=== PATIENT | female | born 1960 | race Caucasian/White ===

== ENCOUNTER 2024-12-03 09:27 | Outpatient (AMB) | payer MEDICARE, OTHER, SELFPAY ==
--- NOTE | 2024-12-03 09:33 | A.OFFPC_ITS ---
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 Accompanied by: Self / Same As Patient Allergies No Known Allergies Allergy (Verified 12/03/24 10:06) Medication List - Last Reconciled 12/07/24 by VERONICA Livingston albuterol sulfate 90 mcg/actuation (Ventolin HFA) 2 puffs inhalation Q4-6H PRN aspirin 81 mg PO DAILY clopidogrel 75 mg PO DAILY diclofenac sodium 1% (Arthritis Pain (diclofenac)) 2 grams topical QID estradiol 0.01%(0.1mg/gram) 1 g vaginal 2XW isosorbide mononitrate ER 30 mg PO DAILY lorazepam 0.5 mg PO DAILY PRN losartan 100 mg PO DAILY metoprolol succinate ER 25 mg PO BID nitroglycerin 0.4 mg sublingual Q5M PRN ondansetron HCl 4 mg PO Q8H PRN rosuvastatin 20 mg PO BID Tobacco use date assessed: 12/03/24 Dental Screening Dental Screen Date: 12/03/24 Did you have a dental visit in the last 12 months?: Yes Did you have a dental problem in the last 6 months where you did not have access to dental care?: No Was dental information given to patient?: Patient has dentist HPI establish care/ cardio HPI Details The patient is a 64-year-old female who is presenting to establish care The patient recently moved from [place] 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 Previous PCP: Louise Montes [employer] Last visit: 11/11/24 Last PE: same Specialist: Cardiology-afib in June (was sick with the flu in the hospital when this occurred), but the afib has not returned since it was converted ( urology -hx of recurrent uti, , dermatology (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), orthopedic (ostheoarthritis of bilateral knee and hip, PRP injections x 3, the patient has a hard time walking and requires ongoing PT) OBGYN: Past medical history: CAD, TREMAYNE, PTSD was seeing a therapist before and psychiatrist, bi knee osteoarthritis, PRP injections done x3, Family HX: Mother multiple myeloma-wants her to be screen because it is hereditary, needs a referral to hematology Problem: The patient will need multiple referrals, Cardiology, Urology, Dermatology, Orthopedics/PT, hematology/oncology (patient wants to to be screened for multiple myeloma) CAD-the patient was having increasing anginal chest pain, shortness of breath, dyspnea on exertion, lightheadedness The patient had a positive Lexiscan stress test with Dr. Gusman The patient was referred for left heart catheterization and a stent was placed on 10/24/2024 Left heart catheterization showed left circumflex mid-vessel stenosis 50%, 1st obtuse marginal proximal vessel stenosis, diffuse 99% stenosis, this lesion was considered the culprit for the patient's anginal symptoms and clinical presentation. Right coronary mid vessel stenosis 70%. The patient was discharged with anticipated cardiac rehab and has anticipated follow up with Dr. Gusman on 01/13/2025 Patient notes that she has had complete resolution of her symptoms She is currently on Plavix 75 mg daily, metoprolol succinate 25 mg twice daily, isosorbide mononitrate ER 30 mg daily, aspirin 81 mg daily and atorvastatin 20 mg b.i.d. Initially the patient was started on atorvastatin 80 mg but was unable to tolerate medication due to increased muscle pain The patient reports that she has been noticing a resurgence of her muscle pain and reports that her PCP switched her to rosuvastatin 20 mg b.i.d. The patient denies chest pain, shortness of breath, heart palpitation, lightheadedness She denies any change in bowel habits, denies any urinary symptoms but endorses recurrent UTIs, had a recent episode that was treated with Macrobid-she is requesting to be referred to Urology [facility] Medical History (Updated 12/07/24 @ 15:44 by VERONICA Livingston) TREMAYNE (generalized anxiety disorder) Melanocytic nevus Hyperlipidemia History of recurrent UTI (urinary tract infection) Benign paroxysmal positional vertigo Ganglion Family history of multiple myeloma CAD (coronary artery disease) Afib Adjustment disorder Asthma Arthritis Surgical History Hx of vaginal hysterectomy S/P appendectomy S/P cholecystectomy H/O cystocele repair Previous section History of orthopedic surgery H/O cystoscopy History of percutaneous coronary intervention Family History (Updated 12/07/24 @ 15:29 by VERONICA Livingston) Father Coronary artery disease Hypertension Mother Vertigo Multiple myeloma Arthritis Son Schizophrenia Anxiety Daughter Anxiety Adrenal failure Atrial fibrillation Lyme disease Son Retinopathy Daughter Obesity Daughter Lyme disease Daughter No problems noted. Sister Uterine cancer Social History Household Members: Children Household Members Other:: Son: Manny Housing: House Alcohol intake: current Alcohol intake frequency: holidays/special occasions only Patient Tobacco Use Status: Former Tobacco user Tobacco use type: Cigarette e-Cigarette/Vaping Use: Never Used Second Hand Smoke Exposure: No service: No Current occupational status: disabled Cognitive needs: No Hearing needs: No Vision needs: Yes Questionnaire PHQ-9 Over the last 2 weeks, how often have you been bothered by any of the following problems? 1. Little interest or pleasure in doing things: not at all 2. Feeling down, depressed, or hopeless: not at all 3. Trouble falling or staying asleep, or sleeping too much: several days 4. Feeling tired or having little energy: several days 5. Poor appetite or overeating: not at all 6. Feeling bad about yourself - or that you are a failure or have let yourself or your family down: not at all 7. Trouble concentrating on things, such as reading the newspaper or watching television: not at all 8. Moving or speaking so slowly that other people could have noticed. Or the opposite - being so fidgety or restless that you have been moving around a lot more than usual: not at all 9. Thoughts that you would be better off or of hurting yourself in some way: not at all Total score: 2 Depression Screening Interpretation: Negative Depression Screening Done: Yes 97023 - PHQ-9 Billing: Yes Source: Developed by Drs. Chi Valdivia, Melissa Bateman, Bull Lemus and colleagues, with an educational fabio from [employer]. Thrive Questionnaire Date Thrive assessed: 12/03/24 I am a: Patient What is your living situation today?: I have a steady place to live Within the past 12 months, did the food you bought not last and you didn't have the money to get more?: Never true Within the past 12 months, did you worry whether your food would run out before you got money to buy more?: Never true Do you have trouble paying for medicines?: No Do you have trouble getting transportation to medical appointments?: No Do you have trouble paying your heating and electricity bill?: No Do you have trouble taking care of your child, family member or friend?: No Do you have trouble with day-to-day activities such as bathing, preparing meals, shopping, managing finances, etc.?: No Are you currently unemployed and looking for a job?: Yes Are you interested in more education?: No Please select the resources that you would like help with: Care for elder or disabled Currently or been in a relationship where the following occur: No concerns reported THRIVE Score: 0 AUDIT C Alcohol Use Questionnaire (AUDIT-C) 1. How often do you have a drink containing alcohol?: Monthly or less 2. How many drinks containing alcohol do you have on a typical day when you are drinking?: 1 or 2 3. How often do you have six or more drinks on one occasion?: Never Total Score: 1 TREMAYNE-7 AMB Questionnaire TREMAYNE-7 Date TREMAYNE - 7 assessed: 12/03/24 Feeling nervous, anxious, or on edge: 1 = Several days Not being able to stop or control worryin = Several days Worrying too much about different things: 1 = Several days Trouble relaxin = Several days Being so restless that it is hard to sit still: 0 = Not at all Becoming easily annoyed or irritable: 1 = Several days Feeling afraid as if something awful might happen: 1 = Several days Total TREMAYNE-7 score (0-4 normal; 5-9 mild; 10-14 moderate; 15-21 severe): 6 Source: Developed by Drs. Chi Valdivia, Melissa Bateman, Bull Lemus and colleagues, with an educational fabio from [employer]. TREMAYNE-7 Assessment Billing TREMAYNE-7 Assessment Tool: TREMAYNE-7 Assessment 82263 Review of Systems Const Reports headache(s) (hx of migraines) Eyes Denies loss of vision ENT Reports vertigo (intermittently), Denies dizziness, Reports headache(s) (hx of migraines) and Denies sore throat Card Reports chest pain with activity (hx of anginal pain has resolved since stenting), Reports irregular heart rhythm (hx of Afib-no more episodes since converted in hospital), Denies leg edema and Denies lightheadedness Resp Denies cough, Denies hemoptysis and Denies wheezing GI Denies abdominal pain, Denies melena, Denies constipation, Reports heartburn (hx of pantoprazole 40 mg), Denies diarrhea and Denies vomiting Denies urinary frequency, Denies dysuria, Denies urinary urgency, Reports vaginal dryness and Reports other (recurrent UTI) Musc Reports arthralgias (Bilateral hip and knee pain), Denies joint swelling, Reports muscle cramps (bilateral upper thigh-statin treatment), Denies numbness and Denies tingling Skin/Breast Reports other (melanocytic nevus-hx of squamous ca-tx moh's procedure) Neuro Denies Abnormal speech present, Denies behavioral changes, Reports vertigo (intermittently), Denies dizziness, Reports headache(s) (hx of migraines), Denies loss of vision, Reports memory loss (hx of amnesia), Denies numbness and Denies tingling Psych Reports anxiety, Denies behavioral changes, Reports depression, Reports memory loss (hx of amnesia) and Reports panic attacks (hx-controlled) Moi/Lymph Denies easy bleeding and Denies easy bruising Aller/Immun Denies wheezing Physical exam (Primary Care) Vital Signs: Last Vital Signs Temp 99 F 12/03/24 09:34 Pulse 68 12/03/24 09:34 BP 118/64 12/03/24 09:34 Pulse Ox 96 12/03/24 09:34 Oxygen Delivery Method Room Air 12/03/24 09:34 BMI result Body Mass Index 31.3 Tobacco/Smoking Status: Tobacco use Status Tobacco use date assessed 12/03/24 12/03/24 09:59 Patient Tobacco Use Status Former Tobacco user 12/03/24 09:59 Tobacco use type Cigarette 12/03/24 09:59 e-Cigarette/Vaping Use Never Used 12/03/24 09:59 PHQ-9: PHQ-9 Score PHQ-9: Total score 2 12/07/24 10:43 Depression Screening Interpretation: Negative Thrive Assessment: Date of Thrive Assessment Date Thrive assessed 12/03/24 12/03/24 09:59 Currently or been in a relationship where the following occur: No concerns reported Const General: healthy appearing, no acute distress, alert and awake Nutritional Appearance: well nourished Orientation/consciousness: oriented to person, oriented to place and oriented to time HENMT Ears: TM's normal bilaterally General nose exam: Normal nasal mucous membranes and turbinates present Eyes Conjunctivae: conjunctivae normal Sclerae: sclerae normal Pupils: Equal, round and reactive pupils present Neck Neck: Yes no lymphadenopathy and Yes no JVD Thyroid: Thyroid normal Carotids: no bruits Resp Effort & Inspection: normal respiratory effort and not tachypneic Auscultation: no crackles, no rales, no rhonchi and no wheezes Cardio Rate: regular rate Rhythm: regular rhythm Heart sounds: no murmurs and normal S1 and S2 GI Palpation (GI): Soft to palpation, nontender, no hepatomegaly and no splenomegaly Auscultation: normal bowel sounds General: Yes no CVA tenderness Back/Spine/Pelvis Back: no CVA tenderness Skin General skin exam: no rashes or lesions noted and dry skin Neuro General: oriented to person, oriented to place and oriented to time Cranial nerves: Yes Equal, round and reactive pupils present Speech: No Abnormal speech present Gait exam (Neuro): Normal gait present Motor exam (neuro): no tremor noted Extrem General: Yes full ROM and Yes capillary refill normal Right upper extremity: full ROM Left upper extremity: full ROM Right lower extremity: full ROM, hip/thigh Details: tenderness and knee Details: tenderness; no edema Left lower extremity: full ROM, hip/thigh Details: tenderness and knee Details: tenderness; no edema Psych Mental Status: mental status grossly normal Speech and movement: Normal speech and movement present Affect: normal affect Attitude: cooperative Thought process: Normal thought process present Coding Level of Care Code New Pt Level 4 (06389) Diagnoses Arthritis M19.90 Asthma, unspecified asthma severity, unspecified whether complicated, unspecified whether persistent J45.909 Asthma complication type: unspecified Asthma persistence: unspecified Asthma severity: unspecified severity Adjustment disorder, unspecified type F43.20 Adjustment disorder type: unspecified type Coronary artery disease due to lipid rich plaque I25.10; I25.83 Coronary Disease-Associated Artery/Lesion type: due to lipid rich plaque Benign paroxysmal positional vertigo due to bilateral vestibular disorder H81.13 Laterality: bilateral History of recurrent UTI (urinary tract infection) Z87.440 Hyperlipidemia, unspecified hyperlipidemia type E78.5 Hyperlipidemia type: unspecified Melanocytic nevus, unspecified location D22.9 Melanocytic nevus location: unspecified location Panic disorder F41.0 TREMAYNE (generalized anxiety disorder) F41.1 Family history of multiple myeloma Z80.7 Atrial fibrillation, unspecified type I48.91 Atrial fibrillation type: unspecified Primary hypertension I10 Hypertension type: primary hypertension Atrophic vulvovaginitis N95.2 Unstable angina I20.0 Additional Codes PHQ-9 - 72393 - PHQ-9 Billing: Yes ([id number]) TREMAYNE-7 Assessment Billing - TREMAYNE-7 Assessment Tool: TREMAYNE-7 Assessment 15369 ([id number]) Time Spent (min) 46 Assessment & Plan Assessment & Plan (1) Arthritis: Comment: Bilateral hips and knees- reports ongoing PT-she is requesting to be referred to orthopedic/PT Code(s): M19.90 - Unspecified osteoarthritis, unspecified site Category: Medical Plan: Continue diclofenac sodium 1% topical We will refer the patient to Orthopedics/ PT (2) Asthma: Code(s): J45.909 - Unspecified asthma, uncomplicated Category: Medical Qualifiers: Asthma complication type: unspecified Asthma persistence: unspecified Asthma severity: unspecified severity Qualified Code(s): J45.909 - Unspecified asthma, uncomplicated Plan: Avoid triggers Continue Ventolin 2 puffs 4-6 hours p.r.n. (3) Adjustment disorder: Code(s): F43.20 - Adjustment disorder, unspecified Category: Medical Qualifiers: Adjustment disorder type: unspecified type Qualified Code(s): F43.20 - Adjustment disorder, unspecified Plan: Continue lorazepam 0.5 mg daily p.r.n. Denies SI/HI (4) CAD (coronary artery disease): Comment: The patient was having increased anginal chest pain, sob, dyspnea on exertion, lightheadedness She had a positive lexiscan stress test with Dr. Calderon She was referred for a left heart cath and stent was placed 10/24/2024 Patient notes that she has had complete resolution of her symptoms She is currently on Plavix 75 mg daily, metoprolol succinate 25 mg twice daily isosorbide mononitrate, extended release 30 mg daily, aspirin 81 mg daily, Atorvastatin 20 mg BID She does not seem to be tolerating the atorvastatin This was reduced from 80 mg to 20 mg twice daily, she is having significant lower extremity discomfort We will have her trial rosuvastatin 10 mg in replacement of the atorvastatin 40 mg Code(s): I25.10 - Atherosclerotic heart disease of yocha dehe coronary artery without angina pectoris Category: Medical Qualifiers: Coronary Disease-Associated Artery/Lesion type: due to lipid rich plaque Qualified Code(s): I25.10 - Atherosclerotic heart disease of yocha dehe coronary artery without angina pectoris; I25.83 - Coronary atherosclerosis due to lipid rich plaque Plan: The patient was having increased anginal chest pain, sob, dyspnea on exertion, lightheadedness She had a positive lexiscan stress test with Dr. Calderon She was referred for a left heart cath and stent was placed 10/24/2024 Patient notes that she has had complete resolution of her symptoms She is currently on Plavix 75 mg daily, metoprolol succinate 25 mg twice daily isosorbide mononitrate, extended release 30 mg daily, aspirin 81 mg daily, Atorvastatin 20 mg BID She does not seem to be tolerating the atorvastatin This was reduced from 80 mg to 20 mg twice daily, she is having significant lower extremity discomfort The patient was trial on rosuvastatin 10 mg in replacement of the atorvastatin 40 mg Rosuvastatin was increased to 20 mg BID, the reports that she is having mild muscle cramps in bilateral thighs but wants to see if she will get used to the medication Will refer the patient to [facility] cardiology (5) Benign paroxysmal positional vertigo: Code(s): H81.10 - Benign paroxysmal vertigo, unspecified ear Category: Medical Qualifiers: Laterality: bilateral Qualified Code(s): H81.13 - Benign paroxysmal vertigo, bilateral Plan: Patient reports intermittent dizziness Reports using meclizine in the past, will consider referring the patient to PT for vestibular therapy (6) History of recurrent UTI (urinary tract infection): Code(s): Z87.440 - Personal history of urinary (tract) infections Category: Medical Plan: Will refer the patient urology (7) Hyperlipidemia: Code(s): E78.5 - Hyperlipidemia, unspecified Category: Medical Qualifiers: Hyperlipidemia type: unspecified Qualified Code(s): E78.5 - Hyperlipidemia, unspecified Plan: Reinforced low-cholesterol diet/activity as tolerated Continue rosuvastatin 20 mg b.i.d. (8) Melanocytic nevus: Code(s): D22.9 - Melanocytic nevi, unspecified Category: Medical Qualifiers: Melanocytic nevus location: unspecified location Qualified Code(s): D22.9 - Melanocytic nevi, unspecified Plan: History of squamous Ca status post Moh's procedure Will refer the patient to Dermatology (9) Panic disorder: Code(s): F41.0 - Panic disorder [episodic paroxysmal anxiety] Category: Medical Plan: The patient reports that she use to see a therapist and psychiatrist in the past She is currently not seeing anyone-Will refer the patient for added support. She was emotional at visit Continue lorazepam 0.5 mg daily p.r.n. (10) TREMAYNE (generalized anxiety disorder): Code(s): F41.1 - Generalized anxiety disorder Category: Medical Plan: Same as above (11) Family history of multiple myeloma: Code(s): Z80.7 - Family history of other malignant neoplasms of lymphoid, hematopoietic and related tissues Category: Medical Plan: We will refer to Hematology (12) Afib: Code(s): I48.91 - Unspecified atrial fibrillation Category: Medical Qualifiers: Atrial fibrillation type: unspecified Qualified Code(s): I48.91 - Unspecified atrial fibrillation Plan: Reports episode of AFib while sick in the hospital with flu. Patient reports that she was cardioverted and this irregular rhythm has not reappear since. The patient was on apixaban and this was discontinued (13) Hypertension: Code(s): I10 - Essential (primary) hypertension Category: Medical Qualifiers: Hypertension type: primary hypertension Qualified Code(s): I10 - Essential (primary) hypertension Plan: Reinforced low-sodium diet The patient blood pressure in office was 118/64 The currently on isosorbide mononitrate ER 30 mg daily, losartan 100 mg daily, metoprolol succinate ER 25 mg b.i.d. We will continue to monitor (14) Atrophic vulvovaginitis: Code(s): N95.2 - Postmenopausal atrophic vaginitis Category: Medical Plan: Continue estradiol 0 lb 0 1% 1 g vaginal 2xw (15) Unstable angina: Code(s): I20.0 - Unstable angina Category: Medical Plan: stable: symptoms have completed resolved since cardiac stenting. Nitroglycerin 0.4 mg sublingual Q 5 minutes p.r.n. Orders: Orders Hemoglobin A1c 12/05/24 R73.03 - Prediabetes UA CC w/rflx Micro + Cult 3 Months E78.00 - Pure hypercholesterolemia, unspecified, E78.5 - Hyperlipidemia, unspecified, I10 - Essential (primary) hypertension, I25.10 - Atherosclerotic heart disease of yocha dehe coronary artery without angina pectoris, I25.83 - Coronary atherosclerosis due to lipid rich sam que, M19.90 - Unspecified osteoarthritis, unspecified site, R73.03 - Prediabetes, Z87.440 - Personal history of urinary (tract) infections Glucose Fasting 3 Months E78.00 - Pure hypercholesterolemia, unspecified, E78.5 - Hyperlipidemia, unspecified, I10 - Essential (primary) hypertension, I25.10 - Atherosclerotic heart disease of yocha dehe coronary artery without angina pectoris, I25.83 - Coronary atherosclerosis due to lipid rich plaque, M19.90 - Unspecified osteoarthritis, unspecified site, R73.03 - Prediabetes, Z87.440 - Personal history of urinary (tract) infections PT Evaluation and Treatment Today M19.90 - Unspecified osteoarthritis, unspecified site Lipid Panel 12/05/24 E78.00 - Pure hypercholesterolemia, unspecified Glucose Fasting 12/05/24 R73.03 - Prediabetes Complete Blood Count Auto Diff 3 Months E78.00 - Pure hypercholesterolemia, unspecified, E78.5 - Hyperlipidemia, unspecified, I10 - Essential (primary) hypertension, I25.10 - Atherosclerotic heart disease of y[place] dehe coronary artery without angina pectoris, I25.83 - Coronary atherosclerosis due to lipid rich plaque, M19.90 - Unspecified osteoarthritis, unspecified site, R73.03 - Prediabetes, Z87.440 - Personal history of urinary (tract) infections Comprehensive Steward. Panel Fast 3 Months E78.00 - Pure hypercholesterolemia, unspecified, E78.5 - Hyperlipidemia, unspecified, I10 - Essential (primary) hypertension, I25.10 - Atherosclerotic heart disease of y[place] dehe coronary artery without angina pectoris, I25.83 - Coronary atherosclerosis due to lipid rich plaque, M19.90 - Unspecified osteoarthritis, unspecified site, R73.03 - Prediabetes, Z87.440 - Personal history of urinary (tract) infections Lipid Panel 3 Months E78.00 - Pure hypercholesterolemia, unspecified, E78.5 - Hyperlipidemia, unspecified, I10 - Essential (primary) hypertension, I25.10 - Atherosclerotic heart disease of y[place] dehe coronary artery without angina pectoris, I25.83 - Coronary atherosclerosis due to lipid rich plaque, M19.90 - Unspecified osteoarthritis, unspecified site, R73.03 - Prediabetes, Z87.440 - Personal history of urinary (tract) infections TSH reflex Free T4 3 Months E78.00 - Pure hypercholesterolemia, unspecified, E78.5 - Hyperlipidemia, unspecified, I10 - Essential (primary) hypertension, I25.10 - Atherosclerotic heart disease of y[place] dehe coronary artery without angina pectoris, I25.83 - Coronary atherosclerosis due to lipid rich plaque, M19.90 - Unspecified osteoarthritis, unspecified site, R73.03 - Prediabetes, Z87.440 - Personal history of urinary (tract) infections Vitamin D 25-OH Total 3 Months E78.00 - Pure hypercholesterolemia, unspecified, E78.5 - Hyperlipidemia, unspecified, I10 - Essential (primary) hypertension, I25.10 - Atherosclerotic heart disease of y[place] dehe coronary artery without angina pectoris, I25.83 - Coronary atherosclerosis due to lipid rich plaque, M19.90 - Unspecified osteoarthritis, unspecified site, R73.03 - Prediabetes, Z87.440 - Personal history of urinary (tract) infections Referrals Cardiology Referral I20.0 - Unstable angina, I25.10 - Atherosclerotic heart disease of y[place] dehe coronary artery without angina pectoris, I25.83 - Coronary atherosclerosis due to lipid rich plaque, I48.91 - Unspecified atrial fibrillation Dermatology Referral D22.9 - Melanocytic nevi, unspecified Orthopedics Referral M19.90 - Unspecified osteoarthritis, unspecified site Hematology & Oncology Referral Z80.7 - Family history of other malignant neoplasms of lymphoid, hematopoietic and related tissues
[2024-12-03 09:34] VITALS: BP 118/64; PULSE 68; TEMP 37.2; O2SAT 96; BMI 31.3
--- OUTSIDE RECORDS SUMMARY | 2024-12-03 10:38 | XMS_ITS | Clinical Summary ---
Author Organization [facility] Address [address] [place] [address] Care Team Providers Care Home Care Manager Rn Name Role Phone Unavailable Primary Care Provider Unavailabl e Social History Tobacco Use Types Packs/Day Years Used Date Smoking Tobacco: Never Assessed Comments Unknown Sex and Gender Information Value Date Recorded Sex Assigned at Not on file Legal Sex Female 10:30 AM EST Gender Identity Not on file Sexual Orientation Not on file Plan of Treatment Not on file
--- OUTSIDE RECORDS SUMMARY | 2024-12-03 10:38 | XMS_ITS | Clinical Summary ---
Author Organization [facility] Address [address] [place] [address] Phone Care Team Providers Care Printer'S Devil Name Role Phone Physician, Pcp Unknown Primary Care Provider Maryana vailable Allergies No known active allergies Encounters Date Type Department Care Team Description 11/17/2024 3:34 AM EST - 11/17/2024 4:[address] [facility] Emergency [address] [place] [address] Discharge Disposition: Left Against Medical Advice from Last 3 Months Social History Tobacco Use Types Packs/Day Years Used Date Smoking Tobacco: Never Assessed Comments Unknown Sex and Gender Information Value Date Recorded Sex Assigned at Not on file Legal Sex Female 3:34 AM EST Gender Identity Not on file Sexual Orientation Not on file Last Filed Vital Signs Vital Sign Reading Time Taken Comments Blood Pressure 148/78 11/17/2024 3:40 AM EST Pulse 68 11/17/2024 3:40 AM EST Temperature 36.7 ??C (98.1 ??F) 11/17/2024 3:40 AM ES T Respiratory Rate 14 11/17/2024 3:40 AM EST Oxygen Saturation 99% 11/17/2024 3:40 AM EST Inhaled Oxygen Concentration - - Weight 77.1 kg (170 lb) 11/17/2024 3:40 AM EST Height 160 cm (5' 3 ) 11/17/2024 3:40 AM EST Body Mass Index 30.11 11/17/2024 3:40 AM EST Plan of Treatment Health Maintenance Due Date Last Done Comments Breast Cancer Screening 1962 DTaP,Tdap,and Td Vaccines (1 - Tdap) 1981 Cervical Cancer Screening: P ap Smear 1983 Pneumococcal Vaccine: 50+ Ye ars (1 of 1 - PCV) 01/29/2012 Zoster Vaccines (1 of 2) 01/29/2012 RSV Immunization Patients 60 + Years Old (1 - Risk 60-74 years 1-dose series) 2022 COVID-19 Vaccine (1 - 2023-2 5 season) 2024 Influenza Vaccine (#1) 2024 Colorectal Cancer Screening: Colonoscopy 11/17/2024 Depression Screening 11/17/2024 HIV Screening 11/17/2024 Hepatitis C Screening 11/17/2024 Medicare Annual Wellness Visit 11/17/2024 Social Influencers of Health Screening 11/17/2024 HIB Vaccines Aged Out No longer eligi ble based on patient's age to complete this topic HPV Vaccines Aged Out No longer eligi ble based on patient's age to complete this topic Hepatitis A Vaccines Aged Out No long er eligible based on patient's age to complete this topic Hepatitis B Vaccines Aged Out No long er eligible based on patient's age to complete this topic IPV Vaccines Aged Out No longer eligi ble based on patient's age to complete this topic MMR Vaccines Aged Out No longer eligi ble based on patient's age to complete this topic Meningococcal ACWY Vaccine Aged Out N o longer eligible based on patient's age to complete this topic Meningococcal B Vacine Aged Out No lo nger eligible based on patient's age to complete this topic Pneumococcal Vaccine: Pediat rics (0 to 5 Years) and At-Risk Patients (6 to 64 Years) Aged Out No longer eligible b ased on patient's age to complete this topic RSV Immunization Patients Un anayeli 20 months Aged Out No longer eligible b ased on patient's age to complete this topic Varicella Vaccines Aged Out No longer eligible based on patient's age to complete this topic Procedures Procedure Name Priority Date/Time Associated Diagnosis Comments MERRILL URINE CULTURE TUBE STAT 11/17/2024 4:13 AM EST URINALYSIS WITH REFLEX MICROSCOPIC AND CULTURE STAT 11/17/2024 4:13 AM EST URINALYSIS WITH REFLEX MICROSCOPIC AND CULTURE STAT 11/17/2024 4:13 AM EST CULTURE URINE STAT 11/17/2024 4:13 AM EST from Last 3 Months Results * (ABNORMAL) Urinalysis with reflex microscopic and culture (11/17/2024 4:13 AM EST) Specific [place] Urine 1.018 1.003 - 1.030 LAB URINALYSIS - AUTOMATED METHOD 11/17/2024 5:09 AM [facility] pH, Urine 6.0 5.0 - 8.0 pH LAB URINALYSIS - AUTOMATED METHOD 11/17/2024 5:09 AM [facility] Leukocytes, Urine Large(A) Negative LAB URINALYSIS - AUTOMATED METHOD 11/17/2024 5:09 AM [facility] Nitrite, Urine Negative Negative LAB URINALYSIS - AUTOMATED METHOD 11/17/2024 5:09 AM [facility] Protein, Urine Negative <=Trace mg/dL LAB URINALYSIS - AUTOMATED METHOD 11/17/2024 5:09 AM [facility] Glucose, Urine Negative Negative mg/dL LAB URINALYSIS - AUTOMATED METHOD 11/17/2024 5:09 AM [facility] Ketones, Urine Negative Negative mg/dL LAB URINALYSIS - AUTOMATED METHOD 11/17/2024 5:09 AM [facility] Urobilinogen , Urine 0.2 0.2 - 1.0 mg/dL LAB URINALYSIS - AUTOMATED METHOD 11/17/2024 5:09 AM [facility] Bilirubin, Urine Negative Negative LAB URINALYSIS - AUTOMATED METHOD 11/17/2024 5:09 AM [facility] Blood, Urine Moderate(A) Negative LAB URINALYSIS - AUTOMATED METHOD 11/17/2024 5:09 AM [facility] RBC, Urine 18.3(H) 0 - 4 /HPF LAB URINALYSIS - AUTOMATED METHOD 11/17/2024 5:09 AM [facility] WBC, Urine 378.5(H) 0 - 4 /HPF LAB URINALYSIS - AUTOMATED METHOD 11/17/2024 5:09 AM [facility] Squamous Epithelial, Urine 9 0 - 60 /LPF LAB URINALYSIS - AUTOMATED METHOD 11/17/2024 5:09 AM [facility] Bacteria, Urine Many(A) Negative /HPF LAB URINALYSIS - AUTOMATED METHOD 11/17/2024 5:09 AM [facility] Hyaline Casts, Urine 0.4 0 - 3 /LPF LAB URINALYSIS - AUTOMATED METHOD 11/17/2024 5:09 AM [facility] Urine Urine specimen obtained by clean catch procedure / Unknown Non-blood Collection / Unknown 11/17/2024 4:13 AM EST 11/17/2024 4:50 AM EST us Ravi Guidry MD LAB URINE ORDERABLES Final Resu lt Performing Organization Address [facility]/ZIP Co de Phone Number [facility] [address] [place] [address], [place] [phone] * Merrill urine culture tube (11/17/2024 4:13 AM EST) Extra Tube Hold for add-ons. 11/17/2024 6:01 AM [facility] Comment:Auto resulted. Urine Urine specimen obtained by clean catch procedure / Unknown Non-blood Collection / Unknown 11/17/2024 4:13 AM EST 11/17/2024 4:50 AM EST us Ravi Guidry MD LAB URINE ORDERABLES Final Resu lt Performing Organization Address [facility]/ZIP Co de Phone Number [facility] [address] [place] [address], [place] [phone] * (ABNORMAL) Culture urine (11/17/2024 4:13 AM EST) Culture, Urine >100,000 CFU/mL Escherichia coli(A) DEVYN 11/19/2024 10:27 AM EST [facility] Urine Urine specimen obtained by clean catch procedure / Unknown Non-blood Collection / Unknown 11/17/2024 4:13 AM EST 11/17/2024 5:09 AM EST Narrative Organism Antibiotic Method Susceptibility Escherichia coli Amoxicillin/Clavulanate DEVYN <=2 ug/ml: Susceptible Escherichia coli Ampicillin/Sulbactam DEVYN <=2 ug/ml: Susceptible Escherichia coli Piperacillin/Tazobactam DEVYN <=4 ug/ml: Susceptible Escherichia coli Cefazolin (Urine) DEVYN 2 ug/ml: Susceptible Escherichia coli Cefoxitin DEVYN <=4 ug/ml: Susceptible Escherichia coli Ceftazidime DEVYN <=0.5 ug/ml: Susceptible Escherichia coli Ceftriaxone DEVYN <=0.25 ug/ml: Susceptible Escherichia coli Cefepime DVEYN <=0.12 ug/ml: Susceptible Escherichia coli Meropenem DEVYN <=0.25 ug/ml: Susceptible Escherichia coli Amikacin DEVYN 2 ug/ml: Susceptible Escherichia coli Gentamicin DEVYN <=1 ug/ml: Susceptible Escherichia coli Ciprofloxacin DEVYN <=0.06 ug/ml: Susceptible Escherichia coli Levofloxacin DEVYN <=0.12 ug/ml: Susceptible Escherichia coli Nitrofurantoin DEVYN <=16 ug/ml: Susceptible Escherichia coli Trimethoprim/Sulfamethoxazole DEVYN <=20 ug/ml: Susceptible [facility] Val Guidry MD LAB MICROBIOLOGY - GENERAL ORDE PIPER Final Result [facility] [address] [place] [address], [place] [phone] from Last 3 Months Insurance MEDICARE Care Teams Printer'S Devil Relationship Specialty Start Date End Date Physician, Pcp Unknown PCP - General 11/17/24
--- OUTSIDE RECORDS SUMMARY | 2024-12-03 10:38 | XMS_ITS | Encounter Summary ---
Author Organization [facility] Address [address] [place] [address] Care Team Providers Care Position Clerk Name Role Phone Physician, Pcp Unknown Primary Care Provider Maryana vailable Reason for Visit * Reason Comments Urinary Frequency States having sympto ms of uti has hx of same just moved here from [place] no pcp Encounter Details Date Type Department Care Team (Late st Contact Info) Description 11/17/2024 3:34 AM EST - 11/17/2024 4:00 AM EST Emergency [facility] Emergency [address] [place] [address] Discharge Disposition: Left Against Medical Advice Social History Tobacco Use Types Packs/Day Years Used Date Smoking Tobacco: Never Assessed Comments Unknown Sex and Gender Information Value Date Recorded Sex Assigned at Not on file Legal Sex Female 3:34 AM EST Gender Identity Not on file Sexual Orientation Not on file documented as of this encounter Last Filed Vital Signs Vital Sign Reading [...] Mass Index 30.11 11/17/2024 3:40 AM EST documented in this encounter Discharge Disposition Disposition Code Departure Means Destination Left Against Medical Advice documented in this encounter Progress Notes * Vania Slater RN - 11/17/2024 4:00 AM EST Pt seen by PCP was placed on macrobid which will cover her bacteria . documented in this encounter Plan of Treatment Not on file documented as of this encounter Procedures Procedure Name Priority Date/Time Associated Diagnosis Comments URINALYSIS WITH REFLEX MICROSCOPIC AND CULTURE STAT 11/17/2024 4:13 AM EST MERRILL URINE CULTURE TUBE STAT 11/17/2024 4:13 AM EST URINALYSIS WITH REFLEX MICROSCOPIC AND CULTURE STAT 11/17/2024 4:13 AM EST CULTURE URINE STAT 11/17/2024 4:13 AM EST documented in this encounter Results * (ABNORMAL) Culture urine (11/17/2024 4:13 AM EST) Culture, Urine >100,000 CFU/mL Escherichia coli(A) DEVYN 11/19/2024 10:27 AM EST [facility] Urine Urine specimen obtained by [...] DEVYN <=0.25 ug/ml: Susceptible Escherichia coli Cefepime DEVYN <=0.12 ug/ml: Susceptible Escherichia coli Meropenem DEVYN <=0.25 ug/ml: Susceptible Escherichia coli Amikacin DEVYN 2 ug/ml: Susceptible Escherichia coli Gentamicin DEVYN <=1 ug/ml: Susceptible Escherichia coli Ciprofloxacin DEVYN <=0.06 ug/ml: Susceptible Escherichia coli Levofloxacin DEVYN <=0.12 ug/ml: Susceptible Escherichia coli Nitrofurantoin DEVYN <=16 ug/ml: Susceptible Escherichia coli Trimethoprim/Sulfamethoxazole DEVYN <=20 ug/ml: Susceptible us Ravi Guidry MD LAB MICROBIOLOGY - GENERAL ORDE RABLES Final Result Performing Organization Address [facility]/ZIP Co de Phone Number [facility] [address] [place] [address], [place] [phone] * Merrill urine culture tube (11/17/2024 4:13 AM EST) [facility] Extra Tube Hold for add-ons. 11/17/2024 6:01 AM [facility] Comment:Auto resulted. Urine Urine specimen obtained by clean catch procedure / Unknown Non-blood Collection / Unknown 11/17/2024 4:13 AM EST 11/17/2024 4:50 AM EST us Ravi Guidry MD LAB URINE ORDERABLES Final Resu lt Performing Organization Address [facility]/ZIP Co de Phone Number [facility] [address] [place] [address], [place] [phone] * (ABNORMAL) Urinalysis with reflex microscopic and culture (11/17/2024 4:13 AM EST) [facility] Specific [place] Urine 1.018 1.003 - 1.030 LAB URINALYSIS - AUTOMATED METHOD 11/17/2024 5:09 AM [facility] pH, Urine 6.0 5.0 - 8.0 pH LAB URINALYSIS - AUTOMATED METHOD 11/17/2024 5:09 AM [facility] Leukocytes, Urine Large(A) Negative LAB URINALYSIS - AUTOMATED METHOD 11/17/2024 5:09 AM [facility] Nitrite, Urine Negative Negative LAB URINALYSIS - AUTOMATED METHOD 11/17/2024 5:09 AM [facility] Protein, Urine Negative <=Trace mg/dL LAB URINALYSIS - AUTOMATED METHOD 11/17/2024 5:09 AM [facility] Glucose, Urine Negative Negative mg/dL LAB URINALYSIS - AUTOMATED METHOD 11/17/2024 5:09 AM [facility] Ketones, Urine Negative Negative mg/dL LAB URINALYSIS - AUTOMATED METHOD 11/17/2024 5:09 AM [facility] Urobilinogen , Urine 0.2 0.2 - 1.0 mg/dL LAB URINALYSIS - AUTOMATED METHOD 11/17/2024 5:09 AM [facility] Bilirubin, Urine Negative Negative LAB URINALYSIS - AUTOMATED METHOD 11/17/2024 5:09 AM [facility] Blood, Urine Moderate(A) Negative LAB URINALYSIS - AUTOMATED METHOD 11/17/2024 5:09 AM [facility] RBC, Urine 18.3(H) 0 - 4 /HPF LAB URINALYSIS - AUTOMATED METHOD 11/17/2024 5:09 AM [facility] WBC, Urine 378.5(H) 0 - 4 /HPF LAB URINALYSIS - AUTOMATED METHOD 11/17/2024 5:09 AM [facility] Squamous Epithelial, Urine 9 0 - 60 /LPF LAB URINALYSIS - AUTOMATED METHOD 11/17/2024 5:09 AM [facility] Bacteria, Urine Many(A) Negative /HPF LAB URINALYSIS - AUTOMATED METHOD 11/17/2024 5:09 AM [facility] Hyaline Casts, Urine 0.4 0 - 3 /LPF LAB URINALYSIS - AUTOMATED METHOD 11/17/2024 5:09 AM [facility] Urine Urine specimen obtained by clean catch procedure / Unknown Non-blood Collection / Unknown 11/17/2024 4:13 AM EST 11/17/2024 4:50 AM EST us Ravi Guidry MD LAB URINE ORDERABLES Final Resu lt [facility] ([facility]) [facility] [address] [place] [address], documented in this encounter Visit Diagnoses Not on filedocumented in this encounter Care Teams Position Clerk Relationship Specialty Start Date End Date Physician, Pcp Unknown PCP - General 11/17/24 documented as of this encounter
== END 2024-12-03 10:54 | disposition home or self-care (01) ==
DX: I48.91 Unspecified atrial fibrillation (principal); I20.0 Unstable angina; M19.90 Unspecified osteoarthritis, unspecified site; J45.909 Unspecified asthma, uncomplicated; F43.20 Adjustment disorder, unspecified; I25.10 Atherosclerotic heart disease of native coronary artery without angina pectoris; I25.83 Coronary atherosclerosis due to lipid rich plaque; H81.13 Benign paroxysmal vertigo, bilateral; Z87.440 Personal history of urinary (tract) infections; E78.5 Hyperlipidemia, unspecified; D22.9 Melanocytic nevi, unspecified; F41.0 Panic disorder [episodic paroxysmal anxiety]

== ENCOUNTER → 2024-12-03 09:27 | Outpatient (BNVA) | payer MEDICARE, SELFPAY | DX: M19.90 Unspecified osteoarthritis, unspecified site (principal); J45.909 Unspecified asthma, uncomplicated; F43.20 Adjustment disorder, unspecified; I25.119 Atherosclerotic heart disease of native coronary artery with unspecified angina pectoris; I25.83 Coronary atherosclerosis due to lipid rich plaque; H81.13 Benign paroxysmal vertigo, bilateral; E78.5 Hyperlipidemia, unspecified; D22.9 Melanocytic nevi, unspecified; F41.0 Panic disorder [episodic paroxysmal anxiety]; F41.1 Generalized anxiety disorder; I48.91 Unspecified atrial fibrillation; I10 Essential (primary) hypertension; N95.2 Postmenopausal atrophic vaginitis; Z80.7 Family history of other malignant neoplasms of lymphoid, hematopoietic and related tissues; Z87.440 Personal history of urinary (tract) infections | CPT/HCPCS: 96127; 99202 ==

== ENCOUNTER 2024-12-05 10:08 | Outpatient (REF) | payer MEDICARE, OTHER, SELFPAY ==
[2024-12-05 11:20] LABS: Estimated Average Glucose 114 mg/dL; Hemoglobin A1c % 5.6 % (<6.0)
[2024-12-05 11:44] LABS: Cholesterol 140 mg/dL (<200); Glucose Fasting 114 mg/dL (60-99); HDL Cholesterol 53 mg/dL (>40); LDL Cholesterol Calculated 66 mg/dL (<100); Triglycerides 107 mg/dL (<150)
--- OUTSIDE RECORDS SUMMARY | 2024-12-05 12:42 | XMS_ITS | Clinical Summary ---
Author Organization [facility] Address [address] [place] [address] Care Team Providers Care Clam Picker Name Role Phone Unavailable Primary Care Provider [...]
--- OUTSIDE RECORDS SUMMARY | 2024-12-05 12:42 | XMS_ITS | Encounter Summary ---
Author Organization [facility] Address [address] [place] [address] Care Team Providers Care Marketing Analytics Specialist Name Role Phone Physician, Pcp Unknown Primary Care Provider Maryana vailable Reason for Visit * Reason Comments Urinary Frequency States having sympto ms of uti has hx of same just moved here from [place] no pcp Encounter Details Date Type Department Care Team (Late st Contact Info) Description 11/17/2024 3:34 AM EST - 11/17/2024 4:00 AM EST Emergency [facility] Emergency [address] [place] [address] Discharge Disposition: Left Against Medical [...] Escherichia coli(A) DEVYN 11/19/2024 10:27 AM EST [facility] Urine Urine specimen obtained by clean catch procedure / Unknown Non-blood Collection / Unknown 11/17/2024 4:13 AM EST 11/17/2024 5:09 AM EST Narrative Organism Antibiotic Method Susceptibility Escherichia coli Amoxicillin/Clavulanate DEVYN <=2 ug/ml: Susceptible Escherichia coli Ampicillin/Sulbactam DEVYN <=2 ug/ml: Susceptible Escherichia coli Piperacillin/Tazobactam DEVYN <=4 ug/ml: Susceptible Escherichia coli Cefazolin (Urine) DVEYN 2 ug/ml: Susceptible Escherichia coli Cefoxitin DEVYN [...] ORDE RABLES Final Result Performing Organization Address [facility]/ZIP Co de Phone Number [facility] [address] [place] [address], [place] [phone] * Merrill urine culture tube (11/17/2024 4:13 AM EST) [facility] Extra Tube Hold for add-ons. 11/17/2024 6:01 AM [facility] Comment:Auto resulted. Urine Urine specimen obtained by clean catch procedure / Unknown Non-blood Collection / Unknown 11/17/2024 4:13 AM EST 11/17/2024 4:50 AM EST us Ravi Guidry MD LAB URINE ORDERABLES Final Resu lt Performing Organization Address [facility]/ZIP Co de Phone Number [facility] [address] [place] [address], [place] [phone] * (ABNORMAL) Urinalysis with reflex microscopic and culture (11/17/2024 4:13 AM EST) [facility] Specific [place] Urine 1.018 1.003 - 1.030 LAB URINALYSIS - AUTOMATED METHOD 11/17/2024 5:09 AM [facility] pH, Urine 6.0 5.0 - 8.0 pH LAB URINALYSIS - AUTOMATED METHOD 11/17/2024 5:09 AM [facility] Leukocytes, Urine Large(A) Negative LAB URINALYSIS - AUTOMATED METHOD 11/17/2024 5:09 AM [facility] Nitrite, Urine Negative Negative LAB URINALYSIS - AUTOMATED METHOD 11/17/2024 5:09 AM [facility] Protein, Urine Negative <=Trace mg/dL LAB URINALYSIS - AUTOMATED METHOD 11/17/2024 5:09 AM [facility] Glucose, Urine Negative Negative mg/dL LAB URINALYSIS - AUTOMATED METHOD 11/17/2024 5:09 AM [facility] Ketones, Urine Negative Negative mg/dL LAB URINALYSIS - AUTOMATED METHOD 11/17/2024 5:09 AM [facility] Urobilinogen , Urine 0.2 0.2 - 1.0 mg/dL LAB URINALYSIS - AUTOMATED METHOD 11/17/2024 5:09 AM [facility] Bilirubin, Urine Negative Negative LAB URINALYSIS - AUTOMATED METHOD 11/17/2024 5:09 AM [facility] Blood, Urine Moderate(A) Negative LAB URINALYSIS - AUTOMATED METHOD 11/17/2024 5:09 AM [facility] RBC, Urine 18.3(H) 0 - 4 /HPF LAB URINALYSIS - AUTOMATED METHOD 11/17/2024 5:09 AM [facility] WBC, Urine 378.5(H) 0 - 4 /HPF LAB URINALYSIS - AUTOMATED METHOD 11/17/2024 5:09 AM [facility] Squamous Epithelial, Urine 9 0 - 60 /LPF LAB URINALYSIS - AUTOMATED METHOD 11/17/2024 5:09 AM [facility] Bacteria, Urine Many(A) Negative /HPF LAB URINALYSIS - AUTOMATED METHOD 11/17/2024 5:09 AM [facility] Hyaline Casts, Urine 0.4 0 - 3 /LPF LAB URINALYSIS - AUTOMATED METHOD 11/17/2024 5:09 AM [facility] Urine Urine specimen obtained by clean catch procedure / Unknown Non-blood Collection / Unknown 11/17/2024 4:13 AM EST 11/17/2024 4:50 AM EST us Ravi Guidry MD LAB URINE ORDERABLES Final Resu lt [facility] ([facility]) [facility] [address] [place] [address], documented in this encounter Visit Diagnoses Not on filedocumented in this encounter Care Teams Marketing Analytics Specialist Relationship Specialty Start Date End Date Physician, Pcp Unknown PCP - General 11/17/24 documented as of this encounter
--- OUTSIDE RECORDS SUMMARY | 2024-12-05 12:42 | XMS_ITS | Clinical Summary ---
Author Organization [facility] Address [address] [place] [address] Phone Care Team Providers Care Booth Cleaner Name Role Phone Physician, Pcp Unknown Primary Care Provider Maryana vailable Allergies No known active allergies Encounters Date Type Department Care Team Description 11/17/2024 3:34 AM EST - 11/17/2024 4:[address] [facility] Emergency [address] [place] [address] Discharge Disposition: Left Against Medical [...] and culture (11/17/2024 4:13 AM EST) Specific [place] Urine 1.018 1.003 - 1.030 LAB URINALYSIS - AUTOMATED METHOD 11/17/2024 5:09 AM [facility] pH, Urine 6.0 5.0 - 8.0 pH LAB URINALYSIS - AUTOMATED METHOD 11/17/2024 5:09 AM [facility] Leukocytes, Urine Large(A) Negative LAB URINALYSIS - AUTOMATED METHOD 11/17/2024 5:09 AM [facility] Nitrite, Urine Negative Negative LAB URINALYSIS - AUTOMATED METHOD 11/17/2024 5:09 AM [facility] Protein, Urine Negative <=Trace mg/dL LAB URINALYSIS - AUTOMATED METHOD 11/17/2024 5:09 AM [facility] Glucose, Urine Negative Negative mg/dL LAB URINALYSIS - AUTOMATED METHOD 11/17/2024 5:09 AM [facility] Ketones, Urine Negative Negative mg/dL LAB URINALYSIS - AUTOMATED METHOD 11/17/2024 5:09 AM [facility] Urobilinogen , Urine 0.2 0.2 - 1.0 mg/dL LAB URINALYSIS - AUTOMATED METHOD 11/17/2024 5:09 AM [facility] Bilirubin, Urine Negative Negative LAB URINALYSIS - AUTOMATED METHOD 11/17/2024 5:09 AM [facility] Blood, Urine Moderate(A) Negative LAB URINALYSIS - AUTOMATED METHOD 11/17/2024 5:09 AM [facility] RBC, Urine 18.3(H) 0 - 4 /HPF LAB URINALYSIS - AUTOMATED METHOD 11/17/2024 5:09 AM [facility] WBC, Urine 378.5(H) 0 - 4 /HPF LAB URINALYSIS - AUTOMATED METHOD 11/17/2024 5:09 AM [facility] Squamous Epithelial, Urine 9 0 - 60 /LPF LAB URINALYSIS - AUTOMATED METHOD 11/17/2024 5:09 AM [facility] Bacteria, Urine Many(A) Negative /HPF LAB URINALYSIS - AUTOMATED METHOD 11/17/2024 5:09 AM [facility] Hyaline Casts, Urine 0.4 0 - 3 /LPF LAB URINALYSIS - AUTOMATED METHOD 11/17/2024 5:09 AM [facility] Urine Urine specimen obtained by clean catch procedure / Unknown Non-blood Collection / Unknown 11/17/2024 4:13 AM EST 11/17/2024 4:50 AM EST us Ravi Guidry MD LAB URINE ORDERABLES Final Resu lt Performing Organization Address [facility]/ZIP Co de Phone Number [facility] [address] [place] [address], [place] [phone] * Merrill urine culture tube (11/17/2024 4:13 AM EST) Extra Tube Hold for add-ons. 11/17/2024 6:01 AM [facility] Comment:Auto resulted. Urine Urine specimen obtained by clean catch procedure / Unknown Non-blood Collection / Unknown 11/17/2024 4:13 AM EST 11/17/2024 4:50 AM EST us Ravi Guidry MD LAB URINE ORDERABLES Final Resu lt Performing Organization Address [facility]/ZIP Co de Phone Number [facility] [address] [place] [address], [place] [phone] * (ABNORMAL) Culture urine (11/17/2024 4:13 AM EST) Culture, Urine >100,000 CFU/mL Escherichia coli(A) DEVYN 11/19/2024 10:27 AM EST [facility] Urine Urine specimen obtained [...] Escherichia coli Trimethoprim/Sulfamethoxazole DEVYN <=20 ug/ml: Susceptible [facility] Val Guidry MD LAB MICROBIOLOGY - GENERAL ORDE PIPER Final Result [facility] [address] [place] [address], [place] [phone] from Last 3 Months Insurance MEDICARE Care Teams Booth Cleaner Relationship Specialty Start Date End Date Physician, Pcp Unknown PCP - General 11/17/24
== END 2024-12-05 10:09 | disposition home or self-care (01) ==
LOC: HO.LAB 10:08
DX: R73.03 Prediabetes (principal); E78.00 Pure hypercholesterolemia, unspecified
CPT/HCPCS: 36415; 80061; 82947; 83036

== ENCOUNTER 2025-01-03 12:57 | Outpatient (AMB) | payer MEDICARE, OTHER, SELFPAY ==
[2025-01-03 12:58] VITALS: BP 168/102; PULSE 70; O2SAT 98; BMI 31.0
--- NOTE | 2025-01-03 12:58 | MHC.OFFWIV ---
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 States she is also having some dizziness/lightheadedness. She has some radiation of this pressure from her mid chest, up to shoulders, causing some numbness/tingling in this area. History of AFib, not anticoagulated. Has had some palpitations over the last several days. Followed by line production cook in [facility], very recently moved to this area and does not have care established with a local line production cook. History of cardiac catheterization with stent placement this past September,. Patient denies any shortness of breath at this time. Patient forgot to take BP meds this morning. [facility] Medical History TREMAYNE (generalized anxiety disorder) Melanocytic nevus Hyperlipidemia History of recurrent UTI (urinary tract infection) Benign paroxysmal positional vertigo Ganglion Family history of multiple myeloma CAD (coronary artery disease) Afib Adjustment disorder Asthma Arthritis Surgical History Hx of vaginal hysterectomy S/P appendectomy S/P cholecystectomy H/O cystocele repair Previous section History of orthopedic surgery H/O cystoscopy History of percutaneous coronary intervention Family History Father Coronary artery disease Hypertension Mother Vertigo Multiple myeloma Arthritis Son Schizophrenia Anxiety Daughter Anxiety Adrenal failure Atrial fibrillation Lyme disease Son Retinopathy Daughter Obesity Daughter Lyme disease Daughter No problems noted. Sister Uterine cancer Social History Household Members: Children Household Members Other:: Son: Manny Housing: House Alcohol intake: current Alcohol intake frequency: holidays/special occasions only Patient Tobacco Use Status: Former Tobacco user Tobacco use type: Cigarette e-Cigarette/Vaping Use: Never Used Second Hand Smoke Exposure: No service: No Current occupational status: disabled Cognitive needs: No Hearing needs: No Vision needs: Yes Review of Systems Const All systems reviewed & are unremarkable except as noted in HPI and below Physical Exam Vital Signs: Last Vital Signs Pulse 70 01/03/25 12:58 BP 168/102 H 01/03/25 12:58 Pulse Ox 98 01/03/25 12:58 Oxygen Delivery Method Room Air 01/03/25 12:58 BMI result Body Mass Index 31.0 Const General: cooperative, healthy appearing, comfortable and no acute distress Nutritional Appearance: average body habitus Limitations: no limitations HEENT Head: Yes normal to inspection Ears: hearing grossly normal bilaterally Neck Neck: Yes no lymphadenopathy Resp Effort & Inspection: normal respiratory effort Auscultation: clear to auscultation bilaterally Cardio Rate: regular rate Rhythm: regular rhythm Heart sounds: S1 normal heart sound present and S2 normal heart sound present Skin General skin exam: no rashes or lesions noted Extrem General: Yes capillary refill normal and Yes no clubbing, cyanosis or edema Psych Appearance: grossly normal Mental Status: mental status grossly normal Speech and movement: Normal speech and movement present Assessment & Plan Assessment & Plan (1) Midsternal chest pain: Code(s): R07.89 - Other chest pain Plan: Patient with abrupt onset midsternal, radiating chest pain, associated with dizziness/lightheadedness. She did take her blood pressure medications upon realizing she had forgotten them. EKG in our office showed NSR, 72. Patient has a history of cardiac events and had a catheterization done with stent placement less than 3 months ago. Encouraged her to have thorough workup at [facility], in the case she needs a cardiac catheterization again. Patient agrees to this. EMS was notified and transferred patient to [facility] shortly after arrival of patient. Report given to medic. Of note: Patient would like records sent to line production cook, Dr. Calderon at [facility] in [facility]. Orders: Orders AMB EKG-In Office Today R07.89 - Other chest pain Coding Level of Care Code Est Pt Level 4 (59091) Diagnoses Midsternal chest pain R07.89
--- OUTSIDE RECORDS SUMMARY | 2025-01-03 13:27 | XMS_ITS | Clinical Summary ---
Author Organization Formerly [facility], [facility] Address [address] [place] [address] Care Team Providers Care Dip Tanker Name Role Phone Unavailable Primary Care Provider [...]
--- OUTSIDE RECORDS SUMMARY | 2025-01-03 13:28 | XMS_ITS | Clinical Summary ---
Author Organization [facility] Address [address] [place] [address] Phone Care Team Providers Care Line Maintenance Technician Name Role Phone Physician, Pcp Unknown Primary Care Provider Maryana vailable Allergies No known active allergies Encounters Date Type Department Care Team Description 11/17/2024 3:34 AM EST - 11/17/2024 4:00 AM EST Emergency [facility] Emergency [address] [place] [address] Discharge Disposition: Left Against Medical [...] Vaccines (1 of 2) 01/29/2012 RSV Immunization Adult Patie nts (1 - Risk 60-74 years 1-dose series) [...] age to complete this topic Meningococcal B Vaccine Aged Out No l onger eligible based on patient's age to complete [...] and culture (11/17/2024 4:13 AM EST) Specific [place] Urine 1.018 1.003 - 1.030 LAB URINALYSIS - AUTOMATED METHOD 11/17/2024 5:[address] [facility] pH, Urine 6.0 5.0 - 8.0 pH LAB URINALYSIS - AUTOMATED METHOD 11/17/2024 5:[address] [facility] Leukocytes, Urine Large(A) Negative LAB URINALYSIS - AUTOMATED METHOD 11/17/2024 5:[address] [facility] Nitrite, Urine Negative Negative LAB URINALYSIS - AUTOMATED METHOD 11/17/2024 5:[address] [facility] Protein, Urine Negative <=Trace mg/dL LAB URINALYSIS - AUTOMATED METHOD 11/17/2024 5:[address] [facility] Glucose, Urine Negative Negative mg/dL LAB URINALYSIS - AUTOMATED METHOD 11/17/2024 5:[address] [facility] Ketones, Urine Negative Negative mg/dL LAB URINALYSIS - AUTOMATED METHOD 11/17/2024 5:[address] [facility] Urobilinogen , Urine 0.2 0.2 - 1.0 mg/dL LAB URINALYSIS - AUTOMATED METHOD 11/17/2024 5:[address] [facility] Bilirubin, Urine Negative Negative LAB URINALYSIS - AUTOMATED METHOD 11/17/2024 5:[address] [facility] Blood, Urine Moderate(A) Negative LAB URINALYSIS - AUTOMATED METHOD 11/17/2024 5:[address] [facility] RBC, Urine 18.3(H) 0 - 4 /HPF LAB URINALYSIS - AUTOMATED METHOD 11/17/2024 5:[address] [facility] WBC, Urine 378.5(H) 0 - 4 /HPF LAB URINALYSIS - AUTOMATED METHOD 11/17/2024 5:[address] [facility] Squamous Epithelial, Urine 9 0 - 60 /LPF LAB URINALYSIS - AUTOMATED METHOD 11/17/2024 5:[address] [facility] Bacteria, Urine Many(A) Negative /HPF LAB URINALYSIS - AUTOMATED METHOD 11/17/2024 5:[address] [facility] Hyaline Casts, Urine 0.4 0 - 3 /LPF LAB URINALYSIS - AUTOMATED METHOD 11/17/2024 5:[address] [facility] Urine Urine specimen obtained by clean catch procedure / Unknown Non-blood Collection / Unknown 11/17/2024 4:13 AM EST 11/17/2024 4:50 AM EST us Ravi Guidry MD LAB URINE ORDERABLES Final Resu lt Performing Organization Address City/[facility]/ZIP Co de Phone Number [facility] [address] [place] [address], [place] [phone] * [place]ill urine culture tube (11/17/2024 4:13 AM EST) Extra Tube Hold for add-ons. 11/17/2024 6:[address] [facility] Comment:Auto resulted. Urine Urine specimen obtained by clean catch procedure / Unknown Non-blood Collection / Unknown 11/17/2024 4:13 AM EST 11/17/2024 4:50 AM EST us Ravi Guidry MD LAB URINE ORDERABLES Final Resu lt Performing Organization Address City/[facility]/ZIP Co de Phone Number [facility] [address] [place] [address], [place] [phone] * (ABNORMAL) Culture urine (11/17/2024 4:13 AM EST) Culture, Urine >100,000 CFU/mL Escherichia coli(A) DEVYN 11/19/2024 10:[address] [facility] Urine Urine specimen obtained by [...] Escherichia coli Trimethoprim/Sulfamethoxazole DEVYN <=20 ug/ml: Susceptible [facility] Val Guidry MD LAB MICROBIOLOGY - GENERAL ORDRussell SALDAÑA Final Result [facility] [address] [place] [address], [place] [phone] from Last 3 Months Insurance MEDICARE Care Teams Line Maintenance Technician Relationship Specialty Start Date End Date Physician, Pcp Unknown PCP - General 11/17/24
== END 2025-01-03 13:21 | disposition home or self-care (01) ==
PROVIDERS: Visit Provider Nurse Practitioner Family
DX: R07.89 Other chest pain (principal)

== ENCOUNTER → 2025-01-03 12:57 | Outpatient (BNVA) | payer MEDICARE, OTHER, SELFPAY | DX: Z13.89 Encounter for screening for other disorder (principal) | CPT/HCPCS: 93005; 99212 ==

== ENCOUNTER 2025-01-03 13:42 | Emergency (ER) | payer MEDICARE, OTHER, SELFPAY ==
[2025-01-03] VITALS (7 sets, daily range): BP systolic 122–198; BP diastolic 55–87; PULSE 70–81; RESP 14–21; TEMP 36.7–37.4; O2SAT 94–99; BMI 31.6
--- NOTE | 2025-01-03 | ECG_ITS ---
Test Reason : CHEST PAIN Blood Pressure : */* mmHG Vent. Rate : 65 BPM Atrial Rate : 65 BPM P-R Int : 142 ms QRS Dur : 108 ms QT Int : 388 ms P-R-T Axes : 56 4 46 degrees QTcB Int : 403 ms Normal sinus rhythm Normal ECG No previous ECGs available Referred By: Generic ED Physician Electronically Signed By: Ronny Mae
--- NOTE | ~2025-01-03 | XR_ITS ---
EXAMINATION: XR CHEST CLINICAL INFORMATION: Portable chest pain, rule out pneumonia, congestiv COMPARISON: Chest pain. TECHNIQUE: Frontal view of the chest was obtained. FINDINGS: The cardiac, hilar, and mediastinal contours are normal. The lungs are clear bilaterally. No pneumothorax or effusion. No focal osseous or soft tissue abnormality. XR/XR chest 1V IMPRESSION: No active pulmonary disease. Electronically signed by: Mazin Trujillo MD 01/03/2025 03:24 PM EDT
--- NOTE | 2025-01-03 14:01 | PC.NURSE ---
Isaak via ems from urgent care. Patient stated has knee injections on mon and started having palpitations after eating. States today started having chest pressure, nausea, and high blood pressure. Patient with facial and chest flushinh. NSR on monitor hx of stent in sep and was told by MD that another vessel is 70% occluded.
--- NOTE | 2025-01-03 14:15 | ED_ITS ---
HPI - Chest Pain General Chief Complaint: Chest Pain Stated Complaint: FROM [facility] CP, LIGHTHEADEDNESS Time Seen by Provider: 01/03/25 14:07 Source: patient and family () Mode of arrival: EMS Limitations: no limitations History of Present Illness ED Provider: Dr. Param Valverde HPI narrative: 64-year-old female with a history of hyperlipidemia, paroxysmal atrial fibrillation, coronary artery disease with recent cardiac catheterization on 10/24/2024 at [facility](1 vessel angioplasty/stent, 1 vessel 70% lesion and multiple 40% lesions) who presents emergency department for evaluation of palpitations after eating x3 days and chest pain times 2-1/2 hours with facial flushing, numbness to her head, face and shoulders. The patient states that 2 days prior she received bilateral knee injections of Synvisc for her osteoarthritis. She states it was the 2nd time she was received this medication. 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 She states that she got up at 03:00 in the morning and did food prep which involved cutting up vegetables and onions. Related Data Home Medications ?Medication ?Instructions ?Recorded ?Confirmed albuterol sulfate 90 mcg/actuation 2 puff inhalation Q4-6H PRN 12/03/24 12/07/24 aerosol inhaler (Ventolin HFA) aspirin 81 mg capsule 81 mg PO DAILY 12/03/24 12/07/24 clopidogrel 75 mg tablet 75 mg PO DAILY 12/03/24 12/07/24 diclofenac sodium 1 % topical gel 2 g topical QID 12/03/24 12/07/24 (Arthritis Pain (diclofenac)) estradiol 0.01% (0.1 mg/gram) 1 g vaginal 2XW 12/03/24 12/07/24 vaginal cream isosorbide mononitrate 30 mg 30 mg PO DAILY 12/03/24 12/07/24 tablet,extended release 24 hr lorazepam 0.5 mg tablet 0.5 mg PO DAILY PRN 12/03/24 12/07/24 losartan 100 mg tablet 100 mg PO DAILY 12/03/24 12/07/24 metoprolol succinate 25 mg 25 mg PO BID 12/03/24 12/07/24 tablet,extended release 24 hr nitroglycerin 0.4 mg sublingual 0.4 mg sublingual Q5M PRN 12/03/24 12/07/24 tablet ondansetron HCl 4 mg tablet 4 mg PO Q8H PRN 12/03/24 12/07/24 rosuvastatin 10 mg tablet 20 mg PO BID 12/03/24 12/07/24 furosemide 20 mg tablet 10 mg PO DAILY PRN edema 01/03/25 Previous Rx's ?Medication ?Instructions ?Recorded metoprolol tartrate 25 mg tablet 25 mg PO .Qhs Take this with your 01/03/25 current 25 mg nighttime dose 7 days #7 tabs prednisone 20 mg tablet 60 mg (3 x 20 mg) PO DAILY 5 days 01/03/25 #15 tabs Allergies Allergy/AdvReac Type Severity Reaction Status Date / Time No Known Allergies Allergy Verified 01/03/25 13:57 Review of Systems 2 Review of Systems: Yes all other systems are reviewed and are negative [facility] Past Medical History [facility] Narrative: Social history: Patient was . She denies tobacco, alcohol and drug use. Medical History TREMAYNE (generalized anxiety disorder) Melanocytic nevus Hyperlipidemia History of recurrent UTI (urinary tract infection) Benign paroxysmal positional vertigo Ganglion Family history of multiple myeloma CAD (coronary artery disease) Afib Adjustment disorder Asthma Arthritis Surgical History Hx of vaginal hysterectomy S/P appendectomy S/P cholecystectomy H/O cystocele repair Previous section History of orthopedic surgery H/O cystoscopy History of percutaneous coronary intervention Family History Family History Father Coronary artery disease Hypertension Mother Vertigo Multiple myeloma Arthritis Son Schizophrenia Anxiety Daughter Anxiety Adrenal failure Atrial fibrillation Lyme disease Son Retinopathy Daughter Obesity Daughter Lyme disease Daughter No problems noted. Sister Uterine cancer Social History Social History Household Members: Children Household Members Other:: Son: Manny Housing: House Alcohol intake: never Patient Tobacco Use Status: Former Tobacco user Tobacco use type: Cigarette Smoked in Last 30 Days: No e-Cigarette/Vaping Use: Never Used Second Hand Smoke Exposure: No Use of substances other than those prescribed or required for medical reasons: No Advance Directives: No Advance Directives Information Provided: Yes service: No Current occupational status: disabled Cognitive needs: No Hearing needs: No Vision needs: Yes Physical Exam 2 Vital Signs: Vital Signs: Last Vital Signs Temp 98.7 F 01/03/25 18:00 Pulse 74 01/03/25 18:00 Resp 14 01/03/25 18:00 BP 130/55 L 01/03/25 18:00 Pulse Ox 99 01/03/25 18:00 O2 Del Method Room Air 01/03/25 18:00 BMI result Body Mass Index 31.6 Initial vital signs revealed an elevated blood pressure of 179/83 otherwise unremarkable Exam: General: Awake, alert in no distress Head: Normocephalic, atraumatic, patient has blanching erythema to her face, neck, upper chest and shoulders EENT: PERRL, Lids normal, sclera normal, conjunctiva normal, nose normal , ears normal, throat without erythema or exudates Neck: Supple, no adenopathy Lung: breath sounds symmetric, no wheezing, rales or rhonchi Chest: symmetric movement, mild sternal tenderness Heart: regular rate and rhythm, normal S1, S2 no murmurs or rubs Abdomen: soft, non-tender, nondistended, normal bowel sounds Back: no vertebral tenderness, no CVAT Extremities: no deformities, moves all extremities symmetrically Neuro: Awake, alert, oriented, normal speech, cranial nerves intact, moves all extremities symmetrically Psych: Pleasant, cooperative Medications Administered Discontinued Medications Generic Name Dose Route Start Last Admin Trade Name Romainq PRN Reason Stop Dose Admin Diphenhydramine HCl 50 mg 01/03/25 14:45 01/03/25 15:12 Diphenhydramine Hcl 50 Mg/Ml Vial IVPUSH 01/03/25 14:46 50 mg ONCE STA Administration Famotidine 20 mg 01/03/25 14:45 01/03/25 15:12 Famotidine/Pf 20 Mg/2 Ml Vial IVPUSH 01/03/25 14:46 20 mg ONCE ONE Administration Methylprednisolone Sodium Succinate 125 mg 01/03/25 14:45 01/03/25 15:12 Methylprednisolone Sod Succ 125 Mg/2 Ml Vial IVPUSH 01/03/25 14:46 125 mg ONCE ONE Administration Medical Decision Making Medical Decision Making MDM Narrative: 64-year-old female with a history of hyperlipidemia, paroxysmal atrial fibrillation, coronary artery disease with recent cardiac catheterization on 10/24/2024 at [facility](1 vessel angioplasty/stent, 1 vessel 70% lesion and multiple 40% lesions) who presents emergency department for evaluation of palpitations after eating x3 days and chest pain times 2-1/2 hours with facial flushing, numbness to her head, face and shoulders. The patient states that 2 days prior she received bilateral knee injections of Synvisc for her osteoarthritis. She states it was the 2nd time she was received this medication. 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 She states that she got up at 03:00 in the morning and did food prep which involved cutting up vegetables and onions. Vital signs revealed an elevated blood pressure otherwise unremarkable. Physical examination did reveal erythematous rash to her face, neck, upper chest and shoulders which blanches with pressure. Patient had mild sternal chest tenderness. Differential diagnosis: ?Includes but is not limited to allergic reaction, anaphylaxis, myocardial infarction, myocardial ischemia, chest wall pain, costochondritis, anemia, electrolyte abnormalities Patient was initially treated with the following: Solu-Medrol 125 mg IV, Benadryl 50 mg IV, Pepcid 20 mg IV Course: Admission/Observation Consideration of admission/observation: Escalation of care including admission/observation considered (Yes) Lab Data 01/03/25 15:09 01/03/25 15:09 Labs: Lab Results 01/03/25 01/03/25 01/03/25 Range/Units 15:08 15:09 18:02 WBC 12.3 H (4.8-10.8) X10*3/uL RBC 5.04 (4.20-5.50) X10*6/uL Hgb 15.2 (12.0-16.0) g/dl Hct 43.3 (37.0-47.0) % MCV 85.9 (80.0-98.0) fL MCH 30.2 (27.0-33.0) pg MCHC 35.1 H (31.0-35.0) g/dl RDW 13.7 (11.0-16.0) % Plt Count 330 (160-400) X10*3/uL MPV 10.5 (9.4-12.3) fL Immature Gran % (Auto) 0.7 H (0.0-0.4) % Neut % (Auto) 61.6 (45-73) % Lymph % (Auto) 32.0 (20-40) % Chambers % (Auto) 5.3 (2-11) % Eos % (Auto) 0.2 (0-4) % Baso % (Auto) 0.2 (0-2) % Lymph # (Auto) 3.9 (1.2-4.9) X10*3/uL Chambers # (Auto) 0.7 (0.1-1.2) X10*3/uL Eos # (Auto) 0.0 (0.0-0.4) X10*3/uL Baso # (Auto) 0.0 (0.0-0.2) X10*3/uL Abs Immat Gran (auto) 0.09 H (0.00-0.03) X10*3/uL Absolute Neuts (auto) 7.6 (2.0-8.3) x10*3/uL Absolute Nucleated RBC 0.000 (0.0-0.012) X10*3/uL Nucleated RBC % (auto) 0.0 (0.0-0.2) /100WBC ESR 2 (0-20) MM/HR Sodium 143 (135-145) mmol/L Potassium 4.3 (3.3-5.1) mmol/L Chloride 105 (96-108) mmol/L Carbon Dioxide 27 (22-29) mmol/L Anion Gap 15 (12-20) BUN 21 H (9-16) mg/dL Creatinine 0.56 (0.5-1.4) mg/dL Estim Creat Clear Calc 105.0 Estimated GFR > 60 Random Glucose 94 (60-115) mg/dL Calcium 11.1 H (8.4-10.2) mg/dL Total Bilirubin 0.5 (0.0-1.0) mg/dL AST 22 (5-31) U/L ALT 31 (0-31) U/L Alkaline Phosphatase 83 (39-117) U/L Troponin I High Sens < 2.7 < 2.7 (<3.5-17.0) ng/L C-Reactive Protein < 0.04 (< or = 0.50) mg/dL Total Protein 7.8 (6.5-8.0) g/dL Albumin 4.8 (3.5-5.0) g/dL Lipase 31 (8-78) U/L Independent Interpretation I performed an independent interpretation of an: EKG and Plain X-Ray Interpretation: My independent interpretation patient's 12 EKG done on 01/03/2025 at 13:56 hours is as follows: Normal sinus rhythm with a rate of 65, normal AL interval, prolonged QRS duration 108 milliseconds, normal QTC interval 403 milliseconds, no ST segment elevation, no ST segment depression, Q-wave in lead 3, inverted T- wave in V1. No previous EKG for comparison. My independent interpretation of the patient's one-view chest x-ray is as follows: No acute disease Radiology Impression Discussion of test interpretation with radiology: I have reviewed the radiologist's reading. Radiologist Impression: XR chest 1V IMPRESSION: No active pulmonary disease. Electronically signed by: Mazin Trujillo MD 01/03/2025 03:24 PM EDT RP Independent Historian Clinical information obtained from an independent historian. History obtained from or confirmed by: Spouse Chronic Conditions Patient?s care impacted by: Other (Coronary artery disease) Discharge Plan Discharge Clinical Impression: Palpitation Allergic reaction Qualifiers: Encounter type: initial encounter Qualified Code(s): T78.40XA - Allergy, unspecified, initial encounter Chest pain Qualifiers: Chest pain type: unspecified Qualified Code(s): R07.9 - Chest pain, unspecified Patient Disposition: Home, Self-Care Instructions: General Allergic Reaction (ED) Additional Instructions: Your blood work was unremarkable. Your rash and itching in his of your face, chest and shoulders was consistent with an allergic reaction. This is most likely caused by the Synvisc that you had injected in your knees. Do not get this medication again in the future. You were treated here in the emergency department with Solu-Medrol 125 mg IV, Benadryl 50 mg IV and Pepcid 20 mg IV. Take prednisone 20 mg pills, 3 pills once a day for 5 days. While you ?are taking prednisone, do not take any NSAIDs (Motrin, Advil, ibuprofen, Aleve, naproxen). Take Pepcid (famotidine) 20 mg pills, 1 pill once a day for 2 weeks. ?This medication reduces the amount of acid that your stomach produces and will help the inflammation in your stomach heal. Take Benadryl 25 mg pills, 2 pills every 6 hours as needed for rash, itchiness Your high sensitive troponin I was below detectable limits when you 1st got here and your 3 hour repeat troponin was also below detectable limits. This is very reassuring suggesting that your symptoms are not caused by a heart attack or heart damage. While you were here in the emergency department you were experiencing palpitations however you did not have any signs of a fast or slow heart rate. I want you to increase your metoprolol from 25 mg twice a day to 25 mg in the morning and 50 mg at night for 1 week to see if this helps your palpitations resolve. Follow-up with your doctor in 2 days. Please return to the emergency department if your symptoms get worse or if you develop any symptoms that are concerning to you. Prescriptions: New metoprolol tartrate 25 mg tablet 25 mg PO .Qhs 7 Days Qty: 7 0RF prednisone 20 mg tablet 60 mg PO DAILY 5 Days Qty: 15 0RF No Action rosuvastatin 10 mg tablet 20 mg PO BID estradiol 0.01 % (0.1 mg/gram) cream 1 g vaginal 2XW albuterol sulfate [Ventolin HFA] 90 mcg/actuation HFA aerosol inhaler 2 puff inhalation Q4-6H PRN lorazepam 0.5 mg tablet 0.5 mg PO DAILY PRN isosorbide mononitrate 30 mg tablet extended release 24 hr 30 mg PO DAILY clopidogrel 75 mg tablet 75 mg PO DAILY metoprolol succinate 25 mg tablet extended release 24 hr 25 mg PO BID ondansetron HCl 4 mg tablet 4 mg PO Q8H PRN nitroglycerin 0.4 mg tablet, sublingual 0.4 mg sublingual Q5M PRN Rx Instructions: do not exceed 3 doses per episode aspirin 81 mg capsule 81 mg PO DAILY diclofenac sodium [Arthritis Pain (diclofenac)] 1 % gel 2 g topical QID Rx Instructions: apply to single elbow, wrist or hand; for hand includes palm/fingers/back of hand losartan 100 mg tablet 100 mg PO DAILY furosemide 20 mg tablet 10 mg PO DAILY PRN (Reason: edema) Print Language: Australian
[2025-01-03] MEDS: Famotidine/PF 20 MG/2 ML VIAL IVPUSH (15:12)
[2025-01-03] MEDS: diphenhydrAMINE HCL 50 MG/ML VIAL IVPUSH (15:12)
[2025-01-03] MEDS: methylPREDNISolone Sod Succ 125 MG/2 ML VIAL IVPUSH (15:12)
[2025-01-03 15:13] LABS: MANUAL DIFF FLAG NO
[2025-01-03 15:14] LABS: Basophils Percent Auto 0.2 % (0-2); Eosinophils Percent Auto 0.2 % (0-4); Hematocrit 43.3 % (37.0-47.0); Hemoglobin 15.2 g/dl (12.0-16.0); Imm Gran Abs Auto 0.09 X10*3/uL (0.00-0.03); Imm Gran Pct Auto 0.7 % (0.0-0.4); Lymphocytes Absolute Auto 3.9 X10*3/uL (1.2-4.9); Mean Corpuscular HGB Conc 35.1 g/dl (31.0-35.0); Mean Corpuscular Hemoglobin 30.2 pg (27.0-33.0); Mean Corpuscular Volume 85.9 fL (80.0-98.0); Mean Platelet Volume 10.5 fL (9.4-12.3); Monocytes Absolute Auto 0.7 X10*3/uL (0.1-1.2); Monocytes Percent Auto 5.3 % (2-11); Neutrophils Absolute Auto 7.6 x10*3/uL (2.0-8.3); Neutrophils Percent Auto 61.6 % (45-73); Platelet Count 330 X10*3/uL (160-400); Red Blood Count 5.04 X10*6/uL (4.20-5.50); Red Cell Distribution Width 13.7 % (11.0-16.0); White Blood Count 12.3 X10*3/uL (4.8-10.8)
[2025-01-03 15:34] LABS: Troponin-I High Sensitivity < 2.7 ng/L (<3.5-17.0)
[2025-01-03 15:36] LABS: Alanine Aminotransferase 31 U/L (0-31); Albumin Level 4.8 g/dL (3.5-5.0); Anion Gap 15 (12-20); Aspartate Amino Transferase 22 U/L (5-31); Bilirubin Total 0.5 mg/dL (0.0-1.0); Blood Urea Nitrogen 21 mg/dL (9-16); C Reactive Protein < 0.04 mg/dL (< or = 0.50); Calcium 11.1 mg/dL (8.4-10.2); Carbon Dioxide 27 mmol/L (22-29); Chloride 105 mmol/L (96-108); Estimated Glomerular Filt Rate > 60; Glucose Random 94 mg/dL (60-115); Lipase 31 U/L (8-78); Potassium 4.3 mmol/L (3.3-5.1); Sodium 143 mmol/L (135-145); Total Protein 7.8 g/dL (6.5-8.0)
--- OUTSIDE RECORDS SUMMARY | 2025-01-03 15:48 | XMS_ITS | Clinical Summary ---
Author Organization [facility] Address [address] [place] [address] Phone Care Team Providers Care Supervisor Quilting Name Role Phone Physician, Pcp Unknown Primary Care Provider Maryana vailable Allergies No known active allergies Encounters Date Type Department Care Team Description 11/17/2024 3:34 AM EST - 11/17/2024 4:00 AM EST Emergency [facility] Emergency [address] [place] [address] Discharge Disposition: Left Against Medical [...] and culture (11/17/2024 4:13 AM EST) Specific [place] Urine 1.018 1.003 - 1.030 LAB URINALYSIS - AUTOMATED METHOD 11/17/2024 5:09 AM [facility] pH, Urine 6.0 5.0 - 8.0 pH LAB URINALYSIS - AUTOMATED METHOD 11/17/2024 5:09 AM [facility] Leukocytes, Urine Large(A) Negative LAB URINALYSIS - AUTOMATED METHOD 11/17/2024 5:09 AM [facility] Nitrite, Urine Negative Negative LAB URINALYSIS - AUTOMATED METHOD 11/17/2024 5:09 AM [facility] Protein, Urine Negative <=Trace mg/dL LAB URINALYSIS - AUTOMATED METHOD 11/17/2024 5:09 AM [facility] Glucose, Urine Negative Negative mg/dL LAB URINALYSIS - AUTOMATED METHOD 11/17/2024 5:09 AM [facility] Ketones, Urine Negative Negative mg/dL LAB URINALYSIS - AUTOMATED METHOD 11/17/2024 5:09 AM [facility] Urobilinogen , Urine 0.2 0.2 - 1.0 mg/dL LAB URINALYSIS - AUTOMATED METHOD 11/17/2024 5:09 AM [facility] Bilirubin, Urine Negative Negative LAB URINALYSIS - AUTOMATED METHOD 11/17/2024 5:09 AM [facility] Blood, Urine Moderate(A) Negative LAB URINALYSIS - AUTOMATED METHOD 11/17/2024 5:09 AM [facility] RBC, Urine 18.3(H) 0 - 4 /HPF LAB URINALYSIS - AUTOMATED METHOD 11/17/2024 5:09 AM [facility] WBC, Urine 378.5(H) 0 - 4 /HPF LAB URINALYSIS - AUTOMATED METHOD 11/17/2024 5:09 AM [facility] Squamous Epithelial, Urine 9 0 - 60 /LPF LAB URINALYSIS - AUTOMATED METHOD 11/17/2024 5:09 AM [facility] Bacteria, Urine Many(A) Negative /HPF LAB URINALYSIS - AUTOMATED METHOD 11/17/2024 5:09 AM [facility] Hyaline Casts, Urine 0.4 0 - 3 /LPF LAB URINALYSIS - AUTOMATED METHOD 11/17/2024 5:09 AM [facility] Urine Urine specimen obtained by clean catch procedure / Unknown Non-blood Collection / Unknown 11/17/2024 4:13 AM EST 11/17/2024 4:50 AM EST us Ravi Guidry MD LAB URINE ORDERABLES Final Resu lt Performing Organization Address City/[facility]/ZIP Co de Phone Number [facility] [address] [place] [address], [place] [phone] * [place] urine culture tube (11/17/2024 4:13 AM EST) Extra Tube Hold for add-ons. 11/17/2024 6:01 AM [facility] Comment:Auto resulted. Urine Urine specimen obtained by clean catch procedure / Unknown Non-blood Collection / Unknown 11/17/2024 4:13 AM EST 11/17/2024 4:50 AM EST us Ravi Guidry MD LAB URINE ORDERABLES Final Resu lt Performing Organization Address City/[facility]/ZIP Co de Phone Number [facility] [address] [place] [address], [place] [phone] * (ABNORMAL) Culture urine (11/17/2024 4:13 AM EST) Culture, Urine >100,000 CFU/mL Escherichia coli(A) DEVYN 11/19/2024 10:27 AM [facility] Urine Urine specimen obtained by [...] Escherichia coli Trimethoprim/Sulfamethoxazole DEVYN <=20 ug/ml: Susceptible [facility] Val Guidry MD LAB MICROBIOLOGY - GENERAL ORDRussell SALDAÑA Final Result [facility] [address] [place] [address], [place] [phone] from Last 3 Months Insurance MEDICARE Care Teams Supervisor Quilting Relationship Specialty Start Date End Date Physician, Pcp Unknown PCP - General 11/17/24
--- OUTSIDE RECORDS SUMMARY | 2025-01-03 15:48 | XMS_ITS | Clinical Summary ---
Author Organization [facility] Address [address] [place] [address] Care Team Providers Care Brake Repairer Air Name Role Phone Unavailable Primary Care Provider [...]
[2025-01-03 15:49] LABS: Alkaline Phosphatase 83 U/L (39-117)
[2025-01-03 15:55] LABS: Erythrocyte Sedimentation Rate 2 MM/HR (0-20)
[2025-01-03 18:28] LABS: Troponin-I High Sensitivity < 2.7 ng/L (<3.5-17.0)
== END 2025-01-03 20:23 | disposition home or self-care (01) ==
PROVIDERS: Emergency Provider Emergency Medicine Emergency Medical Services
DX: R00.2 Palpitations (principal); R07.89 Other chest pain; R42 Dizziness and giddiness; I25.10 Atherosclerotic heart disease of native coronary artery without angina pectoris; Z79.899 Other long term (current) drug therapy; Z87.891 Personal history of nicotine dependence
CPT/HCPCS: 36415; 71045; 80053; 83690; 84484; 85025; 85652; 86140; 93005; 96374; 96375; 99212; 99284; 99285; J1200; J2919

== ENCOUNTER → 2025-01-03 13:56 | Outpatient (BNV) | payer MEDICARE, OTHER, SELFPAY | PROVIDERS: Emergency Provider Emergency Medicine Emergency Medical Services; Visit Provider Internal Medicine Cardiovascular Disease | DX: R07.9 Chest pain, unspecified (principal) | CPT/HCPCS: 93010 ==

== ENCOUNTER → 2025-01-03 14:46 | Outpatient (BNV) | payer MEDICARE, OTHER, SELFPAY | PROVIDERS: Emergency Provider Emergency Medicine Emergency Medical Services; Visit Provider Radiology Diagnostic Radiology | DX: R07.9 Chest pain, unspecified (principal) | CPT/HCPCS: 71045 ==

== ENCOUNTER 2025-01-15 12:38 | Outpatient (AMB) | payer MEDICARE, OTHER, SELFPAY ==
--- NOTE | 2025-01-15 12:45 | MHC.OFFWIV ---
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 she states it started last night. Patient Tobacco Use Status: Former Tobacco user Allergies No Known Allergies Allergy (Verified 01/15/25 12:46) Do you need a note to return to daycare/school/sports/work: No HPI HPI Comments History of Present Illness Details History of Present Illness - The patient is a 64-year-old female with a past med hx of TREMAYNE, CAD s/p stent 10/19 on plavix, HLD, HTN, Afib, panic disorder, BPPV and adjustment disorder presenting with sudden right lower extremity weakness, which began last night at 11pm following an episode where she stood up from her couch and was unable to feel her right foot, causing a fall. She also feels fatigued. - She did not hit her head or lose consciousness with the fall. - She experienced transient inability to utilize the right foot effectively, followed by partial muscle control recovery within 15 minutes. - Persistent weakness in the right lower extremity has been noted, despite the ability to walk with concurrent lower back pain. - She tells me efforts to flex the right foot fully are hindered when compared to the left. - The patient denies experiencing any symptoms such as dizziness, headache, or chest pain. - Takes all of her prescribed medications daily, has not missed any doses. - There is mention of a previous minor head injury where she hit it on the corner of a cabinet that occurred a few days prior, but she does not believe it is contributing to current symptoms. Physical Exam General: Cooperative, healthy appearing, comfortable, no acute distress and well developed Orientation: Patient oriented x3 Limitations: Weakness in the right lower extremity Head: Normal to inspection, small lump on top of head Ears: Hearing grossly normal bilaterally Nose: Normal External nose present Face and sinus: Normal facial exam Eyes: Appearance normal, both eyes and all related structures Neck: Normal visual inspection and Yes full ROM Respiratory: Normal respiratory effort and able to speak in complete sentences. Skin: No rashes or lesions noted Neuro: Patient oriented x3, negative Rhombert, gait normal Extremities: RLE normal to inspection, pedal pulses intact, unable to dorsiflex foot fully, unable to wiggle toes fully, sensation intact PFSH Medical History TREMAYNE (generalized anxiety disorder) Melanocytic nevus Hyperlipidemia History of recurrent UTI (urinary tract infection) Benign paroxysmal positional vertigo Ganglion Family history of multiple myeloma CAD (coronary artery disease) Afib Adjustment disorder Asthma Arthritis Surgical History Hx of vaginal hysterectomy S/P appendectomy S/P cholecystectomy H/O cystocele repair Previous section History of orthopedic surgery H/O cystoscopy History of percutaneous coronary intervention Family History Father Coronary artery disease Hypertension Mother Vertigo Multiple myeloma Arthritis Son Schizophrenia Anxiety Daughter Anxiety Adrenal failure Atrial fibrillation Lyme disease Son Retinopathy Daughter Obesity Daughter Lyme disease Daughter No problems noted. Sister Uterine cancer Social History Household Members: Children Household Members Other:: Son: Manny Housing: House Alcohol intake: never Patient Tobacco Use Status: Former Tobacco user Tobacco use type: Cigarette e-Cigarette/Vaping Use: Never Used Second Hand Smoke Exposure: No service: No Current occupational status: disabled Cognitive needs: No Hearing needs: No Vision needs: Yes Review of Systems Const All systems reviewed & are unremarkable except as noted in HPI and below Physical Exam Vital Signs: Last Vital Signs Pulse 81 01/15/25 12:49 BP 100/60 01/15/25 12:49 Pulse Ox 97 01/15/25 12:49 Oxygen Delivery Method Room Air 01/15/25 12:49 Assessment & Plan Assessment & Plan (1) Weakness of right lower extremity: Code(s): R29.898 - Other symptoms and signs involving the musculoskeletal system Plan: Immediate referral for emergency department evaluation is recommended for possible acute cerebrovascular event given the presentation of sudden right lower extremity weakness. Coordination for ambulance transport has been advised to ensure safety. The decision aims to exclude any acute neurological impairments through comprehensive evaluation, including imaging studies. Discussions have emphasized the urgency of her symptoms and the necessity of cautious and timely intervention. Called [facility] with ashley, spoke with Yandy 1:05pm. Patient was informed and verbally consented to the use of an ambient scribe for clinic note documentation during this visit. Coding Level of Care Code Est Pt Level 5 (40967) Diagnoses Weakness of right lower extremity R29.898
[2025-01-15 12:49] VITALS: BP 100/60; PULSE 81; O2SAT 97
--- OUTSIDE RECORDS SUMMARY | 2025-01-15 14:55 | XMS_ITS | Clinical Summary ---
Author Organization [facility] Address [address] [place] [address] Phone Care Team Providers Care Program Scheduler Name Role Phone Physician, Pcp Unknown Primary Care Provider Maryana vailable Allergies No known active allergies Encounters Date Type Department Care Team Description 11/17/2024 3:34 AM EST - 11/17/2024 4:00 AM EST Emergency [facility] Emergency [address] [place] [address] Discharge Disposition: Left Against Medical [...] Vaccine (1 - 2023-2 5 season) 2024 Colorectal Cancer Screening: Colonoscopy 11/17/2024 Depression Screening 11/17/2024 HIV Screening 11/17/2024 Hepatitis C Screening 11/17/2024 Medicare Annual Wellness Visit 11/17/2024 Social Influencers of Health Screening 11/17/2024 Influenza Vaccine (Season Ended) 2025 HIB Vaccines Aged Out No longer eligi [...] and culture (11/17/2024 4:13 AM EST) Specific [place] Urine 1.018 1.003 - 1.030 LAB URINALYSIS - AUTOMATED METHOD 11/17/2024 5:09 AM [facility] pH, Urine 6.0 5.0 - 8.0 pH LAB URINALYSIS - AUTOMATED METHOD 11/17/2024 5:09 AM [facility] Leukocytes, Urine Large(A) Negative LAB URINALYSIS - AUTOMATED METHOD 11/17/2024 5:09 AM [facility] Nitrite, Urine Negative Negative LAB URINALYSIS - AUTOMATED METHOD 11/17/2024 5:09 AM [facility] Protein, Urine Negative <=Trace mg/dL LAB URINALYSIS - AUTOMATED METHOD 11/17/2024 5:09 AM [facility] Glucose, Urine Negative Negative mg/dL LAB URINALYSIS - AUTOMATED METHOD 11/17/2024 5:09 AM [facility] Ketones, Urine Negative Negative mg/dL LAB URINALYSIS - AUTOMATED METHOD 11/17/2024 5:09 AM [facility] Urobilinogen , Urine 0.2 0.2 - 1.0 mg/dL LAB URINALYSIS - AUTOMATED METHOD 11/17/2024 5:09 AM [facility] Bilirubin, Urine Negative Negative LAB URINALYSIS - AUTOMATED METHOD 11/17/2024 5:09 AM [facility] Blood, Urine Moderate(A) Negative LAB URINALYSIS - AUTOMATED METHOD 11/17/2024 5:09 AM [facility] RBC, Urine 18.3(H) 0 - 4 /HPF LAB URINALYSIS - AUTOMATED METHOD 11/17/2024 5:09 AM [facility] WBC, Urine 378.5(H) 0 - 4 /HPF LAB URINALYSIS - AUTOMATED METHOD 11/17/2024 5:09 AM [facility] Squamous Epithelial, Urine 9 0 - 60 /LPF LAB URINALYSIS - AUTOMATED METHOD 11/17/2024 5:09 AM [facility] Bacteria, Urine Many(A) Negative /HPF LAB URINALYSIS - AUTOMATED METHOD 11/17/2024 5:09 AM [facility] Hyaline Casts, Urine 0.4 0 - 3 /LPF LAB URINALYSIS - AUTOMATED METHOD 11/17/2024 5:09 AM [facility] Urine Urine specimen obtained by clean catch procedure / Unknown Non-blood Collection / Unknown 11/17/2024 4:13 AM EST 11/17/2024 4:50 AM EST us Ravi Guidry MD LAB URINE ORDERABLES Final Resu lt Performing Organization Address City/[facility]/ZIP Co de Phone Number [facility] [address] [place] [address], [place] [phone] * Merrill urine culture tube (11/17/2024 4:13 AM EST) Extra Tube Hold for add-ons. 11/17/2024 6:01 AM [facility] Comment:Auto resulted. Urine Urine specimen obtained by clean catch procedure / Unknown Non-blood Collection / Unknown 11/17/2024 4:13 AM EST 11/17/2024 4:50 AM EST us Ravi Guidry MD LAB URINE ORDERABLES Final Resu lt Performing Organization Address City/[facility]/ZIP Co de Phone Number [facility] [address] [place] [address], [place] [phone] * (ABNORMAL) Culture urine (11/17/2024 4:13 AM EST) Culture, Urine >100,000 CFU/mL Escherichia coli(A) DEVYN 11/19/2024 10:27 AM [facility] Urine Urine specimen obtained by [...] Escherichia coli Trimethoprim/Sulfamethoxazole DEVYN <=20 ug/ml: Susceptible [facility] Val Guidry MD LAB MICROBIOLOGY - GENERAL ORDRussell SALDAÑA Final Result [facility] [address] [place] [address], [place] [phone] from Last 3 Months Insurance MEDICARE Care Teams Program Scheduler Relationship Specialty Start Date End Date Physician, Pcp Unknown PCP - General 11/17/24
--- OUTSIDE RECORDS SUMMARY | 2025-01-15 14:55 | XMS_ITS | Clinical Summary ---
Author Organization [facility] Address [address] [place] [address] Care Team Providers Care Operator Name Role Phone Unavailable Primary Care Provider [...]
== END 2025-01-15 13:19 | disposition home or self-care (01) ==
PROVIDERS: Visit Provider Physician Assistant
DX: R29.898 Other symptoms and signs involving the musculoskeletal system (principal)

== ENCOUNTER → 2025-01-15 12:38 | Outpatient (BNVA) | payer MEDICARE, OTHER, SELFPAY | PROVIDERS: Visit Provider Physician Assistant | DX: Z13.89 Encounter for screening for other disorder (principal) | CPT/HCPCS: 99212 ==

== ENCOUNTER 2025-01-15 13:40 | Observation (INO) | payer MEDICARE, OTHER, SELFPAY ==
--- NOTE | ~2025-01-15 | CT_ITS ---
CLINICAL HISTORY: right side leg and foot weakness CTA HEAD WITH CONTRAST, 3D POSTPROCESSING CTA NECK WITH CONTRAST, WITH 3D POSTPROCESSING Comparison: CT/SR - CT HEAD FOR STROKE - 01/15/25 16:33 EDT Findings: Aortic arch: Three-vessel arch with patent branch origins. Vertebral arteries: No occlusion or dissection. Extracranial carotid arteries: Mild calcific plaque in the bilateral proximal ICAs with less than 50 percent stenosis per NASCET criteria. No occlusion, flow limiting stenosis, aneurysm or dissection. Intracranial carotid arteries: Mild calcific plaque, right greater than left. No occlusion or flow limiting stenosis. Vertebrobasilar system: Patent. Cerebellar arteries: Patent. Posterior cerebral arteries: Patent. No occlusion or aneurysm. Anterior cerebral arteries: Patent. No occlusion or aneurysm. Middle cerebral arteries: Patent. No occlusion or aneurysm. No enhancing intracranial mass lesion. Dural venous sinuses are patent. No enhancing cervical mass or fluid collection. There is a 1.5 cm hypodense lesion in the right lobe of the thyroid. No acute abnormalities in the included lungs. No acute osseous abnormalities. Impression: 1. Patent head and neck CTA. 2. No large vessel occlusion or flow-limiting stenosis. 3. Indeterminate 1.5 cm right thyroid lesion can be further characterize with ultrasound on a nonemergent elective basis. This document has been electronically signed by: Rosi Burt DO on 01/15/2025 17:52:16
--- NOTE | ~2025-01-15 | MR_ITS ---
EXAMINATION: MR BRAIN WITHOUT CONTRAST CLINICAL INFORMATION: Transient ischemic attack. COMPARISON: Correlated to CT and CT angiogram head neck dated January 15, 2025 reported as negative. TECHNIQUE: MRI of the brain was obtained using routine sequences without contrast. FINDINGS: No restricted diffusion. No acute intracranial hemorrhage, mass effect, midline shift, hydrocephalus or herniation. [place]-white matter differentiation is normal. There are a few, scattered, nonspecific faint/subtle punctate hyperintense T2 FLAIR signal in the frontal white matter. Flow-void signal within the main cerebral vessels is normal. Mild prominence of the extra-axial CSF spaces cerebral sulci. Sellar/suprasellar region demonstrated no signal abnormality or gross masses. Craniocervical junction is intact and normal. . MR/MR head/brain wo con IMPRESSION: No acute stroke/nonhemorrhagic ischemia or acute brain abnormality. Nonspecific white matter T2 FLAIR signal foci. Electronically signed by: Sergey Puga MD 01/16/2025 04:04 PM EDT
--- NOTE | ~2025-01-15 | CT_ITS ---
CLINICAL HISTORY: right side foot weakness CT HEAD WITHOUT CONTRAST Comparison: None Findings: No acute intracranial hemorrhage, extra-axial fluid collection, hydrocephalus or midline shift. There is mild generalized parenchymal atrophy. No significant white matter disease. No evidence for acute large territorial infarct. There is no sinus or mastoid fluid. Visualized orbits: No acute abnormalities. There is no acute fracture. IMPRESSION: 1. No acute intracranial process. This document has been electronically signed by: Rosi Burt DO on 01/15/2025 16:49:13
[2025-01-15 13:48] VITALS: BP 122/60; PULSE 80; O2SAT 99
[2025-01-15 13:56] VITALS: BP 117/63; PULSE 69; RESP 14; TEMP 36.4; O2SAT 96; BMI 29.3
--- NOTE | 2025-01-15 14:22 | ECG_ITS ---
Test Reason : weak Blood Pressure : */* mmHG Vent. Rate : 67 BPM Atrial Rate : 67 BPM P-R Int : 146 ms QRS Dur : 96 ms QT Int : 414 ms P-R-T Axes : 26 -2 51 degrees QTcB Int : 437 ms Sinus rhythm with Premature atrial complexes with Aberrant conduction vs Premature ventricular complexes Possible Left atrial enlargement Nonspecific ST abnormality Abnormal ECG When compared with ECG of 03-Jan-2025 13:56, Aberrant conduction is now Present Referred By: Generic ED Physician Electronically Signed By: ASHOK PÉREZ
[2025-01-15 14:49] LABS: MANUAL DIFF FLAG NO
[2025-01-15 14:53] LABS: Basophils Percent Auto 0.3 % (0-2); Eosinophils Absolute Auto 0.1 X10*3/uL (0.0-0.4); Eosinophils Percent Auto 0.5 % (0-4); Hematocrit 41.1 % (37.0-47.0); Hemoglobin 13.8 g/dl (12.0-16.0); Imm Gran Abs Auto 0.05 X10*3/uL (0.00-0.03); Imm Gran Pct Auto 0.4 % (0.0-0.4); Lymphocytes Absolute Auto 3.4 X10*3/uL (1.2-4.9); Mean Corpuscular HGB Conc 33.6 g/dl (31.0-35.0); Mean Corpuscular Hemoglobin 30.3 pg (27.0-33.0); Mean Corpuscular Volume 90.1 fL (80.0-98.0); Monocytes Absolute Auto 0.7 X10*3/uL (0.1-1.2); Monocytes Percent Auto 6.1 % (2-11); Neutrophils Absolute Auto 7.6 x10*3/uL (2.0-8.3); Neutrophils Percent Auto 63.7 % (45-73); Platelet Count 285 X10*3/uL (160-400); Red Blood Count 4.56 X10*6/uL (4.20-5.50); Red Cell Distribution Width 13.7 % (11.0-16.0); White Blood Count 11.9 X10*3/uL (4.8-10.8)
[2025-01-15 14:58] LABS: INTERNATIONAL NORM RATIO 1.1 (0.9-1.1); Prothrombin Time 12.7 SEC (10.9-12.4)
[2025-01-15 15:04] LABS: Alanine Aminotransferase 52 U/L (0-31); Albumin Level 4.2 g/dL (3.5-5.0); Alkaline Phosphatase 68 U/L (39-117); Anion Gap 11 (12-20); Aspartate Amino Transferase 24 U/L (5-31); Bilirubin Total 1.1 mg/dL (0.0-1.0); Blood Urea Nitrogen 16 mg/dL (9-16); Carbon Dioxide 31 mmol/L (22-29); Chloride 104 mmol/L (96-108); Creatinine Clr Calc Pharmacy 114.5; Estimated Glomerular Filt Rate > 60; Glucose Random 98 mg/dL (60-115); Potassium 4.5 mmol/L (3.3-5.1); Sodium 141 mmol/L (135-145); Total Protein 6.8 g/dL (6.5-8.0)
--- NOTE | 2025-01-15 16:28 | ED.GENADULT ---
HPI - General Adult General Chief complaint: Extremity Problem Stated complaint: Stroke alert, r leg weakness, r arm numbness Time Seen by Provider: 01/15/25 16:15 History of Present Illness HPI narrative: Patient is a 64-year-old female last night patient developed sudden onset of foot numbness weakness feels like it was heavy also had some numbness in the arm at the same time it lasted for about 15 minutes. Patient last known well time was about 21:00 last night. The incident happened at about 23:00. Symptoms resolved after about 15 minutes. Patient then went back to bed. This morning contacted her primary physician and was sent to the ED for further evaluation she has a history of hypertension. History of coronary artery disease status post stent. Patient is currently on Plavix. There is no change in speech. There is no change in vision. Patient has no chest pain no diaphoresis. Not on Coumadin Xarelto Eliquis. Previous history of AFib. Related Data Home Medications ?Medication ?Instructions ?Recorded ?Confirmed albuterol sulfate 90 mcg/actuation 2 puff inhalation Q4-6H PRN 12/03/24 12/07/24 aerosol inhaler (Ventolin HFA) aspirin 81 mg capsule 81 mg PO DAILY 12/03/24 12/07/24 clopidogrel 75 mg tablet 75 mg PO DAILY 12/03/24 12/07/24 diclofenac sodium 1 % topical gel 2 g topical QID 12/03/24 12/07/24 (Arthritis Pain (diclofenac)) estradiol 0.01% (0.1 mg/gram) 1 g vaginal 2XW 12/03/24 12/07/24 vaginal cream isosorbide mononitrate 30 mg 30 mg PO DAILY 12/03/24 12/07/24 tablet,extended release 24 hr lorazepam 0.5 mg tablet 0.5 mg PO DAILY PRN 12/03/24 12/07/24 losartan 100 mg tablet 100 mg PO DAILY 12/03/24 12/07/24 metoprolol succinate 25 mg 25 mg PO BID 12/03/24 12/07/24 tablet,extended release 24 hr nitroglycerin 0.4 mg sublingual 0.4 mg sublingual Q5M PRN 12/03/24 12/07/24 tablet ondansetron HCl 4 mg tablet 4 mg PO Q8H PRN 12/03/24 12/07/24 rosuvastatin 10 mg tablet 20 mg PO BID 12/03/24 12/07/24 furosemide 20 mg tablet 10 mg PO DAILY PRN edema 01/03/25 Previous Rx's ?Medication ?Instructions ?Recorded prednisone 20 mg tablet 60 mg (3 x 20 mg) PO DAILY 5 days 01/03/25 #15 tabs Allergies Allergy/AdvReac Type Severity Reaction Status Date / Time No Known Allergies Allergy Verified 01/15/25 14:13 Review of Systems Review of Systems: Positive right foot weakness question right arm numbness Yes all other systems are reviewed and are negative [facility] Past Medical History Attestation statement: The following information was validated with the patient. Medical History TREMAYNE (generalized anxiety disorder) Melanocytic nevus Hyperlipidemia History of recurrent UTI (urinary tract infection) Benign paroxysmal positional vertigo Ganglion Family history of multiple myeloma CAD (coronary artery disease) Afib Adjustment disorder Asthma Arthritis Surgical History Hx of vaginal hysterectomy S/P appendectomy S/P cholecystectomy H/O cystocele repair Previous section History of orthopedic surgery H/O cystoscopy History of percutaneous coronary intervention Family History Family History Father Coronary artery disease Hypertension Mother Vertigo Multiple myeloma Arthritis Son Schizophrenia Anxiety Daughter Anxiety Adrenal failure Atrial fibrillation Lyme disease Son Retinopathy Daughter Obesity Daughter Lyme disease Daughter No problems noted. Sister Uterine cancer Social History Social History Household Members: Children Household Members Other:: Son: Manny Housing: House Alcohol intake: never Patient Tobacco Use Status: Former Tobacco user Tobacco use type: Cigarette e-Cigarette/Vaping Use: Never Used Second Hand Smoke Exposure: No Advance Directives: No Advance Directives Information Provided: Yes Do you have a plan to hurt others: No Plan service: No Current occupational status: disabled Cognitive needs: No Hearing needs: No Vision needs: Yes Physical Exam ED Vital Signs: Vital Signs - 24 hr 01/15/25 13:56 01/15/25 18:05 Temperature 97.6 F 98.0 F Pulse Rate 69 60 Respiratory Rate 14 17 Blood Pressure 117/63 119/62 Pulse Oximetry 96 96 Oxygen Delivery Method Room Air Room Air BMI result Body Mass Index 29.3 Appearance: Alert. Oriented X3. No acute distress. Eyes: Pupils equal, round and reactive to light. ENT: Pharynx normal. Neck: Normal inspection. Neck supple. No lymph nodes noted. No crepitus CVS: Normal heart rate and rhythm. Pulses normal. Normal S1 and S2 Respiratory: No respiratory distress. Breath sounds normal. No Wheezing. No rales Abdomen: Soft and nontender. No rigidity. No distention. good BS x4 Skin: Skin warm and dry. Normal skin color. Normal skin turgor. Extremities: No lower extremity edema. Neurovascular intact to all extremities. No Lacerations. No Rash Neuro: Oriented X 3. No motor deficit. No sensory deficit. Moving all extermities. No slurred speech NIH Stroke Scale Internal: Initial- Upon Arrival Time: 16:34 Level of Consciousness: Alert Level of Consciousness Questions: Answers both questions correctly Level of Consciousness Commands: Performs both tasks correctly Best Gaze: Normal Visual: No visual loss Facial Palsy: Normal Motor Arm (Right): No drift Motor Arm (Left): No drift Motor Leg (Right): No drift Motor Leg (Left): No drift Limb Ataxia: Absent Sensory: Normal Best Language: No aphasia Dysarthia: Normal Extinction and Inattention: No abnormality Score: 0 Medications Administered Discontinued Medications Generic Name Dose Route Start Last Admin Trade Name Freq PRN Reason Stop Dose Admin Iohexol 100 ml 01/15/25 16:39 01/15/25 16:39 Iohexol 350 Mg/Ml 100 Ml Infus..Btl IV 01/15/25 16:40 70 ml ONCE ONE Administration Medical Decision Making Medical Decision Making MDM Narrative: Positive right-sided weakness both in the arm and in the the right foot. Resolved after about 15 minutes. Question CVA. Patient's sugar is normal there is no evidence for hypoglycemia. Neurologically intact at this point not a good candidate for tPA as patient's symptoms resolved. Does have a proven history of coronary artery disease status post stent. History of previous smoking. History of hypertension. High risk for strokes. CT head CTA was ordered. Will likely require admission for TIA workup Differential Diagnosis Differential Diagnoses: The differential diagnosis associated with the presentation includes CVA, peripheral nerve palsy, hypoglycemia Admission/Observation Consideration of admission/observation: Escalation of care including admission/observation considered Consult Healthcare Provider Management of the patient was discussed with: Hospitalist Lab Data [facility] Lab Attestation statement: I reviewed the patient's lab results. 01/15/25 14:44 01/15/25 14:44 Labs: Lab Results 01/15/25 Range/Units 14:44 WBC 11.9 H (4.8-10.8) X10*3/uL RBC 4.56 (4.20-5.50) X10*6/uL Hgb 13.8 (12.0-16.0) g/dl Hct 41.1 (37.0-47.0) % MCV 90.1 (80.0-98.0) fL MCH 30.3 (27.0-33.0) pg MCHC 33.6 (31.0-35.0) g/dl RDW 13.7 (11.0-16.0) % Plt Count 285 (160-400) X10*3/uL MPV 10.0 (9.4-12.3) fL Immature Gran % (Auto) 0.4 (0.0-0.4) % Neut % (Auto) 63.7 (45-73) % Lymph % (Auto) 29.0 (20-40) % [place] % (Auto) 6.1 (2-11) % Eos % (Auto) 0.5 (0-4) % Baso % (Auto) 0.3 (0-2) % Lymph # (Auto) 3.4 (1.2-4.9) X10*3/uL [place] # (Auto) 0.7 (0.1-1.2) X10*3/uL Eos # (Auto) 0.1 (0.0-0.4) X10*3/uL Baso # (Auto) 0.0 (0.0-0.2) X10*3/uL Abs Immat Gran (auto) 0.05 H (0.00-0.03) X10*3/uL Absolute Neuts (auto) 7.6 (2.0-8.3) x10*3/uL Absolute Nucleated RBC 0.000 (0.0-0.012) X10*3/uL Nucleated RBC % (auto) 0.0 (0.0-0.2) /100WBC PT 12.7 H (10.9-12.4) SEC INR 1.1 (0.9-1.1) Sodium 141 (135-145) mmol/L Potassium 4.5 (3.3-5.1) mmol/L Chloride 104 (96-108) mmol/L Carbon Dioxide 31 H (22-29) mmol/L Anion Gap 11 L (12-20) BUN 16 (9-16) mg/dL Creatinine 0.57 (0.5-1.4) mg/dL Estim Creat Clear Calc 114.5 Estimated GFR > 60 Random Glucose 98 (60-115) mg/dL Calcium 10.0 D (8.4-10.2) mg/dL Total Bilirubin 1.1 H (0.0-1.0) mg/dL AST 24 (5-31) U/L ALT 52 H (0-31) U/L Alkaline Phosphatase 68 (39-117) U/L Total Protein 6.8 (6.5-8.0) g/dL Albumin 4.2 (3.5-5.0) g/dL Independent Interpretation I performed an independent interpretation of an: CT Scan (CT head negative for acute evidence of bleeding) Radiology Impression Discussion of test interpretation with radiology: I discussed test interpretation with the radiologist and I have reviewed the radiologist's reading. External Record Review External record reviewed: Inpatient record Chronic Conditions Patient?s care impacted by: Hypertension History of coronary artery disease status post stent Social Determinants Patient?s care significantly limited by Social Determinants of Health including: Problems related to primary support group Discharge Plan Discharge Clinical Impression: Brain TIA Patient Disposition: Admitted As Inpatient Prescriptions: No Action prednisone 20 mg tablet 60 mg PO DAILY 5 Days Qty: 15 0RF rosuvastatin 10 mg tablet 20 mg PO BID estradiol 0.01 % (0.1 mg/gram) cream 1 g vaginal 2XW albuterol sulfate [Ventolin HFA] 90 mcg/actuation HFA aerosol inhaler 2 puff inhalation Q4-6H PRN lorazepam 0.5 mg tablet 0.5 mg PO DAILY PRN isosorbide mononitrate 30 mg tablet extended release 24 hr 30 mg PO DAILY clopidogrel 75 mg tablet 75 mg PO DAILY metoprolol succinate 25 mg tablet extended release 24 hr 25 mg PO BID ondansetron HCl 4 mg tablet 4 mg PO Q8H PRN nitroglycerin 0.4 mg tablet, sublingual 0.4 mg sublingual Q5M PRN Rx Instructions: do not exceed 3 doses per episode aspirin 81 mg capsule 81 mg PO DAILY diclofenac sodium [Arthritis Pain (diclofenac)] 1 % gel 2 g topical QID Rx Instructions: apply to single elbow, wrist or hand; for hand includes palm/fingers/back of hand losartan 100 mg tablet 100 mg PO DAILY furosemide 20 mg tablet 10 mg PO DAILY PRN (Reason: edema) Print Language: [place]
[2025-01-15] MEDS: iohexoL 350 MG/ML 100 ML INFUS..BTL IV (16:39)
--- NOTE | 2025-01-15 17:07 | PC.NURSE ---
patient remains alert and oriented with even and unlabored respirations. continues to ambulate independently to the bathroom. patient also stating that she has dietary restrictions - no fat, no oil plant based diet.
--- OUTSIDE RECORDS SUMMARY | 2025-01-15 17:39 | XMS_ITS | Clinical Summary ---
Author Organization [facility] Address [address] [place] [address] Care Team Providers Care Business Economist Name Role Phone Unavailable Primary Care Provider [...]
--- OUTSIDE RECORDS SUMMARY | 2025-01-15 17:39 | XMS_ITS | Clinical Summary ---
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 Name Role Phone Physician, Pcp Unknown Primary Care Provider Maryana vailable Allergies No known active allergies Encounters Date Type Department Care Team Description 11/17/2024 3:34 AM EST - 11/17/2024 4:00 AM EST Emergency [facility] Emergency [address] [place] [address] Discharge Disposition: Left Against Medical [...] and culture (11/17/2024 4:13 AM EST) Specific [place] Urine 1.018 1.003 - 1.030 LAB URINALYSIS - AUTOMATED METHOD 11/17/2024 5:09 AM [facility] pH, Urine 6.0 5.0 - 8.0 pH LAB URINALYSIS - AUTOMATED METHOD 11/17/2024 5:09 AM [facility] Leukocytes, Urine Large(A) Negative LAB URINALYSIS - AUTOMATED METHOD 11/17/2024 5:09 AM [facility] Nitrite, Urine Negative Negative LAB URINALYSIS - AUTOMATED METHOD 11/17/2024 5:09 AM [facility] Protein, Urine Negative <=Trace mg/dL LAB URINALYSIS - AUTOMATED METHOD 11/17/2024 5:09 AM [facility] Glucose, Urine Negative Negative mg/dL LAB URINALYSIS - AUTOMATED METHOD 11/17/2024 5:09 AM [facility] Ketones, Urine Negative Negative mg/dL LAB URINALYSIS - AUTOMATED METHOD 11/17/2024 5:09 AM [facility] Urobilinogen , Urine 0.2 0.2 - 1.0 mg/dL LAB URINALYSIS - AUTOMATED METHOD 11/17/2024 5:09 AM [facility] Bilirubin, Urine Negative Negative LAB URINALYSIS - AUTOMATED METHOD 11/17/2024 5:09 AM [facility] Blood, Urine Moderate(A) Negative LAB URINALYSIS - AUTOMATED METHOD 11/17/2024 5:09 AM [facility] RBC, Urine 18.3(H) 0 - 4 /HPF LAB URINALYSIS - AUTOMATED METHOD 11/17/2024 5:09 AM [facility] WBC, Urine 378.5(H) 0 - 4 /HPF LAB URINALYSIS - AUTOMATED METHOD 11/17/2024 5:09 AM [facility] Squamous Epithelial, Urine 9 0 - 60 /LPF LAB URINALYSIS - AUTOMATED METHOD 11/17/2024 5:09 AM [facility] Bacteria, Urine Many(A) Negative /HPF LAB URINALYSIS - AUTOMATED METHOD 11/17/2024 5:09 AM [facility] Hyaline Casts, Urine 0.4 0 - 3 /LPF LAB URINALYSIS - AUTOMATED METHOD 11/17/2024 5:09 AM [facility] Urine Urine specimen obtained by clean catch procedure / Unknown Non-blood Collection / Unknown 11/17/2024 4:13 AM EST 11/17/2024 4:50 AM EST us Ravi Guidry MD LAB URINE ORDERABLES Final Resu lt Performing Organization Address City/[facility]/ZIP Co de Phone Number [facility] [address] [place] [address], [place] [phone] * [place] urine culture tube (11/17/2024 4:13 AM EST) Extra Tube Hold for add-ons. 11/17/2024 6:01 AM [facility] Comment:Auto resulted. Urine Urine specimen obtained by clean catch procedure / Unknown Non-blood Collection / Unknown 11/17/2024 4:13 AM EST 11/17/2024 4:50 AM EST us Ravi Guidry MD LAB URINE ORDERABLES Final Resu lt Performing Organization Address City/[facility]/ZIP Co de Phone Number [facility] [address] [place] [address], [place] [phone] * (ABNORMAL) Culture urine (11/17/2024 4:13 AM EST) Culture, Urine >100,000 CFU/mL Escherichia coli(A) DEVYN 11/19/2024 10:27 AM [facility] Urine Urine specimen obtained by [...] Escherichia coli Trimethoprim/Sulfamethoxazole DEVYN <=20 ug/ml: Susceptible [facility] Val Guidry MD LAB MICROBIOLOGY - GENERAL ORDRussell SALDAÑA Final Result [facility] [address] [place] [address], [place] [phone] from Last 3 Months Insurance MEDICARE Care Teams Cut And Cover Line Worker Relationship Specialty Start Date End Date Physician, Pcp Unknown PCP - General 11/17/24
[2025-01-15 18:05] VITALS: BP 119/62; PULSE 60; RESP 17; TEMP 36.7; O2SAT 96
[2025-01-15 19:24] VITALS: BP 120/62; PULSE 62; RESP 16; TEMP 36.9; O2SAT 96
--- NOTE | 2025-01-15 19:28 | PC.NURSE ---
pt is alert and oriented x4, neuro intact, denies pain, vitals stable. pt refused to remove her shirt due to it is cold. pt is in a hospital gown. iv left tape lifting and secured.
--- NOTE | 2025-01-15 19:41 | P.HPHOSP_ITS ---
History of Present Illness Date of Service: 01/15/25 Chief Complaint: Rt arm numbness 64-year-old female with a past medical history of HTN, HLD, CAD, AFib-not on anticoagulation, asthma, arthritis, BPPV, GERD presented to the hospital today with a chief complaint of right arm numbness. Patient reported that about 23:00 last night when she woke up she felt right arm numbness and when she tried to get up and walk she was not able to use her right foot and was dragging. Episode lasted for about 15 minutes and subsequently resolved. Today she spoke to her PCP who suggested to go to the ER for further evaluation. Denies any headaches or blurry visions. Denies any numbness tingling or focal weakness currently. Patient denies any fever chills cough or sputum production. Denies any GI or symptoms. Review of all other systems is negative except mentioned above ER course: Per ER team, patient's exam was nonfocal; CT head and CT angio head and neck showed no acute findings. EKG nonischemic. [facility] Medical History TREMAYNE (generalized anxiety disorder) Melanocytic nevus Hyperlipidemia History of recurrent UTI (urinary tract infection) Benign paroxysmal positional vertigo Ganglion Family history of multiple myeloma CAD (coronary artery disease) Afib Adjustment disorder Asthma Arthritis Family History Father Coronary artery disease Hypertension Mother Vertigo Multiple myeloma Arthritis Son Schizophrenia Anxiety Daughter Anxiety Adrenal failure Atrial fibrillation Lyme disease Son Retinopathy Daughter Obesity Daughter Lyme disease Daughter No problems noted. Sister Uterine cancer Surgical History Hx of vaginal hysterectomy S/P appendectomy S/P cholecystectomy H/O cystocele repair Previous section History of orthopedic surgery H/O cystoscopy History of percutaneous coronary intervention Social History Household Members: Children Household Members Other:: Son: Manny Housing: House Alcohol intake: never Patient Tobacco Use Status: Former Tobacco user Tobacco use type: Cigarette e-Cigarette/Vaping Use: Never Used Second Hand Smoke Exposure: No Advance Directives: No Advance Directives Information Provided: Yes Do you have a plan to hurt others: No Plan service: No Current occupational status: disabled Cognitive needs: No Hearing needs: No Vision needs: Yes Meds Allergies Allergy/AdvReac Type Severity Reaction Status Date / Time No Known Allergies Allergy Verified 01/15/25 14:13 Active Medications: Current Medications Acetaminophen (Acetaminophen 325 Mg Tablet) 650 mg PO Q6H PRN PRN Reason: Pain, Mild 1-3,fever,headache Aspirin (Aspirin Enteric Coated 81 Mg Tablet.Dr) 81 mg PO DAILY [facility] Calcium Carbonate (Calcium Carbonate 750 Mg Tab.Chew) 750 mg PO Q4H PRN PRN Reason: Heartburn Clopidogrel Bisulfate (Clopidogrel Bisulfate 75 Mg Tablet) 75 mg PO DAILY [place] Magnesium Hydroxide (Milk Of Magnesia 30 Ml Oral.Susp) 30 ml PO DAILY PRN PRN Reason: Constipation Melatonin (Melatonin 3 Mg Tablet) 6 mg PO BEDTIME PRN PRN Reason: Insomnia Sodium Chloride (0.9 % Sodium Chloride Flush 3 Ml Syringe) 3 ml IVFLUSH QSHIFT [facility] Home Medications ?Medication ?Instructions ?Recorded ?Confirmed ?Last Taken ?Type albuterol sulfate 90 mcg/actuation 2 puff inhalation Q4-6H PRN 12/03/24 12/07/24 Unknown History aerosol inhaler (Ventolin HFA) aspirin 81 mg capsule 81 mg PO DAILY 12/03/24 12/07/24 Unknown History clopidogrel 75 mg tablet 75 mg PO DAILY 12/03/24 12/07/24 Unknown History diclofenac sodium 1 % topical gel 2 g topical QID 12/03/24 12/07/24 Unknown History (Arthritis Pain (diclofenac)) estradiol 0.01% (0.1 mg/gram) 1 g vaginal 2XW 12/03/24 12/07/24 Unknown History vaginal cream isosorbide mononitrate 30 mg 30 mg PO DAILY 12/03/24 12/07/24 Unknown History tablet,extended release 24 hr lorazepam 0.5 mg tablet 0.5 mg PO DAILY PRN 12/03/24 12/07/24 Unknown History losartan 100 mg tablet 100 mg PO DAILY 12/03/24 12/07/24 Unknown History metoprolol succinate 25 mg 25 mg PO BID 12/03/24 12/07/24 Unknown History tablet,extended release 24 hr nitroglycerin 0.4 mg sublingual 0.4 mg sublingual Q5M PRN 12/03/24 12/07/24 Unknown History tablet ondansetron HCl 4 mg tablet 4 mg PO Q8H PRN 12/03/24 12/07/24 Unknown History rosuvastatin 10 mg tablet 20 mg PO BID 12/03/24 12/07/24 Unknown History furosemide 20 mg tablet 10 mg PO DAILY PRN edema 01/03/25 Unknown History Physical Exam 2 Vital Signs and Narrative: Vital Signs: Last Vital Signs Temp 98.4 F 01/15/25 19:24 Pulse 62 01/15/25 19:24 Resp 16 01/15/25 19:24 BP 120/62 01/15/25 19:24 Pulse Ox 96 01/15/25 19:24 O2 Del Method Room Air 01/15/25 19:24 BMI result Body Mass Index 29.3 Gen: Appears be in no acute distress HEENT: NCAT, Moist mucosa. Pulmonary: Vesicular breath sounds, fair air entry CVS: Normal S1-S2 Abdomen: BS+, Soft, Nontender Extremities: Warm well perfused Neuro: Alert and awake. Oriented x3. Nonfocal. Results Labs 01/15/25 14:44 01/15/25 14:44 Labs: Laboratory Results - last 24 hr 01/15/25 14:44 MCV 90.1 MCH 30.3 MCHC 33.6 RDW 13.7 Plt Count 285 MPV 10.0 Immature Gran % (Auto) 0.4 Neut % (Auto) 63.7 Lymph % (Auto) 29.0 [place] % (Auto) 6.1 Eos % (Auto) 0.5 Baso % (Auto) 0.3 Lymph # (Auto) 3.4 [place] # (Auto) 0.7 Eos # (Auto) 0.1 Baso # (Auto) 0.0 Abs Immat Gran (auto) 0.05 H Absolute Neuts (auto) 7.6 Absolute Nucleated RBC 0.000 Nucleated RBC % (auto) 0.0 PT 12.7 H INR 1.1 Anion Gap 11 L Estim Creat Clear Calc 114.5 Estimated GFR > 60 Random Glucose 98 Calcium 10.0 D Total Bilirubin 1.1 H AST 24 ALT 52 H Alkaline Phosphatase 68 Total Protein 6.8 Albumin 4.2 Assessment and Plan (1) Brain TIA: Status: Acute Plan 64-year-old female with a past medical history of HTN, HLD, CAD, AFib-not on anticoagulation, asthma, arthritis, BPPV, GERD presented to the hospital today with a chief complaint of right arm numbness/right foot weakness. Symptoms resolved. Concern for possible TIA. TIA: Patient had a brief episode of right arm numbness and right foot weakness which currently resolved. 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 Currently given the episode of TIA patient may benefit anticoagulation. Will consult Cardiology for further input CAD: Continue home aspirin, statin, Plavix, beta-barbra. Asthma: Stable DVT prophylaxis: Lovenox Code status: Full code Quality Stroke Does the patient have a stroke diagnosis?: No VTE Prior VTE?: No VTE Risk Level:: Medical - moderate - high VTE Device Contraindication: Treatment Not Indicated VTE Drug Contraindication: N/A - Med Ordered
--- NOTE | 2025-01-15 19:45 | PC.NURSE ---
hospitalist made aware no diet order pt did pass the swallow eval.
[2025-01-15] MEDS: Enoxaparin Sodium 40 MG/0.4 ML SYRINGE SUBCUT (21:03)
[2025-01-15 22:06] VITALS: BMI 27.7
[2025-01-15 22:51] VITALS: BP 131/58; PULSE 80; RESP 16; TEMP 36.6; O2SAT 96
[2025-01-16] MEDS: 0.9 % Sodium Chloride Flush 3 ML SYRINGE IVFLUSH ×2 (02:34→08:43)
[2025-01-16] MEDS: Acetaminophen 325 MG TABLET 650 MG PO (03:31)
[2025-01-16 04:00] VITALS: BP 117/59; PULSE 61; RESP 16; TEMP 36.3; O2SAT 96
[2025-01-16 06:33] LABS: Mean Corpuscular HGB Conc 33.3 g/dl (31.0-35.0); Mean Corpuscular Hemoglobin 29.7 pg (27.0-33.0); Mean Platelet Volume 10.3 fL (9.4-12.3); Platelet Count 255 X10*3/uL (160-400); Red Blood Count 4.38 X10*6/uL (4.20-5.50); Red Cell Distribution Width 13.5 % (11.0-16.0); White Blood Count 8.1 X10*3/uL (4.8-10.8)
[2025-01-16 06:38] LABS: Alanine Aminotransferase 40 U/L (0-31); Albumin Level 3.7 g/dL (3.5-5.0); Alkaline Phosphatase 63 U/L (39-117); Anion Gap 10 (12-20); Aspartate Amino Transferase 19 U/L (5-31); Bilirubin Total 0.8 mg/dL (0.0-1.0); Blood Urea Nitrogen 15 mg/dL (9-16); Calcium 9.5 mg/dL (8.4-10.2); Carbon Dioxide 26 mmol/L (22-29); Chloride 109 mmol/L (96-108); Cholesterol 133 mg/dL (<200); Creatinine Clr Calc Pharmacy 115.5; Estimated Glomerular Filt Rate > 60; Glucose Random 103 mg/dL (60-115); HDL Cholesterol 48 mg/dL (>40); LDL Cholesterol Calculated 65 mg/dL (<100); Potassium 3.9 mmol/L (3.3-5.1); Sodium 141 mmol/L (135-145); Triglycerides 101 mg/dL (<150)
--- NOTE | 2025-01-16 07:00 | CA_ITS ---
Transthoracic Echocardiogram Patient (Last, First, Middle): Alysia Huerta I, Gender: Female Date of : 1960 Age: 64 Procedure Date: 01/16/2025 Procedure Type: Transthoracic [place]ocardiogram [place] [facility] [place]: 170.18 cm Weight: 79.83 kg BSA: 1.92 m2 Heart Rate: 62 bpm BP: 117 / 59 mmHg River Tester: TO Referring MD: Chris Blackmon MD Symptoms: TIA Study Quality: Adequate w contrast ECG Rhythm: Sinus Conclusions: - The left ventricular systolic function is normal. The calculated ejection fraction is 61% by biplane method. - There is no evidence of interatrial shunt by color Doppler and contrast. - No obvious valvular pathology seen on this study. Findings Procedure Information Contrast agent, definity, is being given per protocol without apparent complications. Left Ventricle Normal left ventricular cavity size. There is normal left ventricular wall thickness. The left ventricular systolic function is normal. The calculated ejection fraction is 61% by biplane method. There is no evidence of regional wall motion abnormalities. Diastolic function is normal for age. There is mild septal asymmetric hypertrophy. Right Ventricle Normal right ventricular cavity size and systolic function. Atria Both atria are normal in size. There is no evidence of interatrial shunt by color Doppler and contrast. Bubble study negative during rest and valsalva. Aortic Valve There is a normal trileaflet aortic valve. There is no aortic valve stenosis. There is no aortic valve regurgitation. Mitral Valve The mitral valve appears normal. There is no mitral valve regurgitation. There is no mitral valve stenosis. Pulmonic Valve There is trace pulmonic valve regurgitation. Tricuspid Valve There is trace tricuspid valve regurgitation. Tricuspid regurgitation envelope is inadequate for calculation of right ventricular systolic pressure. Great Vessels The asc aorta is normal in size. Venous The inferior vena cava is normal in size and collapses greater than 50% with inspiration. Pericardium/Pleural There is no evidence of pericardial effusion. Prior Study Comparison No prior study available for comparison. Recommendations, Care & Conclusions No obvious valvular pathology seen on this study. Measurements 2D Linear Measurements IVSd: 1.05 0.6-0.9/0.6-1.0 cm LVIDd: 4.84 3.9-5.3/4.2-5.9 cm LVIDd Index: 2.52 2.4-3.2/2.2-3.1 cm/m2 LVIDs: 3.48 2.0-3.6 cm LVPWd: 0.90 0.7-1.1 cm LA Diam: 2.90 2.7-3.8/3.0-4.0 cm LAIDs Index: 1.51 1.5-2.3 cm/m2 LV Mass: 207.51 67-162/88-224 g LV Mass Index: 108.08 43-95/49-115 g/m2 LVOT Diam: 2.20 3.0+(-)1.3 cm 2D Systolic Function EF 4C: 57.20 >55% EF 2C: 63.30 >55% EF BiP: 60.60 >55% Mitral Valve MV Pk E: 0.60 MV PK A: 0.48 MV Decel Time: 192.00 E/A: 1.20 E'Lateral: 7.07 E'Medial: 5.00 E/E' Med: 12.00 E/E' Lat: 8.50 PHT: 56.00 MVA PHT: 3.93 Decel Schley: 3.12 Aortic Valve AoV Pk Kenneth: 1.33 AoV Mn Kenneth: 0.92 AoV VTI: 0.31 AoV Pk Grad: 7.00 Aov Mn Grad: 4.00 DAVID Cont.VTI: 3.25 LVOT LVOT Pk Kenneth: 1.20 LVOT Mn Kenneth: 0.73 LVOT VTI: 0.26 LVOT Pk Grad: 6.00 LVOT Mn Grad: 3.00 LVOT Diam: 2.20 LVOT Area: 3.80 Diastolic Function MV Pk E: 0.60 MV Pk A: 0.48 E/A: 1.20 E'Medial: 5.00 E/E' Med: 12.00 E' Laterial: 7.07 E/E' Lat: 8.50 Right Ventricle TAPSE (mm): 26.00 TVS' Kenneth: 11.60 Tricuspid Valve RA Press: 3.00 Great Vessels Aorta Sinus of Valsalva: 3.30 2.0-3.5 cm Ao Asc: 3.20 2.1-3.4 cm Updated in Other Vendor System with Status of Final Chace Torres MD electronically signed on 01/16/2025 3:55:40 PM with status of Final
[2025-01-16 07:46] VITALS: BP 123/59; PULSE 65; RESP 16; TEMP 36.4; O2SAT 96
--- NOTE | 2025-01-16 08:25 | P.CNNE_ITS ---
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 It happened the night before when she got up and fell down. This was unusual for her. She noted that her right foot was dragging. When she stood, she could lift her left foot but not the right foot. There was also some right arm weakness. Despite that, she did not seek any immediate medical attention and apparently has it got better she went to sleep. Next morning she talked to her physician and was advised to come to emergency room. Now she was feeling better. There was no associated headache pain numbness or tingling. Review of Systems 2 Review of Systems: No recent palpitation shortness of breath or chest pain. [facility] Past Medical History Medical History TREMAYNE (generalized anxiety disorder) Melanocytic nevus Hyperlipidemia History of recurrent UTI (urinary tract infection) Benign paroxysmal positional vertigo Ganglion Family history of multiple myeloma CAD (coronary artery disease) Afib Adjustment disorder Asthma Arthritis Family History Family History Father Coronary artery disease Hypertension Mother Vertigo Multiple myeloma Arthritis Son Schizophrenia Anxiety Daughter Anxiety Adrenal failure Atrial fibrillation Lyme disease Son Retinopathy Daughter Obesity Daughter Lyme disease Daughter No problems noted. Sister Uterine cancer Surgical History Surgical History Hx of vaginal hysterectomy S/P appendectomy S/P cholecystectomy H/O cystocele repair Previous section History of orthopedic surgery H/O cystoscopy History of percutaneous coronary intervention Social History Social History Household Members: Children Household Members Other:: Son: Manny Housing: House Alcohol intake: never Patient Tobacco Use Status: Former Tobacco user Tobacco use type: Cigarette Smoked in Last 30 Days: No e-Cigarette/Vaping Use: Former Use Second Hand Smoke Exposure: No Use of substances other than those prescribed or required for medical reasons: No Currently Displaying Signs/Symptoms of Drug Intoxication Withdrawal: No Any prior treatment program specific to substance use: No Have you been hit, kicked, punched, or otherwise hurt by someone within the past year? If so, by whom?: No Do you feel safe in your current relationship?: Yes Is there a partner from a previous relationship who is making you feel unsafe now?: No Are you made to feel afraid or neglected: No Advance Directives: No Advance Directives Information Provided: Yes Do you have a plan to hurt others: No Plan Recently lost weight without trying: No How much weight loss: Not applicable Eating poorly because of decreased appetite: No Nutrition screen score: 0 Nutrition Risks: No Nutritional Risk Patient : No : No Poor oral hygiene: No service: No Current occupational status: disabled Cognitive needs: No Hearing needs: No Vision needs: Yes Meds Allergies Allergy/AdvReac Type Severity Reaction Status Date / Time No Known Allergies Allergy Verified 01/15/25 14:13 Active Medications: Current Medications Acetaminophen (Acetaminophen 325 Mg Tablet) 650 mg PO Q6H PRN PRN Reason: Pain, Mild 1-3,fever,headache Last Admin: 01/16/25 03:31 Dose: 650 mg Albuterol Sulfate (Albuterol Sulfate 90 Mcg 8 Gm Inhaler) 2 puff INHALE RQ4H PRN PRN Reason: Shortness Of Breath Aspirin (Aspirin Enteric Coated 81 Mg Tablet.Dr) 81 mg PO DAILY [facility] Atorvastatin Calcium (Atorvastatin Calcium 80 Mg Tablet) 80 mg PO DAILY [facility] Calcium Carbonate (Calcium Carbonate 750 Mg Tab.Chew) 750 mg PO Q4H PRN PRN Reason: Heartburn Clopidogrel Bisulfate (Clopidogrel Bisulfate 75 Mg Tablet) 75 mg PO DAILY [facility] Enoxaparin Sodium (Enoxaparin Sodium 40 Mg/0.4 Ml Syringe) 40 mg SUBCUT Q24H [facility] Last Admin: 01/15/25 21:03 Dose: 40 mg Isosorbide Mononitrate (Isosorbide Mononitrate 30 Mg Tab.Er.24h) 30 mg PO DAILY [facility]; Protocol Magnesium Hydroxide (Milk Of Magnesia 30 Ml Oral.Susp) 30 ml PO DAILY PRN PRN Reason: Constipation Melatonin (Melatonin 3 Mg Tablet) 6 mg PO BEDTIME PRN PRN Reason: Insomnia Metoprolol Succinate (Metoprolol Succinate Er 25 Mg Tab.Er.24h) 25 mg PO BID [facility]; Protocol Nitroglycerin (Nitroglycerin 0.4 Mg Tab.Subl) 0.4 mg SUBLINGUAL Q5M PRN PRN Reason: Chest Pain Sodium Chloride (0.9 % Sodium Chloride Flush 3 Ml Syringe) 3 ml IVFLUSH QSHIFT FRANCESCO Last Admin: 01/16/25 02:34 Dose: 3 ml Home Medications ?Medication ?Instructions ?Recorded ?Confirmed ?Last Taken ?Type albuterol sulfate 90 mcg/actuation 2 puff inhalation Q4-6H PRN 12/03/24 01/15/25 Unknown History aerosol inhaler (Ventolin HFA) Shortness Of Breath aspirin 81 mg capsule 81 mg PO DAILY 12/03/24 01/15/25 01/15/25 History clopidogrel 75 mg tablet 75 mg PO DAILY 12/03/24 01/15/25 01/15/25 History diclofenac sodium 1 % topical gel 2 g topical QID 12/03/24 01/15/25 01/15/25 History (Arthritis Pain (diclofenac)) estradiol 0.01% (0.1 mg/gram) 1 g vaginal 2XW 12/03/24 01/15/25 Unknown History vaginal cream isosorbide mononitrate 30 mg 30 mg PO DAILY 12/03/24 01/15/25 01/15/25 History tablet,extended release 24 hr lorazepam 0.5 mg tablet 0.5 mg PO DAILY PRN Anxiety 12/03/24 01/15/25 Unknown History losartan 100 mg tablet 100 mg PO DAILY 12/03/24 01/15/25 01/15/25 History metoprolol succinate 25 mg 25 mg PO BID 12/03/24 01/15/25 01/15/25 History tablet,extended release 24 hr nitroglycerin 0.4 mg sublingual 0.4 mg sublingual Q5M PRN Chest 12/03/24 01/15/25 Unknown History tablet Pain furosemide 20 mg tablet 10 mg PO DAILY PRN edema 01/03/25 01/15/25 Unknown History acetaminophen 650 mg 1,300 mg PO Q8H PRN Pain 01/15/25 01/15/25 Unknown History tablet,extended release (Tylenol Arthritis Pain) coenzyme Q10 100 mg capsule 400 mg PO DAILY 04/23/25 04/23/25 04/23/25 History (CoQ-10) melatonin 3 mg tablet 3 mg PO BEDTIME PRN Insomnia 01/15/25 01/15/25 Unknown History rosuvastatin 20 mg tablet 20 mg PO DAILY 01/15/25 01/15/25 01/15/25 History Physical Exam 2 Vital Signs: Vital Signs: Last Vital Signs Temp 97.6 F 01/16/25 07:46 Pulse 65 01/16/25 07:46 Resp 16 01/16/25 07:46 BP 123/59 L 01/16/25 07:46 Pulse Ox 96 01/16/25 07:46 O2 Del Method Room Air 01/16/25 07:46 BMI result Body Mass Index 27.7 Neuro: Other: She is alert and awake with normal spontaneity of speech fluency comprehension and affect. Face was symmetrical. Visual almaguer are full. There was no pronator drift. There was no sensory or visual extinction. There was no focal arm or leg weakness. Plantars were flexor. Speech was normal except that I thought she had mild accent but she did not think so. Results Labs 01/16/25 06:00 01/16/25 06:00 Labs: Short CBC 01/15/25 01/16/25 Range/Units 14:44 06:00 WBC 11.9 H 8.1 (4.8-10.8) X10*3/uL Hgb 13.8 13.0 (12.0-16.0) g/dl Hct 41.1 39.0 (37.0-47.0) % Plt Count 285 255 (160-400) X10*3/uL BMP 01/15/25 01/16/25 14:44 06:00 Sodium 141 141 Potassium 4.5 3.9 Chloride 104 109 H Carbon Dioxide 31 H 26 BUN 16 15 Creatinine 0.57 0.55 Calcium 10.0 D 9.5 Liver Function 01/15/25 01/16/25 Range/Units 14:44 06:00 Total Bilirubin 1.1 H 0.8 (0.0-1.0) mg/dL AST 24 19 (5-31) U/L ALT 52 H 40 H (0-31) U/L Alkaline Phosphatase 68 63 (39-117) U/L Albumin 4.2 3.7 (3.5-5.0) g/dL Assessment and Plan (1) Brain TIA: Status: Acute 64 years old woman with underlying coronary artery disease status post stenting head symptoms suggestive of left anterior cerebral artery syndrome or ischemia. Fortunately it recovered. My recommendation at this time is to put her on anticoagulation for stroke prevention. An MRI of brain without contrast is also recommended. Procedures Date of Service Date of Service: 01/16/25
[2025-01-16] MEDS: Aspirin Enteric Coated 81 MG TABLET.DR PO (08:42)
[2025-01-16] MEDS: Isosorbide Mononitrate 30 MG TAB.ER.24H PO (08:42)
[2025-01-16] MEDS: Metoprolol Succinate ER 25 MG TAB.ER.24H PO (08:42)
[2025-01-16] MEDS: Clopidogrel Bisulfate 75 MG TABLET PO (08:42)
--- NOTE | 2025-01-16 09:05 | MHC.CM.PN ---
LAUREN 01/16/25, Pt lives with her son, she does not have home health services or use DME. PCP confirmed: Souleymane Mccloud. HCP discussed, form given for her to think about. Pt. is able to arrange transport home at [place]. DCP; home, self care. CM to follow for DC needs.
[2025-01-16 11:59] VITALS: BP 119/68; PULSE 61; RESP 18; TEMP 36.6; O2SAT 97
[2025-01-16] MEDS: Losartan Potassium 50 MG TABLET 100 MG PO (15:39)
[2025-01-16] MEDS: Lidocaine 4 % Patch ADH..PATCH 1 PATCH TRANSDERMA (15:40)
[2025-01-16 16:04] VITALS: BP 130/76; PULSE 62; RESP 16; TEMP 35.3; O2SAT 98
--- NOTE | 2025-01-16 16:38 | P.DS_ITS ---
DS: Providers Provider Date of Service: 01/16/25 Date of admission: 01/15/25 19:32 Date of discharge: 01/16/25 Primary care physician: VERONICA Livingston Consults: 01/15/25 19:36 Consult to Neurology Routine Consulting Provider: Boy Stoner Reason for consultation: TIA DS: Diagnosis Discharge Diagnosis (1) Brain TIA: Status: Acute DS: Summary Hospital Course Hospital Course: From the history and physical by the admitting hospitalist, Viraj Blackmon, 01/15/25: 64-year-old female with a past medical history of HTN, HLD, CAD, AFib-not on anticoagulation, asthma, arthritis, BPPV, GERD presented to the hospital today with a chief complaint of right arm numbness. Patient reported that about 23:00 last night when she woke up she felt right arm numbness and when she tried to get up and walk she was not able to use her right foot and was dragging. Episode lasted for about 15 minutes and subsequently resolved. Today she spoke to her PCP who suggested to go to the ER for further evaluation. Denies any headaches or blurry visions. Denies any numbness tingling or focal weakness currently. Patient denies any fever chills cough or sputum production. Denies any GI or symptoms. Review of all other systems is negative except mentioned above ER course: Per ER team, patient's exam was nonfocal; CT head and CT angio head and neck showed no acute findings. EKG nonischemic. She was admitted to the telemetry unit with Neurology consult. All neurologic issues resolved and did not recur. MRI did not demonstrate acute ischemia. Likely diagnosis is transient ischemic attack. She is already on DAPT with ASA + clopidogrel for CAD s/p PCI in September. She should be on apixaban for CVA prevention given history of AF. ASA was discontinued so moving forward she will be on apixaban plus clopidogrel. She is already on a high-intensity statin. She is establishing primary care in this area and will follow up with [facility] [place] Card[facility]. Time Attestation Discharge Coordination Time (in mins): 35 Quality: Safe Use of Opioids Does Pt have an Active Cancer Diagnosis on the Problem List?: No Quality: Stroke Does the patient have a stroke diagnosis?: No Physical Exam Vital Signs: Vital Signs: Last Vital Signs Temp 95.6 F L 01/16/25 16:04 Pulse 62 01/16/25 16:04 Resp 16 01/16/25 16:04 BP 130/76 01/16/25 16:04 Pulse Ox 98 01/16/25 16:04 O2 Del Method Room Air 01/16/25 16:04 BMI result Body Mass Index 27.7 Gen: in no acute distress HEENT: sclera anicteric, moist mucus membranes Neck: supple Lungs: clear to auscultation bilaterally Heart: regular rate and rhythm, no murmurs Abd: soft, non-tender, non-distended Ext: no edema Skin: warm/well-perfused Neuro: alert and oriented x3, no focal findings Psych: appropriate affect DS: Data Data Completed and Pending Completed studies during hospitalization [Text1]: Laboratory Results WBC 8.1 X10*3/uL (4.8-10.8) 01/16/25 06:00 RBC 4.38 X10*6/uL (4.20-5.50) 01/16/25 06:00 Hgb 13.0 g/dl (12.0-16.0) 01/16/25 06:00 Hct 39.0 % (37.0-47.0) 01/16/25 06:00 MCV 89.0 fL (80.0-98.0) 01/16/25 06:00 MCH 29.7 pg (27.0-33.0) 01/16/25 06:00 MCHC 33.3 g/dl (31.0-35.0) 01/16/25 06:00 RDW 13.5 % (11.0-16.0) 01/16/25 06:00 Plt Count 255 X10*3/uL (160-400) 01/16/25 06:00 MPV 10.3 fL (9.4-12.3) 01/16/25 06:00 Immature Gran % (Auto) 0.4 % (0.0-0.4) 01/15/25 14:44 Neut % (Auto) 63.7 % (45-73) 01/15/25 14:44 Lymph % (Auto) 29.0 % (20-40) 01/15/25 14:44 [place] % (Auto) 6.1 % (2-11) 01/15/25 14:44 Eos % (Auto) 0.5 % (0-4) 01/15/25 14:44 Baso % (Auto) 0.3 % (0-2) 01/15/25 14:44 Lymph # (Auto) 3.4 X10*3/uL (1.2-4.9) 01/15/25 14:44 [place] # (Auto) 0.7 X10*3/uL (0.1-1.2) 01/15/25 14:44 Eos # (Auto) 0.1 X10*3/uL (0.0-0.4) 01/15/25 14:44 Baso # (Auto) 0.0 X10*3/uL (0.0-0.2) 01/15/25 14:44 Abs Immat Gran (auto) 0.05 X10*3/uL (0.00-0.03) H 01/15/25 14:44 Absolute Neuts (auto) 7.6 x10*3/uL (2.0-8.3) 01/15/25 14:44 Absolute Nucleated RBC 0.000 X10*3/uL (0.0-0.012) 01/16/25 06:00 Nucleated RBC % (auto) 0.0 /100WBC (0.0-0.2) 01/16/25 06:00 PT 12.7 SEC (10.9-12.4) H 01/15/25 14:44 INR 1.1 (0.9-1.1) 01/15/25 14:44 Sodium 141 mmol/L (135-145) 01/16/25 06:00 Potassium 3.9 mmol/L (3.3-5.1) 01/16/25 06:00 Chloride 109 mmol/L (96-108) H 01/16/25 06:00 Carbon Dioxide 26 mmol/L (22-29) 01/16/25 06:00 Anion Gap 10 (12-20) L 01/16/25 06:00 BUN 15 mg/dL (9-16) 01/16/25 06:00 Creatinine 0.55 mg/dL (0.5-1.4) 01/16/25 06:00 Estim Creat Clear Calc 115.5 01/16/25 06:00 Estimated GFR > 60 01/16/25 06:00 Random Glucose 103 mg/dL (60-115) 01/16/25 06:00 Calcium 9.5 mg/dL (8.4-10.2) 01/16/25 06:00 Total Bilirubin 0.8 mg/dL (0.0-1.0) 01/16/25 06:00 AST 19 U/L (5-31) 01/16/25 06:00 ALT 40 U/L (0-31) H 01/16/25 06:00 Alkaline Phosphatase 63 U/L (39-117) 01/16/25 06:00 Total Protein 6.0 g/dL (6.5-8.0) L 01/16/25 06:00 Albumin 3.7 g/dL (3.5-5.0) 01/16/25 06:00 Triglycerides 101 mg/dL (<150) 01/16/25 06:00 Cholesterol 133 mg/dL (<200) 01/16/25 06:00 LDL Cholesterol, Calc 65 mg/dL (<100) 01/16/25 06:00 HDL Cholesterol 48 mg/dL (>40) 01/16/25 06:00 Impressions Brain MRI 01/16/25 15:09 IMPRESSION: No acute stroke/nonhemorrhagic ischemia or acute brain abnormality. Nonspecific white matter T2 FLAIR signal foci. Electronically signed by: Sergey Puga MD 01/16/2025 04:04 PM EDT TTE 01/16/25 - The left ventricular systolic function is normal. The calculated ejection fraction is 61% by biplane method. - There is no evidence of interatrial shunt by color Doppler and contrast. - No obvious valvular pathology seen on this study. Discharge Plan Discharge Patient Disposition: Home, Self-Care Discharge Diagnosis: TIA history of atrial fibrillation Referrals: Souleymane Mccloud FNP-C [Primary Care Provider] - 1 Week [facility] [place] [facility] [Provider Group] - 1 Month Discharge Medications: New lidocaine [Lidocaine Pain Relief] 4 % Adhesive Patch,Medicated 1 patch transdermal DAILY Qty: 30 0RF Protocol: Apply to: Apply to: l knee apixaban 5 mg tablet 5 mg PO BID Qty: 60 0RF Continued rosuvastatin 20 mg tablet 20 mg PO DAILY melatonin 3 mg Tablet 3 mg PO BEDTIME PRN (Reason: Insomnia) acetaminophen [Tylenol Arthritis Pain] 650 mg Tablet Extended Release 1,300 mg PO Q8H PRN (Reason: Pain) coenzyme Q10 [CoQ-10] 100 mg Capsule 400 mg PO DAILY estradiol 0.01 % (0.1 mg/gram) cream 1 g vaginal 2XW albuterol sulfate [Ventolin HFA] 90 mcg/actuation HFA aerosol inhaler 2 puff inhalation Q4-6H PRN (Reason: Shortness Of Breath) lorazepam 0.5 mg tablet 0.5 mg PO DAILY PRN (Reason: Anxiety) isosorbide mononitrate 30 mg tablet extended release 24 hr 30 mg PO DAILY clopidogrel 75 mg tablet 75 mg PO DAILY metoprolol succinate 25 mg tablet extended release 24 hr 25 mg PO BID nitroglycerin 0.4 mg tablet, sublingual 0.4 mg sublingual Q5M PRN (Reason: Chest Pain) Rx Instructions: do not exceed 3 doses per episode diclofenac sodium [Arthritis Pain (diclofenac)] 1 % gel 2 g topical QID Rx Instructions: apply to single elbow, wrist or hand; for hand includes palm/fingers/back of hand losartan 100 mg tablet 100 mg PO DAILY furosemide 20 mg tablet 10 mg PO DAILY PRN (Reason: edema) Discontinued aspirin 81 mg capsule 81 mg PO DAILY Discharge Orders: Discharge Order (Routine); Ordered 01/16/25 Ordered By: Yuly Garibay Diet: Advance to usual diet Activity on Discharge: As tolerated Stand Alone Forms: Patient Portal Discharge page Print Language: Omani Care Plan Goals: stroke prevention Health Concerns: TIA history of atrial fibrillation Plan of Treatment: take apixaban [Eliquis] 5 mg twice daily continue clopidogrel 75 mg once daily stop aspirin follow up with CARDIOLOGY within 1 month Mediterranean diet, 150 minutes aerobic activity per week Please follow up with your primary care doctor within 1 week. Return to the hospital if you experience recurrent or worsening symptoms. Assessment: See Discharge Summary. Patient Instructions: Stroke (DC)
--- NOTE | 2025-01-16 17:22 | MHC.SP.ADU ---
Referring provider: Dr. Blackmon Reason for Referral: Asses speech/language - ?CVA Type of Treatment: 05071 Evaluation Speech Sound Production WITH Language Date of Plan of Treatment: 01/16/25 Onset of Symptoms/Illness: 01/14/25 Date Treatment Started: 01/16/25 Medical Diagnosis: (1) Brain TIA: Primary Speech Language Diagnosis: R47.1 Dysarthria Secondary Speech Language Diagnosis: History Patient is a 64-year-old female who presented to the hospital with a chief complaint of right arm numbness. Patient reported that she woke up during the night and felt right arm numbness and when she tried to get up and walk she collapsed due to right leg weakness. Episode lasted for about 15 minutes and subsequently resolved. She further noted that her speech was slurred. The next day she spoke to her PCP who suggested to go to the ER for further evaluation. Medical History: TREMAYNE (generalized anxiety disorder) Melanocytic nevus Hyperlipidemia History of recurrent UTI (urinary tract infection) Benign paroxysmal positional vertigo Ganglion Family history of multiple myeloma CAD (coronary artery disease) Afib Adjustment disorder Asthma Arthritis Medication List: See Chart Recent Hospitalizations: No Respiratory Needs: Room Air Patient Orientation: Alert & Oriented x 4 Social History: Current Living Situation: Lives in private residence with family Past Speech Language Therapy: None Other Therapies Seen in Current Calendar Year: None Other: Swallowing History: Dysphagia Specific: Within Functional Limits Comments: Pre-eval Risk for Aspiration: Pre-evaluation Dietary Consistencies: Regular Pre-eval Liquid Intake: Thin Pre-eval Medication Intake: Whole with Liquid Reported Speech, Language, Cognition difficulties: Speaking Comments: Patient noted dysarthria at time of L sided weakness, Speech issues have mostly resolved by time of this assessment. Quality of Life: Good Patient Stated Goal of Speech-Language Therapy: Assess speech and language. Assessment Speech Production: Articulate Clinical Impression: Intact Observations: Patient was given an informal dysarthria assessment from [employer] targeting Pashto phonemes at the word level. Patient produced all sounds with clear and articulate speech, minorly noted mild distortion of /z/ in her own speech, barely perceptible to this listener/orthopedic tech. Patient noted that speaking clearly and articulating well is a personal habit. Informal Voice Assessment: Voice Loudness: Normal Voice Nasal Resonance: Normal Voice Oral Resonance: Normal Voice Phonatory-based Quality: Normal Voice Pitch: Normal Voice Other Observations: Clinical Impression: Intact Clinicial Observations: Tests of Speech & Lang Adults: BNT Clinical Impression: Intact Observations: Patient's word finding ability was screened using the short form of the BNT. Patient labelled 15/15 images presented with no difficulty. No evidence of word finding difficulty on evaluation or in her conversational speech, which was fluent, articulate and insightful. Impressions and Recommendations Summary: Patient is presenting with clear, articulate speech and fluent expression which is judged to be WFL. No evidence of residual dysarthria or aphasia. No further speech/language services or therapy recommended at this time. Impact on Daily Function/Activity Limitations: Daily Activities: None Interpersonal Interactions: None Education: None Employment: None Community: None Prognosis for Improvement: Excellent Comment: Recommendation for Speech Therapy: NA:Typical Evaluation Patient Education: Completed: Patient/Caregiver Education: Described Results of Evaluation Patient expressed understanding of evaluation Patient agrees with goals and treatment plan Comments/Barriers to Learning: Orthodontic Treatment Coordinator Clinican/Clinical Fellow: No Supervisory Statement: N/A Speech Language Pathologist: Mimi Pabon M.A., CCC-WATCH ADJUSTER
== END 2025-01-16 17:17 | disposition home or self-care (01) ==
LOC: HO.ED 19:22 → HO.EDOVER 19:41 → HO.IMC 20:03
PROVIDERS: Admitting Provider Hospitalist; Emergency Provider Emergency Medicine Emergency Medical Services; Visit Provider Family Medicine
DX: G45.9 Transient cerebral ischemic attack, unspecified (principal); R53.1 Weakness; R20.0 Anesthesia of skin; I10 Essential (primary) hypertension; I48.91 Unspecified atrial fibrillation; I25.10 Atherosclerotic heart disease of native coronary artery without angina pectoris; E78.5 Hyperlipidemia, unspecified; Z79.899 Other long term (current) drug therapy
CPT/HCPCS: 36415; 70450; 70496; 70498; 70551; 80053; 80061; 85025; 85027; 85610; 92523; 93005; 93306; 96372; 97162; 97165; 99212; 99222; 99285; J1650; Q9957; Q9967

== ENCOUNTER → 2025-01-15 14:22 | Outpatient (BNV) | payer MEDICARE, OTHER, SELFPAY | PROVIDERS: Admitting Provider Hospitalist; Emergency Provider Emergency Medicine Emergency Medical Services; Visit Provider Internal Medicine | DX: I49.1 Atrial premature depolarization (principal) | CPT/HCPCS: 93010 ==

== ENCOUNTER → 2025-01-15 16:27 | Outpatient (BNV) | payer MEDICARE, OTHER, SELFPAY | PROVIDERS: Emergency Provider Emergency Medicine Emergency Medical Services; Visit Provider Radiology Diagnostic Radiology | DX: G81.91 Hemiplegia, unspecified affecting right dominant side (principal); E04.1 Nontoxic single thyroid nodule; G31.89 Other specified degenerative diseases of nervous system | CPT/HCPCS: 70450; 70496; 70498 ==

== ENCOUNTER 2025-01-15 19:32 | Outpatient (BNV) | payer MEDICARE, OTHER, SELFPAY | END 2025-01-16 15:09 | PROVIDERS: Admitting Provider Hospitalist; Emergency Provider Emergency Medicine Emergency Medical Services; Visit Provider Radiology Diagnostic Radiology | DX: R90.82 White matter disease, unspecified (principal) | CPT/HCPCS: 70551 ==

== ENCOUNTER 2025-01-15 19:32 | Outpatient (BNV) | payer MEDICARE, OTHER, SELFPAY | END 2025-01-16 07:00 | PROVIDERS: Admitting Provider Hospitalist; Emergency Provider Emergency Medicine Emergency Medical Services; Visit Provider Internal Medicine | DX: G45.9 Transient cerebral ischemic attack, unspecified (principal) | CPT/HCPCS: 93306 ==

== ENCOUNTER → 2025-01-15 19:32 | Outpatient (BNV) | payer MEDICARE, OTHER, SELFPAY | PROVIDERS: Admitting Provider Hospitalist; Emergency Provider Emergency Medicine Emergency Medical Services; Visit Provider Family Medicine | DX: G45.9 Transient cerebral ischemic attack, unspecified (principal) | CPT/HCPCS: 99222; 99239 ==

== ENCOUNTER → 2025-01-15 19:32 | Outpatient (BNV) | payer MEDICARE, OTHER, SELFPAY | PROVIDERS: Admitting Provider Hospitalist; Emergency Provider Emergency Medicine Emergency Medical Services; Visit Provider Psychiatry & Neurology Neurology | DX: G45.9 Transient cerebral ischemic attack, unspecified (principal) | CPT/HCPCS: 99222 ==

== ENCOUNTER → 2025-01-20 11:23 | Outpatient (BNV) | payer MEDICARE, OTHER, SELFPAY | PROVIDERS: Visit Provider Internal Medicine | DX: Z80.8 Family history of malignant neoplasm of other organs or systems (principal) | CPT/HCPCS: 99204; G2211 ==

== ENCOUNTER 2025-01-24 16:33 | Outpatient (AMB) | payer MEDICARE, OTHER, SELFPAY ==
--- OUTSIDE RECORDS SUMMARY | 2025-01-24 16:35 | XMS_ITS | Clinical Summary ---
Author Organization [facility] Address [address] [place] [address] Phone Care Team Providers Care Magazine Writer Name Role Phone Physician, Pcp Unknown Primary Care Provider Maryana vailable Allergies No known active allergies Encounters Date Type Department Care Team Description 11/17/2024 3:34 AM EST - 11/17/2024 4:00 AM EST Emergency [facility] Emergency [address] [place] [address] Discharge Disposition: Left Against Medical [...] and culture (11/17/2024 4:13 AM EST) Specific [place] Urine 1.018 1.003 - 1.030 LAB URINALYSIS [...] ORDERABLES Final Resu lt Performing Organization Address City/[facility]/ZIP Co de Phone Number [facility] [address] [place] [address], [place] [phone] * Merrill urine culture tube (11/17/2024 4:13 AM EST) Extra Tube Hold for add-ons. 11/17/2024 6:01 AM [facility] Comment:Auto resulted. Urine Urine specimen obtained by clean catch procedure / Unknown Non-blood Collection / Unknown 11/17/2024 4:13 AM EST 11/17/2024 4:50 AM EST us Ravi Guidry MD LAB URINE ORDERABLES Final Resu lt Performing Organization Address City/[facility]/ZIP Co de Phone Number [facility] [address] [place] [address], [place] [phone] * (ABNORMAL) Culture urine (11/17/2024 4:13 AM EST) Culture, Urine >100,000 CFU/mL Escherichia coli(A) DEVYN 11/19/2024 10:27 AM [facility] Urine [...] Escherichia coli Trimethoprim/Sulfamethoxazole DEVYN <=20 ug/ml: Susceptible [facility] Val Guidry MD LAB MICROBIOLOGY - GENERAL ORDRussell SALDAÑA Final Result [facility] [address] [place] [address], [place] [phone] from Last 3 Months Insurance MEDICARE Care Teams Magazine Writer Relationship Specialty Start Date End Date Physician, Pcp Unknown PCP - General 11/17/24
--- NOTE | 2025-01-24 16:55 | A.OFFPC_ITS ---
Vital Signs 01/24/25 16:56 Height 5 ft 3 in Weight 175 lb 4 oz BMI 31.0 BP 140/76 H Blood Pressure Location Lt brachial Position Sitting Pulse 76 Pulse Source Pulse Oximeter Temp 97.3 F Temp Source Temporal Artery Scan Pulse Oximetry (%) 94 Oxygen Delivery Method Room Air Intake Visit Reasons: 01/15 [facility] TIA Manager Operations Research Required: No Accompanied by: Self / Same As Patient Allergies No Known Allergies Allergy (Verified 01/24/25 16:59) Tobacco use date assessed: 12/03/24 Dental Screening Dental Screen Date: 12/03/24 HPI HPI Comments History of Present Illness Details 64 y/o Female patient who presents to [facility] today for HDF. Pmhx significant for HTN, HLD, CAD, AFib-not on anticoagulation, asthma, arthritis, BPPV, and GERD. Pt was admitted at [facility] hospital on 01/15 - 01/16 for Neurologial observation due to right arm numbness and right Leg weakness. CT head and CT angio head and neck showed no acute findings. EKG normal. MRI did not demonstrate acute Ischemia. She was discharged home with a likely diagnosis of TIA. ASA was discontinued and she remains on Apixaban plus Clopidogrel. Today denies Numbness or weakness or tingling to the Limbs. Denies Facial droop or Paralysis. Denies headaches, dizziness, SOB or CP. PFSH Medical History TREMAYNE (generalized anxiety disorder) Melanocytic nevus Hyperlipidemia History of recurrent UTI (urinary tract infection) Benign paroxysmal positional vertigo Ganglion Family history of multiple myeloma CAD (coronary artery disease) Afib Adjustment disorder Asthma Arthritis Surgical History Hx of vaginal hysterectomy S/P appendectomy S/P cholecystectomy H/O cystocele repair Previous section History of orthopedic surgery H/O cystoscopy History of percutaneous coronary intervention Family History Father Coronary artery disease Hypertension Mother Vertigo Multiple myeloma Arthritis Son Schizophrenia Anxiety Daughter Anxiety Adrenal failure Atrial fibrillation Lyme disease Son Retinopathy Daughter Obesity Daughter Lyme disease Daughter No problems noted. Sister Uterine cancer Social History Household Members: Children Household Members Other:: Son: Manny Housing: House Alcohol intake: never Patient Tobacco Use Status: Former Tobacco user Tobacco use type: Cigarette e-Cigarette/Vaping Use: Former Use Second Hand Smoke Exposure: No service: No Current occupational status: disabled Cognitive needs: No Hearing needs: No Vision needs: Yes Questionnaire Thrive Questionnaire Date Thrive assessed: 11/27/24 I am a: Patient What is your living situation today?: I have a steady place to live Within the past 12 months, did the food you bought not last and you didn't have the money to get more?: Never true Within the past 12 months, did you worry whether your food would run out before you got money to buy more?: Never true Do you have trouble paying for medicines?: No Do you have trouble getting transportation to medical appointments?: No Do you have trouble paying your heating and electricity bill?: No Do you have trouble taking care of your child, family member or friend?: No Do you have trouble with day-to-day activities such as bathing, preparing meals, shopping, managing finances, etc.?: No Are you currently unemployed and looking for a job?: Yes Are you interested in more education?: No Please select the resources that you would like help with: Care for elder or disabled Currently or been in a relationship where the following occur: No concerns reported THRIVE Score: 0 TREMAYNE-7 AMB Questionnaire TREMAYNE-7 Date TREMAYNE - 7 assessed: 12/03/24 Source: Developed by Drs. Chi Valdivia, Melissa Bateman, Bull Lemus and colleagues, with an educational fabio from [employer]. Review of Systems Const All systems reviewed & are unremarkable except as noted in HPI and below Physical exam (Primary Care) Vital Signs: Last Vital Signs Temp 97.3 F 01/24/25 16:56 Pulse 76 01/24/25 16:56 BP 140/76 H 01/24/25 16:56 Pulse Ox 94 01/24/25 16:56 Oxygen Delivery Method Room Air 01/24/25 16:56 BMI result Body Mass Index 31.0 Tobacco/Smoking Status: Tobacco use Status Tobacco use date assessed 12/03/24 01/24/25 17:00 Patient Tobacco Use Status Former Tobacco user 01/24/25 17:00 Tobacco use type Cigarette 01/24/25 17:00 e-Cigarette/Vaping Use Former Use 01/24/25 17:00 Thrive Assessment: Date of Thrive Assessment Date Thrive assessed 11/27/24 01/24/25 17:00 Currently or been in a relationship where the following occur: No concerns reported Const General: no acute distress Nutritional Appearance: overweight Orientation/consciousness: patient oriented x3 HENMT Head: Yes normocephalic Ears: hearing grossly normal bilaterally General nose exam: Normal external nose present Face and sinus: Yes normal facial exam and Yes face symmetric Throat: Yes uvula midline Eyes Pupils: Equal, round and reactive pupils present Resp Effort & Inspection: normal respiratory effort Cardio Heart sounds: S1 normal heart sound present and S2 normal heart sound present Neuro General: patient oriented x3, gait normal and moves all extremities Cranial nerves: Yes CN's II-XII intact bilaterally and Yes Equal, round and reactive pupils present Motor exam (neuro): 5/5 motor strength present throughout Psych Speech and movement: Normal speech and movement present Coding Level of Care Code Est Pt Level 4 (04892) Diagnoses Brain TIA G45.9 Time Spent (min) 20 Assessment & Plan Assessment & Plan (1) Brain TIA: Code(s): G45.9 - Transient cerebral ischemic attack, unspecified Category: Medical Plan: Resolved. Continue on ordered medications.
[2025-01-24 16:56] VITALS: BP 140/76; PULSE 76; TEMP 36.3; O2SAT 94; BMI 31.0
== END 2025-01-24 17:15 | disposition home or self-care (01) ==
LOC: HO.HMCH 16:34
PROVIDERS: Visit Provider Nurse Practitioner Family
DX: G45.9 Transient cerebral ischemic attack, unspecified (principal)

== ENCOUNTER → 2025-01-24 16:33 | Outpatient (BNVA) | payer MEDICARE, OTHER, SELFPAY | PROVIDERS: Visit Provider Nurse Practitioner Family | DX: G45.9 Transient cerebral ischemic attack, unspecified (principal) | CPT/HCPCS: 99212 ==

== ENCOUNTER 2025-02-03 08:07 | Outpatient (REF) | payer MEDICARE, OTHER, SELFPAY ==
--- OUTSIDE RECORDS SUMMARY | 2025-02-03 08:43 | XMS_ITS | Clinical Summary ---
Author Organization [facility] Address [address] [place] [address] Care Team Providers Care Bonding Machine Tender Name Role Phone Unavailable Primary Care Provider [...]
--- OUTSIDE RECORDS SUMMARY | 2025-02-03 08:43 | XMS_ITS | Clinical Summary ---
Author Organization [facility] Address [address] [place] [address] Phone Care Team Providers Care Shipwright Name Role Phone Physician, Pcp Unknown Primary Care Provider Maryana vailable Allergies No known active allergies Encounters Date Type Department Care Team Description 11/17/2024 3:34 AM EST - 11/17/2024 4:00 AM EST Emergency [facility] Emergency [address] [place] [address] Discharge Disposition: Left Against Medical [...] and culture (11/17/2024 4:13 AM EST) Specific [place] Urine 1.018 1.003 - 1.030 LAB URINALYSIS - AUTOMATED METHOD 11/17/2024 5:09 AM [facility] pH, Urine 6.0 5.0 - 8.0 pH LAB URINALYSIS - AUTOMATED METHOD 11/17/2024 5:09 AM [facility] Leukocytes, Urine Large(A) Negative LAB URINALYSIS - AUTOMATED METHOD 11/17/2024 5:09 AM [facility] Nitrite, Urine Negative Negative LAB URINALYSIS - AUTOMATED METHOD 11/17/2024 5:09 AM [facility] Protein, Urine Negative <=Trace mg/dL LAB URINALYSIS - AUTOMATED METHOD 11/17/2024 5:09 AM [facility] Glucose, Urine Negative Negative mg/dL LAB URINALYSIS - AUTOMATED METHOD 11/17/2024 5:09 AM [facility] Ketones, Urine Negative Negative mg/dL LAB URINALYSIS - AUTOMATED METHOD 11/17/2024 5:09 AM [facility] Urobilinogen , Urine 0.2 0.2 - 1.0 mg/dL LAB URINALYSIS - AUTOMATED METHOD 11/17/2024 5:09 AM [facility] Bilirubin, Urine Negative Negative LAB URINALYSIS - AUTOMATED METHOD 11/17/2024 5:09 AM [facility] Blood, Urine Moderate(A) Negative LAB URINALYSIS - AUTOMATED METHOD 11/17/2024 5:09 AM [facility] RBC, Urine 18.3(H) 0 - 4 /HPF LAB URINALYSIS - AUTOMATED METHOD 11/17/2024 5:09 AM [facility] WBC, Urine 378.5(H) 0 - 4 /HPF LAB URINALYSIS - AUTOMATED METHOD 11/17/2024 5:09 AM [facility] Squamous Epithelial, Urine 9 0 - 60 /LPF LAB URINALYSIS - AUTOMATED METHOD 11/17/2024 5:09 AM [facility] Bacteria, Urine Many(A) Negative /HPF LAB URINALYSIS - AUTOMATED METHOD 11/17/2024 5:09 AM [facility] Hyaline Casts, Urine 0.4 0 - 3 /LPF LAB URINALYSIS - AUTOMATED METHOD 11/17/2024 5:09 AM [facility] Urine Urine specimen obtained by clean catch procedure / Unknown Non-blood Collection / Unknown 11/17/2024 4:13 AM EST 11/17/2024 4:50 AM EST us Ravi Guidry MD LAB URINE ORDERABLES Final Resu lt Performing Organization Address City/[facility]/ZIP Co de Phone Number [facility] [address] [place] [address], [place] [phone] * Merrill urine culture tube (11/17/2024 4:13 AM EST) Extra Tube Hold for add-ons. 11/17/2024 6:01 AM [facility] Comment:Auto resulted. Urine Urine specimen obtained by clean catch procedure / Unknown Non-blood Collection / Unknown 11/17/2024 4:13 AM EST 11/17/2024 4:50 AM EST us Ravi Guidry MD LAB URINE ORDERABLES Final Resu lt Performing Organization Address City/[facility]/ZIP Co de Phone Number [facility] [address] [place] [address], [place] [phone] * (ABNORMAL) Culture urine (11/17/2024 4:13 AM EST) Culture, Urine >100,000 CFU/mL Escherichia coli(A) DEVYN 11/19/2024 10:27 AM [facility] Urine Urine specimen obtained by [...] Escherichia coli Trimethoprim/Sulfamethoxazole DEVYN <=20 ug/ml: Susceptible [facility] Val Guidry MD LAB MICROBIOLOGY - GENERAL ORDRussell SALDAÑA Final Result [facility] [address] [place] [address], [place] [phone] from Last 3 Months Insurance MEDICARE Care Teams Shipwright Relationship Specialty Start Date End Date Physician, Pcp Unknown PCP - General 11/17/24
== END 2025-02-03 08:08 | disposition home or self-care (01) ==
LOC: HO.LAB 08:07
PROVIDERS: Visit Provider Physician Assistant
DX: N30.00 Acute cystitis without hematuria (principal)
CPT/HCPCS: 81003; 87086; 87088; 87186; 99212

== ENCOUNTER 2025-02-03 08:07 | Outpatient (AMB) | payer MEDICARE, OTHER, SELFPAY ==
--- NOTE | 2025-02-03 08:08 | AM.OFFWIN_ITS ---
Intake Vital Signs 02/03/25 08:09 Height 5 ft 3 in Weight 172 lb BMI 30.5 BP 110/70 Blood Pressure Location Rt brachial Position Sitting Pulse 71 Pulse Source Pulse Oximeter Pulse Oximetry (%) 98 Oxygen Delivery Method Room Air Intake Visit Reasons: EP-?uti Intake Note: Patient here for burning sensation on urination, frequent urination,dark urine she states she recently changed her diet completely and is unsure if it may be related. Patient Tobacco Use Status: Former Tobacco user Allergies No Known Allergies Allergy (Verified 01/24/25 16:59) HPI HPI Comments History of Present Illness Details History of Present Illness - The patient is a 65-year-old female pr esenting with recurrent urinary tract infections. - Recent episodes include infections in October and December, with treatment via Macrobid, keflex and cefuroxime. patient is reporting an increase in urination which is significant, particularly at night, accompanying these episodes. - Does not have DM, last glucose 3 weeks ago was WNL. - The patient adheres to a plant-based d iet, leading to notable weight loss, and manages past prediabetes with dietary adjustments. - She expresses concerns about potential liver dysfunction due to recent changes in urine color and has ceased statin use temporarily. Has follow up with PCP in February. - The patient experienced a TIA recently and is awaiting appropriate cardiac evaluations and is asking for cardiac rehab, she states she inquired about this months ago but things seem to have fallen through the cracks as she never heard back. She did go to [facility] physical therapy for other reasons and they recommended she attend cardiac rehab before physical therapy. - She did take Pyridium for her pain Physical Exam General: Cooperative, healthy appearing, comfortable, no acute distress and well developed Orientation: Patient oriented x3 Limitations: No limitations Head: Normal to inspection Ears: Hearing grossly normal bilaterally Nose: Normal External nose present Face and sinus: Normal facial exam Eyes: Appearance normal, both eyes and all related structures Neck: Normal visual inspection and Yes full ROM Respiratory: Normal respiratory effort and able to speak in complete sentences. Skin: No rashes or lesions noted Neuro: Patient oriented x3 Extremities: Normal to inspection [facility] Medical History TREMAYNE (generalized anxiety disorder) Melanocytic nevus Hyperlipidemia History of recurrent UTI (urinary tract infection) Benign paroxysmal positional vertigo Ganglion Family history of multiple myeloma CAD (coronary artery disease) Afib Adjustment disorder Asthma Arthritis Surgical History Hx of vaginal hysterectomy S/P appendectomy S/P cholecystectomy H/O cystocele repair Previous section History of orthopedic surgery H/O cystoscopy History of percutaneous coronary intervention Family History Father Coronary artery disease Hypertension Mother Vertigo Multiple myeloma Arthritis Son Schizophrenia Anxiety Daughter Anxiety Adrenal failure Atrial fibrillation Lyme disease Son Retinopathy Daughter Obesity Daughter Lyme disease Daughter No problems noted. Sister Uterine cancer Social History Household Members: Children Household Members Other:: Son: Manny Housing: House Alcohol intake: never Patient Tobacco Use Status: Former Tobacco user Tobacco use type: Cigarette e-Cigarette/Vaping Use: Former Use Second Hand Smoke Exposure: No service: No Current occupational status: disabled Cognitive needs: No Hearing needs: No Vision needs: Yes Review of Systems Const All systems reviewed & are unremarkable except as noted in HPI and below Physical Exam Vital Signs: Last Vital Signs Pulse 71 02/03/25 08:09 BP 110/70 02/03/25 08:09 Pulse Ox 98 02/03/25 08:09 Oxygen Delivery Method Room Air 02/03/25 08:09 BMI result Body Mass Index 30.5 Assessment & Plan Assessment & Plan (1) UTI (urinary tract infection): Code(s): N39.0 - Urinary tract infection, site not specified Qualifiers: Urinary tract infection type: acute cystitis Hematuria presence: without hematuria Qualified Code(s): N30.00 - Acute cystitis without hematuria Plan: Vital signs are stable, patient well-appearing, urinalysis is positive for everything because the patient took Pyridium. Urine culture has been sent. we will treat based on symptoms. Encouraged patient to go to her Urology appointment tomorrow for her recurrent UTIs. Given previous pathogen being e coli, cefuroxime is started and reconsideration will occur based on sensitivity testing. Concerns regarding liver tenderness and changes in urine coloration warrant further investigation, with recommendations to discuss liver function and statin therapy adjustment with her primary care provider. Cardiac rehabilitation remains a priority - I did message her PCP to initiate this, if he feels it is appropriate. Options besides statins, such as citrus bergamot, were suggested she speak with her PCP and Wastewater Treatment Supervisor about this as she is having unwanted side effects with her statins. Equipped with a current plan, resources, and reassurance about her health itinerary, she will discuss any further interventions during subsequent specialty appointments. Patient was informed and verbally consented to the use of an ambient scribe for clinic note documentation during this visit. Orders: Orders Urine Culture Today N39.0 - Urinary tract infection, site not specified Medications: New cefuroxime axetil 500 mg PO Q12H 10 tabs 0RF Coding Level of Care Code Est Pt Level 3 (21649) Diagnoses Acute cystitis without hematuria N30.00 Urinary tract infection type: acute cystitis Hematuria presence: without hematuria
[2025-02-03 08:09] VITALS: BP 110/70; PULSE 71; O2SAT 98; BMI 30.5
--- OUTSIDE RECORDS SUMMARY | 2025-02-03 08:11 | XMS_ITS | Clinical Summary ---
Author Organization [facility] Address [address] [place] [address] Care Team Providers Care Binder Stripper Hand Name Role Phone Unavailable Primary Care Provider [...]
--- OUTSIDE RECORDS SUMMARY | 2025-02-03 08:11 | XMS_ITS | Clinical Summary ---
Author Organization [facility] Address [address] [place] [address] Phone Care Team Providers Care Agribusiness Internship Name Role Phone Physician, Pcp Unknown Primary Care Provider Maryana vailable Allergies No known active allergies Encounters Date Type Department Care Team Description 11/17/2024 3:34 AM EST - 11/17/2024 4:00 AM EST Emergency [facility] Emergency [address] [place] [address] Discharge Disposition: [...] and culture (11/17/2024 4:13 AM EST) Specific [place] Urine 1.018 1.003 - 1.030 LAB URINALYSIS [...] ORDERABLES Final Resu lt Performing Organization Address City/[facility]/ZIP Co de Phone Number [facility] [address] [place] [address], [place] [phone] * Merrill urine culture tube (11/17/2024 4:13 AM EST) Extra Tube Hold for add-ons. 11/17/2024 6:01 AM [facility] Comment:Auto resulted. Urine Urine specimen obtained by clean catch procedure / Unknown Non-blood Collection / Unknown 11/17/2024 4:13 AM EST 11/17/2024 4:50 AM EST us Ravi Guidry MD LAB URINE ORDERABLES Final Resu lt Performing Organization Address City/[facility]/ZIP Co de Phone Number [facility] [address] [place] [address], [place] [phone] * (ABNORMAL) Culture urine (11/17/2024 4:13 AM EST) Culture, Urine >100,000 CFU/mL Escherichia coli(A) DEVYN 11/19/2024 10:27 AM [facility] Urine Urine specimen [...] Escherichia coli Trimethoprim/Sulfamethoxazole DEVYN <=20 ug/ml: Susceptible [facility] Val Guidry MD LAB MICROBIOLOGY - GENERAL ORDRussell SALDAÑA Final Result [facility] [address] [place] [address], [place] [phone] from Last 3 Months Insurance MEDICARE Care Teams Agribusiness Internship Relationship Specialty Start Date End Date Physician, Pcp Unknown PCP - General 11/17/24
== END 2025-02-03 08:47 | disposition home or self-care (01) ==
PROVIDERS: Visit Provider Physician Assistant
DX: Z13.9 Encounter for screening, unspecified (principal); N30.00 Acute cystitis without hematuria

== ENCOUNTER 2025-02-04 12:58 | Outpatient (AMB) | payer MEDICARE, OTHER, SELFPAY ==
--- NOTE | 2025-02-04 13:21 | MHC.OFFVIS ---
Intake Visit Reasons: hx of UTIs Intake Note: New patient presents today for initial visit for hx of UTI's Urology Medication:Estradiol Blood Thinner:Apixaban, Clopidogrel Antibiotic Allergies: PVR:0ml Allergies No Known Allergies Allergy (Verified 02/04/25 14:09) Medication List - Last Reconciled 02/04/25 by ARNOLDO Schroeder acetaminophen ER (Tylenol Arthritis Pain) 1,300 mg PO Q8H PRN albuterol sulfate 90 mcg/actuation (Ventolin HFA) 2 puffs inhalation Q4-6H PRN apixaban 5 mg PO BID cefuroxime axetil 500 mg PO Q12H clopidogrel 75 mg PO DAILY coenzyme Q10 (CoQ-10) 400 mg PO DAILY diclofenac sodium 1% (Arthritis Pain (diclofenac)) 2 grams topical QID estradiol 0.01%(0.1mg/gram) 1 g vaginal 2XW furosemide 10 mg PO DAILY PRN isosorbide mononitrate ER 30 mg PO DAILY lidocaine 4% (Lidocaine Pain Relief) 1 patch See Protocol transdermal DAILY lorazepam 0.5 mg PO DAILY PRN losartan 100 mg PO DAILY melatonin 3 mg PO BEDTIME PRN metoprolol succinate ER 25 mg PO BID nitroglycerin 0.4 mg sublingual Q5M PRN rosuvastatin 20 mg PO DAILY HPI Comments Details: Alysia is a very pleasant 65-year-old female patient of Dr. Mccloud. She has a past medical history of recurrent urinary tract infections, anxiety, hyperlipidemia, coronary artery disease, AFib, asthma, arthritis, and adjustment disorder. She presents to the office today as a new patient for recurrent urinary tract infections. In discussion with the patient today she reports previously living in [place] and following up with a urologist there for many years regarding her recurrent urinary tract infections. She reports being on Estrace cream for the last 3 years however continues with multiple urinary tract infections. She brings with her to the office today her previous records noting many urinary tract infections. Most recently in November and December patient had E coli. She reports following up with her new PCP as she has recently moved here from [place] and recommendations were made for urology referral for further assessment evaluation. In office urinalysis results reviewed with the patient today however she is currently on antibiotic therapy for a urine culture that is pending however preliminary notes gram-negative rods. She discusses her recent cardiac surgical intervention to include stent placement and has since changed her diet and has intentionally lost 8 lb over the last few weeks. She reports previously having had issues with constipation however most recently with her new diet has not been having issues with constipation. She reports compliance with Estrace cream as prescribed. She also reports being on methenamine in the past and felt this was helpful however has since stopped taking the medication. We discussed at length potential causes of recurrent urinary tract infections as well as further treatment options and risks and benefits of these treatment options. PVR 0 mL. She does report ongoing lower urinary tract symptoms of urinary urgency, urinary frequency, nocturia, and intermittent episodes of dysuria. She otherwise denies incontinence,hematuria, foul smelling urine, changes to urinary stream, flank pain, fever, and or chills. History of Present Illness The patient is a 65-year-old female presenting with recurrent urinary tract infections. These episodes have been recurring for many years, attributed to a history of Proteus urinary infections initially addressed with methenamine. The patient discontinued the methenamine medication due to concerns over long-term use and side effects but is seeking guidance on whether to resume it as recurrence remains an issue. Pain and feeling of bladder irritation persist despite negative urine cultures. Plan I advised resuming methenamine therapy daily with adjunctive vitamin C to manage recurrent UTIs effectively. The patient should continue the Estrace cream application three times a week, revised from the previous regimen. Bladder and kidney ultrasound will be arranged to ensure no anatomical issues are contributing to persistent symptoms. Patient was informed and verbally consented to the use of an ambient scribe for clinic note documentation during this visit. Discussion Notes We reviewed the management of recurrent UTIs, focusing primarily on resuming methenamine and the adjunct vitamin C therapy. Consent for methenamine was obtained after discussing the negligible interaction with her cardiac medications and the need for vitamin C for activation, emphasizing her interest in a reduced recurrence without extended antibiotic use. Ultrasound of the kidneys and bladder was discussed for full anatomical evaluation due to chronic symptoms. The patient understands follow-up will be based on ultrasound findings and any further symptomatic changes. [facility] Medical History TREMAYNE (generalized anxiety disorder) Melanocytic nevus Hyperlipidemia History of recurrent UTI (urinary tract infection) Benign paroxysmal positional vertigo Ganglion Family history of multiple myeloma CAD (coronary artery disease) Afib Adjustment disorder Asthma Arthritis Surgical History Hx of vaginal hysterectomy S/P appendectomy S/P cholecystectomy H/O cystocele repair Previous section History of orthopedic surgery H/O cystoscopy History of percutaneous coronary intervention Family History Father Coronary artery disease Hypertension Mother Vertigo Multiple myeloma Arthritis Son Schizophrenia Anxiety Daughter Anxiety Adrenal failure Atrial fibrillation Lyme disease Son Retinopathy Daughter Obesity Daughter Lyme disease Daughter No problems noted. Sister Uterine cancer Social History Household Members: Children Household Members Other:: Son: Manny Housing: House Alcohol intake: never Patient Tobacco Use Status: Former Tobacco user Tobacco use type: Cigarette e-Cigarette/Vaping Use: Former Use Second Hand Smoke Exposure: No service: No Current occupational status: disabled Cognitive needs: No Hearing needs: No Vision needs: Yes Review of Systems Const All systems reviewed & are unremarkable except as noted in HPI and below Physical Exam Const General: cooperative, healthy appearing, comfortable, no acute distress, well developed, alert and awake Nutritional Appearance: overweight Orientation/consciousness: patient oriented x3 Limitations: no limitations HEENT Head: Yes normal to inspection, Yes normocephalic and Yes atraumatic Ears: hearing grossly normal bilaterally Eyes General: appearance normal, both eyes and all related structures Neck Neck: Yes normal visual inspection and Yes trachea midline Chest Chest palpation & inspection: normal inspection of the chest Resp Effort & Inspection: normal respiratory effort and able to speak in complete sentences Cardio Rate: regular rate GI Inspection: Yes normal to inspection General: Yes no CVA tenderness Back/Spine/Pelvis Back: no CVA tenderness Skin General skin exam: no rashes or lesions noted Neuro General: patient oriented x3 Extrem General: Yes normal to inspection Psych Appearance: grossly normal and well kempt Mental Status: mental status grossly normal Speech and movement: Normal speech and movement present and Clear speech present Affect: normal affect Attitude: cooperative Thought process: Normal thought process present Thought content: Normal thought content present Insight: Fair insight present (Psych) Judgement: Fair judgement present (Psych) Office Procedures Post Void Residual Post Residual Void Post Void Residual (PVR): 0 [id number]-[id number] Void Residual by ultrasound Results AMB Urinalysis, Automated UA Leukoctes 15 Vasquez/uL Last Edit by Betina Zhoutiz on 02/04/25 14:52 UA Nitrite Negative Last Edit by Crystal Lemus on 02/04/25 14:52 UA Urobilinogen 0.2 mg/dL Last Edit by Crystal Lemus on 02/04/25 14:52 UA Protein 15 mg/dL Last Edit by Crystal Lemus on 02/04/25 14:52 UA pH 7.5 Last Edit by Crystal Lemus on 02/04/25 14:52 UA Blood 10 Fausto/uL Last Edit by Crystal Lemus on 02/04/25 14:52 UA Specific Gideon 1.010 Last Edit by Crystal Lemus on 02/04/25 14:52 UA Ketone Negative Last Edit by Crystal Lemus on 02/04/25 14:52 UA Bilirubin 0 mg/dL Last Edit by Crystal Lemus on 02/04/25 14:52 UA Glucose 0 mg/dL Last Edit by Betina Lemus on 02/04/25 14:52 Results Reviewed Results Reviewed: Laboratory Last Values Urine pH (Auto) 7.5 02/04/25 14:09 Specific Gideon (Auto) 1.010 02/04/25 14:09 Urine Protein (Auto) 15 mg/dL 02/04/25 14:09 Glucose (UA)(Auto) 0 mg/dL 02/04/25 14:09 Urine Ketones (Auto) Negative 02/04/25 14:09 Urine Blood (Auto) 10 Fausto/uL 02/04/25 14:09 Urine Nitrite (Auto) Negative 02/04/25 14:09 Urine Bilirubin (Auto) 0 mg/dL 02/04/25 14:09 Urine Urobilinogen (Auto) 0.2 mg/dL 02/04/25 14:09 Leukocyte Esterase (Auto) 15 Vasquez/uL 02/04/25 14:09 Assessment & Plan Assessment & Plan (1) Recurrent urinary tract infection: Code(s): N39.0 - Urinary tract infection, site not specified Category: Medical (2) Lower urinary tract symptoms: Code(s): R39.9 - Unspecified symptoms and signs involving the genitourinary system Category: Medical Plan In office urinalysis results reviewed with the patient today; will send for urine cytology. PVR 0 mL Urine culture remains pending will await results for further assessment evaluation. We discussed starting methenamine and vitamin-C once completed with antibiotic therapy. Prescriptions provided. Will obtain retroperitoneal ultrasound for further assessment evaluation. We discussed potential causes of recurrent urinary tract infections as well as further treatment options and risks and benefits of these treatment options. We discussed potential near future in office cystoscopy and or urodynamics for further assessment evaluation. We discussed bladder triggers/irritants. Follow-up in 1-3 months with imaging to be completed prior and PVR at next office visit; or sooner with any issues, concerns, and or questions. Orders: Orders AMB Post Void Residual by ultrasound Today N30.00 - Acute cystitis without hematuria US retroperitoneal comp Today I48.91 - Unspecified atrial fibrillation, N39.0 - Urinary tract infection, site not specified, R39.9 - Unspecified symptoms and signs involving the genitourinary system Urine Cytology Today N30.00 - Acute cystitis without hematuria AMB Urinalysis Automated Today N30.00 - Acute cystitis without hematuria, Z13.9 - Encounter for screening, unspecified Medications: New methenamine hippurate 1 g PO DAILY 90 days 90 tabs 1RF N39.0 - Urinary tract infection, site not specified ascorbic acid (vitamin C) 1 g PO DAILY 90 days 90 tabs 1RF N39.0 - Urinary tract infection, site not specified Patient Instructions: The patient had an opportunity to ask questions regarding the treatment plan. All questions were answered. Physical exam, labs, and imaging were discussed and reviewed in detail. As well as risks, benefits, and discussion of treatment choices. No major barriers to understanding were identified. The patient expressed understanding and agreement with the above treatment plan. The patient was made aware they should contact our office by phone for worsening of their current condition, the appearance of new symptoms, or with any questions or concerns. Compliance is encouraged with any medications and follow up testing that is ordered. It is a privilege to be allowed the opportunity to participate in? your urological care.? Again, if you have any questions or concerns If you have any questions or concerns please do not hesitate to contact me. The office is [phone]. This note is constructed using voice recognition software. While every effort has been made to ensure accuracy agricultural services director errors may have been included. Yours sincerely, ARNOLDO Schroeder Coding Level of Care Code New Pt Level 4 (13085) Diagnoses Recurrent urinary tract infection N39.0 Lower urinary tract symptoms R39.9 CPT Codes Post Residual Void - PVR CPT Code: 67511-Hizo Void Residual by ultrasound ([id number])
--- OUTSIDE RECORDS SUMMARY | 2025-02-04 14:01 | XMS_ITS | Clinical Summary ---
Author Organization [facility] Address [address] [place] [address] Phone Care Team Providers Care Personal Banking Advisor Name Role Phone Physician, Pcp Unknown Primary Care Provider Maryana vailable Allergies No known active allergies Encounters Date Type Department Care Team Description 11/17/2024 3:34 AM EST - 11/17/2024 4:00 AM EST Emergency [facility] Emergency [address] [place] [address] Discharge Disposition: Left Against Medical [...] and culture (11/17/2024 4:13 AM EST) Specific [place] Urine 1.018 1.003 - 1.030 LAB URINALYSIS - AUTOMATED METHOD 11/17/2024 5:[address] [facility] pH, Urine 6.0 5.0 - 8.0 pH LAB URINALYSIS - AUTOMATED METHOD 11/17/2024 5:[address] [facility] Leukocytes, Urine Large(A) Negative LAB URINALYSIS - AUTOMATED METHOD 11/17/2024 5:[address] [facility] Nitrite, Urine Negative Negative LAB URINALYSIS - AUTOMATED METHOD 11/17/2024 5:[address] [facility] Protein, Urine Negative <=Trace mg/dL LAB URINALYSIS - AUTOMATED METHOD 11/17/2024 5:[address] [facility] Glucose, Urine Negative Negative mg/dL LAB URINALYSIS - AUTOMATED METHOD 11/17/2024 5:[address] [facility] Ketones, Urine Negative Negative mg/dL LAB URINALYSIS - AUTOMATED METHOD 11/17/2024 5:[address] [facility] Urobilinogen , Urine 0.2 0.2 - 1.0 mg/dL LAB URINALYSIS - AUTOMATED METHOD 11/17/2024 5:[address] [facility] Bilirubin, Urine Negative Negative LAB URINALYSIS - AUTOMATED METHOD 11/17/2024 5:[address] [facility] Blood, Urine Moderate(A) Negative LAB URINALYSIS - AUTOMATED METHOD 11/17/2024 5:[address] [facility] RBC, Urine 18.3(H) 0 - 4 /HPF LAB URINALYSIS - AUTOMATED METHOD 11/17/2024 5:[address] [facility] WBC, Urine 378.5(H) 0 - 4 /HPF LAB URINALYSIS - AUTOMATED METHOD 11/17/2024 5:[address] [facility] Squamous Epithelial, Urine 9 0 - 60 /LPF LAB URINALYSIS - AUTOMATED METHOD 11/17/2024 5:[address] [facility] Bacteria, Urine Many(A) Negative /HPF LAB URINALYSIS - AUTOMATED METHOD 11/17/2024 5:[address] [facility] Hyaline Casts, Urine 0.4 0 - 3 /LPF LAB URINALYSIS - AUTOMATED METHOD 11/17/2024 5:[address] [facility] Urine Urine specimen obtained by clean catch procedure / Unknown Non-blood Collection / Unknown 11/17/2024 4:13 AM EST 11/17/2024 4:50 AM EST us Ravi Guidry MD LAB URINE ORDERABLES Final Resu lt Performing Organization Address City/[facility]/ZIP Co de Phone Number [facility] [address] [place] [address], [place] [phone] * [place] urine culture tube (11/17/2024 4:13 AM EST) Extra Tube Hold for add-ons. 11/17/2024 6:[address] [facility] Comment:Auto resulted. Urine Urine specimen obtained by clean catch procedure / Unknown Non-blood Collection / Unknown 11/17/2024 4:13 AM EST 11/17/2024 4:50 AM EST us Ravi Guidry MD LAB URINE ORDERABLES Final Resu lt Performing Organization Address City/[facility]/ZIP Co de Phone Number [facility] [address] [place] [address], [place] [phone] * (ABNORMAL) Culture urine (11/17/2024 4:13 AM EST) Culture, Urine >100,000 CFU/mL Escherichia coli(A) DEVYN 11/19/2024 10:[address] [facility] Urine Urine specimen obtained by [...] Escherichia coli Trimethoprim/Sulfamethoxazole DEVYN <=20 ug/ml: Susceptible [facility] Val Guidry MD LAB MICROBIOLOGY - GENERAL ORDRussell SALDAÑA Final Result [facility] [address] [place] [address], [place] [phone] from Last 3 Months Insurance MEDICARE Care Teams Personal Banking Advisor Relationship Specialty Start Date End Date Physician, Pcp Unknown PCP - General 11/17/24
--- OUTSIDE RECORDS SUMMARY | 2025-02-04 14:01 | XMS_ITS | Clinical Summary ---
Author Organization [facility] Address [address] [place] [address] Care Team Providers Care Medical Doctor Name Role Phone Unavailable Primary Care Provider [...]
== END 2025-02-04 14:15 | disposition home or self-care (01) ==
LOC: HO.HUSH 12:59
PROVIDERS: Visit Provider Nurse Practitioner Family
DX: N39.0 Urinary tract infection, site not specified (principal); R39.9 Unspecified symptoms and signs involving the genitourinary system; Z13.9 Encounter for screening, unspecified; N30.00 Acute cystitis without hematuria
CPT/HCPCS: 99204

== ENCOUNTER 2025-02-04 12:58 | Outpatient (REF) | payer MEDICARE, OTHER, SELFPAY ==
--- OUTSIDE RECORDS SUMMARY | 2025-02-04 15:18 | XMS_ITS | Clinical Summary ---
Author Organization [facility] Address [address] [place] [address] Phone Care Team Providers Care Ec Teacher Name Role Phone Physician, Pcp Unknown Primary Care Provider Maryana vailable Allergies No known active allergies Encounters Date Type Department Care Team Description 11/17/2024 3:34 AM EST - 11/17/2024 4:00 AM EST Emergency [facility] Emergency [address] [place] [address] Discharge Disposition: Left Against Medical [...] and culture (11/17/2024 4:13 AM EST) Specific [place] Urine 1.018 1.003 - 1.030 LAB URINALYSIS [...] ORDERABLES Final Resu lt Performing Organization Address City/[facility]/ZIP Co de Phone Number [facility] [address] [place] [address], [place] [phone] * [place] urine culture tube (11/17/2024 4:13 AM EST) Extra Tube Hold for add-ons. 11/17/2024 6:01 AM [facility] Comment:Auto resulted. Urine Urine specimen obtained by clean catch procedure / Unknown Non-blood Collection / Unknown 11/17/2024 4:13 AM EST 11/17/2024 4:50 AM EST us Ravi Guidry MD LAB URINE ORDERABLES Final Resu lt Performing Organization Address City/[facility]/ZIP Co de Phone Number [facility] [address] [place] [address], [place] [phone] * (ABNORMAL) Culture urine (11/17/2024 4:13 AM EST) Culture, Urine >100,000 CFU/mL Escherichia coli(A) DEVYN 11/19/2024 10:27 AM [facility] Urine Urine [...] Escherichia coli Trimethoprim/Sulfamethoxazole DEVYN <=20 ug/ml: Susceptible [facility] Val Guidry MD LAB MICROBIOLOGY - GENERAL ORDRussell SALDAÑA Final Result [facility] [address] [place] [address], [place] [phone] from Last 3 Months Insurance MEDICARE Care Teams Ec Teacher Relationship Specialty Start Date End Date Physician, Pcp Unknown PCP - General 11/17/24
--- OUTSIDE RECORDS SUMMARY | 2025-02-04 15:18 | XMS_ITS | Clinical Summary ---
Author Organization [facility] Address [address] [place] [address] Care Team Providers Care Human Resources Trainer Name Role Phone Unavailable Primary Care Provider [...]
[2025-02-04 16:43] LABS: Urine Cytology See Pathology rpt
== END 2025-02-04 12:59 | disposition home or self-care (01) ==
LOC: HO.LNP 12:58
PROVIDERS: Visit Provider Nurse Practitioner Family
DX: N30.00 Acute cystitis without hematuria (principal); R39.9 Unspecified symptoms and signs involving the genitourinary system
CPT/HCPCS: 51798; 81003; 88112; 99202

== ENCOUNTER 2025-03-04 14:03 | Outpatient (AMB) | payer MEDICARE, OTHER, SELFPAY ==
[2025-03-04 14:04] VITALS: BP 120/76; PULSE 75; BMI 30.5
--- NOTE | 2025-03-04 14:04 | MHC.OFFVIS ---
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/Atherosclerotic Heart Disease/AFIB Intake Note: New dx ASCVD and afib had a stent Life Manager Required: No Allergies No Known Allergies Allergy (Verified 03/05/25 09:25) Medication List - Last Reconciled 03/10/25 by Jay Koo MD acetaminophen ER (Tylenol Arthritis Pain) 1,300 mg PO Q8H PRN albuterol sulfate 90 mcg/actuation (Ventolin HFA) 2 puffs inhalation Q4-6H PRN apixaban 5 mg PO BID ascorbic acid (vitamin C) 1 g PO DAILY 90 days clopidogrel 75 mg PO DAILY coenzyme Q10 (CoQ-10) 400 mg PO DAILY PRN estradiol 0.01%(0.1mg/gram) 1 g vaginal 3XW isosorbide mononitrate ER 30 mg PO DAILY lidocaine 4% (Lidocaine Pain Relief) 1 patch See Protocol transdermal DAILY lorazepam 0.5 mg PO DAILY PRN melatonin 3 mg PO BEDTIME PRN methenamine hippurate 1 g PO DAILY 90 days metoprolol succinate ER 25 mg PO BID nitroglycerin 0.4 mg sublingual Q5M PRN rosuvastatin 20 mg PO DAILY HPI Comments Details: Thank you for referring Alysia in cardiology consultation today for management of her cardiovascular disease. She has history of paroxysmal atrial fibrillation as well as history of CAD. She is very concerned about her underlying cardiovascular disease. She is wondering about a lot of her medications in the need for the same. Patient last year in June while she was in [place] had developed atrial fibrillation with symptoms. Patient had presented to the hospital with nausea vomiting diarrhea and salt to might have gastroenteritis which might have precipitated atrial fibrillation. During this episodes of rapid atrial fibrillation she had also had elevated troponins which were felt to be rate related at that time. She was then treated with rate control and converted to sinus rhythm has remained in sinus rhythm. Currently on metoprolol therapy for the same. She was also started on Eliquis therapy given her multiple risk factors. Since then in September of 2024 she was having classic symptoms exertional chest pain and subsequently underwent cardiac catheterization which showed diffuse three-vessel coronary disease with severe disease in the OM branch undergoing drug-eluting stent, 36 x 26 mm Medtronic steve stent. She has no history of heart failure. Does have history of hypertension, currently on apixaban as well as clopidogrel therapy. She had also on isosorbide therapy. She had also on statin therapy. She is interested in coming off the medications. However she continues to have intermittent symptoms of palpitations although no sustained palpitations. She also has some symptoms of lightheadedness intermittently. Blood pressures been generally well controlled. She has been diagnose with mild sleep apnea but currently not on CPAP therapy. She had a Holter monitor done in July last year which showed normal sinus rhythm with frequent short runs of SVE is which were reported as SVT although could represent short episodes of AFib. She says since the stenting she has not had any exertional chest pain. Denies any heart failure symptoms. No syncopal episodes. She does have issues as anxiety. She was on losartan therapy but this was discontinued because of low blood pressure. She had echocardiogram in June when she was admitted which had showed normal LV systolic function without significant valvular abnormality [facility] Medical History Paroxysmal atrial fibrillation Afib TREMAYNE (generalized anxiety disorder) Melanocytic nevus Hyperlipidemia History of recurrent UTI (urinary tract infection) Benign paroxysmal positional vertigo Ganglion Family history of multiple myeloma CAD (coronary artery disease) Adjustment disorder Asthma Arthritis Surgical History Stented coronary artery Hx of vaginal hysterectomy S/P appendectomy S/P cholecystectomy H/O cystocele repair Previous section History of orthopedic surgery H/O cystoscopy History of percutaneous coronary intervention Family History Father Coronary artery disease Hypertension Mother Vertigo Multiple myeloma Arthritis Son Schizophrenia Anxiety Daughter Anxiety Adrenal failure Atrial fibrillation Lyme disease Son Retinopathy Daughter Obesity Daughter Lyme disease Daughter No problems noted. Sister Uterine cancer Social History Household Members: Children Household Members Other:: Son: Manny Housing: House Alcohol intake: never Patient Tobacco Use Status: Former Tobacco user Tobacco use type: Cigarette e-Cigarette/Vaping Use: Former Use Second Hand Smoke Exposure: No service: No Current occupational status: disabled Cognitive needs: No Hearing needs: No Vision needs: Yes (Glasses) Review of Systems Const Denies chills, Denies daytime sleepiness, Reports fatigue, Denies fever(s), Denies frequent falls, Denies poor appetite, Denies snoring, Denies stops breathing during sleep, Reports weakness, Denies weight gain and Denies weight loss Eyes Denies loss of vision ENT Denies dizziness and Denies hearing loss Card Denies chest pain, Denies claudication, Denies leg edema, Denies lightheadedness, Reports palpitations, Denies dyspnea, Denies dyspnea on exertion and Denies orthopnea Resp Denies cough, Denies excessive phlegm production, Denies dyspnea, Denies dyspnea on exertion, Denies snoring and Denies wheezing GI Denies abdominal pain, Denies hematochezia, Denies change in bowel habits, Denies nausea and Denies vomiting Denies urinary frequency and Denies dysuria Musc Denies arthralgias, Denies muscle weakness, Denies numbness and Denies other (frequent falls) Skin/Breast Denies nail changes and Denies rash Neuro Denies Abnormal speech present, Denies dizziness, Denies frequent falls, Denies loss of vision, Denies memory loss, Denies numbness and Reports weakness Psych Denies depression and Denies memory loss Endo Reports fatigue and Reports palpitations Moi/Lymph Reports easy bruising and Reports other (anemia) Aller/Immun Denies wheezing Physical Exam Vital Signs: Last Vital Signs Pulse 75 03/04/25 14:04 BP 120/76 03/04/25 14:04 BMI result Body Mass Index 30.5 Const General: cooperative, comfortable, no acute distress, alert, awake, Physically active, anxious and well groomed Nutritional Appearance: well nourished and overweight Orientation/consciousness: patient oriented x3 Limitations: no limitations HEENT Head: Yes normocephalic and Yes atraumatic Neck Neck: Yes trachea midline, Yes supple and Yes no JVD Resp Effort & Inspection: normal respiratory effort Auscultation: clear to auscultation bilaterally Cardio Jugular venous distension: no JVD Palpation: normal PMI Rate: regular rate Rhythm: regular rhythm Heart sounds: S1 normal heart sound present, S2 normal heart sound present, no click, no gallops and no murmurs GI Auscultation: normal bowel sounds Skin General skin exam: no rashes or lesions noted Neuro General: patient oriented x3 and no focal motor deficits Speech: No Abnormal speech present Extrem General: Yes no clubbing, cyanosis or edema Psych Appearance: grossly normal Office Procedures EKG Details: EKG shows normal sinus rhythm with isolated Q-wave in lead 3 most likely pseudo inferior infarct pattern otherwise normal EKG [id number], Complete Assessment & Plan Assessment & Plan (1) Paroxysmal atrial fibrillation: Code(s): I48.0 - Paroxysmal atrial fibrillation Category: Medical Plan: Symptomatic paroxysmal atrial fibrillation with persistent episodes of palpitations and on the monitor she does have runs of SVE is. She also had a recent admission with transient neurologic abnormality consistent with brain TIA. No infarct pattern was noted. Although given her risk factors of hypertension, TIA as well as underlying coronary artery disease, she is strongly recommended to be on Eliquis therapy to reduce thromboembolic complications. She is hesitant about it but she understands. We discussed about avoidance of stimulants. Discussed about continue metoprolol therapy. Advised to call me with worsening symptoms which may require additional therapy such as ablation. Improvement in his sleep hygiene was discussed. Continue participate in regular physical exercise and weight loss program which should help as well. (2) CAD (coronary artery disease): Comment: The patient was having increased anginal chest pain, sob, dyspnea on exertion, lightheadedness She had a positive lexiscan stress test with Dr. Calderon She was referred for a left heart cath and stent was placed 10/24/2024 Patient notes that she has had complete resolution of her symptoms She is currently on Plavix 75 mg daily, metoprolol succinate 25 mg twice daily isosorbide mononitrate, extended release 30 mg daily, aspirin 81 mg daily, Atorvastatin 20 mg BID She does not seem to be tolerating the atorvastatin This was reduced from 80 mg to 20 mg twice daily, she is having significant lower extremity discomfort We will have her trial rosuvastatin 10 mg in replacement of the atorvastatin 40 mg Code(s): I25.10 - Atherosclerotic heart disease of [place] coronary artery without angina pectoris Category: Medical Qualifiers: Coronary Disease-Associated Artery/Lesion type: due to lipid rich plaque Qualified Code(s): I25.10 - Atherosclerotic heart disease of [place] coronary artery without angina pectoris; I25.83 - Coronary atherosclerosis due to lipid rich plaque Plan: Patient with CAD with drug-eluting stent to OM branch but she has significant diffuse atherosclerotic disease and multiple other segments. This was discussed with her. Status post PCI in September and therefore recommend to continue Plavix uninterrupted till September of 2025. Beyond that I think she can only be treated oral anticoagulation therapy with Eliquis. Continue aggressive blood pressure control which is currently well optimized. She is currently not having any anginal symptoms and at this point time she is participate in regular physical activity. There was no need for isosorbide therapy and this can be discontinued and this may reduce her symptoms of lightheadedness. However we discussed about importance of statin therapy. Importance of aggressive lipid modification goal LDL less than 55 mg was discussed with her to reduce risk of future cardiovascular events. She says she has been trying an alternative diet and is wanting to try to see if this would alter her lipid panel and at that point time we will further modify her treatment as need be. Will follow up in the clinic in 6 months time, sooner p.r.n.. Thank you for allowing me to partake in her care Orders: Orders Lipid Panel 2 Months I25.10 - Atherosclerotic heart disease of [place] coronary artery without angina pectoris, I25.83 - Coronary atherosclerosis due to lipid rich plaque Lipoprotein A 2 Months I25.10 - Atherosclerotic heart disease of [place] coronary artery without angina pectoris, I25.83 - Coronary atherosclerosis due to lipid rich plaque CRP High Sensitivity 2 Months E78.5 - Hyperlipidemia, unspecified, I25.10 - Atherosclerotic heart disease of [place] coronary artery without angina pectoris, I25.83 - Coronary atherosclerosis due to lipid rich plaque Apolipoprotein B 2 Months I25.10 - Atherosclerotic heart disease of [place] coronary artery without angina pectoris, I25.83 - Coronary atherosclerosis due to lipid rich plaque Coding Level of Care Code New Pt Level 4 (86088) Complex EM visit Add On G2211 Diagnoses Paroxysmal atrial fibrillation I48.0 Coronary artery disease due to lipid rich plaque I25.10; I25.83 Coronary Disease-Associated Artery/Lesion type: due to lipid rich plaque CPT Codes EKG - CPT: 90363-[id number], Complete ([id number])
--- OUTSIDE RECORDS SUMMARY | 2025-03-04 16:49 | XMS_ITS | Clinical Summary ---
Author Organization [facility] Address [address] [place] [address] Care Team Providers Care Audio Visual Specialist Name Role Phone Unavailable Primary Care Provider [...]
== END 2025-03-04 15:03 | disposition home or self-care (01) ==
LOC: HO.HCS 14:03
PROVIDERS: Visit Provider Internal Medicine Cardiovascular Disease
DX: I48.0 Paroxysmal atrial fibrillation (principal); I25.10 Atherosclerotic heart disease of native coronary artery without angina pectoris; I25.83 Coronary atherosclerosis due to lipid rich plaque
CPT/HCPCS: 93010; 99204; G2211

== ENCOUNTER → 2025-03-04 14:03 | Outpatient (BNVA) | payer MEDICARE, OTHER, SELFPAY | PROVIDERS: Visit Provider Internal Medicine Cardiovascular Disease | DX: I48.0 Paroxysmal atrial fibrillation (principal); I25.10 Atherosclerotic heart disease of native coronary artery without angina pectoris; I25.83 Coronary atherosclerosis due to lipid rich plaque | CPT/HCPCS: 93005; 99202 ==

== ENCOUNTER 2025-03-05 09:04 | Outpatient (AMB) | payer MEDICARE, OTHER, SELFPAY ==
[2025-03-05 09:10] VITALS: BP 106/58; PULSE 78; RESP 16; TEMP 37.3; O2SAT 96; BMI 30.3
--- NOTE | 2025-03-05 09:10 | MHC.PC.OV ---
Vital Signs 03/05/25 09:10 Height 5 ft 3 in Weight 171 lb 3.2 oz BMI 30.3 BP 106/58 L Blood Pressure Location Lt brachial Position Sitting Respiration 16 Pulse 78 Pulse Source Pulse Oximeter Temp 99.2 F Temp Source Oral Pulse Oximetry (%) 96 Oxygen Delivery Method Room Air Intake Visit Reasons: cad, hld, unstageable angina Classifier Required: No Accompanied by: Self / Same As Patient Allergies No Known Allergies Allergy (Verified 03/05/25 09:25) Medication List - Last Reconciled 03/05/25 by VERONICA Livingston acetaminophen ER (Tylenol Arthritis Pain) 1,300 mg PO Q8H PRN albuterol sulfate 90 mcg/actuation (Ventolin HFA) 2 puffs inhalation Q4-6H PRN apixaban 5 mg PO BID ascorbic acid (vitamin C) 1 g PO DAILY 90 days clopidogrel 75 mg PO DAILY coenzyme Q10 (CoQ-10) 400 mg PO DAILY PRN estradiol 0.01%(0.1mg/gram) 1 g vaginal 3XW isosorbide mononitrate ER 30 mg PO DAILY lidocaine 4% (Lidocaine Pain Relief) 1 patch See Protocol transdermal DAILY lorazepam 0.5 mg PO DAILY PRN melatonin 3 mg PO BEDTIME PRN methenamine hippurate 1 g PO DAILY 90 days metoprolol succinate ER 25 mg PO BID nitroglycerin 0.4 mg sublingual Q5M PRN rosuvastatin 20 mg PO DAILY Tobacco use date assessed: 03/05/25 Dental Screening Dental Screen Date: 03/05/25 Did you have a dental visit in the last 12 months?: Yes Did you have a dental problem in the last 6 months where you did not have access to dental care?: No Was dental information given to patient?: Patient has dentist HPI cad, hld, unstageable angina HPI Details Patient is a 65-year-old female presenting for follow up on chronic conditions: AFIB, CAD, HTN, recurrent UTI, HLD Reports that she is feeling well Reports that she was started on Mephenamine hippurate by urology for recurrent UTI, and she has been doing well Adding, her estradiol gel potency was increased by Urology She was evaluated by cardiology and they told her that she does not need the losartan at this time She wants to know if she could just stop the medication without weaning it;has not taken it today, in case it could be stopped-discussed with the patient that she does not need to wean this medication and if she continue to take it her blood pressure will drop lower Reports that she has not had any AFib episodes since June and experiences heart palpitation infrequently Cardiology-reports that she does not need cardiac rehab any more, because she is doing more on her own than what they would be having her doing in the cardiac rehab-she is out riding her bike Reports intermittent heartburn attributed to eating close to bedtime; she also noted mid-chest heaviness when she eats to much Has been making lifestyle modifications, primarily eating mostly a vegan diet to target cholesterol management. This resulted in some weight loss [facility], [facility] Medical History Paroxysmal atrial fibrillation Afib TREMAYNE (generalized anxiety disorder) Melanocytic nevus Hyperlipidemia History of recurrent UTI (urinary tract infection) Benign paroxysmal positional vertigo Ganglion Family history of multiple myeloma CAD (coronary artery disease) Adjustment disorder Asthma Arthritis Surgical History Stented coronary artery Hx of vaginal hysterectomy S/P appendectomy S/P cholecystectomy H/O cystocele repair Previous section History of orthopedic surgery H/O cystoscopy History of percutaneous coronary intervention Family History Father Coronary artery disease Hypertension Mother Vertigo Multiple myeloma Arthritis Son Schizophrenia Anxiety Daughter Anxiety Adrenal failure Atrial fibrillation Lyme disease Son Retinopathy Daughter Obesity Daughter Lyme disease Daughter No problems noted. Sister Uterine cancer Social History Household Members: Children Household Members Other:: Son: Manny Housing: House Alcohol intake: never Patient Tobacco Use Status: Former Tobacco user Tobacco use type: Cigarette e-Cigarette/Vaping Use: Former Use Second Hand Smoke Exposure: No service: No Current occupational status: disabled Cognitive needs: No Hearing needs: No Vision needs: Yes (Glasses) Questionnaire PHQ-9 Over the last 2 weeks, how often have you been bothered by any of the following problems? 1. Little interest or pleasure in doing things: not at all 2. Feeling down, depressed, or hopeless: nearly every day 3. Trouble falling or staying asleep, or sleeping too much: not at all 4. Feeling tired or having little energy: several days 5. Poor appetite or overeating: not at all 6. Feeling bad about yourself - or that you are a failure or have let yourself or your family down: not at all 7. Trouble concentrating on things, such as reading the newspaper or watching television: several days 8. Moving or speaking so slowly that other people could have noticed. Or the opposite - being so fidgety or restless that you have been moving around a lot more than usual: not at all 9. Thoughts that you would be better off or of hurting yourself in some way: not at all Total score: 5 Depression Screening Interpretation: Positive Depression Screening Done: Yes Source: Developed by Drs. Chi Valdivia, Melissa Bateman, Bull Lemus and colleagues, with an educational fabio from [employer]. Thrive Questionnaire Date Thrive assessed: 03/05/25 I am a: Patient What is your living situation today?: I have a steady place to live Within the past 12 months, did the food you bought not last and you didn't have the money to get more?: Never true Within the past 12 months, did you worry whether your food would run out before you got money to buy more?: Never true Do you have trouble paying for medicines?: No Do you have trouble getting transportation to medical appointments?: No Do you have trouble paying your heating and electricity bill?: No Do you have trouble taking care of your child, family member or friend?: No Do you have trouble with day-to-day activities such as bathing, preparing meals, shopping, managing finances, etc.?: No Are you currently unemployed and looking for a job?: Yes Are you interested in more education?: No Please select the resources that you would like help with: Care for elder or disabled Currently or been in a relationship where the following occur: No concerns reported THRIVE Score: 0 AUDIT C Alcohol Use Questionnaire (AUDIT-C) 1. How often do you have a drink containing alcohol?: Never Total Score: 0 Score Reviewed/Action Taken: No TREMAYNE-7 AMB Questionnaire TREMAYNE-7 Date TREMAYNE - 7 assessed: 03/05/25 Feeling nervous, anxious, or on edge: 0 = Not at all Not being able to stop or control worryin = Not at all Worrying too much about different things: 0 = Not at all Trouble relaxin = Not at all Being so restless that it is hard to sit still: 0 = Not at all Becoming easily annoyed or irritable: 0 = Not at all Feeling afraid as if something awful might happen: 1 = Several days Total TREMAYNE-7 score (0-4 normal; 5-9 mild; 10-14 moderate; 15-21 severe): 1 Source: Developed by Drs. Chi Valdivia, Melissa Bateman, Bull Lemus and colleagues, with an educational fabio from [email or web address]. Review of Systems Const Reports headache(s) (chronic migraines on and off) Eyes Denies loss of vision ENT Denies vertigo, Denies dizziness, Reports headache(s) (chronic migraines on and off) and Denies sore throat Card Reports chest pain (intermittent mid-chest heaviness when eats too much), Denies leg edema, Denies lightheadedness and Reports other (heart palpitations infrequently) Resp Denies cough, Denies hemoptysis and Denies wheezing GI Denies abdominal pain, Denies melena, Denies constipation, Reports heartburn (on and off), Denies diarrhea and Denies vomiting Denies urinary frequency, Denies dysuria, Denies urinary urgency and Reports other (recurrent uti) Musc Reports arthralgias (improving with weight loss), Denies joint swelling, Denies numbness and Denies tingling Neuro Denies Abnormal speech present, Denies behavioral changes, Denies vertigo, Denies dizziness, Reports headache(s) (chronic migraines on and off), Denies loss of vision, Denies memory loss, Denies numbness and Denies tingling Psych Reports anxiety, Denies behavioral changes, Denies depression, Denies memory loss and Denies panic attacks Moi/Lymph Denies easy bleeding and Denies easy bruising Aller/Immun Denies wheezing Physical exam (Primary Care) Vital Signs: Last Vital Signs Temp 99.2 F 03/05/25 09:10 Pulse 78 03/05/25 09:10 Resp 16 03/05/25 09:10 BP 106/58 L 03/05/25 09:10 Pulse Ox 96 03/05/25 09:10 Oxygen Delivery Method Room Air 03/05/25 09:10 BMI result Body Mass Index 30.3 Tobacco/Smoking Status: Tobacco use Status Tobacco use date assessed 03/05/25 03/05/25 09:22 Patient Tobacco Use Status Former Tobacco user 03/05/25 09:22 Tobacco use type Cigarette 03/05/25 09:22 e-Cigarette/Vaping Use Former Use 03/05/25 09:22 PHQ-9: PHQ-9 Score PHQ-9: Total score 5 03/05/25 09:52 Depression Screening Interpretation: Positive Thrive Assessment: Date of Thrive Assessment Date Thrive assessed 03/05/25 03/05/25 09:22 Currently or been in a relationship where the following occur: No concerns reported Const General: healthy appearing, no acute distress, alert and awake Nutritional Appearance: well nourished Orientation/consciousness: oriented to person, oriented to place and oriented to time HENMT Ears: TM's normal bilaterally General nose exam: Normal nasal mucous membranes and turbinates present Eyes Conjunctivae: conjunctivae normal Sclerae: sclerae normal Pupils: Equal, round and reactive pupils present Neck Neck: Yes no lymphadenopathy and Yes no JVD Thyroid: Thyroid normal Carotids: no bruits Resp Effort & Inspection: normal respiratory effort and not tachypneic Auscultation: no crackles, no rales, no rhonchi and no wheezes Cardio Rate: regular rate Rhythm: regular rhythm Heart sounds: no murmurs and normal S1 and S2 GI Palpation (GI): Soft to palpation, nontender, no hepatomegaly and no splenomegaly Auscultation: normal bowel sounds Skin General skin exam: no rashes or lesions noted and dry skin Neuro General: oriented to person, oriented to place and oriented to time Cranial nerves: Yes Equal, round and reactive pupils present Speech: No Abnormal speech present Gait exam (Neuro): Normal gait present Motor exam (neuro): no tremor noted Extrem Right upper extremity: full ROM Left upper extremity: full ROM Right lower extremity: full ROM; no edema Left lower extremity: full ROM; no edema Psych Mental Status: mental status grossly normal Speech and movement: Normal speech and movement present Affect: normal affect Attitude: cooperative Thought process: Normal thought process present Results Reviewed Results Reviewed: Laboratory Tests 01/16/25 01/20/25 02/04/25 06:00 12:30 14:09 WBC 8.1 RBC 4.38 Hgb 13.0 Hct 39.0 MCV 89.0 MCH 29.7 MCHC 33.3 RDW 13.5 Plt Count 255 MPV 10.3 Sodium 141 Potassium 3.9 Chloride 109 H Carbon Dioxide 26 Anion Gap 10 L BUN 15 Creatinine 0.55 Estim Creat Clear Calc 115.5 Estimated GFR > 60 Random Glucose 103 Calcium 9.5 Total Bilirubin 0.8 AST 19 ALT 40 H Alkaline Phosphatase 63 Total Protein 6.0 L Total Protein (PEP) 6.8 Albumin 3.7 Triglycerides 101 Cholesterol 133 LDL Cholesterol, Calc 65 HDL Cholesterol 48 Urine pH (Auto) 7.5 Specific [place] (Auto) 1.010 Urine Protein (Auto) 15 Glucose (UA)(Auto) 0 Urine Ketones (Auto) Negative Urine Blood (Auto) 10 Urine Nitrite (Auto) Negative Urine Bilirubin (Auto) 0 Urine Urobilinogen (Auto) 0.2 Leukocyte Esterase (Auto) 15 Coding Level of Care Code Est Pt Level 4 (42448) Diagnoses Paroxysmal atrial fibrillation I48.0 Recurrent urinary tract infection N39.0 Primary hypertension I10 Hypertension type: primary hypertension TREMAYNE (generalized anxiety disorder) F41.1 Coronary artery disease due to lipid rich plaque I25.10; I25.83 Coronary Disease-Associated Artery/Lesion type: due to lipid rich plaque Hyperlipidemia, unspecified hyperlipidemia type E78.5 Hyperlipidemia type: unspecified Elevated alanine aminotransferase (ALT) level R74.01 Heartburn R12 Time Spent (min) 43 Assessment & Plan Assessment & Plan (1) Paroxysmal atrial fibrillation: Code(s): I48.0 - Paroxysmal atrial fibrillation Category: Medical Plan: Stable Continue apixaban 5 mg b.i.d., clopidogrel 5 mg daily, rosuvastatin 20 mg daily Continue strict blood pressure control Follow up with Cardiology as scheduled (2) Recurrent urinary tract infection: Code(s): N39.0 - Urinary tract infection, site not specified Category: Medical Plan: Continue methamphetamine hippurate 1 g p.o. daily, estradiol 0.01% 1 g intravaginally Increase p.o. fluids Follow up with Urology as scheduled (3) Hypertension: Code(s): I10 - Essential (primary) hypertension Category: Medical Qualifiers: Hypertension type: primary hypertension Qualified Code(s): I10 - Essential (primary) hypertension Plan: Encouraged DASH diet and activity as tolerated-goal systolic is less than 130 mmhg Refrain from alcohol use and if you smoke, smoking cessation is strongly advised Continue isosorbide mononitrate ER 30 mg daily, metoprolol succinate ER 25 mg b.i.d. (4) TREMAYNE (generalized anxiety disorder): Code(s): F41.1 - Generalized anxiety disorder Category: Medical Plan: Encouraged CBT Continue lorazepam 0.5 mg daily p.r.n. (5) CAD (coronary artery disease): Comment: The patient was having increased anginal chest pain, sob, dyspnea on exertion, lightheadedness She had a positive lexiscan stress test with Dr. Calderon She was referred for a left heart cath and stent was placed 10/24/2024 Patient notes that she has had complete resolution of her symptoms She is currently on Plavix 75 mg daily, metoprolol succinate 25 mg twice daily isosorbide mononitrate, extended release 30 mg daily, aspirin 81 mg daily, Atorvastatin 20 mg BID She does not seem to be tolerating the atorvastatin This was reduced from 80 mg to 20 mg twice daily, she is having significant lower extremity discomfort We will have her trial rosuvastatin 10 mg in replacement of the atorvastatin 40 mg Code(s): I25.10 - Atherosclerotic heart disease of [place] coronary artery without angina pectoris Category: Medical Qualifiers: Coronary Disease-Associated Artery/Lesion type: due to lipid rich plaque Qualified Code(s): I25.10 - Atherosclerotic heart disease of [place] coronary artery without angina pectoris; I25.83 - Coronary atherosclerosis due to lipid rich plaque Plan: Denies anginal symptoms-appears stable from a cardiac standpoint Continue clopidogrel 75 mg, apixaban 5 mg b.i.d., rosuvastatin 10 mg daily, isosorbide mononitrate ER 30 mg daily, metoprolol succinate ER 25 mg b.i.d. Follow up with Cardiology as scheduled (6) Hyperlipidemia: Code(s): E78.5 - Hyperlipidemia, unspecified Category: Medical Qualifiers: Hyperlipidemia type: unspecified Qualified Code(s): E78.5 - Hyperlipidemia, unspecified Plan: tri 101, t-cho 133, ldl 65, hdl 48 12/2024 Discussed lifestyle modifications including dietary changes and physical activity Continue rosuvastatin 10 mg daily We will recheck lipid panel in 3 months (7) Elevated alanine aminotransferase (ALT) level: Code(s): R74.01 - Elevation of levels of liver transaminase levels Category: Medical Plan: ALT 40 12/2024 mildly elevated, multiple factors might be in play. She is on a statin for cholesterol, tylenol for migraines Given the mild rise, no changes is warranted at this time will continue to monitor cmp (8) Heartburn: Code(s): R12 - Heartburn Category: Medical Plan: Do not eat meals or drink carbonated beverages within 3 hr of bedtime Decrease the amount of fried, fatty, and spicy foods to decrease gastric acid production Raise the head of the bed using 4 to 6-inch blocks, especially if nocturnal symptoms are present Lose weight if indicated; avoid tight-fitting clothing, especially around the waist Avoid foods that relax the Lower esophageal sphincter (chocolate, peppermint, high-fat foods etc.,) Orders: Orders UA CC w/rflx Micro + Cult 3 Months E04.1 - Nontoxic single thyroid nodule, E78.00 - Pure hypercholesterolemia, unspecified, E78.5 - Hyperlipidemia, unspecified, F41.0 - Panic disorder [episodic paroxysmal anxiety], F41.1 - Generalized anxiety disorder, G43.901 - Migraine, unspecified, not intractable, with status migrainosus, G47.00 - Insomnia, unspecified, H81.13 - Benign paroxysmal vertigo, bilateral, I20.0 - Unstable angina, I25.10 - Atherosclerotic heart disease of [place] coronary artery without angina pectoris, I25.83 - Coronary atherosclerosis due to lipid rich plaque, I48.0 - Paroxysmal atrial fibrillation, J45.909 - Unspecified asthma, uncomplicated, N39.0 - Urinary tract infection, site not specified, R29.898 - Other symptoms and signs involving the musculoskeletal system, R31.29 - Other microscopic hematuria, R73.03 - Prediabetes Vitamin D 25-OH Total 3 Months E04.1 - Nontoxic single thyroid nodule, E78.00 - Pure hypercholesterolemia, unspecified, E78.5 - Hyperlipidemia, unspecified, F41.0 - Panic disorder [episodic paroxysmal anxiety], F41.1 - Generalized anxiety disorder, G43.901 - Migraine, unspecified, not intractable, with status migrainosus, G47.00 - Insomnia, unspecified, H81.13 - Benign paroxysmal vertigo, bilateral, I20.0 - Unstable angina, I25.10 - Atherosclerotic heart disease of [place] coronary artery without angina pectoris, I25.83 - Coronary atherosclerosis due to lipid rich plaque, I48.0 - Paroxysmal atrial fibrillation, J45.909 - Unspecified asthma, uncomplicated, N39.0 - Urinary tract infection, site not specified, R29.898 - Other symptoms and signs involving the musculoskeletal system, R31.29 - Other microscopic hematuria, R73.03 - Prediabetes Complete Blood Count Auto Diff 3 Months E04.1 - Nontoxic single thyroid nodule, E78.00 - Pure hypercholesterolemia, unspecified, E78.5 - Hyperlipidemia, unspecified, F41.0 - Panic disorder [episodic paroxysmal anxiety], F41.1 - Generalized anxiety disorder, G43.901 - Migraine, unspecified, not intractable, with status migrainosus, G47.00 - Insomnia, unspecified, H81.13 - Benign paroxysmal vertigo, bilateral, I20.0 - Unstable angina, I25.10 - Atherosclerotic heart disease of [place] coronary artery without angina pectoris, I25.83 - Coronary atherosclerosis due to lipid rich plaque, I48.0 - Paroxysmal atrial fibrillation, J45.909 - Unspecified asthma, uncomplicated, N39.0 - Urinary tract infection, site not specified, R29.898 - Other symptoms and signs involving the musculoskeletal system, R31.29 - Other microscopic hematuria, R73.03 - Prediabetes Lipid Panel 3 Months E04.1 - Nontoxic single thyroid nodule, E78.00 - Pure hypercholesterolemia, unspecified, E78.5 - Hyperlipidemia, unspecified, F41.0 - Panic disorder [episodic paroxysmal anxiety], F41.1 - Generalized anxiety disorder, G43.901 - Migraine, unspecified, not intractable, with status migrainosus, G47.00 - Insomnia, unspecified, H81.13 - Benign paroxysmal vertigo, bilateral, I20.0 - Unstable angina, I25.10 - Atherosclerotic heart disease of [place] coronary artery without angina pectoris, I25.83 - Coronary atherosclerosis due to lipid rich plaque, I48.0 - Paroxysmal atrial fibrillation, J45.909 - Unspecified asthma, uncomplicated, N39.0 - Urinary tract infection, site not specified, R29.898 - Other symptoms and signs involving the musculoskeletal system, R31.29 - Other microscopic hematuria, R73.03 - Prediabetes TSH reflex Free T4 3 Months E04.1 - Nontoxic single thyroid nodule, E78.00 - Pure hypercholesterolemia, unspecified, E78.5 - Hyperlipidemia, unspecified, F41.0 - Panic disorder [episodic paroxysmal anxiety], F41.1 - Generalized anxiety disorder, G43.901 - Migraine, unspecified, not intractable, with status migrainosus, G47.00 - Insomnia, unspecified, H81.13 - Benign paroxysmal vertigo, bilateral, I20.0 - Unstable angina, I25.10 - Atherosclerotic heart disease of [place] coronary artery without angina pectoris, I25.83 - Coronary atherosclerosis due to lipid rich plaque, I48.0 - Paroxysmal atrial fibrillation, J45.909 - Unspecified asthma, uncomplicated, N39.0 - Urinary tract infection, site not specified, R29.898 - Other symptoms and signs involving the musculoskeletal system, R31.29 - Other microscopic hematuria, R73.03 - Prediabetes Comprehensive [place]. Panel Fast 3 Months E04.1 - Nontoxic single thyroid nodule, E78.00 - Pure hypercholesterolemia, unspecified, E78.5 - Hyperlipidemia, unspecified, F41.0 - Panic disorder [episodic paroxysmal anxiety], F41.1 - Generalized anxiety disorder, G43.901 - Migraine, unspecified, not intractable, with status migrainosus, G47.00 - Insomnia, unspecified, H81.13 - Benign paroxysmal vertigo, bilateral, I20.0 - Unstable angina, I25.10 - Atherosclerotic heart disease of [place] coronary artery without angina pectoris, I25.83 - Coronary atherosclerosis due to lipid rich plaque, I48.0 - Paroxysmal atrial fibrillation, J45.909 - Unspecified asthma, uncomplicated, N39.0 - Urinary tract infection, site not specified, R29.898 - Other symptoms and signs involving the musculoskeletal system, R31.29 - Other microscopic hematuria, R73.03 - Prediabetes Vitamin B12 and Folate 3 Months E04.1 - Nontoxic single thyroid nodule, E78.00 - Pure hypercholesterolemia, unspecified, E78.5 - Hyperlipidemia, unspecified, F41.0 - Panic disorder [episodic paroxysmal anxiety], F41.1 - Generalized anxiety disorder, G43.901 - Migraine, unspecified, not intractable, with status migrainosus, G47.00 - Insomnia, unspecified, H81.13 - Benign paroxysmal vertigo, bilateral, I20.0 - Unstable angina, I25.10 - Atherosclerotic heart disease of [place] coronary artery without angina pectoris, I25.83 - Coronary atherosclerosis due to lipid rich plaque, I48.0 - Paroxysmal atrial fibrillation, J45.909 - Unspecified asthma, uncomplicated, N39.0 - Urinary tract infection, site not specified, R29.898 - Other symptoms and signs involving the musculoskeletal system, R31.29 - Other microscopic hematuria, R73.03 - Prediabetes Magnesium 3 Months E04.1 - Nontoxic single thyroid nodule, E78.00 - Pure hypercholesterolemia, unspecified, E78.5 - Hyperlipidemia, unspecified, F41.0 - Panic disorder [episodic paroxysmal anxiety], F41.1 - Generalized anxiety disorder, G43.901 - Migraine, unspecified, not intractable, with status migrainosus, G47.00 - Insomnia, unspecified, H81.13 - Benign paroxysmal vertigo, bilateral, I20.0 - Unstable angina, I25.10 - Atherosclerotic heart disease of [place] coronary artery without angina pectoris, I25.83 - Coronary atherosclerosis due to lipid rich plaque, I48.0 - Paroxysmal atrial fibrillation, J45.909 - Unspecified asthma, uncomplicated, N39.0 - Urinary tract infection, site not specified, R29.898 - Other symptoms and signs involving the musculoskeletal system, R31.29 - Other microscopic hematuria, R73.03 - Prediabetes
--- OUTSIDE RECORDS SUMMARY | 2025-03-05 09:36 | XMS_ITS | Clinical Summary ---
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
== END 2025-03-05 09:57 | disposition home or self-care (01) ==
LOC: HO.HMCH 09:05
DX: I48.0 Paroxysmal atrial fibrillation (principal); N39.0 Urinary tract infection, site not specified; I10 Essential (primary) hypertension; F41.1 Generalized anxiety disorder; I25.10 Atherosclerotic heart disease of native coronary artery without angina pectoris; I25.83 Coronary atherosclerosis due to lipid rich plaque; E78.5 Hyperlipidemia, unspecified; R74.01 Elevation of levels of liver transaminase levels; R12 Heartburn

== ENCOUNTER → 2025-03-05 09:04 | Outpatient (BNVA) | payer MEDICARE, OTHER, SELFPAY | DX: I48.0 Paroxysmal atrial fibrillation (principal); I10 Essential (primary) hypertension; N39.0 Urinary tract infection, site not specified; F41.1 Generalized anxiety disorder; I25.10 Atherosclerotic heart disease of native coronary artery without angina pectoris; I25.83 Coronary atherosclerosis due to lipid rich plaque; E78.5 Hyperlipidemia, unspecified; R74.01 Elevation of levels of liver transaminase levels; R12 Heartburn | CPT/HCPCS: 99212 ==

== ENCOUNTER 2025-03-06 12:59 | Outpatient (REF) | payer MEDICARE, OTHER, SELFPAY ==
--- NOTE | ~2025-03-06 | US_ITS ---
EXAMINATION: US THYROID HISTORY: E04.1 - Nontoxic single thyroid nodule TECHNIQUE: Real-time grayscale ultrasound imaging was performed and images were reviewed. COMPARISON: Correlation is made with a CT angiogram of the neck dated 01/15/2025. FINDINGS: SIZE: The right thyroid lobe measures 5.1 x 1.6 x 2.0 cm. The left thyroid lobe measures 5.0 x 0.9 x 1.7 cm. The isthmus measures 2 mm. FLOW: Flow to the gland is normal. ECHOGENICITY: The echotexture of the gland is homogeneous. NODULES: There is a 5 x 3 x 5 mm spongiform nodule at the upper pole of the right thyroid lobe. A 2.4 x 0.9 x 1.5 cm cyst is noted in the midportion of the right thyroid lobe. There is a solid nodule in the midportion of the right thyroid lobe with imaging characteristics as follows: Nodule #: 1 Location: Midportion of the right thyroid lobe measuring 11 x 8 x 7 mm. Shape: Taller than wide (3 points) Margins: Smooth (0 points) Echotexture: Very hypoechoic (3 points) Composition: Mixed (1 point) Calcifications: Punctate calcifications (3 points) Total points: 10 TIRADS: TR5: Highly suspicious. US/US thyroid IMPRESSION: 11 x 8 x 7 mm highly suspicious nodule in the midportion of the right thyroid lobe as described above. According to ACR TI-RADS guidelines below, ultrasound-guided fine-needle aspiration is recommended. ACR TI-RADS Guidelines TR1 (0 points): Benign, No follow-up or biopsy required TR2 (2 points): Not Suspicious, No biopsy or follow up indicated TR3 (3 points): Mildly Suspicious, FNA if >= 2.5 cm, Follow if >= 1.5 cm TR4 (4-6 points): Moderately Suspicious, FNA if >= 1.5 cm, Follow if >= 1.0 cm TR5 (>=7 points): Highly Suspicious, FNA if >= 1.0 cm, Follow if >= 0.5 cm Electronically signed by: Chi Wagner MD 03/06/2025 02:23 PM EDT RP
--- OUTSIDE RECORDS SUMMARY | 2025-03-06 15:04 | XMS_ITS | Clinical Summary ---
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
== END 2025-03-06 13:00 | disposition home or self-care (01) ==
LOC: HO.HMGCX 12:59
DX: E04.1 Nontoxic single thyroid nodule (principal)
CPT/HCPCS: 76536

== ENCOUNTER → 2025-03-06 13:01 | Outpatient (BNV) | payer MEDICARE, OTHER, SELFPAY | PROVIDERS: Visit Provider Radiology Diagnostic Radiology | DX: E04.1 Nontoxic single thyroid nodule (principal) | CPT/HCPCS: 76536 ==

== ENCOUNTER → 2025-03-20 11:03 | Outpatient (REF) | payer MEDICARE, OTHER, SELFPAY ==
--- OUTSIDE RECORDS SUMMARY | 2025-03-20 13:11 | XMS_ITS | Clinical Summary ---
Author Organization [facility] Address [address] [place] [address] Care Team Providers Care Cloth Framer Name Role Phone Unavailable Primary Care Provider [...]
== END ==
LOC: HO.CARD 11:03
PROVIDERS: Visit Provider Internal Medicine Cardiovascular Disease
DX: R00.2 Palpitations (principal)
CPT/HCPCS: 93270

== ENCOUNTER → 2025-03-20 11:05 | Outpatient (BNV) | payer MEDICARE, OTHER, SELFPAY | PROVIDERS: Visit Provider Internal Medicine | DX: I47.10 Supraventricular tachycardia, unspecified (principal); I49.3 Ventricular premature depolarization | CPT/HCPCS: 93272 ==

== ENCOUNTER 2025-03-22 14:24 | Outpatient (AMB) | payer MEDICARE, OTHER, SELFPAY ==
[2025-03-22 14:25] VITALS: BP 118/62; PULSE 77; TEMP 36.5; O2SAT 98; BMI 30.3
--- NOTE | 2025-03-22 14:25 | MHC.OFFWIV ---
Intake Vital Signs 03/22/25 14:25 Height 5 ft 3 in Weight 171 lb BMI 30.3 BP 118/62 Blood Pressure Location Lt brachial Position Sitting Pulse 77 Pulse Source Pulse Oximeter Temp 97.7 F Temp Source Oral Pulse Oximetry (%) 98 Oxygen Delivery Method Room Air Intake Visit Reasons: EP UTI Patient Tobacco Use Status: Former Tobacco user Allergies No Known Allergies Allergy (Verified 03/22/25 14:26) Medication List - Last Reconciled 03/22/25 by Panda Hassan MD acetaminophen ER (Tylenol Arthritis Pain) 1,300 mg PO Q8H PRN albuterol sulfate 90 mcg/actuation (Ventolin HFA) 2 puffs inhalation Q4-6H PRN apixaban 5 mg PO BID ascorbic acid (vitamin C) 1 g PO DAILY 90 days clopidogrel 75 mg PO DAILY coenzyme Q10 (CoQ-10) 400 mg PO DAILY PRN estradiol 0.01%(0.1mg/gram) 1 g vaginal 3XW isosorbide mononitrate ER 30 mg PO DAILY lidocaine 4% (Lidocaine Pain Relief) 1 patch See Protocol transdermal DAILY lorazepam 0.5 mg PO DAILY PRN melatonin 3 mg PO BEDTIME PRN methenamine hippurate 1 g PO DAILY 90 days metoprolol succinate ER 25 mg PO BID nitrofurantoin monohyd/m-cryst 100 mg (Macrobid) 100 mg PO BID 7 days nitroglycerin 0.4 mg sublingual Q5M PRN rosuvastatin 20 mg PO DAILY Do you need a note to return to daycare/school/sports/work: No HPI EP UTI HPI Details patient presents with dysuria, urgency and frequency no fevers or chills. No nausea or abdominal pain PFSH Medical History Paroxysmal atrial fibrillation Afib TREMAYNE (generalized anxiety disorder) Melanocytic nevus Hyperlipidemia History of recurrent UTI (urinary tract infection) Benign paroxysmal positional vertigo Ganglion Family history of multiple myeloma CAD (coronary artery disease) Adjustment disorder Asthma Arthritis Surgical History Stented coronary artery Hx of vaginal hysterectomy S/P appendectomy S/P cholecystectomy H/O cystocele repair Previous section History of orthopedic surgery H/O cystoscopy History of percutaneous coronary intervention Family History Father Coronary artery disease Hypertension Mother Vertigo Multiple myeloma Arthritis Son Schizophrenia Anxiety Daughter Anxiety Adrenal failure Atrial fibrillation Lyme disease Son Retinopathy Daughter Obesity Daughter Lyme disease Daughter No problems noted. Sister Uterine cancer Social History Household Members: Children Household Members Other:: Son: Manny Housing: House Alcohol intake: never Patient Tobacco Use Status: Former Tobacco user Tobacco use type: Cigarette e-Cigarette/Vaping Use: Former Use Second Hand Smoke Exposure: No service: No Current occupational status: disabled Cognitive needs: No Hearing needs: No Vision needs: Yes (Glasses) Review of Systems Const Denies chills, Denies fatigue, Denies fever(s), Denies headache(s) and Denies weakness ENT Denies dizziness and Denies headache(s) Card Denies dyspnea Resp Denies cough, Denies dyspnea, Denies wheezing and Denies other ( shortness of breath) Details: see HPI Musc Denies numbness and Denies tingling Neuro Denies dizziness, Denies headache(s), Denies numbness, Denies tingling, Denies paresthesias and Denies weakness Psych Denies anxiety and Denies depression Endo Denies fatigue Aller/Immun Denies wheezing Physical Exam Vital Signs: Last Vital Signs Temp 97.7 F 03/22/25 14:25 Pulse 77 03/22/25 14:25 BP 118/62 03/22/25 14:25 Pulse Ox 98 03/22/25 14:25 Oxygen Delivery Method Room Air 03/22/25 14:25 BMI result Body Mass Index 30.3 Const General: no acute distress and well developed Nutritional Appearance: well nourished Orientation/consciousness: patient oriented x3 HEENT Head: Yes normocephalic and Yes atraumatic Eyes General: appearance normal, both eyes and all related structures Pupils: Equal, round and reactive pupils present EOM: EOMs intact bilaterally Resp Effort & Inspection: normal respiratory effort Other: no suprapubic tenderness and no CVA tenderness to percussion Neuro General: patient oriented x3 and gait normal Cranial nerves: Yes Equal, round and reactive pupils present Psych Affect: normal affect Results AMB Urinalysis, Automated UA Leukoctes 70 Vasquez/uL Last Edit by Alban Wolf CMA on 03/22/25 14:39 UA Nitrite Negative Last Edit by Alban Wolf, [place] on 03/22/25 14:39 UA Urobilinogen 0.2 mg/dL Last Edit by Alban Wolf, [place] on 03/22/25 14:39 UA Protein 0 mg/dL Last Edit by Alban Wolf, [place] on 03/22/25 14:39 UA pH 6.0 Last Edit by Alban Wolf, [place] on 03/22/25 14:39 UA Blood 80 Fausto/uL Last Edit by Alban Wolf, [place] on 03/22/25 14:39 UA Specific [place] 1.010 Last Edit by Alban Wolf, [place] on 03/22/25 14:39 UA Ketone Negative Last Edit by Alban Wolf, [place] on 03/22/25 14:39 UA Bilirubin 0 mg/dL Last Edit by Alban Wolf, [place] on 03/22/25 14:39 UA Glucose 0 mg/dL Last Edit by Alban Wolf CMA on 03/22/25 14:39 Assessment & Plan Assessment & Plan (1) UTI (urinary tract infection): Code(s): N39.0 - Urinary tract infection, site not specified Qualifiers: Urinary tract infection type: acute cystitis Hematuria presence: without hematuria Qualified Code(s): N30.00 - Acute cystitis without hematuria Plan: urine dip suspicious for UTI start Macrobid hydrate well follow-up with your urologist for further prevention of recurrent UTIs Orders: Orders AMB Urinalysis Automated Today Z13.9 - Encounter for screening, unspecified Medications: New nitrofurantoin monohyd/m-cryst 100 mg (Macrobid) must administer with a meal/food 100 mg PO BID 14 caps 0RF 7 days Coding Level of Care Code Est Pt Level 3 (27292) Diagnoses Acute cystitis without hematuria N30.00 Urinary tract infection type: acute cystitis Hematuria presence: without hematuria
== END 2025-03-22 14:47 | disposition home or self-care (01) ==
PROVIDERS: Visit Provider Family Medicine
DX: Z13.9 Encounter for screening, unspecified (principal); N30.00 Acute cystitis without hematuria

== ENCOUNTER → 2025-03-22 14:24 | Outpatient (BNVA) | payer MEDICARE, OTHER, SELFPAY | PROVIDERS: Visit Provider Family Medicine | DX: N30.00 Acute cystitis without hematuria (principal) | CPT/HCPCS: 81003; 99212 ==

== ENCOUNTER 2025-03-31 15:09 | Outpatient (REF) | payer MEDICARE, OTHER, SELFPAY ==
--- OUTSIDE RECORDS SUMMARY | 2025-03-31 15:33 | XMS_ITS | Clinical Summary ---
Author Organization [facility] Address [address] [place] [phone] Phone Care Team Providers Care Aviation Maintenance Instructor Name Role Phone Physician, Pcp Unknown Primary Care Provider Maryana vailable Allergies No known active allergies Social History Tobacco Use Types Packs/Day Years [...] 70 11/17/2024 3:40 AM EST Temperature 36.7 C (98.1 F) 11/17/2024 3:40 AM EST Respiratory Rate 14 11/17/2024 3:40 AM EST [...] 01/29/2012 Zoster Vaccines (1 of 2) 01/29/2012 COVID-19 Vaccine ( - 2023-2 5 season) 2024 Colorectal Cancer Screening: Colonoscopy 11/17/2024 Depression Screening 11/17/2024 HIV Screening 11/17/2024 Hepatitis C Screening 11/17/2024 Medicare Annual Wellness Visit 11/17/2024 Social Influencers of Health Screening 11/17/2024 Influenza Vaccine (Season Ended) 2025 RSV Immunization Adult Patie nts (1 - 1-dose 75+ series) 2037 HIB Vaccines Aged Out No longer eligi [...] 5 Years) and At-Risk Patients (6 to 49 Years) Aged Out No longer eligible b ased on patient's age to complete this topic RSV Immunization Patients Un anayeli 20 months Aged Out No longer eligible b ased on patient's age to complete this topic Varicella Vaccines Aged Out No longer eligible based on patient's age to complete this topic Insurance MEDICARE Care Teams Aviation Maintenance Instructor Relationship Specialty Start Date End Date Physician, Pcp Unknown PCP - General 11/17/24
--- OUTSIDE RECORDS SUMMARY | 2025-03-31 15:33 | XMS_ITS | Clinical Summary ---
Author Organization [facility] Address [address] [place] [address] Care Team Providers Care Yarding Supervisor Name Role Phone Unavailable Primary Care Provider [...]
[2025-03-31 17:33] LABS: Appearance Urine Clear; Glucose Urine UA Negative (Negative); PH 6.0 (5.0-9.0); Specific Gravity - Urine <= 1.005 (1.005-1.025); UMIC TRIGGER UA YES
== END 2025-03-31 15:10 | disposition home or self-care (01) ==
LOC: HO.LAB 15:09
PROVIDERS: Visit Provider Nurse Practitioner Family
DX: N30.00 Acute cystitis without hematuria (principal); Z87.440 Personal history of urinary (tract) infections
CPT/HCPCS: 81001; 87086

== ENCOUNTER 2025-04-04 09:04 | Outpatient (AMB) | payer MEDICARE, OTHER, SELFPAY ==
--- OUTSIDE RECORDS SUMMARY | 2025-04-04 09:16 | XMS_ITS | Clinical Summary ---
Author Organization [facility] Address [address] [place] [address] Care Team Providers Care Naval Aircrewman Tactical Helicopter Name Role Phone Unavailable Primary Care Provider [...]
--- OUTSIDE RECORDS SUMMARY | 2025-04-04 09:16 | XMS_ITS | Clinical Summary ---
Author Organization [facility] Address [address] [place] [phone] Phone Care Team Providers Care Mobile Home Servicer Name Role Phone Physician, Pcp Unknown Primary [...] Influencers of Health Screening 11/17/2024 Influenza Vaccine (#1) 2025 RSV Immunization Adult Patie nts (1 [...] complete this topic Insurance MEDICARE Care Teams Mobile Home Servicer Relationship Specialty Start Date End Date Physician, Pcp Unknown PCP - General 11/17/24
--- NOTE | 2025-04-04 09:34 | MHC.OFFVIS ---
Vital Signs 04/04/25 09:39 Height 5 ft 3 in Weight 172 lb 13.478 oz BMI 30.6 BP 120/68 Blood Pressure Location Rt brachial Position Sitting Pulse 64 Pulse Source Pulse Oximeter Pulse Oximetry (%) 96 Oxygen Delivery Method Room Air Intake Visit Reasons: Neoplasm of uncertain behavior of thyroid gland Intake Note: New patient present today for Neoplasm of uncertain behavior of thyroid gland. Applications Project Manager Required: No Accompanied by: Self / Same As Patient Allergies No Known Allergies Allergy (Verified 04/04/25 09:41) Medication List - Last Reconciled 04/04/25 by Milagros Herring MD acetaminophen ER (Tylenol Arthritis Pain) 1,300 mg PO Q8H PRN albuterol sulfate 90 mcg/actuation (Ventolin HFA) 2 puffs inhalation Q4-6H PRN apixaban 5 mg PO BID ascorbic acid (vitamin C) 1 g PO DAILY 90 days clopidogrel 75 mg PO DAILY coenzyme Q10 (CoQ-10) 400 mg PO DAILY PRN estradiol 0.01%(0.1mg/gram) 1 g vaginal 3XW isosorbide mononitrate ER 30 mg PO DAILY lidocaine 4% (Lidocaine Pain Relief) 1 patch See Protocol transdermal DAILY lorazepam 0.5 mg PO DAILY PRN melatonin 3 mg PO BEDTIME PRN methenamine hippurate 1 g PO DAILY 90 days metoprolol succinate ER 25 mg PO BID nitroglycerin 0.4 mg sublingual Q5M PRN phenazopyridine (Pyridium) 200 mg PO Q8H PRN 3 days rosuvastatin 20 mg PO DAILY HPI Comments Details: 65-year-old female here today for initial evaluation of nontoxic multinodular goiter. She had a head and neck CTA in December 2024 due to right-sided weakness which incidentally showed a 1.5 cm hypodense lesion in the right lobe of the thyroid. Ultrasound thyroid 03/06/2025, I reviewed the images myself which showed a right superior subcentimeter spongiform nodule, 2.4 cm cyst in the right mid lobe, another right mid lobe 1 cm mixed cystic solid, very hypoechoic taller than wide nodule with punctate calcifications noted, this is a TR 5 category nodule meeting criteria for biopsy. Per KATHERINE guidelines this is a high suspicion nodule with greater than 50% risk of malignancy. No history of thyroid dysfunction before. Patient currently denies heat or cold intolerance, diarrhea or constipation, hair loss, , anxiety, weight changes, mood changes, low energy, changes in appearance of eyes or vision changes, tremors, increased diaphoresis or dry skin. ?Intermittent palpitations. getting evaluated by cards. Patient denies any difficulty swallowing, pain on swallowing or voice changes or difficulty breathing. Patient denies any history of childhood neck radiation. Denies having ever used lithium, amiodarone or biotin supplements. Patient denies any family history of thyroid cancer or thyroid disease. 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 Past smoker , quit smoking 8 months ago alcohol use :none no drug use Physical exam General: sitting comfortably in no acute distress HEENT: normocephalic/atraumatic, Neck: supple, palpable 1 cm right-sided nodule Cardiac: normal heart sounds Pulm: normal breath sounds B/L, no added breath sounds Abd: not distended, no tenderness Extremities: no edema, no signs of myxedema Neuro: AAO x3, Speech: normal, no facial droop, moving all 4 extremities No recent TFTs in the chart EXAMINATION: US THYROID 03/06/25 HISTORY: E04.1 - Nontoxic single thyroid nodule TECHNIQUE: Real-time grayscale ultrasound imaging was performed and images were reviewed. COMPARISON: Correlation is made with a CT angiogram of the neck dated 01/15/2025. FINDINGS: SIZE: The right thyroid lobe measures 5.1 x 1.6 x 2.0 cm. The left thyroid lobe measures 5.0 x 0.9 x 1.7 cm. The isthmus measures 2 mm. FLOW: Flow to the gland is normal. ECHOGENICITY: The echotexture of the gland is homogeneous. NODULES: There is a 5 x 3 x 5 mm spongiform nodule at the upper pole of the right thyroid lobe. A 2.4 x 0.9 x 1.5 cm cyst is noted in the midportion of the right thyroid lobe. There is a solid nodule in the midportion of the right thyroid lobe with imaging characteristics as follows: Nodule #: 1 Location: Midportion of the right thyroid lobe measuring 11 x 8 x 7 mm. Shape: Taller than wide (3 points) Margins: Smooth (0 points) Echotexture: Very hypoechoic (3 points) Composition: Mixed (1 point) Calcifications: Punctate calcifications (3 points) Total points: 10 TIRADS: TR5: Highly suspicious. US/US thyroid IMPRESSION: 11 x 8 x 7 mm highly suspicious nodule in the midportion of the right thyroid lobe as described above. According to ACR TI-RADS guidelines below, ultrasound-guided fine-needle aspiration is recommended. [facility] Medical History Paroxysmal atrial fibrillation Afib TREMAYNE (generalized anxiety disorder) Melanocytic nevus Hyperlipidemia History of recurrent UTI (urinary tract infection) Benign paroxysmal positional vertigo Ganglion Family history of multiple myeloma CAD (coronary artery disease) Adjustment disorder Asthma Arthritis Surgical History Stented coronary artery Hx of vaginal hysterectomy S/P appendectomy S/P cholecystectomy H/O cystocele repair Previous section History of orthopedic surgery H/O cystoscopy History of percutaneous coronary intervention Family History Father Coronary artery disease Hypertension Mother Vertigo Multiple myeloma Arthritis Son Schizophrenia Anxiety Daughter Anxiety Adrenal failure Atrial fibrillation Lyme disease Son Retinopathy Daughter Obesity Daughter Lyme disease Daughter No problems noted. Sister Uterine cancer Social History Household Members: Children Household Members Other:: Son: Manny Housing: House Alcohol intake: never Patient Tobacco Use Status: Former Tobacco user Tobacco use type: Cigarette e-Cigarette/Vaping Use: Former Use Second Hand Smoke Exposure: No service: No Current occupational status: disabled Cognitive needs: No Hearing needs: No Vision needs: Yes (Glasses) Physical Exam Vital Signs: Last Vital Signs Pulse 64 04/04/25 09:39 BP 120/68 04/04/25 09:39 Pulse Ox 96 04/04/25 09:39 Oxygen Delivery Method Room Air 04/04/25 09:39 BMI result Body Mass Index 30.6 Assessment & Plan Assessment & Plan (1) Multinodular goiter (nontoxic): Code(s): E04.2 - Nontoxic multinodular goiter Category: Medical Plan: 65-year-old female with no family history of thyroid cancer, with no personal history of head or neck radiation who is coming in today for initial evaluation of nontoxic multinodular goiter. She had a head and neck CTA in December 2024 due to right-sided weakness which incidentally showed a 1.5 cm hypodense lesion in the right lobe of the thyroid. Ultrasound thyroid 03/06/2025, I reviewed the images myself which showed a right superior subcentimeter spongiform nodule, 2.4 cm cyst in the right mid lobe, another right mid lobe 1 cm mixed cystic solid, very hypoechoic taller than wide nodule with punctate calcifications noted, this is a TR 5 category nodule meeting criteria for biopsy. Per KATHERINE guidelines this is a high suspicion nodule with greater than 50% risk of malignancy. I explained that it is common to have thyroid nodules. About 95% of the time these nodules are benign. However if the nodule is > 1 cm in size or suspicious on ultrasound then a fine need aspiration biopsy is recommended. We discussed that a FNAB involves 4-5 passes with a small gauge needle and material obtained is sent off for cytology.If the cytopathology is benign then the nodule will be followed annually with repeat ultrasounds. However if it is suspicious or malignant, we will need to discuss further management. Indeterminate cytology can be further investigated with repeat FNA, genetic testing or empiric lobectomy. Malignant cytology is managed with either lobectomy or total thyroidectomy. We discussed briefly that thyroid cancer is, in most patients, an indolent disease that does not affect mortality. We will arrange for FNA of the right midpole 1 cm nodule at next available opening and patient will follow up with me in clinic thereafter for results and further decision making. Plan: -ordered TSH and free T4 to be done today -scheduled for FNA of the right midpole 1 cm nodule and a follow up 2 weeks after discuss results Plan I spent 45 minutes in reviewing the record, seeing the patient and documenting in the medical record. Orders: Orders Thyroid Stimulating Hormone Today E04.2 - Nontoxic multinodular goiter Free T4 (Free Thyroxine) Today E04.2 - Nontoxic multinodular goiter US biopsy thyroid Today E04.2 - Nontoxic multinodular goiter Coding Level of Care Code New Pt Level 4 (18587) Diagnoses Multinodular goiter (nontoxic) E04.2 Time Spent (min) 45
[2025-04-04 09:39] VITALS: BP 120/68; PULSE 64; O2SAT 96; BMI 30.6
== END 2025-04-04 10:28 | disposition home or self-care (01) ==
LOC: HO.ENCR 09:04
PROVIDERS: Visit Provider Student in an Organized Health Care Education/Training Program
DX: E04.2 Nontoxic multinodular goiter (principal)
CPT/HCPCS: 99204

== ENCOUNTER 2025-04-04 09:04 | Outpatient (REF) | payer MEDICARE, OTHER, SELFPAY ==
[2025-04-04 10:48] LABS: MANUAL DIFF FLAG NO
[2025-04-04 11:48] LABS: Alanine Aminotransferase 43 U/L (0-31); Albumin Level 4.5 g/dL (3.5-5.0); Alkaline Phosphatase 78 U/L (39-117); Anion Gap 11 (12-20); Aspartate Amino Transferase 30 U/L (5-31); Blood Urea Nitrogen 11 mg/dL (9-16); Calcium 9.8 mg/dL (8.4-10.2); Carbon Dioxide 29 mmol/L (22-29); Chloride 106 mmol/L (96-108); Cholesterol 180 mg/dL (<200); Estimated Glomerular Filt Rate > 60; HDL Cholesterol 44 mg/dL (>40); Potassium 4.2 mmol/L (3.3-5.1); Sodium 142 mmol/L (135-145); Total Protein 7.0 g/dL (6.5-8.0); Triglycerides 210 mg/dL (<150)
[2025-04-04 11:49] LABS: Cholesterol 176 mg/dL (<200); HDL Cholesterol 45 mg/dL (>40); Triglycerides 204 mg/dL (<150)
[2025-04-04 11:54] LABS: Hematocrit 40.7 % (37.0-47.0); Hemoglobin 14.1 g/dl (12.0-16.0); Imm Gran Abs Auto 0.03 X10*3/uL (0.00-0.03); Imm Gran Pct Auto 0.5 % (0.0-0.4); Lymphocytes Absolute Auto 2.5 X10*3/uL (1.2-4.9); Mean Corpuscular HGB Conc 34.6 g/dl (31.0-35.0); Mean Corpuscular Hemoglobin 30.9 pg (27.0-33.0); Mean Corpuscular Volume 89.1 fL (80.0-98.0); NRBC Abs Auto 0.000 X10*3/uL (0.0-0.012); NRBC Pct Auto 0.0 /100WBC (0.0-0.2); Platelet Count 291 X10*3/uL (160-400); Red Blood Count 4.57 X10*6/uL (4.20-5.50); White Blood Count 6.1 X10*3/uL (4.8-10.8)
[2025-04-04 12:01] LABS: Free T4 (Free Thyroxine) 0.80 ng/dL (0.71-1.85); Thyroid Stimulating Hormone 1.47 uIU/mL (0.32-4.0)
== END 2025-04-04 09:05 | disposition home or self-care (01) ==
LOC: HO.LAB 09:04
PROVIDERS: Referring Provider Internal Medicine Cardiovascular Disease; Visit Provider Student in an Organized Health Care Education/Training Program
DX: E04.2 Nontoxic multinodular goiter (principal); I25.83 Coronary atherosclerosis due to lipid rich plaque; E78.5 Hyperlipidemia, unspecified; I10 Essential (primary) hypertension; Z87.440 Personal history of urinary (tract) infections; M19.90 Unspecified osteoarthritis, unspecified site; E78.00 Pure hypercholesterolemia, unspecified; R73.03 Prediabetes; I25.10 Atherosclerotic heart disease of native coronary artery without angina pectoris
CPT/HCPCS: 36415; 80053; 80061; 82172; 82306; 82947; 83695; 84439; 84443; 85025; 86141; 99202

== ENCOUNTER 2025-04-09 08:01 | Outpatient (REF) | payer MEDICARE, OTHER, SELFPAY ==
--- OUTSIDE RECORDS SUMMARY | 2025-04-09 08:02 | XMS_ITS | Clinical Summary ---
Author Organization [facility] Address [address] [place] [address] Care Team Providers Care Sheet Rock Installer Name Role Phone Unavailable Primary Care Provider [...]
--- OUTSIDE RECORDS SUMMARY | 2025-04-09 08:02 | XMS_ITS | Clinical Summary ---
Author Organization [facility] Address [address] [place] [phone] Phone Care Team Providers Care Services Account Manager Name Role Phone Physician, Pcp Unknown Primary Care Provider Maryaan vailable Allergies No known active allergies Social [...] complete this topic Insurance MEDICARE Care Teams Services Account Manager Relationship Specialty Start Date End Date Physician, Pcp Unknown PCP - General 11/17/24
--- NOTE | 2025-04-09 08:47 | PCN2_ITS ---
Brief Operative Note Date of procedure: 04/09/25 Pre-op diagnosis: right mid 1.1 cm thyroid nodule FNA biopsy Post-op diagnosis: same Procedure: THYROID FINE NEEDLE ASPIRATION PROCEDURE NOTE ? PROCEDURE PERFORMED: Ultrasound-guided FNA of thyroid nodule ? OPERATORS: Dr. Milagros Herring ? INDICATION: right mid 1.1 cm thyroid nodule FNA biopsy ; FNA performed to assess for malignancy ? DESCRIPTION OF PROCEDURE: The indications for FNA (to assess for malignancy) were reviewed with the patient in detail. Potential complications (e.g., bleeding, infection, damage to local structures, absence of clear diagnosis after FNA) were reviewed. Alternatives to FNA including conservative observation or surgery were described. The patient understood and agreed to proceed. This was documented by the signing of the written informed consent form. A time-out was performed to confirm the patient's identity and the site of planned FNA. The nodule of interest was identified using ultrasound (14 MHz linear array probe). The site of FNA was then draped in the usual fashion and c arefully cleaned and prepared using alcohol swabs. The skin at the previously-identified site of needle insertion was iced and sprayed with numbing spray. Under ultrasound guidance, 5__ passes were performed using a 1.5-inch, 25-gauge needle, and sample was obtained via capillary action. The needle tip was clearly visualized to be within the nodule at the time of sampling for _2_ of _5_ passes The patient tolerated the procedure well. There were no immediate complications. A small adhesive bandage was applied, and the patient was advised to take acetaminophen (rather than NSAIDs) for any discomfort and to report any signs of inflammation/infection or marked swelling. IMPRESSION: Technically successful ultrasound-guided fine needle aspiration of right mid 1.1 cm thyroid nodule FNA biopsy . PLAN: The patient was advised that I will provide follow-up regarding the cytology result and any subsequent plans. Milagros Herring MD Endocrinology Attending Condition: stable Disposition: same day
== END 2025-04-09 08:02 | disposition home or self-care (01) ==
LOC: HO.US 08:01
PROVIDERS: Visit Provider Student in an Organized Health Care Education/Training Program
DX: E04.2 Nontoxic multinodular goiter (principal); M25.561 Pain in right knee; M25.562 Pain in left knee; G89.29 Other chronic pain
CPT/HCPCS: 10005; 88173; 88305; 99202

== ENCOUNTER → 2025-04-09 08:01 | Outpatient (BNV) | payer MEDICARE, OTHER, SELFPAY | PROVIDERS: Visit Provider Student in an Organized Health Care Education/Training Program | DX: E04.1 Nontoxic single thyroid nodule (principal) | CPT/HCPCS: 10005 ==

== ENCOUNTER 2025-04-09 10:44 | Outpatient (AMB) | payer MEDICARE, OTHER, SELFPAY ==
--- NOTE | 2025-04-09 10:48 | MHC.OFFVIS ---
Vital Signs 04/09/25 11:02 Height 5 ft 3 in Weight 172 lb BMI 30.5 Intake Visit Reasons: Bilateral knee pains Intake Note: Alysia is a 65 year old female who presents with complaints of intermittent discomfort in both of her knees. The patient states that over the last few years she has had viscosupplementation injections, cortisone injections and PRP injections. Most of the treatments were performed in [place] while she was living in [place]. The patient states that she recently underwent cardiac stent placement. Since that time she has been on a strict vegan/anti-inflammatory diet which has improved her knee discomfort significantly. Today the patient reports minimal discomfort in both of her knees. Allergies No Known Allergies Allergy (Verified 04/04/25 09:41) Medication List - Last Reconciled 04/09/25 by Willard Witt MD acetaminophen ER (Tylenol Arthritis Pain) 1,300 mg PO Q8H PRN albuterol sulfate 90 mcg/actuation (Ventolin HFA) 2 puffs inhalation Q4-6H PRN apixaban 5 mg PO BID ascorbic acid (vitamin C) 1 g PO DAILY 90 days clopidogrel 75 mg PO DAILY estradiol 0.01%(0.1mg/gram) 1 g vaginal 3XW isosorbide mononitrate ER 30 mg PO DAILY lorazepam 0.5 mg PO DAILY PRN melatonin 3 mg PO BEDTIME PRN methenamine hippurate 1 g PO DAILY 90 days metoprolol succinate ER 25 mg PO BID nitroglycerin 0.4 mg sublingual Q5M PRN phenazopyridine (Pyridium) 200 mg PO Q8H PRN 3 days rosuvastatin 20 mg PO DAILY PFSH Medical History (Updated 04/09/25 @ 10:49 by Willard Witt MD) Multinodular goiter (nontoxic) Paroxysmal atrial fibrillation Afib TREMAYNE (generalized anxiety disorder) Melanocytic nevus Hyperlipidemia History of recurrent UTI (urinary tract infection) Benign paroxysmal positional vertigo Ganglion Family history of multiple myeloma CAD (coronary artery disease) Adjustment disorder Asthma Arthritis Surgical History Stented coronary artery Hx of vaginal hysterectomy S/P appendectomy S/P cholecystectomy H/O cystocele repair Previous section History of orthopedic surgery H/O cystoscopy History of percutaneous coronary intervention Family History Father Coronary artery disease Hypertension Mother Vertigo Multiple myeloma Arthritis Son Schizophrenia Anxiety Daughter Anxiety Adrenal failure Atrial fibrillation Lyme disease Son Retinopathy Daughter Obesity Daughter Lyme disease Daughter No problems noted. Sister Uterine cancer Social History Household Members: Children Household Members Other:: Son: Manny Housing: House Alcohol intake: never Patient Tobacco Use Status: Former Tobacco user Tobacco use type: Cigarette e-Cigarette/Vaping Use: Former Use Second Hand Smoke Exposure: No service: No Current occupational status: disabled Cognitive needs: No Hearing needs: No Vision needs: Yes (Glasses) Physical Exam Vital Signs: BMI result Body Mass Index 30.5 Const Other: Well-nourished well-developed very friendly female awake alert and oriented x3 in no acute distress Extrem Other: Bilateral knee examination shows minimal effusions, minimal crepitus with range of motion, no instability, minimal discomfort with range of motion Results Reviewed Results Reviewed: X-rays of the patient's bilateral knee show mild diffuse joint space narrowing, no acute bony abnormalities Assessment & Plan Assessment & Plan (1) Bilateral chronic knee pain: Code(s): M25.561 - Pain in right knee; M25.562 - Pain in left knee; G89.29 - Other chronic pain Category: Medical Plan Ms. Huerta presents with intermittent bilateral knee discomfort due to early degenerative joint disease. I had a lengthy discussion with the patient regarding the treatment options. At this point the patient's symptoms are tolerable to her. We will hold off on another injection. She will continue with her anti-inflammatory diet. She will follow up with me on an as-needed basis should her symptoms worsen in any way. Feel free to call me at any time should questions regarding her orthopedic management arise. Thank you very much for asking me to see this very friendly patient. I spent 21 minutes in reviewing the patient's records and imaging studies, seeing the patient and documenting in the medical record. Orders: Orders XR Knee Roberto 3V Today G89.29 - Other chronic pain, M25.561 - Pain in right knee, M25.562 - Pain in left knee Coding Level of Care Code New Pt Level 3 (25296) Complex EM visit Add On G2211 Diagnoses Bilateral chronic knee pain M25.561; M25.562; G89.29
[2025-04-09 11:02] VITALS: BMI 30.5
== END 2025-04-09 11:26 | disposition home or self-care (01) ==
PROVIDERS: Visit Provider Orthopaedic Surgery
DX: M25.561 Pain in right knee (principal); M25.562 Pain in left knee; G89.29 Other chronic pain
CPT/HCPCS: 99203; G2211

== ENCOUNTER 2025-04-09 10:49 | Outpatient (REF) | payer MEDICARE, OTHER, SELFPAY ==
--- NOTE | ~2025-04-09 | XR_ITS ---
EXAMINATION: X-ray knees, bilaterally. CLINICAL INFORMATION: Bilateral knee pain. TECHNIQUE: AP view in standing position. Lateral and sunrise views. COMPARISON: February 16, 2023 FINDINGS: There is joint space narrowing with sclerosis and the articular surface and small marginal osteophyte formation involving the medial compartment both knees. No acute cortical disruption or malalignment. No suprapatellar bursa joint effusion. No lytic or blastic lesions. Vascular calcifications, minimal. XR/XR Knee Roberto 3V IMPRESSION: Medial compartment osteoarthrosis, moderate. Overall worsening since prior exam. Electronically signed by: Sergey Puga MD 04/09/2025 11:21 AM EDT
== END 2025-04-09 10:50 | disposition home or self-care (01) ==
LOC: HO.HOSX 10:49
PROVIDERS: Visit Provider Orthopaedic Surgery
DX: M17.0 Bilateral primary osteoarthritis of knee (principal); M25.561 Pain in right knee; M25.562 Pain in left knee; G89.29 Other chronic pain
CPT/HCPCS: 73562

== ENCOUNTER → 2025-04-09 10:51 | Outpatient (BNV) | payer MEDICARE, OTHER, SELFPAY | PROVIDERS: Visit Provider Radiology Diagnostic Radiology | DX: M17.0 Bilateral primary osteoarthritis of knee (principal) | CPT/HCPCS: 73562 ==

== ENCOUNTER 2025-04-15 12:42 | Outpatient (AMB) | payer MEDICARE, OTHER, SELFPAY ==
--- NOTE | 2025-04-15 12:43 | A.OFFVIS_ITS ---
Vital Signs 3 04/15/25 12:44 Height 5 ft 3 in Weight 174 lb 2.643 oz BMI 30.8 BP 122/68 Blood Pressure Location Rt brachial Position Sitting Pulse 70 Pulse Source Pulse Oximeter Pulse Oximetry (%) 96 Oxygen Delivery Method Room Air Intake Visit Reasons: Biopsy f/u Intake Note: Patient presents today for Thyroid Biopsy Results L Coroner Forensic Technician Required: No Accompanied by: Self / Same As Patient Allergies No Known Allergies Allergy (Verified 04/15/25 12:45) HPI Comments Details: 65-year-old female here today for follow up of nontoxic multinodular goiter. HPI She had a head and neck CTA in December 2024 due to right-sided weakness which incidentally showed a 1.5 cm hypodense lesion in the right lobe of the thyroid. Ultrasound thyroid 03/06/2025, I reviewed the images myself which showed a right superior subcentimeter spongiform nodule, 2.4 cm cyst in the right mid lobe, another right mid lobe 1 cm mixed cystic solid, very hypoechoic taller than wide nodule with punctate calcifications noted, this is a TR 5 category nodule meeting criteria for biopsy. Per KATHERINE guidelines this is a high suspicion nodule with greater than 50% risk of malignancy. No history of thyroid dysfunction before. Patient currently denies heat or cold intolerance, diarrhea or constipation, hair loss, , anxiety, weight changes, mood changes, low energy, changes in appearance of eyes or vision changes, tremors, increased diaphoresis or dry skin. ?Intermittent palpitations. getting evaluated by cards. Patient denies any difficulty swallowing, pain on swallowing or voice changes or difficulty breathing. Patient denies any history of childhood neck radiation. Denies having ever used lithium, amiodarone or biotin supplements. Patient denies any family history of thyroid cancer or thyroid disease. 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 Physical exam General: sitting comfortably in no acute distress HEENT: normocephalic/atraumatic, Neck: supple, palpable 1 cm right-sided nodule Cardiac: normal heart sounds Pulm: normal breath sounds B/L, no added breath sounds Abd: not distended, no tenderness Extremities: no edema, no signs of myxedema Neuro: AAO x3, Speech: normal, no facial droop, moving all 4 extremities Laboratory Tests 04/04/25 10:47 TSH 1.47 Free T4 0.80 EXAMINATION: US THYROID 03/06/25 HISTORY: E04.1 - Nontoxic single thyroid nodule TECHNIQUE: Real-time grayscale ultrasound imaging was performed and images were reviewed. COMPARISON: Correlation is made with a CT angiogram of the neck dated 01/15/2025. FINDINGS: SIZE: The right thyroid lobe measures 5.1 x 1.6 x 2.0 cm. The left thyroid lobe measures 5.0 x 0.9 x 1.7 cm. The isthmus measures 2 mm. FLOW: Flow to the gland is normal. ECHOGENICITY: The echotexture of the gland is homogeneous. NODULES: There is a 5 x 3 x 5 mm spongiform nodule at the upper pole of the right thyroid lobe. A 2.4 x 0.9 x 1.5 cm cyst is noted in the midportion of the right thyroid lobe. There is a solid nodule in the midportion of the right thyroid lobe with imaging characteristics as follows: Nodule #: 1 Location: Midportion of the right thyroid lobe measuring 11 x 8 x 7 mm. Shape: Taller than wide (3 points) Margins: Smooth (0 points) Echotexture: Very hypoechoic (3 points) Composition: Mixed (1 point) Calcifications: Punctate calcifications (3 points) Total points: 10 TIRADS: TR5: Highly suspicious. US/US thyroid IMPRESSION: 11 x 8 x 7 mm highly suspicious nodule in the midportion of the right thyroid lobe as described above. According to ACR TI-RADS guidelines below, ultrasound-guided fine-needle aspiration is recommended. [facility] Medical History (Updated 04/09/25 @ 10:49 by Willard Witt MD) Multinodular goiter (nontoxic) Paroxysmal atrial fibrillation Afib TREMAYNE (generalized anxiety disorder) Melanocytic nevus Hyperlipidemia History of recurrent UTI (urinary tract infection) Benign paroxysmal positional vertigo Ganglion Family history of multiple myeloma CAD (coronary artery disease) Adjustment disorder Asthma Arthritis Surgical History (Updated 04/15/25 @ 12:46 by DALTON Martinez) Hx of ultrasound guided needle biopsy Stented coronary artery Hx of vaginal hysterectomy S/P appendectomy S/P cholecystectomy H/O cystocele repair Previous section History of orthopedic surgery H/O cystoscopy History of percutaneous coronary intervention Family History Father Coronary artery disease Hypertension Mother Vertigo Multiple myeloma Arthritis Son Schizophrenia Anxiety Daughter Anxiety Adrenal failure Atrial fibrillation Lyme disease Son Retinopathy Daughter Obesity Daughter Lyme disease Daughter No problems noted. Sister Uterine cancer Social History Household Members: Children Household Members Other:: Son: Manny Housing: House Alcohol intake: never Patient Tobacco Use Status: Former Tobacco user Tobacco use type: Cigarette e-Cigarette/Vaping Use: Former Use Second Hand Smoke Exposure: No service: No Current occupational status: disabled Cognitive needs: No Hearing needs: No Vision needs: Yes (Glasses) Physical Exam Vital Signs: Last Vital Signs Pulse 70 04/15/25 12:44 BP 122/68 04/15/25 12:44 Pulse Ox 96 04/15/25 12:44 Oxygen Delivery Method Room Air 04/15/25 12:44 BMI result Body Mass Index 30.8 Assessment & Plan Assessment & Plan (1) Multinodular goiter (nontoxic): Code(s): E04.2 - Nontoxic multinodular goiter Category: Medical Plan: 65-year-old female with no family history of thyroid cancer, with no personal history of head or neck radiation who is coming in today for initial evaluation of nontoxic multinodular goiter. She had a head and neck CTA in December 2024 due to right-sided weakness which incidentally showed a 1.5 cm hypodense lesion in the right lobe of the thyroid. Ultrasound thyroid 03/06/2025, I reviewed the images myself which showed a right superior subcentimeter spongiform nodule, 2.4 cm cyst in the right mid lobe, another right mid lobe 1 cm mixed cystic solid, very hypoechoic taller than wide nodule with punctate calcifications noted, this is a TR 5 category nodule meeting criteria for biopsy. Per KATHERINE guidelines this is a high suspicion nodule with greater than 50% risk of malignancy. 04/09/2025: Status post FNA of the right midpole 1 cm which came back as benign, [place] category 2. I discussed with the patient benign results he will less than 3% chance of malignancy. At this point we will plan to repeat an ultrasound in 1 year in February 2026 with follow up in March 2026. Normal TFTs from February 2025. Plan: -ordered TSH and free T4 to be done prior to follow up in 1 year -ultrasound of the thyroid ordered for February 2026, with follow up in March 2026 Plan See above Orders: Orders 2 TSH reflex Free T4 03/09/26 E04.2 - Nontoxic multinodular goiter US thyroid 03/09/26 E04.2 - Nontoxic multinodular goiter Patient Instructions: Repeat ultrasound of the thyroid in February 2026, someone we will call you to schedule this, please make sure that this is done prior to your next follow up with me in 1 year Do thyroid blood work a few days prior to your next follow up in 1 year Follow up in March 2026 Coding Level of Care Code Est Pt Level 3 (47332) Diagnoses Multinodular goiter (nontoxic) E04.2
[2025-04-15 12:44] VITALS: BP 122/68; PULSE 70; O2SAT 96; BMI 30.8
--- OUTSIDE RECORDS SUMMARY | 2025-04-15 13:44 | XMS_ITS | Clinical Summary ---
Author Organization [facility] Address [address] [place] [address] Care Team Providers Care Mid Level Net Developer Name Role Phone Unavailable Primary Care Provider [...]
--- OUTSIDE RECORDS SUMMARY | 2025-04-15 13:44 | XMS_ITS | Encounter Summary ---
Author Organization [facility] Address [address] [place] [address] Care Team Providers Care House Mover Helper Name Role Phone Unknown, Provider DO Primary Care Provider Louise May Primary Care Provider + Encounter Details Date Type Department Care Team (Late st Contact Info) Description 10/05/2023 Lab Requisition [facility] Pathology & Laboratory Medicine - [address] [address] Outr Resulting Lab, Provider Social History Tobacco Use Types Packs/Day Years Used Date Smoking Tobacco: Never Assessed Comments Unknown Sex and Gender Information Value Date Recorded Sex Assigned at Female 10/21/2024 10:38 EST Legal Sex Female 18:34 EST Gender Identity Female 10/21/2024 10:38 EST Sexual Orientation Straight 11/15/2024 6: 01 EST documented as of this encounter Plan of Treatment Not on file documented as of this encounter Procedures Procedure Name Priority Date/Time Associated Diagnosis Comments VITAMIN D (25,OH) Routine 10/05/2023 9:42 EST ESTRADIOL, ADULTS Routine 10/05/2023 9:42 EST FSH Routine 10/05/2023 9:42 EST documented in this encounter Results * FSH (10/05/2023 9:42 EST) FSH 137.2 See Note mIU/mL 10/05/2023 23:[address] [facility] Blood VENOUS BLOOD / Unknown 10/05/2023 9:42 EST 10/05/2023 22:[address] [facility] - 10/05/2023 23:18 EST NOTE: Female FSH Reference Ranges (Menstruating): PHYSIOLOGICAL STATUS REFERENCE RANGE Follicular (-12 to -4 days): 2.5 - 10.2 mIU/mL Midcycle (-3 to +2 days): 3.4 - 33.4 mIU/mL Luteal (+4 to +12 days): 1.5 - 9.1 mIU/mL Postmenopausal: 23.0 - 116.3 mIU/mL Reference Ranges for pediatric non-menstruating female patients have not been established. us Provider Outr Resulting Lab CHEMISTRY & BLOOD GA S ORDERABLES Final Result Performing Organization Address [facility] Co de Phone Number [facility] [address] [place] [address] * ESTRADIOL, ADULTS (10/05/2023 9:42 EST) Estradiol <12 See Note pg/mL 10/05/2023 23:[address] [facility] Comment: NOTE: FEMALE REFERENCE RANGES: MENSTRUATING By cycle day relative to LH peak Follicular (-12 to -4 days) 20-144 pg/mL Midcycle (-3 to +2 days) 64-357 pg/mL Luteal (+4 to +12 days) 56-214 pg/mL POSTMENOPAUSAL <32 pg/mL *Cross reactivity with Fulvestrant could lead to a falsely elevated estradiol result in patients treated with this drug. Blood VENOUS BLOOD / Unknown 10/05/2023 9:42 EST 10/05/2023 22:37 EST us Provider Outr Resulting Lab CHEMISTRY & BLOOD GA S ORDERABLES Final Result Performing Organization Address City/[facility]/ZIP Co de Phone Number [facility] [address] [place] [address] * VITAMIN D (25,OH) (10/05/2023 9:42 EST) 25OH Vitamin D Tot 32 30 - 100 ng/mL 10/06/2023 10:[address] [facility] Comment: Vitamin D 25,OH Interpretive Ranges: Deficiency: <10.0 ng/mL Insufficiency: 10.0 - 30.0 ng/mL Sufficiency: 30.0 - 100.0 ng/mL Toxicity: >100.0 ng/mL Blood VENOUS BLOOD / Unknown 10/05/2023 9:42 EST 10/05/2023 22:37 EST us Provider Outr Resulting Lab CHEMISTRY & BLOOD GA S ORDERABLES Final Result Performing Organization Address City/State/[facility] Co de Phone Number [facility] [address] [place] [address] documented in this encounter Visit Diagnoses Not on filedocumented in this encounter Care Teams House Mover Helper Relationship Specialty Start Date End Date Unknown, Provider, DO PCP - General 06/06/13 10/20/24 Louise Montes PA [address] [place] [address] [place] [id number] PCP - General Internal Medicine - Primary Care 10/21/24 documented as of this encounter
--- OUTSIDE RECORDS SUMMARY | 2025-04-15 13:44 | XMS_ITS | Clinical Summary ---
Author Organization [facility] Address [address] [place] [address] Phone Care Team Providers Care Call Center Support Representative Name Role Phone Unknown, Unknown Primary Care Provider Mendoza cobb Medications No known medications Social History Tobacco Use Types Packs/Day Years Used Date Smoking Tobacco: Never Smokeless Tobacco: Never Education Answer Date Recorded Are you interested in more education? Not on isaias e 01/19/2023 Are you concerned about learning? Not on file 01/19/2023 No 01/19/2023 No 01/19/2023 Digital Access Answer Date Recorded No 02/21/2023 No 02/21/2023 No 02/21/2023 Reliable internet access at home? Not on file 02/21/2023 Device with a working camera? Not on file Comments No Sex and Gender Information Value Date Recorded Sex Assigned at Not on file Legal Sex Female 1:00 PM EDT Gender Identity Not on file Sexual Orientation Not on file Last Filed Vital Signs Vital Sign Reading Time Taken Comments Blood Pressure 138/68 02/11/2019 9:10 AM EDT Pulse - - Temperature - - Respiratory Rate - - Oxygen Saturation - - Inhaled Oxygen Concentration - - Weight 81.6 kg (180 lb) 02/11/2019 9:10 AM EDT Height 160 cm (5' 3 ) 02/11/2019 9:10 AM EDT Body Mass Index 31.89 02/11/2019 9:10 AM EDT Plan of Treatment Health Maintenance Due Date Last Done Comments Adult Td,Tdap Booster 1962 LIPID PANEL 1962 HEPATITIS C SCREENING 01/29/1980 HIV ONE-TIME SCREENING (18-6 5 YEARS) 01/29/1980 PAP SMEAR 1983 MAMMOGRAM 2002 COLOGUARD 2007 COLONOSCOPY 2007 COLORECTAL CANCER SCREENING 2007 FIT TEST 2007 FOBT 2007 SIGMOIDOSCOPY 2007 VIRTUAL COLONOSCOPY 2007 PNEUMOCOCCAL VACCINES (50+ y ears) (1 of 1 - PCV) 01/29/2012 ZOSTER VACCINES (1 of 2) 01/29/2012 DEPRESSION SCREENING 02/12/2020 02/11/2019 COVID-19 VACCINE ( - 2023-2 5 season) 2024 RSV VACCINE (1 - 1-dose 75+ series) 2037 SMOKING STATUS SCREENING (On ce After 26 Yrs) Completed 02/11/2019 HEPATITIS A VACCINES Aged Out No long er eligible based on patient's age to complete this topic HIB VACCINES Aged Out No longer eligi ble based on patient's age to complete this topic MENINGOCOCCAL VACCINES (ACWY) Aged Out No longer eligible based on patient's age to complete this topic MENINGOCOCCAL VACCINES (B) Aged Out N o longer eligible based on patient's age to complete this topic Medical Devices Not on file Insurance [place] PART A [place] [id number] MEDICARE PART A & B [facility] [place] [id number] MEDICARE PART A & B GENERIC COMMERCIAL MEDICARE PART A & B GENERIC COMMERCIAL MEDICARE PART A [place] [id number] MEDICARE PART A & B GENERIC COMMERCIAL MEDICARE PART A & B GENERIC COMMERCIAL MEDICARE PART A & B GENERIC COMMERCIAL MEDICARE PART A & B GENERIC COMMERCIAL Care Teams Call Center Support Representative Relationship Specialty Start Date End Date Unknown, Unknown, PCP - General 02/08/19 Additional Source Comments The information contained in this document represents components of the legal health record. It is not the complete legal health record.[facility]
--- OUTSIDE RECORDS SUMMARY | 2025-04-15 13:44 | XMS_ITS | Clinical Summary ---
Author Organization [facility] Address [address] [place] [id number] Phone Care Team Providers Care Claims Account Specialist Name Role Phone Physician, Pcp Unknown [...] Vaccine ( - 2023-2 5 season) 2024 Depression Screening 09/25/2024 Colorectal Cancer Screening: Colonoscopy 11/17/2024 HIV Screening 11/17/2024 Hepatitis C Screening [...] complete this topic Insurance MEDICARE Care Teams Claims Account Specialist Relationship Specialty Start Date End Date Physician, Pcp Unknown PCP - General 11/17/24
== END 2025-04-15 12:56 | disposition home or self-care (01) ==
LOC: HO.ENCR 12:42
PROVIDERS: Visit Provider Student in an Organized Health Care Education/Training Program
DX: E04.2 Nontoxic multinodular goiter (principal)
CPT/HCPCS: 99213

== ENCOUNTER → 2025-04-15 12:42 | Outpatient (BNVA) | payer MEDICARE, OTHER, SELFPAY | PROVIDERS: Visit Provider Student in an Organized Health Care Education/Training Program | DX: E04.2 Nontoxic multinodular goiter (principal) | CPT/HCPCS: 99212 ==

== ENCOUNTER 2025-04-30 15:01 | Outpatient (REF) | payer MEDICARE, OTHER, SELFPAY ==
--- OUTSIDE RECORDS SUMMARY | 2025-04-30 15:33 | XMS_ITS | Encounter Summary ---
Author Organization [facility] Address [address] [place] [address] Care Team Providers Care Inserter Operator Name Role Phone Unknown, Provider DO Primary Care Provider Louise May Primary Care Provider + Encounter Details Date Type Department Care Team (Late st Contact Info) Description 10/05/2023 Lab Requisition [facility] Pathology & Laboratory Medicine - [address] [address] Outr Resulting Lab, Provider Social History Tobacco [...] 137.2 See Note mIU/mL 10/05/2023 23:18 EST [facility] Blood VENOUS BLOOD / Unknown 10/05/2023 9:42 EST 10/05/2023 22:37 EST Narrative [facility] - 10/05/2023 23:18 EST NOTE: [...] S ORDERABLES Final Result Performing Organization Address [facility] Co de Phone Number [facility] [address] [place] [address] * ESTRADIOL, ADULTS (10/05/2023 9:42 EST) Estradiol <12 See Note pg/mL 10/05/2023 23:15 EST [facility] Comment: NOTE: FEMALE REFERENCE RANGES: [...] S ORDERABLES Final Result Performing Organization Address City/[facility]/ZIP Co de Phone Number [facility] [address] [place] [address] * VITAMIN D (25,OH) (10/05/2023 9:42 EST) 25OH Vitamin D Tot 32 30 - 100 ng/mL 10/06/2023 10:33 EST [facility] Comment: Vitamin D 25,OH Interpretive Ranges: Deficiency: <10.0 ng/mL Insufficiency: 10.0 - 30.0 ng/mL Sufficiency: 30.0 - 100.0 ng/mL Toxicity: >100.0 ng/mL Blood VENOUS BLOOD / Unknown 10/05/2023 9:42 EST 10/05/2023 22:37 EST us Provider Outr Resulting Lab CHEMISTRY & BLOOD GA S ORDERABLES Final Result Performing Organization Address City/State/[facility] Co de Phone Number [facility] [address] [place] [address] documented in this encounter Visit Diagnoses Not on filedocumented in this encounter Care Teams Inserter Operator Relationship Specialty Start Date End Date Unknown, Provider, DO PCP - General 06/06/13 10/20/24 Louise Montes PA [address] [place] [address] [place] [phone] PCP - General Internal Medicine - Primary Care 10/21/24 documented as of this encounter
--- OUTSIDE RECORDS SUMMARY | 2025-04-30 15:33 | XMS_ITS | Clinical Summary ---
Author Organization [facility] Address [address] [place] [phone] Phone Care Team Providers Care Precision Lens Technician Name Role Phone Physician, Pcp Unknown [...] complete this topic Insurance MEDICARE Care Teams Precision Lens Technician Relationship Specialty Start Date End Date Physician, Pcp Unknown PCP - General 11/17/24
--- OUTSIDE RECORDS SUMMARY | 2025-04-30 15:33 | XMS_ITS | Clinical Summary ---
Author Organization [facility] [place] [address] Care Team Providers Care Corporate Travel Counselor Name Role Phone Louise Montes Primary Care Provider + Allergies No known active allergies Medications LORazepam (ATIVAN) 0.5 mg Tablet TAKE ONE TABLET BY MOUTH EVERY DAY NEEDED 0 9 Active rizatriptan (MAXALT-SUPERVISOR STEFFEN HOUSE) 10 mg Tablet, Rapid Dissolve rizatriptan 10 mg disintegrating tablet Active Ventolin HFA 90 mcg/actuation HFA Aerosol Inhaler INHALE TWO PUFFS BY MOUTH EVERY 4 TO 6 HOURS NEEDED 2 Active Active Problems Problem Noted Date Diagnosed Date Migraine 02/25/2022 Nevus 08/30/2016 Social History Tobacco Use Types Packs/Day Years Used Date Smoking Tobacco: Never Smokeless Tobacco: Never Comments Unknown Sex and Gender Information Value Date Recorded Sex Assigned at Not on file Legal Sex Female 7:11 AM EST Gender Identity Not on file Sexual Orientation Not on file Last Filed Vital Signs Vital Sign Reading Time Taken Comments Blood Pressure 150/76 10/04/2019 9:48 AM EST Pulse 82 10/04/2019 9:48 AM EST Temperature - - Respiratory Rate - - Oxygen Saturation - - Inhaled Oxygen Concentration - - Weight - - Height - - Body Mass Index - - Plan of Treatment Health Maintenance Due Date Last Done Comments CT Colonography 1962 Colonoscopy 1962 Colorectal Cancer Screening 1962 FIT DNA 1962 FIT 1962 Sigmoidoscopy (10 year) with FIT yearly 1962 Sigmoidoscopy 1962 HIV screen 01/29/1980 Hepatitis C Screening 01/29/1980 Tetanus/Diphtheria/Pertussis Vaccines (1 - Tdap) 01/28 HPV test 01/29/1992 PAP Smear 01/29/1992 Breast Cancer Share Decision Needed 2002 Breast Cancer screening 2002 Pneumoccocal Vaccine: 50+ (1 of 1 - PCV) 01/29/2012 Zoster vaccine (1 of 2) 01/29/2012 Advance Directive 2017 Covid-19 Vaccine (1 - 2023-25 season) 2024 Influenza (Flu) vaccine (1 o f 1 - Influenza standard series) 05/26/2025 Insurance MEDICARE [facility] Care Teams Corporate Travel Counselor Relationship Specialty Start Date End Date Louise Montes PA [address] [place] [phone] PCP - General Internal Medicine 12/20/18
--- OUTSIDE RECORDS SUMMARY | 2025-04-30 15:33 | XMS_ITS | Clinical Summary ---
Author Organization [facility] Address [address] [place] [address] Care Team Providers Care Composition Worker Name Role Phone Unavailable Primary Care Provider [...]
--- OUTSIDE RECORDS SUMMARY | 2025-04-30 15:33 | XMS_ITS | Clinical Summary ---
Author Organization [facility] Address [address] [place] [address] Phone Care Team Providers Care Merchandise Processor Name Role Phone Unknown, Unknown Primary Care [...] PART A [place] [id number] MEDICARE PART A & B [facility] [place] [id number] MEDICARE PART A & B GENERIC COMMERCIAL MEDICARE PART A & B GENERIC COMMERCIAL MEDICARE PART A [place] [id number] MEDICARE PART A & B GENERIC COMMERCIAL MEDICARE PART A & B GENERIC COMMERCIAL MEDICARE PART A & B GENERIC COMMERCIAL MEDICARE PART A & B GENERIC COMMERCIAL Care Teams Merchandise Processor Relationship Specialty Start Date End Date Unknown, Unknown, PCP - General 02/08/19 Additional Source Comments The information contained in this document represents components of the legal health record. It is not the complete legal health record.[facility]
[2025-04-30 16:15] LABS: Appearance Urine Clear; Glucose Urine UA Negative (Negative); PH 6.5 (5.0-9.0); Specific Gravity - Urine 1.010 (1.005-1.025); UMIC TRIGGER UA YES
== END 2025-04-30 15:02 | disposition home or self-care (01) ==
LOC: HO.LAB 15:01
PROVIDERS: Visit Provider Nurse Practitioner Family
DX: N30.00 Acute cystitis without hematuria (principal)
CPT/HCPCS: 81001; 87086

== ENCOUNTER 2025-05-06 12:57 | Outpatient (REF) | payer MEDICARE, OTHER, SELFPAY ==
--- NOTE | ~2025-05-06 | US_ITS ---
CLINICAL HISTORY: N39.0 - Urinary tract infection, site not specified US retroperitoneum Comparison: None provided Findings: Right kidney normal size and echotexture, 11.3 cm length. Simple cortical cysts 1.6 cm and 0.7 cm in the lower pole. No hydronephrosis, or calculus. Normal color flow. Left kidney normal size and echotexture, 11.6 cm in length. 4 mm calculus in the lower interpolar region. No hydronephrosis or mass. Normal color flow. Urinary bladder is unremarkable. Prevoid volume 456 mL. Postvoid volume 19.2 mL. Ureteral jets are visualized bilaterally Impression: 1. Nonobstructing left nephrolithiasis. 2. Right renal cysts. This document has been electronically signed by: Honey Cuevas MD on 05/06/2025 16:14:48
--- OUTSIDE RECORDS SUMMARY | 2025-05-06 13:43 | XMS_ITS | Clinical Summary ---
Author Organization [facility] Address [address] [place] [address] Phone Care Team Providers Care Pillowcase Turner Name Role Phone Unknown, Unknown Primary Care [...] PART A [place] [id number] MEDICARE PART A & B [facility] [place] [id number] MEDICARE PART A & B GENERIC COMMERCIAL MEDICARE PART A & B GENERIC COMMERCIAL MEDICARE PART A & [place] [id number] MEDICARE PART A & B GENERIC COMMERCIAL MEDICARE PART A & B GENERIC COMMERCIAL MEDICARE PART A & B GENERIC COMMERCIAL MEDICARE PART A & B GENERIC COMMERCIAL Care Teams Pillowcase Turner Relationship Specialty Start Date End Date Unknown, Unknown, PCP - General 02/08/19 Additional Source Comments The information contained in this document represents components of the legal health record. It is not the complete legal health record.[facility]
--- OUTSIDE RECORDS SUMMARY | 2025-05-06 13:43 | XMS_ITS | Clinical Summary ---
Author Organization [facility] [place] [address] Care Team Providers Care System Software Developer Name Role Phone Louise Montes Primary Care Provider + Allergies No known active allergies Medications LORazepam (ATIVAN) 0.5 mg Tablet TAKE ONE TABLET BY MOUTH EVERY DAY NEEDED 0 9 Active rizatriptan (MAXALT-ENVIRONMENTAL CONFLICT MANAGER) 10 mg Tablet, Rapid Dissolve rizatriptan 10 [...] - Influenza standard series) 05/26/2025 Insurance MEDICARE [facility] Care Teams System Software Developer Relationship Specialty Start Date End Date Louise Montes PA [address] [place] [phone] PCP - General Internal Medicine 12/20/18
--- OUTSIDE RECORDS SUMMARY | 2025-05-06 13:43 | XMS_ITS | Encounter Summary ---
Author Organization [facility] Address [address] [place] [address] Care Team Providers Care Mandarin Teacher Name Role Phone Unknown, Provider Primary Care Provider Louise May Primary Care Provider + Encounter Details Date Type Department Care Team (Late st Contact Info) Description 10/05/2023 Lab Requisition [facility] Pathology & Laboratory Medicine - [address] [address] Outr Resulting Lab, Provider Social History Tobacco [...] 137.2 See Note mIU/mL 10/05/2023 23:18 EST [facility] Blood VENOUS BLOOD / Unknown 10/05/2023 9:42 EST 10/05/2023 22:37 EST Narrative [facility] - 10/05/2023 23:18 EST [...] S ORDERABLES Final Result Performing Organization Address [facility] Co de Phone Number [facility] [address] [place] [address] * ESTRADIOL, ADULTS (10/05/2023 9:42 EST) Estradiol <12 See Note pg/mL 10/05/2023 23:15 EST [facility] Comment: NOTE: FEMALE REFERENCE [...] S ORDERABLES Final Result Performing Organization Address City/[facility]/ZIP Co de Phone Number [facility] [address] [place] [address] * VITAMIN D (25,OH) (10/05/2023 9:42 EST) 25OH Vitamin D Tot 32 30 - 100 ng/mL 10/06/2023 10:33 EST [facility] Comment: Vitamin D 25,OH Interpretive Ranges: Deficiency: <10.0 ng/mL Insufficiency: 10.0 - 30.0 ng/mL Sufficiency: 30.0 - 100.0 ng/mL Toxicity: >100.0 ng/mL Blood VENOUS BLOOD / Unknown 10/05/2023 9:42 EST 10/05/2023 22:37 EST us Provider Outr Resulting Lab CHEMISTRY & BLOOD GA S ORDERABLES Final Result [facility] [address] [place] [address] documented in this encounter Visit Diagnoses Not on filedocumented in this encounter Care Teams Mandarin Teacher Relationship Specialty Start Date End Date Unknown, Provider, PCP - General 06/06/13 10/20/24 Louise Montes PA [address] [place] [address] [place] [phone] PCP - General Internal Medicine - Primary Care 10/21/24 documented as of this encounter
--- OUTSIDE RECORDS SUMMARY | 2025-05-06 13:43 | XMS_ITS | Clinical Summary ---
Author Organization [facility] Address [address] [place] [address] Care Team Providers Care Fashion Photographer Name Role Phone Unavailable Primary Care Provider [...]
--- OUTSIDE RECORDS SUMMARY | 2025-05-06 13:43 | XMS_ITS | Clinical Summary ---
Author Organization [facility] Address [address] [place] [phone] Phone Care Team Providers Care Serging Machine Operator Automatic Name Role Phone Physician, Pcp Unknown Primary [...] complete this topic Insurance MEDICARE Care Teams Serging Machine Operator Automatic Relationship Specialty Start Date End Date Physician, Pcp Unknown PCP - General 11/17/24
== END 2025-05-06 12:58 | disposition home or self-care (01) ==
LOC: HO.US 12:57
PROVIDERS: Visit Provider Nurse Practitioner Family
DX: N39.0 Urinary tract infection, site not specified (principal); N39.9 Disorder of urinary system, unspecified; I48.91 Unspecified atrial fibrillation
CPT/HCPCS: 76770

== ENCOUNTER → 2025-05-06 13:00 | Outpatient (BNV) | payer MEDICARE, OTHER, SELFPAY | PROVIDERS: Visit Provider Radiology Diagnostic Radiology | DX: N20.0 Calculus of kidney (principal); N28.1 Cyst of kidney, acquired | CPT/HCPCS: 76770 ==

== ENCOUNTER 2025-05-13 13:44 | Outpatient (AMB) | payer MEDICARE, OTHER, SELFPAY ==
--- NOTE | 2025-05-13 13:52 | MHC.OFFVIS ---
Intake Visit Reasons: 3m F/u US Intake Note: Patient presents today for 3m follow up/US Imaging 05/06 Urology Medication:Estradiol Blood Thinner:Apixaban, Clopidogrel Antibiotic Allergies:None PVR:0ml Allergies No Known Allergies Allergy (Verified 05/13/25 17:24) Medication List - Last Reconciled 05/13/25 by SAHIL Schroeder-AURORA acetaminophen ER (Tylenol Arthritis Pain) 1,300 mg PO Q8H PRN albuterol sulfate 90 mcg/actuation (Ventolin HFA) 2 puffs inhalation Q4-6H PRN apixaban 5 mg PO BID ascorbic acid (vitamin C) 1 g PO DAILY 90 days clopidogrel 75 mg PO DAILY estradiol 0.01%(0.1mg/gram) 1 g vaginal 3XW ezetimibe (Zetia) 10 mg PO DAILY isosorbide mononitrate ER 30 mg PO DAILY lorazepam 0.5 mg PO DAILY PRN melatonin 3 mg PO BEDTIME PRN methenamine hippurate 1 g PO DAILY 90 days metoprolol succinate ER 25 mg PO BID nitroglycerin 0.4 mg sublingual Q5M PRN phenazopyridine (Pyridium) 200 mg PO Q8H PRN 3 days rosuvastatin 20 mg PO DAILY sulfamethoxazole-trimethoprim 800-160 mg (Bactrim DS) 1 tab PO BID 7 days HPI Comments Details: Alysia is a very pleasant 65-year-old female patient of Dr. Mccloud. She has a past medical history of recurrent urinary tract infections, anxiety, hyperlipidemia, coronary artery disease, AFib, asthma, arthritis, and adjustment disorder. She presents to the office today for follow-up. Of note, patient was seen approximately 3 months ago as a new patient for recurrent urinary tract infections at which time a retroperitoneal ultrasound was ordered for further assessment evaluation. These results were reviewed and communicated with the patient today. 05/19 bilateral kidneys with no hydronephrosis. 4 mm calculus in the lower pole of the left kidney. The urinary bladder is unremarkable. Simple right renal cyst. She discusses at length her longstanding history of urinary issues. She had previously underwent cystoscopy with Dr. Stephens in 2019 which ws noted to be within normal limits. However she continues to experience UTI like symptoms as well as recurrent urinary tract infections. She reports compliance with Estrace cream, methenamine, and vitamin-C as prescribed. She discusses while on treatment dose for urinary tract infections symptoms subside however shortly after treatment courses completed she starts to experience UTI like symptoms 1-2 days later. In office urinalysis results reviewed with the patient today 3+ leukocytes 2+ microscopic hematuria. Will send for microgen. We discussed performing in office cystoscopy for further assessment evaluation given patient with recurrent urinary tract infections despite prevention therapy. Urine cultures are as follows: 02/16: E coli, 04/18 no growth, 05/19 10,000 to 50,000 cfu/ml Mixed bacterial alia She reports previously having had issues with constipation however most recently with her new diet has not been having issues with constipation. We discussed at length potential causes of recurrent urinary tract infections as well as further treatment options and risks and benefits of these treatment options. PVR 0 mL. She does report ongoing lower urinary tract symptoms of urinary urgency, urinary frequency, nocturia, and intermittent episodes of dysuria. She otherwise denies incontinence, hematuria, foul smelling urine, changes to urinary stream, flank pain, fever, and or chills. [facility] Medical History Multinodular goiter (nontoxic) Paroxysmal atrial fibrillation Afib TREMAYNE (generalized anxiety disorder) Melanocytic nevus Hyperlipidemia History of recurrent UTI (urinary tract infection) Benign paroxysmal positional vertigo Ganglion Family history of multiple myeloma CAD (coronary artery disease) Adjustment disorder Asthma Arthritis Surgical History Hx of ultrasound guided needle biopsy Stented coronary artery Hx of vaginal hysterectomy S/P appendectomy S/P cholecystectomy H/O cystocele repair Previous section History of orthopedic surgery H/O cystoscopy History of percutaneous coronary intervention Family History Father Coronary artery disease Hypertension Mother Vertigo Multiple myeloma Arthritis Son Schizophrenia Anxiety Daughter Anxiety Adrenal failure Atrial fibrillation Lyme disease Son Retinopathy Daughter Obesity Daughter Lyme disease Daughter No problems noted. Sister Uterine cancer Social History Household Members: Children Household Members Other:: Son: Manny Housing: House Alcohol intake: never Patient Tobacco Use Status: Former Tobacco user Tobacco use type: Cigarette e-Cigarette/Vaping Use: Former Use Second Hand Smoke Exposure: No service: No Current occupational status: disabled Cognitive needs: No Hearing needs: No Vision needs: Yes (Glasses) Review of Systems Const All systems reviewed & are unremarkable except as noted in HPI and below Physical Exam Const General: cooperative, healthy appearing, comfortable, no acute distress, well developed, alert and awake Nutritional Appearance: overweight Orientation/consciousness: patient oriented x3 Limitations: no limitations HEENT Head: Yes normal to inspection, Yes normocephalic and Yes atraumatic Ears: hearing grossly normal bilaterally Eyes General: appearance normal, both eyes and all related structures Neck Neck: Yes normal visual inspection and Yes trachea midline Chest Chest palpation & inspection: normal inspection of the chest Resp Effort & Inspection: normal respiratory effort and able to speak in complete sentences Cardio Rate: regular rate GI Inspection: Yes normal to inspection General: Yes no CVA tenderness Back/Spine/Pelvis Back: no CVA tenderness Skin General skin exam: no rashes or lesions noted Neuro General: patient oriented x3 Extrem General: Yes normal to inspection Psych Appearance: grossly normal and well kempt Mental Status: mental status grossly normal Speech and movement: Normal speech and movement present and Clear speech present Affect: normal affect Attitude: cooperative Thought process: Normal thought process present Thought content: Normal thought content present Insight: Fair insight present (Psych) Judgement: Fair judgement present (Psych) Results AMB Urinalysis, Automated UA Leukoctes 500 Vasquez/uL Last Edit by Betina Lemus on 05/13/25 16:29 UA Nitrite Negative Last Edit by Betina Lemus on 05/13/25 16:29 UA Urobilinogen 3.5 mg/dL Last Edit by Betina Lemus on 05/13/25 16:29 UA Protein 0 mg/dL Last Edit by Betina Lemus on 05/13/25 16:29 UA pH 6.0 Last Edit by Betina Lemus on 05/13/25 16:29 UA Blood 80 Fausto/uL Last Edit by Betina Lemus on 05/13/25 16:29 UA Specific [place] 1.015 Last Edit by Betina Lemus on 05/13/25 16:29 UA Ketone Positive Last Edit by Betina Lemus on 05/13/25 16:29 UA Bilirubin 0 mg/dL Last Edit by Betina Lemus on 05/13/25 16:29 UA Glucose 0 mg/dL Last Edit by Betina Lemus on 05/13/25 16:29 Results Reviewed Results Reviewed: Laboratory Last Values Urine pH (Auto) 6.0 05/13/25 16:12 Specific [place] (Auto) 1.015 05/13/25 16:12 Urine Protein (Auto) 0 mg/dL 05/13/25 16:12 Glucose (UA)(Auto) 0 mg/dL 05/13/25 16:12 Urine Ketones (Auto) Positive 05/13/25 16:12 Urine Blood (Auto) 80 Fausto/uL 05/13/25 16:12 Urine Nitrite (Auto) Negative 05/13/25 16:12 Urine Bilirubin (Auto) 0 mg/dL 05/13/25 16:12 Urine Urobilinogen (Auto) 3.5 mg/dL 05/13/25 16:12 Leukocyte Esterase (Auto) 500 Vasquez/uL 05/13/25 16:12 Date of Service: 05/06/25 Procedure(s): US retroperitoneal comp Findings: Right kidney normal size and echotexture, 11.3 cm length. Simple cortical cysts 1.6 cm and 0.7 cm in the lower pole. No hydronephrosis, or calculus. Normal color flow. Left kidney normal size and echotexture, 11.6 cm in length. 4 mm calculus in the lower interpolar region. No hydronephrosis or mass. Normal color flow. Urinary bladder is unremarkable. Prevoid volume 456 mL. Postvoid volume 19.2 mL. Ureteral jets are visualized bilaterally Impression: 1. Nonobstructing left nephrolithiasis. 2. Right renal cysts. Assessment & Plan Assessment & Plan (1) Microscopic hematuria: Code(s): R31.29 - Other microscopic hematuria Category: Medical (2) History of recurrent UTI (urinary tract infection): Code(s): Z87.440 - Personal history of urinary (tract) infections Category: Medical (3) Lower urinary tract symptoms: Code(s): R39.9 - Unspecified symptoms and signs involving the genitourinary system Category: Medical (4) Renal cyst: Code(s): N28.1 - Cyst of kidney, acquired Category: Medical (5) Nephrolithiasis: Code(s): N20.0 - Calculus of kidney Category: Medical Plan In office urinalysis results reviewed with the patient today; will send for urine cytology as well as microgen. Start Bactrim as discussed and prescribed. Recent retroperitoneal ultrasound results reviewed with the patient today; as noted above. We discussed holding methenamine while on treatment for urinary tract infection. Continue/resume methenamine once completed with antibiotic therapy as well as vitamin-C. We discussed potential causes of recurrent urinary tract infections. We discussed correlation of constipation and recurrent urinary tract infections. We discussed importance of adequate hydration relation to recurrent urinary tract infections as well as nephrolithiasis and overall health and well-being. Will continue with surveillance monitoring. Follow-up next available in office cystoscopy; or sooner with any issues, concerns, and or questions. Orders: Orders AMB Urinalysis Automated Today Z13.9 - Encounter for screening, unspecified Urine Cytology Today R31.29 - Other microscopic hematuria AMB Post Void Residual by ultrasound Today R31.29 - Other microscopic hematuria Medications: New sulfamethoxazole-trimethoprim 800-160 mg (Bactrim DS) Please hold methenamine while on treatment dose for urinary tract infection 1 tab PO BID 14 tabs 0RF 7 days N39.0 - Urinary tract infection, site not specified Discontinued nitrofurantoin macrocrystal must administer with a meal/food Discontinued Reason: Duplicate 100 mg PO BID 7 days 14 caps 0RF nitrofurantoin monohyd/m-cryst 100 mg (Macrobid) must administer with a meal/food Discontinued Reason: Duplicate 100 mg PO BID 7 days 14 caps 0RF Patient Instructions: The patient had an opportunity to ask questions regarding the treatment plan. All questions were answered. Physical exam, labs, and imaging were discussed and reviewed in detail. As well as risks, benefits, and discussion of treatment choices. No major barriers to understanding were identified. The patient expressed understanding and agreement with the above treatment plan. The patient was made aware they should contact our office by phone for worsening of their current condition, the appearance of new symptoms, or with any questions or concerns. Compliance is encouraged with any medications and follow up testing that is ordered. It is a privilege to be allowed the opportunity to participate in? your urological care.? Again, if you have any questions or concerns If you have any questions or concerns please do not hesitate to contact me. The office is [phone]. This note is constructed using voice recognition software. While every effort has been made to ensure accuracy channel sales manager errors may have been included. Yours sincerely, SAHIL Schroeder-BC Coding Level of Care Code Est Pt Level 4 (74667) Complex EM visit Add On G2211 Diagnoses Microscopic hematuria R31.29 History of recurrent UTI (urinary tract infection) Z87.440 Lower urinary tract symptoms R39.9 Renal cyst N28.1 Nephrolithiasis N20.0
--- OUTSIDE RECORDS SUMMARY | 2025-05-13 15:01 | XMS_ITS | Clinical Summary ---
Author Organization [facility] [place] [address] Care Team Providers Care Denture Model Maker Name Role Phone Louise Montes Primary Care Provider + Allergies No known active allergies Medications LORazepam (ATIVAN) 0.5 mg Tablet TAKE ONE TABLET BY MOUTH EVERY DAY NEEDED 0 9 Active rizatriptan (MAXALT-QUARRY PLANT CRUSHER OPERATOR) 10 mg Tablet, Rapid Dissolve rizatriptan 10 [...] - Influenza standard series) 05/26/2025 Insurance MEDICARE [facility] Care Teams Denture Model Maker Relationship Specialty Start Date End Date Louise Montes PA [address] [place] [phone] PCP - General Internal Medicine 12/20/18
--- OUTSIDE RECORDS SUMMARY | 2025-05-13 15:01 | XMS_ITS | Clinical Summary ---
Author Organization [facility] [place] [facility] Address [address] [place] [phone] Phone Care Team Providers Care Sheet Metal Technician Name Role Phone Physician, Pcp Unknown [...] complete this topic Insurance MEDICARE Care Teams Sheet Metal Technician Relationship Specialty Start Date End Date Physician, Pcp Unknown PCP - General 11/17/24
--- OUTSIDE RECORDS SUMMARY | 2025-05-13 15:01 | XMS_ITS | Clinical Summary ---
Author Organization [facility] Address [address] [place] [address] Phone Care Team Providers Care National Accounts Sales Name Role Phone Unknown, Unknown Primary Care [...] [place] A [place] [id number] MEDICARE PART A & B [facility] [place] [id number] MEDICARE PART A & B GENERIC COMMERCIAL MEDICARE PART A & B GENERIC [employer]ERCIAL MEDICARE PART A & [place] [id number] MEDICARE PART A & B GENERIC COMMERCIAL MEDICARE PART A & B GENERIC [employer]ERCIAL MEDICARE PART A & B GENERIC COMMERCIAL MEDICARE PART A & B GENERIC COMMERCIAL Care Teams National Accounts Sales Relationship Specialty Start Date End Date Unknown, Unknown, PCP - General 02/08/19 Additional Source Comments The information contained in this document represents components of the legal health record. It is not the complete legal health record.[facility]
--- OUTSIDE RECORDS SUMMARY | 2025-05-13 15:01 | XMS_ITS | Clinical Summary ---
Author Organization [facility] Address [address] [place] [address] Care Team Providers Care Collar Band Creaser Name Role Phone Unavailable Primary Care Provider [...]
== END 2025-05-13 14:32 | disposition home or self-care (01) ==
PROVIDERS: Visit Provider Nurse Practitioner Family
DX: R31.29 Other microscopic hematuria (principal); Z87.440 Personal history of urinary (tract) infections; R39.9 Unspecified symptoms and signs involving the genitourinary system; N28.1 Cyst of kidney, acquired; N20.0 Calculus of kidney; Z13.9 Encounter for screening, unspecified
CPT/HCPCS: 99214; G2211

== ENCOUNTER 2025-05-13 13:44 | Outpatient (REF) | payer MEDICARE, OTHER, SELFPAY ==
--- OUTSIDE RECORDS SUMMARY | 2025-05-13 15:45 | XMS_ITS | Encounter Summary ---
Author Organization [facility] Address [address] [place] [address] Care Team Providers Care Target Trimmer Name Role Phone Unknown, Provider Primary Care Provider Louise May Primary Care Provider + Encounter Details Date Type Department Care Team (Late st Contact Info) Description 10/05/2023 Lab Requisition [facility] Pathology & Laboratory Medicine - [address] [address] Outr Resulting Lab, Provider Social History Tobacco [...] 137.2 See Note mIU/mL 10/05/2023 23:18 EST [facility] Blood VENOUS BLOOD / Unknown 10/05/2023 9:42 EST 10/05/2023 22:37 EST Narrative [facility] - 10/05/2023 23:18 EST NOTE: [...] S ORDERABLES Final Result Performing Organization Address [facility] Co de Phone Number [facility] [address] [place] [address] * ESTRADIOL, ADULTS (10/05/2023 9:42 EST) Estradiol <12 See Note pg/mL 10/05/2023 23:15 EST [facility] Comment: NOTE: FEMALE REFERENCE RANGES: [...] S ORDERABLES Final Result Performing Organization Address City/[facility]/ZIP Co de Phone Number [facility] [address] [place] [address] * VITAMIN D (25,OH) (10/05/2023 9:42 EST) 25OH Vitamin D Tot 32 30 - 100 ng/mL 10/06/2023 10:33 EST [facility] Comment: Vitamin D 25,OH Interpretive Ranges: Deficiency: <10.0 ng/mL Insufficiency: 10.0 - 30.0 ng/mL Sufficiency: 30.0 - 100.0 ng/mL Toxicity: >100.0 ng/mL Blood VENOUS BLOOD / Unknown 10/05/2023 9:42 EST 10/05/2023 22:37 EST us Provider Outr Resulting Lab CHEMISTRY & BLOOD GA S ORDERABLES Final Result [facility] [address] [place] [address] documented in this encounter Visit Diagnoses Not on filedocumented in this encounter Care Teams Target Trimmer Relationship Specialty Start Date End Date Unknown, Provider, PCP - General 06/06/13 10/20/24 Louise Montes PA [address] [place] [address] [place] [phone] PCP - General Internal Medicine - Primary Care 10/21/24 documented as of this encounter
== END 2025-05-13 13:45 | disposition home or self-care (01) ==
LOC: HO.LAB 13:44
PROVIDERS: Visit Provider Nurse Practitioner Family
DX: N28.1 Cyst of kidney, acquired (principal); R31.29 Other microscopic hematuria; N20.0 Calculus of kidney; N39.0 Urinary tract infection, site not specified; Z13.89 Encounter for screening for other disorder
CPT/HCPCS: 81003; 88112; 99212

== ENCOUNTER 2025-06-10 09:00 | Outpatient (RCR) | payer MEDICARE, OTHER, SELFPAY ==
--- NOTE | 2025-04-17 11:34 | MHC.PT.EP ---
[facility] [place] Office [place] Office [place] Office [address] Ildefonso Bacon [address] [phone] F: [phone] F: [phone] F: [phone] F: [phone] Physical Therapy Plan of Care Date of Evaluation: 04/17/25 Date of Surgery: Diagnosis: This is a 65 yo female presenting to skilled PT with a script for B knee and hip OA. Assessment: This is a 65 yo female presenting to skilled PT with a script for B knee and hip OA. Patient reporting a long history of OA in B knees and meniscal issues without surgical interventions for many years. Patient has had gel injections (3 in ea knee), had PRP (3 in the R side, this helped a lot but only for 3 months). She has also had PT in the past for this (the last time being 1 year ago). Since then she has moved to [facility] so started with new doctors and started a vegan diet. She has noticed an improvement since starting a new diet with her pain relief and with inflammation. In the psat she needed a cane to walk and was crawling up the stairs. She is here today with improved symptoms thus looking to strengthen her knees/LE's. She enjoys biking (road bike) 1x/wk and walking. Pain is located medial knee, constant except for sitting (her R knee is worse). She also endorses B hip symptoms from her knees as well. Pain has improved over the past year so she is not interested in TKR at this time. Assessment reveals pain that ranges from up to a 4/10 at the worst. Patient demos B LE ROM, strength of B LE's, TTP at and impaired posture with knee valgus and impaired tolerance for endurance work, functional limitations with stairs, walking, balance and squatting. Based on functional limitations, impaired QOL and pain tolerance patient is a good candidate for skilled PT 2x/wk for 4wks (will do 1x/wk for 6wks for her schedule). 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 Manual therapy to restore motion and function. Therapeutic exercise to improve strength and flexibility. Neuromuscular re-education for posture and balance. Therapeutic activities to return to functional activities of daily living. Electronically signed by: Unique Ortiz PT Please sign and return to therapist. Thank you for your referral.
--- NOTE | 2025-06-25 15:39 | MHC.PT.DC ---
[facility] [place] [facility] [place] [facility] [place] Office [address] Ildefonso Bacon [address] [facility] [phone] F: [phone] F: [phone] F: [phone] F: [phone] Physical Therapy Discharge Report Diagnosis: This is a 65 yo female presenting to skilled PT with a script for B knee and hip OA. Date of Surgery: Date of Evaluation: 04/17/25 Date of Discharge: 06/25/25 Treatments to Date: 6 Cancellations to Date: 0 No Shows to Date: 0 Discharge Status: Achieved Goals Improved Function Independent with HEP Patient Elected to Stop Discharge Summary: Patient came to 6 extended sessions. Overall patient improved her pain, function and strength. She chose to DC after her last scheduled appointment as she was feeling better. She also understood how her diet impacted her and the importance of maintaining an overall health lifestyle. DC to HEP. Electronically signed by: Unique Ortiz PT Please sign and return to therapist. Thank you for your referral.
== END 2025-06-25 15:40 | disposition home or self-care (01) ==
LOC: HO.PTCHIC 09:00
DX: M17.11 Unilateral primary osteoarthritis, right knee (principal); M16.11 Unilateral primary osteoarthritis, right hip; M16.12 Unilateral primary osteoarthritis, left hip
CPT/HCPCS: 97110; 97162

== ENCOUNTER 2025-06-11 16:04 | Outpatient (AMB) | payer MEDICARE, OTHER, SELFPAY ==
[2025-06-11 16:10] VITALS: BP 128/70; PULSE 76; RESP 18; TEMP 36.3; O2SAT 95; BMI 30.4
--- NOTE | 2025-06-11 16:10 | A.OFFPC_ITS ---
Vital Signs 06/11/25 16:10 Height 5 ft 3 in Weight 171 lb 8 oz BMI 30.4 BP 128/70 Blood Pressure Location Lt brachial Position Sitting Respiration 18 Pulse 76 Pulse Source Pulse Oximeter Temp 97.3 F Temp Source Temporal Artery Scan Pulse Oximetry (%) 95 Oxygen Delivery Method Room Air Intake Visit Reasons: cad/afib/tremayne/htn Marble Rubber Required: No Accompanied by: Self / Same As Patient Allergies No Known Allergies Allergy (Verified 06/11/25 16:36) Medication List - Last Reconciled 06/11/25 by VERONICA Livingston acetaminophen ER (Tylenol Arthritis Pain) 1,300 mg PO Q8H PRN albuterol sulfate 90 mcg/actuation (Ventolin HFA) 2 puffs inhalation Q4-6H PRN apixaban 5 mg PO BID clopidogrel 75 mg PO DAILY estradiol 0.01%(0.1mg/gram) 1 g vaginal 3XW isosorbide mononitrate ER 30 mg PO DAILY lorazepam 0.5 mg PO DAILY PRN melatonin 3 mg PO BEDTIME PRN metoprolol succinate ER 25 mg PO BID nitrofurantoin macrocrystal 100 mg PO BEDTIME nitroglycerin 0.4 mg sublingual Q5M PRN phenazopyridine (Pyridium) 200 mg PO Q8H PRN 3 days rosuvastatin 20 mg PO DAILY sulfamethoxazole-trimethoprim 800-160 mg (Bactrim DS) 1 tab PO BID 7 days Tobacco use date assessed: 06/11/25 Dental Screening Dental Screen Date: 06/11/25 Did you have a dental visit in the last 12 months?: Yes Did you have a dental problem in the last 6 months where you did not have access to dental care?: No Was dental information given to patient?: Patient has dentist HPI cad/afib/tremayne/htn HPI Details The patient is a 65-year-old female presenting follow up on chronic conditions. She is here with concerns recurrent urinary tract infections and hyperlipidemia. The patient reports recurrent urinary tract infections, with symptoms reappearing within 12 hours of stopping antibiotics. She has been prescribed nitrofurantoin prophylactically to prevent infections, as previous antibiotics led to resistance concerns. The patient also has a history of hyperlipidemia and coronary artery disease, with a previous stent placement due to a 70% blockage identified after a stress test. She is currently on rosuvastatin but self discontinued Zetia due to side effects. Her LDL cholesterol was recently measured at 91 mg/dL, with a target of less than 70 mg/dL. [facility] Medical History Multinodular goiter (nontoxic) Paroxysmal atrial fibrillation Afib TREMAYNE (generalized anxiety disorder) Melanocytic nevus Hyperlipidemia History of recurrent UTI (urinary tract infection) Benign paroxysmal positional vertigo Ganglion Family history of multiple myeloma CAD (coronary artery disease) Adjustment disorder Asthma Arthritis Surgical History Hx of ultrasound guided needle biopsy Stented coronary artery Hx of vaginal hysterectomy S/P appendectomy S/P cholecystectomy H/O cystocele repair Previous section History of orthopedic surgery H/O cystoscopy History of percutaneous coronary intervention Family History Father Coronary artery disease Hypertension Mother Vertigo Multiple myeloma Arthritis Son Schizophrenia Anxiety Daughter Anxiety Adrenal failure Atrial fibrillation Lyme disease Son Retinopathy Daughter Obesity Daughter Lyme disease Daughter No problems noted. Sister Uterine cancer Social History Household Members: Children Household Members Other:: Son: Manny Housing: House Alcohol intake: never Patient Tobacco Use Status: Former Tobacco user Tobacco use type: Cigarette e-Cigarette/Vaping Use: Former Use Second Hand Smoke Exposure: No service: No Current occupational status: disabled Cognitive needs: No Hearing needs: No Vision needs: Yes (Glasses) Questionnaire PHQ-9 Over the last 2 weeks, how often have you been bothered by any of the following problems? 1. Little interest or pleasure in doing things: not at all 2. Feeling down, depressed, or hopeless: nearly every day 3. Trouble falling or staying asleep, or sleeping too much: not at all 4. Feeling tired or having little energy: several days 5. Poor appetite or overeating: not at all 6. Feeling bad about yourself - or that you are a failure or have let yourself or your family down: not at all 7. Trouble concentrating on things, such as reading the newspaper or watching television: several days 8. Moving or speaking so slowly that other people could have noticed. Or the opposite - being so fidgety or restless that you have been moving around a lot more than usual: not at all 9. Thoughts that you would be better off or of hurting yourself in some way: not at all Total score: 5 Depression Screening Interpretation: Positive Depression Screening Done: Yes Source: Developed by Drs. Chi Valdivia, Melissa Bateman, Bull Lemus and colleagues, with an educational fabio from [employer]. Thrive Questionnaire Date Thrive assessed: 03/05/25 I am a: Patient What is your living situation today?: I have a steady place to live Within the past 12 months, did the food you bought not last and you didn't have the money to get more?: Never true Within the past 12 months, did you worry whether your food would run out before you got money to buy more?: Never true Do you have trouble paying for medicines?: No Do you have trouble getting transportation to medical appointments?: No Do you have trouble paying your heating and electricity bill?: No Do you have trouble taking care of your child, family member or friend?: No Do you have trouble with day-to-day activities such as bathing, preparing meals, shopping, managing finances, etc.?: No Are you currently unemployed and looking for a job?: Yes Are you interested in more education?: No Please select the resources that you would like help with: Care for elder or disabled Currently or been in a relationship where the following occur: No concerns reported THRIVE Score: 0 AUDIT C Alcohol Use Questionnaire (AUDIT-C) 1. How often do you have a drink containing alcohol?: Never Total Score: 0 Score Reviewed/Action Taken: No TREMAYNE-7 AMB Questionnaire TREMAYNE-7 Date TREMAYNE - 7 assessed: 03/05/25 Feeling nervous, anxious, or on edge: 0 = Not at all Not being able to stop or control worryin = Not at all Worrying too much about different things: 0 = Not at all Trouble relaxin = Not at all Being so restless that it is hard to sit still: 0 = Not at all Becoming easily annoyed or irritable: 0 = Not at all Feeling afraid as if something awful might happen: 1 = Several days Total TREMAYNE-7 score (0-4 normal; 5-9 mild; 10-14 moderate; 15-21 severe): 1 Source: Developed by Drs. Chi Valdivia, Melissa Bateman, Bull Lemus and colleagues, with an educational fabio from [employer]. Review of Systems Const Denies headache(s) Eyes Denies loss of vision ENT Denies vertigo, Denies dizziness, Denies headache(s) and Denies sore throat Card Denies chest pain, Denies leg edema and Denies lightheadedness Resp Denies cough, Denies hemoptysis and Denies wheezing GI Denies abdominal pain, Denies melena, Denies constipation, Denies diarrhea and Denies vomiting Denies urinary frequency, Denies dysuria, Denies urinary urgency and Reports other (Recurrent UTIs) Musc Denies arthralgias, Denies joint swelling, Reports muscle cramps (On and off-as sociated with statins), Denies numbness and Denies tingling Neuro Denies Abnormal speech present, Denies behavioral changes, Denies vertigo, Denies dizziness, Denies headache(s), Denies loss of vision, Denies memory loss, Denies numbness and Denies tingling Psych Denies anxiety, Denies behavioral changes, Denies depression, Denies memory loss and Denies panic attacks Moi/Lymph Denies easy bleeding and Denies easy bruising Aller/Immun Denies wheezing Physical exam (Primary Care) Vital Signs: Last Vital Signs Temp 97.3 F 06/11/25 16:10 Pulse 76 06/11/25 16:10 Resp 18 06/11/25 16:10 BP 128/70 06/11/25 16:10 Pulse Ox 95 06/11/25 16:10 Oxygen Delivery Method Room Air 06/11/25 16:10 BMI result Body Mass Index 30.4 Tobacco/Smoking Status: Tobacco use Status Tobacco use date assessed 06/11/25 06/11/25 16:13 Patient Tobacco Use Status Former Tobacco user 06/11/25 16:13 Tobacco use type Cigarette 06/11/25 16:13 e-Cigarette/Vaping Use Former Use 06/11/25 16:13 PHQ-9: PHQ-9 Score PHQ-9: Total score 5 06/11/25 17:03 Depression Screening Interpretation: Positive Thrive Assessment: Date of Thrive Assessment Date Thrive assessed 03/05/25 06/11/25 16:13 Currently or been in a relationship where the following occur: No concerns reported Const General: healthy appearing, no acute distress, alert and awake Nutritional Appearance: well nourished Orientation/consciousness: oriented to person, oriented to place and oriented to time HENMT Ears: TM's normal bilaterally General nose exam: Normal nasal mucous membranes and turbinates present Eyes Conjunctivae: conjunctivae normal Sclerae: sclerae normal Pupils: Equal, round and reactive pupils present Neck Neck: Yes no lymphadenopathy and Yes no JVD Thyroid: Thyroid normal Carotids: no bruits Resp Effort & Inspection: normal respiratory effort and not tachypneic Auscultation: no crackles, no rales, no rhonchi and no wheezes Cardio Rate: regular rate Rhythm: regular rhythm Heart sounds: no murmurs and normal S1 and S2 GI Palpation (GI): Soft to palpation, nontender, no hepatomegaly and no splenomegaly Auscultation: normal bowel sounds Skin General skin exam: no rashes or lesions noted and dry skin Neuro General: oriented to person, oriented to place and oriented to time Cranial nerves: Yes Equal, round and reactive pupils present Speech: No Abnormal speech present Gait exam (Neuro): Normal gait present Motor exam (neuro): no tremor noted Extrem Right upper extremity: full ROM Left upper extremity: full ROM Right lower extremity: full ROM; no edema Left lower extremity: full ROM; no edema Psych Mental Status: mental status grossly normal Speech and movement: Normal speech and movement present Affect: normal affect Attitude: cooperative Thought process: Normal thought process present Coding Level of Care Code Est Pt Level 4 (38537) Diagnoses Paroxysmal atrial fibrillation I48.0 Recurrent urinary tract infection N39.0 Primary hypertension I10 Hypertension type: primary hypertension TREMAYNE (generalized anxiety disorder) F41.1 Coronary artery disease due to lipid rich plaque I25.10; I25.83 Coronary Disease-Associated Artery/Lesion type: due to lipid rich plaque Hyperlipidemia, unspecified hyperlipidemia type E78.5 Hyperlipidemia type: unspecified Elevated alanine aminotransferase (ALT) level R74.01 Heartburn R12 Time Spent (min) 43 Assessment & Plan Assessment & Plan (1) Paroxysmal atrial fibrillation: Code(s): I48.0 - Paroxysmal atrial fibrillation Category: Medical Plan: Stable Continue apixaban 5 mg b.i.d., clopidogrel 75 mg daily, rosuvastatin 20 mg daily Continue strict blood pressure control Follow up with Cardiology as scheduled (2) Recurrent urinary tract infection: Code(s): N39.0 - Urinary tract infection, site not specified Category: Medical Plan: Continue phenazopyridine 200mg q8h prn, estradiol 0.01% 1 g intravaginally. Recently was started on nitrofurantoin macrocrystal 100mg at bedtime by urology Increase p.o. fluids Follow up with Urology as scheduled (3) Hypertension: Code(s): I10 - Essential (primary) hypertension Category: Medical Qualifiers: Hypertension type: primary hypertension Qualified Code(s): I10 - Essential (primary) hypertension Plan: Blood pressure was 128/70 within goal Encouraged DASH diet and activity as tolerated-goal systolic is less than 130 mmhg Refrain from alcohol use and if you smoke, smoking cessation is strongly advised Continue isosorbide mononitrate ER 30 mg daily, metoprolol succinate ER 25 mg b.i.d. (4) TREMAYNE (generalized anxiety disorder): Code(s): F41.1 - Generalized anxiety disorder Category: Medical Plan: Encouraged CBT Continue lorazepam 0.5 mg daily p.r.n. (5) CAD (coronary artery disease): Comment: The patient was having increased anginal chest pain, sob, dyspnea on exertion, lightheadedness She had a positive lexiscan stress test with Dr. Calderon She was referred for a left heart cath and stent was placed 10/24/2024 Patient notes that she has had complete resolution of her symptoms She is currently on Plavix 75 mg daily, metoprolol succinate 25 mg twice daily isosorbide mononitrate, extended release 30 mg daily, aspirin 81 mg daily, Atorvastatin 20 mg BID She does not seem to be tolerating the atorvastatin This was reduced from 80 mg to 20 mg twice daily, she is having significant lower extremity discomfort We will have her trial rosuvastatin 10 mg in replacement of the atorvastatin 40 mg Code(s): I25.10 - Atherosclerotic heart disease of [place] coronary artery without angina pectoris Category: Medical Qualifiers: Coronary Disease-Associated Artery/Lesion type: due to lipid rich plaque Qualified Code(s): I25.10 - Atherosclerotic heart disease of [place] coronary artery without angina pectoris; I25.83 - Coronary atherosclerosis due to lipid rich plaque Plan: Denies anginal symptoms-appears stable from a cardiac standpoint Continue clopidogrel 75 mg, apixaban 5 mg b.i.d., rosuvastatin 20 mg daily, isosorbide mononitrate ER 30 mg daily, metoprolol succinate ER 25 mg b.i.d. Follow up with Cardiology as scheduled (6) Hyperlipidemia: Code(s): E78.5 - Hyperlipidemia, unspecified Category: Medical Qualifiers: Hyperlipidemia type: unspecified Qualified Code(s): E78.5 - Hyperlipidemia, unspecified Plan: Triglycerides 204, total cholesterol 276, LDL 91, HDL 45, apolipoprotein B 90 and lipoprotein A less than 10 on 04/04/2025 Discussed lifestyle modifications including dietary changes and physical activity Continue rosuvastatin 20 mg daily We will recheck lipid panel in 3 months (7) Elevated alanine aminotransferase (ALT) level: Code(s): R74.01 - Elevation of levels of liver transaminase levels Category: Medical Plan: ALT continue to be slightly elevated mildly elevated, multiple factors might be in play. She is on a statin for cholesterol, and takes tylenol for migraines Given the mild rise, no changes is warranted at this time will continue to monitor cmp (8) Heartburn: Code(s): R12 - Heartburn Category: Medical Plan: Do not eat meals or drink carbonated beverages within 3 hr of bedtime Decrease the amount of fried, fatty, and spicy foods to decrease gastric acid production Raise the head of the bed using 4 to 6-inch blocks, especially if nocturnal symptoms are present Lose weight if indicated; avoid tight-fitting clothing, especially around the waist Avoid foods that relax the Lower esophageal sphincter (chocolate, peppermint, hi gh-fat foods etc.,)
--- OUTSIDE RECORDS SUMMARY | 2025-06-11 19:13 | XMS_ITS | Clinical Summary ---
Author Organization [facility] Address [address] [place] [address] Care Team Providers Care Braker Passenger Train Name Role Phone Unavailable Primary Care Provider [...]
--- OUTSIDE RECORDS SUMMARY | 2025-06-11 19:13 | XMS_ITS | Encounter Summary ---
Author Organization [facility] Address [address] [place] [address] Care Team Providers Care Tire Fabric Inspector Name Role Phone Unknown, Provider Primary Care Provider Louise May Primary Care Provider + Encounter Details Date Type Department Care Team (Late st Contact Info) Description 07/12/[address] [facility] Pathology & Laboratory Medicine - [address] [address] Outr Resulting Lab, Provider Social History Tobacco [...] Procedure Name Priority Date/Time Associated Diagnosis Comments FECAL BACTERIAL PATHOGENS BY PCR Routine 07/12/2024 15:49 EDT documented in this encounter Results * FECAL BACTERIAL PATHOGENS BY PCR (07/12/2024 15:49 EDT) Salmonella PCR Negative Negative 07/13/2024 10:56 EDT [facility] Shigella/Enteroin vasive E. coli Negative Negative 07/13/2024 10:56 EDT [facility] HN LAB CAMPYLOBACTER PCR Negative Negative 07/13/2024 10:56 EDT [facility] Shiga Toxin PCR Negative Negative 10:56 EDT [facility] Feces SPECIMEN FROM RECTUM / Unknown 07/12/2024 15:49 EDT 07/12/2024 22:16 EDT us Provider Outr Resulting Lab MICROBIOLOGY - GENER AL ORDERABLES Final Result Performing Organization Address City/State/[facility] Co de Phone Number [facility] [address] [place], [place] [phone] documented in this encounter Visit Diagnoses Not on filedocumented in this encounter Care Teams Tire Fabric Inspector Relationship Specialty Start Date End Date Unknown, Provider, PCP - General 06/06/13 10/20/24 Louise Montes PA [address] [place] [phone] PCP - General Internal Medicine - Primary Care 10/21/24 documented as of this encounter
--- OUTSIDE RECORDS SUMMARY | 2025-06-11 19:13 | XMS_ITS | Encounter Summary ---
Author Organization [facility] Address [address] [place] [address] Care Team Providers Care Air Pollution Engineer Name Role Phone Unknown, Provider Primary Care Provider Louise May Primary Care Provider + Encounter Details Date Type Department Care Team (Late st Contact Info) Description 10/05/2023 Lab Requisition [facility] Pathology & Laboratory Medicine - [address] [address] Outr Resulting Lab, Provider Social History Tobacco [...] 137.2 See Note mIU/mL 10/05/2023 23:[address] [facility] Blood VENOUS BLOOD / Unknown 10/05/2023 9:42 EST 10/05/2023 22:37 EST Narrative [facility] - 10/05/2023 23:18 [...] S ORDERABLES Final Result Performing Organization Address [facility] Co de Phone Number [facility] [address] [place] [address] * ESTRADIOL, ADULTS (10/05/2023 9:42 EST) Estradiol <12 See Note pg/mL 10/05/2023 23:[address] [facility] Comment: NOTE: FEMALE [...] S ORDERABLES Final Result Performing Organization Address City/[facility]/ZIP Co de Phone Number [facility] [address] [place] [address] * VITAMIN D (25,OH) (10/05/2023 9:42 EST) 25OH Vitamin D Tot 32 30 - 100 ng/mL 10/06/2023 10:[address] [facility] Comment: Vitamin D 25,OH Interpretive Ranges: Deficiency: <10.0 ng/mL Insufficiency: 10.0 - 30.0 ng/mL Sufficiency: 30.0 - 100.0 ng/mL Toxicity: >100.0 ng/mL Blood VENOUS BLOOD / Unknown 10/05/2023 9:42 EST 10/05/2023 22:37 EST us Provider Outr Resulting Lab CHEMISTRY & BLOOD GA S ORDERABLES Final Result [facility] [address] [place] [address] documented in this encounter Visit Diagnoses Not on filedocumented in this encounter Care Teams Air Pollution Engineer Relationship Specialty Start Date End Date Unknown, Provider, PCP - General 06/06/13 10/20/24 Louise Montes PA [address] [place] [address] [place] [phone] PCP - General Internal Medicine - Primary Care 10/21/24 documented as of this encounter
--- OUTSIDE RECORDS SUMMARY | 2025-06-11 19:13 | XMS_ITS | Clinical Summary ---
Author Organization [facility] Address [address] [place] [address] Phone Care Team Providers Care Financial Foundations Representative Name Role Phone Unknown, Unknown Primary [...] of 2) 01/29/2012 DEPRESSION SCREENING 02/12/2020 02/11/2019 INFLUENZA VACCINE (#1) 2025 COVID-19 VACCINE (1 - 2023-2 5 season) 2025 RSV VACCINE (1 - 1-dose 75+ series) [...] GENERIC COMMERCIAL MEDICARE PART A & [place] [id number] MEDICARE PART A & B GENERIC COMMERCIAL MEDICARE PART A & B GENERIC COMMERCIAL MEDICARE PART A & B GENERIC COMMERCIAL MEDICARE PART A & B GENERIC COMMERCIAL MEDICARE PART A & B GENERIC COMMERCIAL MEDICARE PART A & B GENERIC COMMERCIAL MEDICARE PART A & B GENERIC COMMERCIAL Care Teams Financial Foundations Representative Relationship Specialty Start Date End Date Unknown, Unknown, PCP - General 02/08/19 Additional Source Comments The information contained in this document represents components of the legal health record. It is not the complete legal health record.[facility]
--- OUTSIDE RECORDS SUMMARY | 2025-06-11 19:13 | XMS_ITS | Encounter Summary ---
Author Organization [facility] Address [address] [place] [address] Care Team Providers Care Roving Marker Name Role Phone Unknown, Provider Primary Care Provider Louise May Primary Care Provider + Encounter Details Date Type Department Care Team (Late st Contact Info) Description 10/11/2023 Lab Requisition [facility] Pathology & Laboratory Medicine - [address] [address] Tres Wolfe S, DO [address] [place] [phone] Encounter for other general examination Social History Tobacco Use Types Packs/Day Years [...] Procedure Name Priority Date/Time Associated Diagnosis Comments SURGICAL PATHOLOGY Today 10/11/2023 13 :52 EST documented in this encounter Results * SURGICAL PATHOLOGY (10/11/2023 13:52 EST) Note to Patient The following pathology results have been interpreted by your pathologist and may be available to you before your health provider has had the opportunity to review them. Please allow time for your provider to receive these results and explore management options, if applicable. 10/16/2023 9:41 [facility] Final Diagnosis A. COLON, APPENDICEAL ORIFICE, BIOPSY: - Colonic mucosa with no significant diagnostic abnormalities. - Benign reactive lymphoid aggregate noted. B. COLON, DESCENDING, POLYP, BIOPSY: - Tubular adenoma. 10/16/2023 9:41 [facility] Attestation There was significant resident/fellow involvement in the diagnostic evaluation of this case. By the signature below, the attending physician certifies that they have personally conducted a gross and/or microscopic examination of the described specimens and rendered or confirmed the above diagnosis. 10/16/2023 9:41 [facility] at [address] [facility] Clinical History + Cologuard, screening, colonic polyps 10/16/2023 9:41 [facility] Gross Description A. Received in formalin labelled with proper patient identification (initials C, M) and A. Appendiceal orifice polyp are 2 clemens tissues (0.3 x 0.1 x 0.1 cm and 0.2 x 0.1 by less than 0.1 cm). Entirely submitted in A1. Please note the smaller tissue may not survive processing. B. Received in formalin labelled with proper patient identification (initials C, M) and B. Descending colon polyp is a single clemens-brown, brown speckled tissue (0.4 x 0.2 x 0.1 cm). Submitted intact in B1. Julia Jones 10/12/2023 11:22 10/16/2023 9:41 [facility] Resident/Elias w: Annemarie Tolentino MD 10/16/2023 9:41 [facility] Performing Lab [facility] 10/16/2023 9:41 [facility] Scanned Images 10/16/2023 9:41 [facility] Tissue DESCENDING COLON STRUCTURE / Unknown 10/11/2023 13:52 EST 10/12/2023 8:27 EST Tissue specimen (specimen) DESCENDING COLON STRUCTURE / Unknown 10/11/2023 13:52 EST 10/12/2023 8:27 EST Tres Fede JoshuaAvaHolly DO PATHOLOGY ORDERABLES Final Result [facility] [address] [place] [address] documented in this encounter Visit Diagnoses Diagnosis Encounter for other general examination documented in this encounter Care Teams Roving Marker Relationship Specialty Start Date End Date Unknown, Provider, PCP - General 06/06/13 10/20/24 Louise Montes PA [address] [place] [address] [place] [phone] PCP - General Internal Medicine - Primary Care 10/21/24 documented as of this encounter
--- OUTSIDE RECORDS SUMMARY | 2025-06-11 19:13 | XMS_ITS | Encounter Summary ---
Author Organization [facility] Address [address] [place] [address] Care Team Providers Care Cardiology Clinical Nurse Specialist Name Role Phone Unknown, Provider Primary Care Provider Louise May Primary Care Provider + Encounter Details Date Type Department Care Team (Late st Contact Info) Description 07/11/2024 Lab Requisition [facility] Pathology & Laboratory Medicine - [address] [address] Outr Resulting Lab, Provider Social History Tobacco [...] Comments FECAL BACTERIAL PATHOGENS BY PCR Routine 07/11/2024 7:39 EDT documented in this encounter Results * FECAL BACTERIAL PATHOGENS BY PCR (07/11/2024 7:39 EDT) Salmonella PCR Unresolved Negative 07/12/2024 14:52 EDT [facility] Comment:An UNRESOLVED or IND ETERMINATE result for this test is an indicator that the sample was not suitable for testing after running the test twice. It is not a lab error. Either there was no DNA or RNA in the sample or there was an interfering substance (e.g. mucus) that prevented detection of any human or viral DNA or RNA. Recollection of the specimen should be considered. Shigella/Enteroin vasive E. coli Unresolved Negative 07/12/2024 14:52 T [facility] Comment:An UNRESOLVED or IND ETERMINATE result for this test is an indicator that the sample was not suitable for testing after running the test twice. It is not a lab error. Either there was no DNA or RNA in the sample or there was an interfering substance (e.g. mucus) that prevented detection of any human or viral DNA or RNA. Recollection of the specimen should be considered. HN LAB CAMPYLOBACTER PCR Unresolved Negative 07/12/2024 14:52 EDT [facility] Comment:An UNRESOLVED or IND ETERMINATE result for this test is an indicator that the sample was not suitable for testing after running the test twice. It is not a lab error. Either there was no DNA or RNA in the sample or there was an interfering substance (e.g. mucus) that prevented detection of any human or viral DNA or RNA. Recollection of the specimen should be considered. Shiga Toxin PCR Unresolved Negative 14:52 EDT [facility] Comment:An UNRESOLVED or IND ETERMINATE result for this test is an indicator that the sample was not suitable for testing after running the test twice. It is not a lab error. Either there was no DNA or RNA in the sample or there was an interfering substance (e.g. mucus) that prevented detection of any human or viral DNA or RNA. Recollection of the specimen should be considered. Feces SPECIMEN FROM RECTUM / Unknown 07/11/2024 7:39 EDT 07/11/2024 22:56 EDT us Provider Outr Resulting Lab MICROBIOLOGY - GENER AL ORDERABLES Final Result [facility] [address] [place] [address] documented in this encounter Visit Diagnoses Not on filedocumented in this encounter Care Teams Cardiology Clinical Nurse Specialist Relationship Specialty Start Date End Date Unknown, Provider, PCP - General 06/06/13 10/20/24 Louise Montes PA [address] [place] [address] [place] [phone] PCP - General Internal Medicine - Primary Care 10/21/24 documented as of this encounter
--- OUTSIDE RECORDS SUMMARY | 2025-06-11 19:13 | XMS_ITS | Encounter Summary ---
Author Organization [facility] Address [address] [place] [address] Care Team Providers Care Media Professional Name Role Phone Unknown, Provider Primary Care Provider Louise May Primary Care Provider + Encounter Details Date Type Department Care Team (Late st Contact Info) Description 09/05/2024 Lab Requisition [facility] Pathology & Laboratory Medicine - [address] [address] Outr Resulting Lab, Provider Social History Tobacco [...] Comments FECAL BACTERIAL PATHOGENS BY PCR Routine 09/05/2024 8:00 EST documented in this encounter Results * FECAL BACTERIAL PATHOGENS BY PCR (09/05/2024 8:00 EST) Salmonella PCR Negative Negative 09/06/2024 11:42 EST [facility] Shigella/Enteroin vasive E. coli Negative Negative 09/06/2024 11:42 EST [facility] HN LAB CAMPYLOBACTER PCR Negative Negative 09/06/2024 11:42 EST [facility] Shiga Toxin PCR Negative Negative 11:42 EST [facility] Feces SPECIMEN FROM RECTUM / Unknown 09/05/2024 8:00 EST 09/05/2024 22:23 EST us Provider Outr Resulting Lab MICROBIOLOGY - GENER AL ORDERABLES Final Result Performing Organization Address City/State/[facility] Co de Phone Number [facility] [address] [place], [place] [phone] documented in this encounter Visit Diagnoses Not on filedocumented in this encounter Care Teams Media Professional Relationship Specialty Start Date End Date Unknown, Provider, PCP - General 06/06/13 10/20/24 Louise Montes PA [address] [place] [phone] PCP - General Internal Medicine - Primary Care 10/21/24 documented as of this encounter
--- OUTSIDE RECORDS SUMMARY | 2025-06-11 19:13 | XMS_ITS | Clinical Summary ---
Author Organization [facility] Address [address] [place] [phone] Phone Care Team Providers Care Bonbon Cream Warmer Name Role Phone Physician, Pcp Unknown Primary [...] 01/29/2012 Zoster Vaccines (1 of 2) 01/29/2012 Depression Screening 09/25/2024 Colorectal Cancer Screening: Colonoscopy 11/17/2024 HIV Screening 11/17/2024 Hepatitis C Screening 11/17/2024 Medicare Annual Wellness Visit 11/17/2024 Social Influencers of Health Screening 11/17/2024 COVID-19 Vaccine (2023-2 5 season) 2025 Influenza Vaccine (#1) 2025 RSV Immunization Adult [...] complete this topic Insurance MEDICARE Care Teams Bonbon Cream Warmer Relationship Specialty Start Date End Date Physician, Pcp Unknown PCP - General 11/17/24
--- OUTSIDE RECORDS SUMMARY | 2025-06-11 19:14 | XMS_ITS | Encounter Summary ---
Author Organization [facility] Address [address] [place] [id number] Care Team Providers Care Commissioner Of Internal Revenue Name Role Phone Unknown, Provider Primary Care Provider Louise May Primary Care Provider + Encounter Details Date Type Department Care Team (Late st Contact Info) Description 01/01/2020 Lab Requisition [facility] Pathology & Laboratory Medicine - [address] [address] Unknown, Provider, Social History Tobacco Use Types Packs/Day Years [...] Comments FECAL BACTERIAL PATHOGENS BY PCR Routine 01/01/2020 14:46 EDT documented in this encounter Results * FECAL BACTERIAL PATHOGENS BY PCR (01/01/2020 14:46 EDT) Salmonella PCR Negative Negative 01/02/2020 10:27 EDT [facility] Shigella/Enteroin vasive E. coli Negative Negative 01/02/2020 10:27 EDT [facility] HN LAB CAMPYLOBACTER PCR Negative Negative 01/02/2020 10:27 EDT [facility] Shiga Toxin PCR Negative Negative 0 10:27 EDT [facility] Feces SPECIMEN FROM RECTUM / Unknown Stool Collect / Unknown 01/01/2020 14:46 EDT 01/01/2020 21:41 EDT us Provider Unknown MICROBIOLOGY - GENERAL ORDER JASON Final Result [facility] [address] [place] [address] documented in this encounter Visit Diagnoses Not on filedocumented in this encounter Care Teams Commissioner Of Internal Revenue Relationship Specialty Start Date End Date Unknown, Provider, PCP - General 06/06/13 10/20/24 Louise Montes PA [address] [place] [address] [place] [phone] PCP - General Internal Medicine - Primary Care 10/21/24 documented as of this encounter
--- OUTSIDE RECORDS SUMMARY | 2025-06-11 19:15 | XMS_ITS | Encounter Summary ---
Author Organization [facility] Address [address] [place] [address] Care Team Providers Care Amortization Schedule Clerk Name Role Phone Unknown, Provider Primary Care Provider Louise May Primary Care Provider + Encounter Details Date Type Department Care Team (Late st Contact Info) Description 01/19/2023 Lab Requisition [facility] Pathology & Laboratory Medicine - [address] [address] Outr Resulting Lab, Provider Social History Tobacco [...] Procedure Name Priority Date/Time Associated Diagnosis Comments HEMOGLOBIN A1C Routine 01/19/2023 12:10 EDT documented in this encounter Results * (ABNORMAL) HEMOGLOBIN A1C (01/19/2023 12:10 EDT) Hemoglobin A1c 5.7(H) <5.7 % 01/19/2023 22:49 EDT [facility] Comment: Glycemic Status References: Normal: <5.7% Pre-Diabetes: 5.7% - 6.4% Diagnostic of Diabetes: > or = 6.5% (if confirmed) Est Avg Glucose 117 mg/dL 22:49 EDT [facility] Comment:The eAG represents t he A1c result expressed as average glucose in mg/dL. Blood VENOUS BLOOD / Unknown 01/19/2023 12:10 EDT 01/19/2023 21:52 EDT us Provider Outr Resulting Lab CHEMISTRY & BLOOD GA S ORDERABLES Final Result [facility] [address] [place] [address] documented in this encounter Visit Diagnoses Not on filedocumented in this encounter Care Teams Amortization Schedule Clerk Relationship Specialty Start Date End Date Unknown, Provider, PCP - General 06/06/13 10/20/24 Louise Montes PA [address] [place] [address] [place] [phone] PCP - General Internal Medicine - Primary Care 10/21/24 documented as of this encounter
--- OUTSIDE RECORDS SUMMARY | 2025-06-11 19:15 | XMS_ITS | Clinical Summary ---
Author Organization [facility] Address [address] [place] [address] Care Team Providers Care Newsstand Vendor Name Role Phone Louise Montes Primary Care Provider + Allergies No known active allergies Medications BABY ASPIRIN ORAL Take 81 mg by mouth. Active isosorbide MONOnitrate (IMDUR) 30 mg CR tablet Take 1 Tablet by mouth daily. Active LORazepam (ATIVAN) 0.5 mg tablet Take 2 Tablets by mouth 3 times daily. Daily Max: 3 mg Active estradioL (VIVELLE-DOT) 0.1 mg/[address] 1 Patch onto the skin twice a week. Active acetaminophen (TYLENOL ARTHRITIS ORAL) Take 650 mg by mouth every 6 hours as needed for Pain. Active nitroglycerin (NITROSTAT) 0.[address] 1 Tablet under the tongue every 5 minutes as needed for Chest Pain. 25 Tablet 11 10/25/2024 Active Active Problems Problem Noted Date Diagnosed Date Unstable angina ([facility]) 10/18/2024 Surgical History Surgery Date Site/Laterality Comments CYSTOSCOPY 09/25/1969 - 09/24/1970 APPENDECTOMY 09/25/1969 - 09/24/1970 SECTION 09/25/1981 - 09/24/1982 x2 CHOLECYSTECTOMY, LAPAROSCOPIC 09/25/2002 - 09/24/2003 HYSTERECTOMY 09/25/2009 - 09/24/2010 OTHER SURGICAL HISTORY 09/25/2009 - 09/24/2010 trans vaginal taping of bladder neck with mesh for tx of stress incontinence CYSTOCELE REPAIR 09/25/2009 - 09/24/2010 anterior/posterior Medical History Medical History Date Comments Arthritis Hyperlipidemia Migraines Arrhythmia A-fib ([facility]) History of recurrent UTIs 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 No 10/24/2024 Hunger Vital Sign Answer Date Recorded Within the past 12 months, y ou worried that your food would run out before you got the money to buy more. Never true 10/24/19 25 Within the past 12 months, t he food you bought just didn't last and you didn't have money to get more. Never true 10/24/2024 [facility] - Inadequate Housing Answer Date Re corded What is your living situation today? I have a [facility] place to live 10/24/[address] you li ve. Do you have problems with any of the following? None of the above 10/24/2024 [facility] - Transportation Answer Date Record ed In the past 12 months, has l ack of reliable transportation kept you from medical appointments, meetings, work or from getting things needed for daily living? No 10/24/2024 [facility] - Personal Safety Answer Date Recor ded How often does anyone, lorraine jauregui family and friends, physically hurt you? Never 10/24/2024 How often does anyone, lorraine jauregui family and friends, insult or talk down to you? Never 10/24/2024 How often does anyone, lorraine jauregui family and friends, threaten you with harm? Never 10/24/2024 How often does anyone, lorraine jauregui family and friends, scream or curse at you? Never 10/24/2024 Comments Unknown Sex and Gender Information Value Date Recorded Sex Assigned at Female 10/21/2024 10:38 EST Legal Sex Female 18:34 EST Gender Identity Female 10/21/2024 10:38 EST Sexual Orientation Straight 11/15/2024 6: 01 EST Obstetrics History Last Filed Vital Signs Vital Sign Reading Time Taken Comments Blood Pressure 148/82 10/25/2024 0752 EST Pulse - - Temperature 36.8 C (98.2 F) 10/25/2024 0512 EST Respiratory Rate 16 10/25/2024 0512 EST Oxygen Saturation 96% 10/25/2024 0752 EST Inhaled Oxygen Concentration - - Weight 81.6 kg (180 lb) 10/24/2024 0811 EST Height 160 cm (5' 3 ) 10/24/2024 0811 EST Body Mass Index 31.89 10/24/2024 0811 EST Plan of Treatment Health Maintenance Due Date Last Done Comments Hepatitis C Screen 1960 COVID-19 Vaccine (2023-25 season) 2024 RSV Immunization ( o r 60+ Years) (1 - 1-dose 75+ series) 2037 Medical Devices Implanted Type Area Auditor In Charge Device Identifier Shelf Expiration Date Model / Serial / Lot Stent [place] 3.0 X 26mm [place] [employer] Coronary Stent System [employer] [id number] - [id number] Implanted:Qty : 1 on 10/24/2024 by Melissa Frye MD at [facility] Drug Eluting Stent N/A: Coronary [employer] [id number] 08/01/2027 [id number] / / [id number] Insurance MEDICARE [facility] Advance Directives For more information, please contact: [phone] * Full Code (Latest Code Status on File) Date Activated Date Inactivated Comments 10/24/2024 8:16 10/25/2024 12:22 Question Answer Comments When the patient has NO PULSE: Full Code / CPR Who Made the Decision? Default/Not Discussed Care Teams Newsstand Vendor Relationship Specialty Start Date End Date Louise Montes PA [address] [place] [address] [place] [phone] PCP - General Internal Medicine - Primary Care 10/21/24
== END 2025-06-11 17:03 | disposition home or self-care (01) ==
LOC: HO.HMCH 16:05
DX: I48.0 Paroxysmal atrial fibrillation (principal); N39.0 Urinary tract infection, site not specified; I10 Essential (primary) hypertension; F41.1 Generalized anxiety disorder; I25.10 Atherosclerotic heart disease of native coronary artery without angina pectoris; I25.83 Coronary atherosclerosis due to lipid rich plaque; E78.5 Hyperlipidemia, unspecified; R74.01 Elevation of levels of liver transaminase levels; R12 Heartburn

== ENCOUNTER → 2025-06-11 16:04 | Outpatient (BNVA) | payer MEDICARE, OTHER, SELFPAY | DX: I48.0 Paroxysmal atrial fibrillation (principal); N39.0 Urinary tract infection, site not specified; I10 Essential (primary) hypertension; F41.1 Generalized anxiety disorder; I25.10 Atherosclerotic heart disease of native coronary artery without angina pectoris; I25.83 Coronary atherosclerosis due to lipid rich plaque; E78.5 Hyperlipidemia, unspecified; R74.01 Elevation of levels of liver transaminase levels; R12 Heartburn; Z87.891 Personal history of nicotine dependence | CPT/HCPCS: 99212 ==

== ENCOUNTER 2025-07-07 09:22 | Outpatient (REF) | payer MEDICARE, OTHER, SELFPAY ==
--- OUTSIDE RECORDS SUMMARY | 2025-07-07 09:27 | XMS_ITS | Clinical Summary ---
Author Organization [facility] Address [address] [place] [address] Phone Care Team Providers Care Emergency Care Tech Name Role Phone Unknown, Unknown Primary Care [...] VACCINE (#1) 2025 COVID-19 VACCINE (1 - 2024-2 6 season) 2025 RSV VACCINE (1 - 1-dose [...] GENERIC COMMERCIAL MEDICARE PART A & [place] [id number] MEDICARE PART A & B GENERIC COMMERCIAL MEDICARE PART A & B GENERIC COMMERCIAL MEDICARE PART A & B GENERIC COMMERCIAL MEDICARE PART A & B GENERIC COMMERCIAL MEDICARE PART A & B GENERIC COMMERCIAL MEDICARE PART A & B GENERIC COMMERCIAL MEDICARE PART A & B GENERIC COMMERCIAL Care Teams Emergency Care Tech Relationship Specialty Start Date End Date Unknown, Unknown, PCP - General 02/08/19 Additional Source Comments The information contained in this document represents components of the legal health record. It is not the complete legal health record.[facility]
--- OUTSIDE RECORDS SUMMARY | 2025-07-07 09:27 | XMS_ITS | Encounter Summary ---
Author Organization [facility] Address [address] [place] [address] Care Team Providers Care Stucco Applicator Name Role Phone Unknown, Provider Primary Care Provider Louise May Primary Care Provider + Encounter Details Date Type Department Care Team (Late st Contact Info) Description 01/19/[address] [facility] Pathology & Laboratory Medicine - [address] [address] Outr Resulting Lab, Provider Social History Tobacco [...] A1c 5.7(H) <5.7 % 01/19/2023 22:49 EDT [facility] Comment: Glycemic Status References: Normal: <5.7% Pre-Diabetes: 5.7% - 6.4% Diagnostic of Diabetes: > or = 6.5% (if confirmed) Est Avg Glucose 117 mg/dL 22:49 EDT [facility] Comment:The eAG represents t he A1c result expressed as average glucose in mg/dL. Blood VENOUS BLOOD / Unknown 01/19/2023 12:10 EDT 01/19/2023 21:52 EDT us Provider Outr Resulting Lab CHEMISTRY & BLOOD GA S ORDERABLES Final Result [facility] [address] [place] [address] documented in this encounter Visit Diagnoses Not on filedocumented in this encounter Care Teams Stucco Applicator Relationship Specialty Start Date End Date Unknown, Provider, PCP - General 06/06/13 10/20/24 Louise Montes PA [address] [place] [place] [address] [place] [address] PCP - General Internal Medicine - Primary Care 10/21/24 documented as of this encounter
--- OUTSIDE RECORDS SUMMARY | 2025-07-07 09:27 | XMS_ITS | Clinical Summary ---
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 Never true 10/24/2024 [facility] - Inadequate Housing Answer Date Re corded What is your living situation today? I have a [facility] place to live 10/24/[address] you li ve. Do you have problems with any of the following? None of the above 10/24/2024 [facility] - Transportation Answer Date Record ed In the past 12 months, has l ack of reliable transportation kept you from medical appointments, meetings, work or from getting things needed for daily living? No 10/24/2024 [facility] - Personal Safety Answer Date Recor ded [...] series) 2037 Medical Devices Implanted Type Area Iron Worker Device Identifier Shelf Expiration Date Model / Serial / Lot Stent Jj 3.0 X 26mm [employer] Coronary Stent System [employer] [id number] - [id number] Implanted:Qty : 1 on 10/24/2024 by Melissa Frye MD at [facility] Drug Eluting Stent N/A: Coronary [employer] [id number] 08/01/2027 [id number] / / [id number] Insurance MEDICARE [facility] Advance Directives For more information, please contact: [phone] * Full Code (Latest Code Status on File) Date Activated Date Inactivated Comments 10/24/2024 8:16 10/25/2024 12:22 Question Answer Comments When the patient has NO PULSE: Full Code / CPR Who Made the Decision? Default/Not Discussed Care Teams Telephone Maintainer Relationship Specialty Start Date End Date Louise Montes PA [address] [place] [address] [place] [phone] PCP - General Internal Medicine - Primary Care 10/21/24
--- OUTSIDE RECORDS SUMMARY | 2025-07-07 09:27 | XMS_ITS | Encounter Summary ---
Author Organization [facility] Address [address] [place] [address] Care Team Providers Care Snack Stewardess Name Role Phone Unknown, Provider Primary Care Provider Louise May Primary Care Provider + Encounter Details Date Type Department Care Team (Late st Contact Info) Description 01/01/2020 Lab Requisition [facility] Pathology & Laboratory Medicine - [address] [address] Unknown, Provider, Social History Tobacco Use Types [...] Salmonella PCR Negative Negative 01/02/2020 10:27 EDT [facility] Shigella/Enteroin vasive E. coli Negative Negative 01/02/2020 10:27 EDT [facility] HN LAB CAMPYLOBACTER PCR Negative Negative 01/02/2020 10:27 EDT [facility] Shiga Toxin PCR Negative Negative 0 10:27 EDT [facility] Feces SPECIMEN FROM RECTUM / Unknown Stool Collect / Unknown 01/01/2020 14:46 EDT 01/01/2020 21:41 EDT us Provider Unknown MICROBIOLOGY - GENERAL ORDER JASON Final Result [facility] [address] [place] [address] documented in this encounter Visit Diagnoses Not on filedocumented in this encounter Care Teams Snack Stewardess Relationship Specialty Start Date End Date Unknown, Provider, PCP - General 06/06/13 10/20/24 Louise Montes PA [address] [place] [address] [place] [phone] PCP - General Internal Medicine - Primary Care 10/21/24 documented as of this encounter
--- OUTSIDE RECORDS SUMMARY | 2025-07-07 09:27 | XMS_ITS | Encounter Summary ---
Author Organization [facility] Address [address] [place] [address] Care Team Providers Care Director Of Admissions Name Role Phone Unknown, Provider Primary Care Provider Louise May Primary Care Provider + Encounter Details Date Type Department Care Team (Late st Contact Info) Description 07/12/2024 Lab Requisition [facility] Pathology & Laboratory Medicine - [address] [address] Outr Resulting Lab, Provider Social History Tobacco [...] Salmonella PCR Negative Negative 07/13/2024 10:56 EDT [facility] Shigella/Enteroin vasive E. coli Negative Negative 07/13/2024 10:56 EDT [facility] HN LAB CAMPYLOBACTER PCR Negative Negative 07/13/2024 10:56 EDT [facility] Shiga Toxin PCR Negative Negative 10:56 EDT [facility] Feces SPECIMEN FROM RECTUM / Unknown 07/12/2024 15:49 EDT 07/12/2024 22:16 EDT us Provider Outr Resulting Lab MICROBIOLOGY - GENER AL ORDERABLES Final Result [facility] [address] [place], [place] [phone] documented in this encounter Visit Diagnoses Not on filedocumented in this encounter Care Teams Director Of Admissions Relationship Specialty Start Date End Date Unknown, Provider, PCP - General 06/06/13 10/20/24 Louise Montes PA [address] [place] [phone] PCP - General Internal Medicine - Primary Care 10/21/24 documented as of this encounter
--- OUTSIDE RECORDS SUMMARY | 2025-07-07 09:27 | XMS_ITS | Clinical Summary ---
Author Organization [facility] Address [address] [place] [address] Care Team Providers Care Primary Care Md Name Role Phone Unavailable Primary Care Provider [...]
--- OUTSIDE RECORDS SUMMARY | 2025-07-07 09:27 | XMS_ITS | Encounter Summary ---
Author Organization [facility] Address [address] [place] [address] Care Team Providers Care Brimmer Blocker Name Role Phone Unknown, Provider Primary Care Provider Louise May Primary Care Provider + Encounter Details Date Type Department Care Team (Late st Contact Info) Description 07/11/2024 Lab Requisition [facility] Pathology & Laboratory Medicine - [address] [address] Outr Resulting Lab, Provider Social History Tobacco [...] Salmonella PCR Unresolved Negative 07/12/2024 14:52 EDT [facility] Comment:An UNRESOLVED or IND ETERMINATE [...] E. coli Unresolved Negative 07/12/2024 14:52 T [facility] Comment:An UNRESOLVED or IND ETERMINATE [...] LAB CAMPYLOBACTER PCR Unresolved Negative 07/12/2024 14:52 T [facility] Comment:An UNRESOLVED or IND ETERMINATE [...] Shiga Toxin PCR Unresolved Negative 14:52 EDT [facility] Comment:An UNRESOLVED or IND ETERMINATE [...] MICROBIOLOGY - GENER AL ORDERABLES Final Result [facility] [address] [place] [address] documented in this encounter Visit Diagnoses Not on filedocumented in this encounter Care Teams Brimmer Blocker Relationship Specialty Start Date End Date Unknown, Provider, PCP - General 06/06/13 10/20/24 Louise Montes PA [address] [place] [address] [place] [phone] PCP - General Internal Medicine - Primary Care 10/21/24 documented as of this encounter
--- OUTSIDE RECORDS SUMMARY | 2025-07-07 09:27 | XMS_ITS | Encounter Summary ---
Author Organization [facility] Address [address] [place] [address] Care Team Providers Care Kiln Labourer Name Role Phone Unknown, Provider Primary Care Provider Louise May Primary Care Provider + Encounter Details Date Type Department Care Team (Late st Contact Info) Description 10/11/[address] [facility] Pathology & Laboratory Medicine - [address] [address] Tres Wolfe S, DO [address] [place] [phone] Encounter for other general examination Social History [...] explore management options, if applicable. 10/16/2023 9:41 [facility] Final Diagnosis A. COLON, APPENDICEAL ORIFICE, BIOPSY: - Colonic mucosa with no significant diagnostic abnormalities. - Benign reactive lymphoid aggregate noted. B. COLON, DESCENDING, POLYP, BIOPSY: - Tubular adenoma. 10/16/2023 9:41 [facility] Attestation There was significant resident/fellow involvement in the diagnostic evaluation of this case. By the signature below, the attending physician certifies that they have personally conducted a gross and/or microscopic examination of the described specimens and rendered or confirmed the above diagnosis. 10/16/2023 9:41 [facility] at [address] [facility] Clinical History + Cologuard, screening, colonic polyps 10/16/2023 9:41 [facility] Gross Description A. Received in [...] B1. Julia Jones 10/12/2023 11:22 10/16/2023 9:41 [facility] Resident/Elias w: Annemarie Tolentino MD 10/16/2023 9:41 [facility] Performing Lab [facility] 10/16/2023 9:41 [facility] Scanned Images 10/16/2023 9:41 [facility] Tissue DESCENDING COLON STRUCTURE / Unknown 10/11/2023 13:52 EST 10/12/2023 8:27 EST Tissue specimen (specimen) DESCENDING COLON STRUCTURE / Unknown 10/11/2023 13:52 EST 10/12/2023 8:27 EST Tres Fede JoshuaAvaHolly DO PATHOLOGY ORDERABLES Final Result [facility] [address] [place] [address] documented in this encounter Visit Diagnoses Diagnosis Encounter for other general examination documented in this encounter Care Teams Kiln Labourer Relationship Specialty Start Date End Date Unknown, Provider, PCP - General 06/06/13 10/20/24 Louise Montes PA [address] [place] [address] [place] [phone] PCP - General Internal Medicine - Primary Care 10/21/24 documented as of this encounter
--- OUTSIDE RECORDS SUMMARY | 2025-07-07 09:27 | XMS_ITS | Encounter Summary ---
Author Organization [facility] Address [address] [place] [address] Care Team Providers Care Scientific Informatics Analyst Name Role Phone Unknown, Provider Primary Care Provider Louise May Primary Care Provider + Encounter Details Date Type Department Care Team (Late st Contact Info) Description 09/05/2024 Lab Requisition [facility] Pathology & Laboratory Medicine - [address] [address] Outr Resulting Lab, Provider Social History Tobacco [...] Salmonella PCR Negative Negative 09/06/2024 11:42 EST [facility] Shigella/Enteroin vasive E. coli Negative Negative 09/06/2024 11:42 EST [facility] HN LAB CAMPYLOBACTER PCR Negative Negative 09/06/2024 11:42 EST [facility] Shiga Toxin PCR Negative Negative 4 11:42 EST [facility] Feces SPECIMEN FROM RECTUM / Unknown 09/05/2024 8:00 EST 09/05/2024 22:23 EST us Provider Outr Resulting Lab MICROBIOLOGY - GENER AL ORDERABLES Final Result Performing Organization Address City/State/[facility] Co de Phone Number [facility] [address] [place] [address] documented in this encounter Visit Diagnoses Not on filedocumented in this encounter Care Teams Scientific Informatics Analyst Relationship Specialty Start Date End Date Unknown, Provider, PCP - General 06/06/13 10/20/24 Louise Montes PA [address] [place] [address] [place] [phone] PCP - General Internal Medicine - Primary Care 10/21/24 documented as of this encounter
--- OUTSIDE RECORDS SUMMARY | 2025-07-07 09:27 | XMS_ITS | Encounter Summary ---
Author Organization [facility] Address [address] [place] [address] Care Team Providers Care Bull Wheel Worker Name Role Phone Unknown, Provider Primary Care Provider Louise May Primary Care Provider + Encounter Details Date Type Department Care Team (Late st Contact Info) Description 10/05/2023 Lab Requisition [facility] Pathology & Laboratory Medicine - [address] [address] Outr Resulting Lab, Provider Social History Tobacco [...] Note mIU/mL 10/05/2023 23:18 EST [facility] Blood VENOUS BLOOD / Unknown 10/05/2023 9:42 EST 10/05/2023 22:37 EST Narrative [facility] - 10/05/2023 23:18 EST [...] S ORDERABLES Final Result Performing Organization Address [facility] Co de Phone Number [facility] [address] [place] [address] * ESTRADIOL, ADULTS (10/05/2023 9:42 EST) Estradiol <12 See Note pg/mL 10/05/2023 23:15 EST [facility] Comment: NOTE: FEMALE REFERENCE [...] S ORDERABLES Final Result Performing Organization Address City/[facility]/ZIP Co de Phone Number [facility] [address] [place] [phone] * VITAMIN D (25,OH) (10/05/2023 9:42 EST) 25OH Vitamin D Tot 32 30 - 100 ng/mL 10/06/2023 10:33 EST [facility] Comment: Vitamin D 25,OH Interpretive Ranges: Deficiency: <10.0 ng/mL Insufficiency: 10.0 - 30.0 ng/mL Sufficiency: 30.0 - 100.0 ng/mL Toxicity: >100.0 ng/mL Blood VENOUS BLOOD / Unknown 10/05/2023 9:42 EST 10/05/2023 22:37 EST us Provider Outr Resulting Lab CHEMISTRY & BLOOD GA S ORDERABLES Final Result Performing Organization Address City/State/[facility] Co de Phone Number [facility] [address] [place] [address] documented in this encounter Visit Diagnoses Not on filedocumented in this encounter Care Teams Bull Wheel Worker Relationship Specialty Start Date End Date Unknown, Provider, PCP - General 06/06/13 10/20/24 Louise Montes PA [address] [place] [address] [place] [phone] PCP - General Internal Medicine - Primary Care 10/21/24 documented as of this encounter
--- OUTSIDE RECORDS SUMMARY | 2025-07-07 09:27 | XMS_ITS | Clinical Summary ---
Author Organization [facility] Address [address] [place] [phone] Phone Care Team Providers Care Compressor Service Technician Name Role Phone Physician, Pcp Unknown [...] Last Done Comments Breast Cancer Screening 1962 Colorectal Cancer Screening: Colonoscopy 1962 DTaP,Tdap,and Td Vaccines (1 - Tdap) 1981 Cervical Cancer Screening: P ap Smear 1983 Pneumococcal Vaccine: 50+ Ye ars (1 of 1 - PCV) 01/29/2012 Zoster Vaccines (1 of 2) 01/29/2012 Depression Screening 09/25/2024 HIV Screening 11/17/2024 Hepatitis C Screening 11/17/2024 [...] complete this topic Insurance MEDICARE Care Teams Compressor Service Technician Relationship Specialty Start Date End Date Physician, Pcp Unknown PCP - General 11/17/24
--- OUTSIDE RECORDS SUMMARY | 2025-07-07 09:27 | XMS_ITS | Clinical Summary ---
Author Organization [facility] [place] [address] Care Team Providers Care Seed Corn Manager Production Name Role Phone Louise Montes Primary Care Provider + Allergies No known active allergies Medications LORazepam (ATIVAN) 0.5 mg Tablet TAKE ONE TABLET BY MOUTH EVERY DAY NEEDED 0 9 Active rizatriptan (MAXALT-DIETETICS DIRECTOR) 10 mg Tablet, Rapid Dissolve rizatriptan 10 [...] Advance Directive 2017 Covid-19 Vaccine (1 - 2023- season) 2025 Influenza (Flu) vaccine (1 o f 1 - Influenza standard series) 05/26/2025 Insurance MEDICARE [facility] Care Teams Seed Corn Manager Production Relationship Specialty Start Date End Date Louise Montes PA [address] [place] [phone] PCP - General Internal Medicine 12/20/18
[2025-07-07 09:35] LABS: MANUAL DIFF FLAG NO
[2025-07-07 10:23] LABS: Hematocrit 44.0 % (37.0-47.0); Hemoglobin 14.2 g/dl (12.0-16.0); Imm Gran Abs Auto 0.02 X10*3/uL (0.00-0.03); Imm Gran Pct Auto 0.3 % (0.0-0.4); Lymphocytes Absolute Auto 3.2 X10*3/uL (1.2-4.9); Mean Corpuscular HGB Conc 32.3 g/dl (31.0-35.0); Mean Corpuscular Hemoglobin 29.3 pg (27.0-33.0); Mean Corpuscular Volume 90.9 fL (80.0-98.0); NRBC Abs Auto 0.000 X10*3/uL (0.0-0.012); NRBC Pct Auto 0.0 /100WBC (0.0-0.2); Platelet Count 284 X10*3/uL (160-400); Red Blood Count 4.84 X10*6/uL (4.20-5.50); White Blood Count 6.7 X10*3/uL (4.8-10.8)
[2025-07-07 10:26] LABS: Appearance Urine Clear; Glucose Urine UA Negative (Negative); PH 5.5 (5.0-9.0); Specific Gravity - Urine 1.025 (1.005-1.025); UMIC TRIGGER UACC YES
[2025-07-07 11:07] LABS: Alanine Aminotransferase 36 U/L (0-31); Albumin Level 4.8 g/dL (3.5-5.0); Alkaline Phosphatase 78 U/L (39-117); Anion Gap 14 (12-20); Aspartate Amino Transferase 33 U/L (5-31); Blood Urea Nitrogen 13 mg/dL (9-16); Calcium 10.1 mg/dL (8.4-10.2); Carbon Dioxide 28 mmol/L (22-29); Chloride 106 mmol/L (96-108); Cholesterol 135 mg/dL (<200); Estimated Glomerular Filt Rate > 60; HDL Cholesterol 46 mg/dL (>40); Magnesium 2.2 mg/dL (1.6-2.6); Potassium 4.5 mmol/L (3.3-5.1); Sodium 143 mmol/L (135-145); Total Protein 7.3 g/dL (6.5-8.0); Triglycerides 123 mg/dL (<150)
[2025-07-07 11:33] LABS: Folate 14.6 ng/mL (> or = 4.0); Vitamin B12 535 pg/mL (200-900)
== END 2025-07-07 09:23 | disposition home or self-care (01) ==
LOC: HO.LAB 09:22
DX: I25.110 Atherosclerotic heart disease of native coronary artery with unstable angina pectoris (principal); I25.83 Coronary atherosclerosis due to lipid rich plaque; I48.0 Paroxysmal atrial fibrillation; G43.901 Migraine, unspecified, not intractable, with status migrainosus; H81.13 Benign paroxysmal vertigo, bilateral; E78.00 Pure hypercholesterolemia, unspecified; E04.1 Nontoxic single thyroid nodule; F41.1 Generalized anxiety disorder; N39.0 Urinary tract infection, site not specified; J45.909 Unspecified asthma, uncomplicated; R31.29 Other microscopic hematuria; R73.03 Prediabetes; R29.898 Other symptoms and signs involving the musculoskeletal system; F41.0 Panic disorder [episodic paroxysmal anxiety]; G47.00 Insomnia, unspecified
CPT/HCPCS: 36415; 80053; 80061; 81001; 82306; 82607; 82746; 83735; 85025

== ENCOUNTER 2025-07-08 12:58 | Outpatient (AMB) | payer MEDICARE, OTHER, SELFPAY ==
--- NOTE | 2025-07-08 13:06 | MHC.OFFVIS ---
Intake Visit Reasons: cysto Intake Note: Patient presents today for cystoscopy for Recurrent UTI Urology Medication:Estradiol, VIT-C Methenamine Blood Thinner:Apixaban, Clopidogrel Antibiotic Allergies:None Peanut Butter Maker Required: No Accompanied by: Self / Same As Patient Allergies No Known Allergies Allergy (Verified 07/08/25 13:07) HPI Comments Details: Alysia is a pleasant female. She is a patient of Dr. Mccloud. She is seen for the following urologic conditions - recurrent UTI - genitourinary syndrome of menopause UA today 1+ blood otherwise negative Cystoscopy relatively normal Prior evaluation in [place] Recurrent UTI in setting of genitourinary syndrome of menopause Good response to combination Macrobid and topical estrogen Microgen 05/19 Augmentin and Macrobid sensitive E coli and Enterococcus 02/16: E coli, 04/18 no growth, 05/19 10,000 to 50,000 cfu/ml Mixed bacterial alia [facility] Medical History Multinodular goiter (nontoxic) Paroxysmal atrial fibrillation Afib TREMAYNE (generalized anxiety disorder) Melanocytic nevus Hyperlipidemia History of recurrent UTI (urinary tract infection) Benign paroxysmal positional vertigo Ganglion Family history of multiple myeloma CAD (coronary artery disease) Adjustment disorder Asthma Arthritis Surgical History Hx of ultrasound guided needle biopsy Stented coronary artery Hx of vaginal hysterectomy S/P appendectomy S/P cholecystectomy H/O cystocele repair Previous section History of orthopedic surgery H/O cystoscopy History of percutaneous coronary intervention Family History Father Coronary artery disease Hypertension Mother Vertigo Multiple myeloma Arthritis Son Schizophrenia Anxiety Daughter Anxiety Adrenal failure Atrial fibrillation Lyme disease Son Retinopathy Daughter Obesity Daughter Lyme disease Daughter No problems noted. Sister Uterine cancer Social History Household Members: Children Household Members Other:: Son: Manny Housing: House Alcohol intake: never Patient Tobacco Use Status: Former Tobacco user Tobacco use type: Cigarette e-Cigarette/Vaping Use: Former Use Second Hand Smoke Exposure: No service: No Current occupational status: disabled Cognitive needs: No Hearing needs: No Vision needs: Yes (Glasses) Review of Systems Const Denies chills and Denies fever(s) Card Reports no additional complaints and Denies syncope Resp Denies cough GI Denies abdominal pain and Denies heartburn Reports as per HPI and Denies change in libido Neuro Denies syncope Psych Denies change in libido Endo Denies change in libido Physical Exam Const General: cooperative, healthy appearing, comfortable and no acute distress Orientation/consciousness: patient oriented x3 HEENT Face and sinus: Yes normal facial exam Mouth: moist mucous membranes Neck Neck: Yes normal visual inspection, Yes full ROM and Yes trachea midline Chest Chest palpation & inspection: normal inspection of the chest Resp Effort & Inspection: normal respiratory effort, able to speak in complete sentences and no respiratory distress GI Inspection: Yes normal to inspection Back/Spine/Pelvis Cervical Spine: normal cervical lordosis Thoracic/Lumbar Spine: thoracic and lumbar spine normal to inspection Skin General skin exam: no rashes or lesions noted Neuro General: patient oriented x3, gait normal, tone normal and moves all extremities Extrem General: Yes normal to inspection and Yes capillary refill normal Office Procedures Cystoscopy Consent Discussed risk and benefit or proposed procedure with the patient. Information consent for procedure given to the patient. Discussed technical aspects, risks, benefits and alternatives in full. Addressed all of the patient's questions and concerns regarding the procedure. The patient demonstrated knowledge and understanding. They wish to proceed with this procedure. Preparation The patient was prepped in the usual manner. A butcher head was present and in the room. Genitalia was prepped with betadine solution in a sterile manner. Lidocaine Jelly 2% was placed into the urethra and 16Fr flexible Olympus cystoscope was inserted into the meatus after adequate lubrication. Procedure Meatus normal Urethra normal Bladder examination with retroflexion of cystoscope Bladder Orifices normal shape and position Trigone metaplasia Bladder Capacity Normal Trabeculations Grade 0 Cellule Formation None Diverticulum Formation None Mucosal Erythema slight diffuse mucosal change Bladder Tumor None 48211-Teuwxyrate DISPOSABLE SCOPE URO-G FLEXIBLE SCOPE Procedure code (CPT) selection complete Office Meds lidocaine HCl 2 % mucosal jelly in applicator Performing Provider: Hai Canela MD [facility] Administered by: Sigifredo Rodgers LPN on 07/08/25 13:27 Dose Route Admin Location Dispensed Lot Number Expiration Date [facility] Fellmongery Worker 10 mL intra-urethral 10 mL nitrofurantoin monohydrate/macrocrystals 100 mg capsule Performing Provider: Hai Canela MD [facility]forming [facility] Administered by: Sigifredo Rodgers LPN on 07/08/25 13:27 Dose Route Admin Location Dispensed Lot Number Expiration Date [facility] Fellmongery Worker 100 mg PO 1 cap Results AMB Urinalysis, Automated UA Leukoctes 0 Vasquez/uL Last Edit by Janel Colon, [facility] on 07/08/25 13:34 UA Nitrite Negative Last Edit by Janel Colon, [facility] on 07/08/25 13:34 UA Urobilinogen 0.2 mg/dL Last Edit by Janel Colon, [facility] on 07/08/25 13:34 UA Protein 0 mg/dL Last Edit by Janel Colon, [facility] on 07/08/25 13:34 UA pH 6.0 Last Edit by Janel Colon, [facility] on 07/08/25 13:34 UA Blood 25 Fausto/uL Last Edit by Janel Colon, [facility] on 07/08/25 13:34 UA Specific Mulga 1.005 Last Edit by Janel Colon, [facility] on 07/08/25 13:34 UA Ketone Negative Last Edit by Janel Colon, [facility] on 07/08/25 13:34 UA Bilirubin 0 mg/dL Last Edit by Janel Colon, [facility] on 07/08/25 13:34 UA Glucose 0 mg/dL Last Edit by Janel Colon, [facility] on 07/08/25 13:34 Assessment & Plan Assessment & Plan (1) Recurrent urinary tract infection: Code(s): N39.0 - Urinary tract infection, site not specified Category: Medical (2) Atrophic vulvovaginitis: Code(s): N95.2 - Postmenopausal atrophic vaginitis Category: Medical Plan Six-month follow-up nurse-practitioner Refill Macrobid Orders: Orders AMB Cystoscopy Today N20.0 - Calculus of kidney, R31.29 - Other microscopic hematuria Medications: Changed From nitrofurantoin macrocrystal must administer with a meal/food 100 mg PO BEDTIME 30 caps 1RF To nitrofurantoin macrocrystal must administer with a meal/food 100 mg PO BEDTIME 90 caps 1RF 90 days Discontinued sulfamethoxazole-trimethoprim 800-160 mg (Bactrim DS) Please hold methenamine while on treatment dose for urinary tract infection Discontinued Reason: Doctor's Order 1 tab PO BID 7 days 14 tabs 0RF N39.0 - Urinary tract infection, site not specified Patient Instructions: This note is constructed using voice recognition software. While every effort has been made to ensure accuracy vocational examiner errors may have been included. Imaging studies, laboratory and physical exam results were discussed and reviewed in detail. No major barriers to patient understanding were identified. An opportunity to ask questions regarding the treatment plan was provided. All questions were answered. The patient expressed understanding and agreement with the above treatment plan. The patient is aware they should contact our office by phone for worsening of their current condition or the appearance of new urologic symptoms. Compliance is encouraged with any medications and followup testing that is ordered. It is a privilege to participate in the urologic care of your patient. If you have any questions or concerns regarding treatment for the above conditions, or other urologic issues, please do not hesitate to contact me. The office telephone contact is [phone]. Sincerely, Dr Hai Canela MD, [facility] - Urology Compassionate Specialist Care for the Genitourinary System Coding Level of Care Code Est Pt Level 3 (07583) Complex EM visit Add On G2211 Diagnoses Recurrent urinary tract infection N39.0 Atrophic vulvovaginitis N95.2 CPT Codes Cystoscopy - CPT: 76216-[id number] ([id number])
--- OUTSIDE RECORDS SUMMARY | 2025-07-08 15:40 | XMS_ITS | Encounter Summary ---
Author Organization [facility] Address [address] [place] [address] Care Team Providers Care Splitting Machine Feeder Name Role Phone Unknown, Provider Primary Care Provider Louise May Primary Care Provider + Encounter Details Date Type Department Care Team (Late st Contact Info) Description 09/05/2024 Lab Requisition [facility] Pathology & Laboratory Medicine - [address] [address] Outr Resulting Lab, Provider Social History Tobacco [...] Salmonella PCR Negative Negative 09/06/2024 11:42 EST [facility] Shigella/Enteroin vasive E. coli Negative Negative 09/06/2024 11:42 EST [facility] HN LAB CAMPYLOBACTER PCR Negative Negative 09/06/2024 11:42 EST [facility] Shiga Toxin PCR Negative Negative 4 11:42 EST [facility] Feces SPECIMEN FROM RECTUM / Unknown 09/05/2024 8:00 EST 09/05/2024 22:23 EST us Provider Outr Resulting Lab MICROBIOLOGY - GENER AL ORDERABLES Final Result Performing Organization Address City/State/[facility] Co de Phone Number [facility] [address] [place] [address] documented in this encounter Visit Diagnoses Not on filedocumented in this encounter Care Teams Splitting Machine Feeder Relationship Specialty Start Date End Date Unknown, Provider, PCP - General 06/06/13 10/20/24 Louise Montes PA [address] [place] [address] [place] [phone] PCP - General Internal Medicine - Primary Care 10/21/24 documented as of this encounter
--- OUTSIDE RECORDS SUMMARY | 2025-07-08 15:40 | XMS_ITS | Clinical Summary ---
Author Organization [facility] Address [address] [place] [address] Care Team Providers Care Senior Security Architect Name Role Phone Unavailable Primary Care Provider [...]
--- OUTSIDE RECORDS SUMMARY | 2025-07-08 15:40 | XMS_ITS | Clinical Summary ---
Author Organization [facility] Address [address] [place] [phone] Phone Care Team Providers Care Investment Strategist Name Role Phone Physician, Pcp Unknown Primary [...] complete this topic Insurance MEDICARE Care Teams Investment Strategist Relationship Specialty Start Date End Date Physician, Pcp Unknown PCP - General 11/17/24
--- OUTSIDE RECORDS SUMMARY | 2025-07-08 15:40 | XMS_ITS | Encounter Summary ---
Author Organization [facility] Address [address] [place] [id number] Care Team Providers Care Parking Lot Spotter Name Role Phone Unknown, Provider Primary Care Provider Louise May Primary Care Provider + Encounter Details Date Type Department Care Team (Late st Contact Info) Description 01/01/2020 Lab Requisition [facility] Pathology & Laboratory Medicine - [address] [address] Unknown, Provider, Social History Tobacco Use Types [...] Salmonella PCR Negative Negative 01/02/2020 10:27 EDT [facility] Shigella/Enteroin vasive E. coli Negative Negative 01/02/2020 10:27 EDT [facility] HN LAB CAMPYLOBACTER PCR Negative Negative 01/02/2020 10:27 EDT [facility] Shiga Toxin PCR Negative Negative 0 10:27 EDT [facility] Feces SPECIMEN FROM RECTUM / Unknown Stool Collect / Unknown 01/01/2020 14:46 EDT 01/01/2020 21:41 EDT us Provider Unknown MICROBIOLOGY - GENERAL ORDER JASON Final Result [facility] [address] [place] [address] documented in this encounter Visit Diagnoses Not on filedocumented in this encounter Care Teams Parking Lot Spotter Relationship Specialty Start Date End Date Unknown, Provider, PCP - General 06/06/13 10/20/24 Louise Montes PA [address] [place] [address] [place] [address] PCP - General Internal Medicine - Primary Care 10/21/24 documented as of this encounter
--- OUTSIDE RECORDS SUMMARY | 2025-07-08 15:40 | XMS_ITS | Encounter Summary ---
Author Organization [facility] Address [address] [place] [address] Care Team Providers Care Fitness Consultant Name Role Phone Unknown, Provider Primary Care Provider Louise May Primary Care Provider + Encounter Details Date Type Department Care Team (Late st Contact Info) Description 07/11/2024 Lab Requisition [facility] Pathology & Laboratory Medicine - [address] [address] Outr Resulting Lab, Provider Social History Tobacco [...] Salmonella PCR Unresolved Negative 07/12/2024 14:52 EDT [facility] Comment:An UNRESOLVED or IND ETERMINATE [...] E. coli Unresolved Negative 07/12/2024 14:52 T [facility] Comment:An UNRESOLVED or IND ETERMINATE [...] CAMPYLOBACTER PCR Unresolved Negative 07/12/2024 14:52 T [facility] Comment:An UNRESOLVED or IND ETERMINATE [...] Shiga Toxin PCR Unresolved Negative 14:52 EDT [facility] Comment:An UNRESOLVED or IND ETERMINATE [...] MICROBIOLOGY - GENER AL ORDERABLES Final Result [facility] [address] [place] [address] documented in this encounter Visit Diagnoses Not on filedocumented in this encounter Care Teams Fitness Consultant Relationship Specialty Start Date End Date Unknown, Provider, PCP - General 06/06/13 10/20/24 Louise Montes PA [address] [place] [address] [place] [phone] PCP - General Internal Medicine - Primary Care 10/21/24 documented as of this encounter
--- OUTSIDE RECORDS SUMMARY | 2025-07-08 15:40 | XMS_ITS | Encounter Summary ---
Author Organization [facility] Address [address] [place] [address] Care Team Providers Care Chief Hospital Administrator Name Role Phone Unknown, Provider Primary Care Provider Louise May Primary Care Provider + Encounter Details Date Type Department Care Team (Late st Contact Info) Description 01/19/2023 Lab Requisition [facility] Pathology & Laboratory Medicine - [address] [address] Outr Resulting Lab, Provider Social History Tobacco [...] A1c 5.7(H) <5.7 % 01/19/2023 22:49 EDT [facility] Comment: Glycemic Status References: Normal: <5.7% Pre-Diabetes: 5.7% - 6.4% Diagnostic of Diabetes: > or = 6.5% (if confirmed) Est Avg Glucose 117 mg/dL 22:49 EDT [facility] Comment:The eAG represents t he A1c result expressed as average glucose in mg/dL. Blood VENOUS BLOOD / Unknown 01/19/2023 12:10 EDT 01/19/2023 21:52 EDT us Provider Outr Resulting Lab CHEMISTRY & BLOOD GA S ORDERABLES Final Result [facility] [address] [place] [address] documented in this encounter Visit Diagnoses Not on filedocumented in this encounter Care Teams Chief Hospital Administrator Relationship Specialty Start Date End Date Unknown, Provider, PCP - General 06/06/13 10/20/24 Louise Montes PA [address] [place] [address] [place] [address] PCP - General Internal Medicine - Primary Care 10/21/24 documented as of this encounter
--- OUTSIDE RECORDS SUMMARY | 2025-07-08 15:40 | XMS_ITS | Encounter Summary ---
Author Organization [facility] Address [address] [place] [address] Care Team Providers Care Button Sewing Machine Operator Name Role Phone Unknown, Provider Primary Care Provider Louise May Primary Care Provider + Encounter Details Date Type Department Care Team (Late st Contact Info) Description 07/12/2024 Lab Requisition [facility] Pathology & Laboratory Medicine - [address] [address] Outr Resulting Lab, Provider Social History Tobacco [...] Salmonella PCR Negative Negative 07/13/2024 10:56 EDT [facility] Shigella/Enteroin vasive E. coli Negative Negative 07/13/2024 10:56 EDT [facility] HN LAB CAMPYLOBACTER PCR Negative Negative 07/13/2024 10:56 EDT [facility] Shiga Toxin PCR Negative Negative 10:56 EDT [facility] Feces SPECIMEN FROM RECTUM / Unknown 07/12/2024 15:49 EDT 07/12/2024 22:16 EDT us Provider Outr Resulting Lab MICROBIOLOGY - GENER AL ORDERABLES Final Result [facility] [address] [place], [place] [phone] documented in this encounter Visit Diagnoses Not on filedocumented in this encounter Care Teams Button Sewing Machine Operator Relationship Specialty Start Date End Date Unknown, Provider, PCP - General 06/06/13 10/20/24 Louise Montes PA [address] [place] [phone] PCP - General Internal Medicine - Primary Care 10/21/24 documented as of this encounter
--- OUTSIDE RECORDS SUMMARY | 2025-07-08 15:40 | XMS_ITS | Clinical Summary ---
Author Organization [facility] [place] [address] Care Team Providers Care Title Examiner Name Role Phone Louise Montes Primary Care Provider + Allergies No known active allergies Medications LORazepam (ATIVAN) 0.5 mg Tablet TAKE ONE TABLET BY MOUTH EVERY DAY NEEDED 0 9 Active rizatriptan (MAXALT-FROZEN FOOD DEPARTMENT MANAGER) 10 mg Tablet, Rapid Dissolve rizatriptan [...] - Influenza standard series) 05/26/2025 Insurance MEDICARE [facility] Care Teams Title Examiner Relationship Specialty Start Date End Date Louise Montes PA [address] [place] [phone] PCP - General Internal Medicine 12/20/18
--- OUTSIDE RECORDS SUMMARY | 2025-07-08 15:40 | XMS_ITS | Clinical Summary ---
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 Never true 10/24/2024 [facility] - Inadequate Housing Answer Date Re corded What is your living situation today? I have a [facility] place to live 10/24/[address] you li ve. Do you have problems with any of the following? None of the above 10/24/2024 [facility] - Transportation Answer Date Record ed In the past 12 months, has l ack of reliable transportation kept you from medical appointments, meetings, work or from getting things needed for daily living? No 10/24/2024 [facility] - Personal Safety Answer Date Recor ded [...] series) 2037 Medical Devices Implanted Type Area Negative Turner Device Identifier Shelf Expiration Date Model / Serial / Lot Stent Jj 3.0 X 26mm [employer] Coronary Stent System [employer] Co [id number] - [id number] Implanted:Qty : 1 on 10/24/2024 by Melissa Frye MD at [facility] Drug Eluting Stent N/A: Coronary [employer] [id number] 08/01/2027 [id number] / / [id number] Insurance MEDICARE [facility] Advance Directives For more information, please contact: [phone] * Full Code (Latest Code Status on File) Date Activated Date Inactivated Comments 10/24/2024 8:16 10/25/2024 12:22 Question Answer Comments When the patient has NO PULSE: Full Code / CPR Who Made the Decision? Default/Not Discussed Care Teams Electric Drill Operator Relationship Specialty Start Date End Date Louise Montes PA [address] [place] [address] [place] [phone] PCP - General Internal Medicine - Primary Care 10/21/24
--- OUTSIDE RECORDS SUMMARY | 2025-07-08 15:40 | XMS_ITS | Encounter Summary ---
Author Organization [facility] Address [address] [place] [address] Care Team Providers Care Analytics Architect Name Role Phone Unknown, Provider Primary Care Provider Louise May Primary Care Provider + Encounter Details Date Type Department Care Team (Late st Contact Info) Description 10/11/2023 Lab Requisition [facility] Pathology & Laboratory Medicine - [address] [address] Tres Wolfe S, DO [address] [place] [phone] Encounter for other general examination Social History [...] explore management options, if applicable. 10/16/2023 9:41 [facility] Final Diagnosis A. COLON, APPENDICEAL ORIFICE, BIOPSY: - Colonic mucosa with no significant diagnostic abnormalities. - Benign reactive lymphoid aggregate noted. B. COLON, DESCENDING, POLYP, BIOPSY: - Tubular adenoma. 10/16/2023 9:41 [facility] Attestation There was significant resident/fellow involvement in the diagnostic evaluation of this case. By the signature below, the attending physician certifies that they have personally conducted a gross and/or microscopic examination of the described specimens and rendered or confirmed the above diagnosis. 10/16/2023 9:41 [facility] at 09[address] [facility] Clinical History + Cologuard, screening, colonic polyps 10/16/2023 9:41 [facility] Gross Description A. Received in [...] B1. Julia Jones 10/12/2023 11:22 10/16/2023 9:41 [facility] Resident/Elias w: Annemarie Tolentino MD 10/16/2023 9:41 [facility] Performing Lab [facility] 10/16/2023 9:41 [facility] Scanned Images 10/16/2023 9:41 [facility] Tissue DESCENDING COLON STRUCTURE / Unknown 10/11/2023 13:52 EST 10/12/2023 8:27 EST Tissue specimen (specimen) DESCENDING COLON STRUCTURE / Unknown 10/11/2023 13:52 EST 10/12/2023 8:27 EST Tres Fede JoshuaAvaHolly DO PATHOLOGY ORDERABLES Final Result [facility] [address] [place] [phone] documented in this encounter Visit Diagnoses Diagnosis Encounter for other general examination documented in this encounter Care Teams Analytics Architect Relationship Specialty Start Date End Date Unknown, Provider, PCP - General 06/06/13 10/20/24 Louise Montes PA [address] [place] [address] [place] [phone] PCP - General Internal Medicine - Primary Care 10/21/24 documented as of this encounter
--- OUTSIDE RECORDS SUMMARY | 2025-07-08 15:40 | XMS_ITS | Clinical Summary ---
Author Organization [facility] Address [address] [place] [address] Phone Care Team Providers Care Temple Meat Cutter Name Role Phone Unknown, Unknown Primary Care [...] GENERIC COMMERCIAL MEDICARE PART [place] [phone] MEDICARE PART A & B GENERIC COMMERCIAL MEDICARE PART A & B GENERIC COMMERCIAL MEDICARE PART A & B GENERIC COMMERCIAL MEDICARE PART A & B GENERIC COMMERCIAL MEDICARE PART A & B GENERIC COMMERCIAL MEDICARE PART A & B GENERIC COMMERCIAL MEDICARE PART A & B GENERIC COMMERCIAL Care Teams Temple Meat Cutter Relationship Specialty Start Date End Date Unknown, Unknown, PCP - General 02/08/19 Additional Source Comments The information contained in this document represents components of the legal health record. It is not the complete legal health record.[facility]
--- OUTSIDE RECORDS SUMMARY | 2025-07-08 15:40 | XMS_ITS | Encounter Summary ---
Author Organization [facility] Address [address] [place] [address] Care Team Providers Care Supervisor Tubing Name Role Phone Unknown, Provider Primary Care Provider Louise May Primary Care Provider + Encounter Details Date Type Department Care Team (Late st Contact Info) Description 10/05/2023 Lab Requisition [facility] Pathology & Laboratory Medicine - [address] [address] Outr Resulting Lab, Provider Social History Tobacco [...] 137.2 See Note mIU/mL 10/05/2023 23:18 EST [facility] Blood VENOUS BLOOD / Unknown 10/05/2023 9:42 EST 10/05/2023 22:37 EST Narrative [facility] - 10/05/2023 23:18 EST [...] S ORDERABLES Final Result Performing Organization Address [facility] Co de Phone Number [facility] [address] [place] [address] * ESTRADIOL, ADULTS (10/05/2023 9:42 EST) Estradiol <12 See Note pg/mL 10/05/2023 23:15 EST [facility] Comment: NOTE: FEMALE REFERENCE [...] [facility]/ZIP Co de Phone Number [facility] [address] [place] [phone] * VITAMIN D (25,OH) (10/05/2023 9:42 EST) 25OH Vitamin D Tot 32 30 - 100 ng/mL 10/06/2023 10:33 EST [facility] Comment: Vitamin D 25,OH Interpretive Ranges: Deficiency: <10.0 ng/mL Insufficiency: 10.0 - 30.0 ng/mL Sufficiency: 30.0 - 100.0 ng/mL Toxicity: >100.0 ng/mL Blood VENOUS BLOOD / Unknown 10/05/2023 9:42 EST 10/05/2023 22:37 EST us Provider Outr Resulting Lab CHEMISTRY & BLOOD GA S ORDERABLES Final Result Performing Organization Address City/State/[facility] Co de Phone Number [facility] [address] [place] [address] documented in this encounter Visit Diagnoses Not on filedocumented in this encounter Care Teams Supervisor Tubing Relationship Specialty Start Date End Date Unknown, Provider, PCP - General 06/06/13 10/20/24 Louise Montes PA [address] [place] [address] [place] [phone] PCP - General Internal Medicine - Primary Care 10/21/24 documented as of this encounter
== END 2025-07-08 13:52 | disposition home or self-care (01) ==
LOC: HO.HUSH 12:59
PROVIDERS: Visit Provider Urology
DX: R31.29 Other microscopic hematuria (principal); N20.0 Calculus of kidney; N39.0 Urinary tract infection, site not specified; N95.2 Postmenopausal atrophic vaginitis
CPT/HCPCS: 52000; 99213

== ENCOUNTER → 2025-07-08 12:58 | Outpatient (BNVA) | payer MEDICARE, OTHER, SELFPAY | PROVIDERS: Visit Provider Urology | DX: N39.0 Urinary tract infection, site not specified (principal); N95.2 Postmenopausal atrophic vaginitis | CPT/HCPCS: 52000; 99212 ==

== ENCOUNTER 2025-08-28 15:20 | Outpatient (AMB) | payer MEDICARE, OTHER, SELFPAY ==
[2025-08-28 15:22] VITALS: BP 106/68; PULSE 72; O2SAT 99; BMI 29.4
--- NOTE | 2025-08-28 15:22 | MHC.OFFWIV ---
Intake Vital Signs 08/28/25 15:22 Height 5 ft 3 in Weight 166 lb BMI 29.4 BP 106/68 Blood Pressure Location Rt brachial Position Sitting Pulse 72 Pulse Source Pulse Oximeter Pulse Oximetry (%) 99 Oxygen Delivery Method Room Air Intake Visit Reasons: EP-?uti Intake Note: Patient presents c/o UTI symptoms - does take prophylactic Macrobid daily to prevent UTIs. Patient Tobacco Use Status: Former Tobacco user Allergies No Known Allergies Allergy (Verified 08/28/25 15:32) HPI HPI Comments History of Present Illness Details History - The patient is a 65-year-old female presenting with symptoms of a breakthrough urinary tract infection (UTI). - She has a history of recurrent UTIs and has been on prophylactic Macrobid 100 mg once a day for a year, which has been effective until today when she began experiencing burning upon urination. - She is followed by urology at [facility], where a prior workup including an ultrasound and cystoscopy revealed an irritated bladder. - Her past infections have been caused by E. coli and another organism that required treatment with Augmentin in mid-May. - She has also been treated with methenamine, a urinary antiseptic, in the past without success. - Associated symptoms include some nausea over the past two nights, but she denies any fever, chills, or kidney pain. - She currently uses a pea-sized amount of estrogen cream every other night at the urethral meatus. - She denies hematuria, vaginal discharge, bleeding, back pain, nausea or vomiting. Physical Exam General: Cooperative, healthy appearing, comfortable, no acute distress and well developed Cardiac: Normal S1 and S2. RRR, no M/R/G noted. Respiratory: Normal respiratory effort and able to speak in complete sentences. Clear to auscultation bilaterally. No w/r/r noted. Skin: No rashes or lesions noted. GI: Normal inspection. Normal BS noted. Soft, non-tender, non-distended. No TTP of all 4 quadrants. No guarding or rebound tenderness noted. Back: Negative CVA bilaterally Patient was informed and verbally consented to the use of an ambient scribe for clinic note documentation during this visit. [facility] Medical History Multinodular goiter (nontoxic) Paroxysmal atrial fibrillation Afib TREMAYNE (generalized anxiety disorder) Melanocytic nevus Hyperlipidemia History of recurrent UTI (urinary tract infection) Benign paroxysmal positional vertigo Ganglion Family history of multiple myeloma CAD (coronary artery disease) Adjustment disorder Asthma Arthritis Surgical History Hx of ultrasound guided needle biopsy Stented coronary artery Hx of vaginal hysterectomy S/P appendectomy S/P cholecystectomy H/O cystocele repair Previous section History of orthopedic surgery H/O cystoscopy History of percutaneous coronary intervention Family History Father Coronary artery disease Hypertension Mother Vertigo Multiple myeloma Arthritis Son Schizophrenia Anxiety Daughter Anxiety Adrenal failure Atrial fibrillation Lyme disease Son Retinopathy Daughter Obesity Daughter Lyme disease Daughter No problems noted. Sister Uterine cancer Social History Household Members: Children Household Members Other:: Son: Manny Housing: House Alcohol intake: never Patient Tobacco Use Status: Former Tobacco user Tobacco use type: Cigarette e-Cigarette/Vaping Use: Former Use Second Hand Smoke Exposure: No service: No Current occupational status: disabled Cognitive needs: No Hearing needs: No Vision needs: Yes (Glasses) Review of Systems Const All systems reviewed & are unremarkable except as noted in HPI and below Physical Exam Vital Signs: Last Vital Signs Pulse 72 08/28/25 15:22 BP 106/68 08/28/25 15:22 Pulse Ox 99 08/28/25 15:22 Oxygen Delivery Method Room Air 08/28/25 15:22 BMI result Body Mass Index 29.4 Results AMB Urinalysis, Automated UA Leukoctes 0 Vasquez/uL Last Edit by Paulina Chambers CMA on 08/28/25 15:41 UA Nitrite Negative Last Edit by Paulina Chambers CMA on 08/28/25 15:41 UA Urobilinogen 0.2 mg/dL Last Edit by Paulina Chambers CMA on 08/28/25 15:41 UA Protein 0 mg/dL Last Edit by Paulina Chambers CMA on 08/28/25 15:41 UA pH 6.5 Last Edit by Paulina Chambers CMA on 08/28/25 15:41 UA Blood 10 Fausto/uL Last Edit by Paulina Chambers CMA on 08/28/25 15:41 UA Specific [place] 1.005 Last Edit by Paulina Chambers, [place] on 08/28/25 15:41 UA Ketone Negative Last Edit by Paulina Chambers CMA on 08/28/25 15:41 UA Bilirubin 0 mg/dL Last Edit by Paulina Chambers, [place] on 08/28/25 15:41 UA Glucose 0 mg/dL Last Edit by Paulina Chambers CMA on 08/28/25 15:41 Results Reviewed Results Reviewed: Laboratory Last Values Urine pH (Auto) 6.5 08/28/25 15:40 Specific [place] (Auto) 1.005 08/28/25 15:40 Urine Protein (Auto) 0 mg/dL 08/28/25 15:40 Glucose (UA)(Auto) 0 mg/dL 08/28/25 15:40 Urine Ketones (Auto) Negative 08/28/25 15:40 Urine Blood (Auto) 10 Fausto/uL 08/28/25 15:40 Urine Nitrite (Auto) Negative 08/28/25 15:40 Urine Bilirubin (Auto) 0 mg/dL 08/28/25 15:40 Urine Urobilinogen (Auto) 0.2 mg/dL 08/28/25 15:40 Leukocyte Esterase (Auto) 0 Vasquez/uL 08/28/25 15:40 Assessment & Plan Assessment & Plan (1) Dysuria: Code(s): R30.0 - Dysuria Plan Most likely UTI however she is on prophylaxis antibiotics UA +blood Plan - A urine specimen has been collected and will be sent for culture and sensitivity under an existing order placed by her urologist, Dr. Paradise Foote. - A prescription for cefuroxime will be sent to the pharmacy. - The patient was instructed to only start the cefuroxime if her symptoms worsen before culture results are available. - She will use tztx-[id number]-qyhtphe Pyridium for symptomatic relief of dysuria as needed. - She was advised to continue her daily prophylactic Macrobid, even if she starts the course of cefuroxime for the acute infection. - A referral to urogynecology was recommended for further specialized management of her recurrent UTIs, and contact information for [facility] was provided. - The patient was informed that her urologist's office will receive the culture results and provide follow-up. Orders: Orders AMB Urinalysis Automated Today Charlene Ackerman, PT SKILLED Z13.9 - Encounter for screening, unspecified Medications: New cefuroxime axetil 500 mg PO Q12H 10 tabs 0RF Minnie Clark PA-C Coding Level of Care Code Est Pt Level 3 (42499) Diagnoses Dysuria R30.0
--- OUTSIDE RECORDS SUMMARY | 2025-08-28 21:32 | XMS_ITS | Encounter Summary ---
Author Organization [facility] Address [address] [place] [address] Care Team Providers Care Mastic Sprayer Name Role Phone Unknown, Provider Primary Care Provider Louise May Primary Care Provider + Encounter Details Date Type Department Care Team (Late st Contact Info) Description 07/12/2024 Lab Requisition [facility] Pathology & Laboratory Medicine - [address] [address] Outr Resulting Lab, Provider Social History Tobacco [...] Salmonella PCR Negative Negative 07/13/2024 10:56 EDT [facility] Shigella/Enteroin vasive E. coli Negative Negative 07/13/2024 10:56 EDT [facility] HN LAB CAMPYLOBACTER PCR Negative Negative 07/13/2024 10:56 EDT [facility] Shiga Toxin PCR Negative Negative 10:56 EDT [facility] Feces SPECIMEN FROM RECTUM / Unknown 07/12/2024 15:49 EDT 07/12/2024 22:16 EDT us Provider Outr Resulting Lab MICROBIOLOGY - GENER AL ORDERABLES Final Result [facility] [address] [place], [place] [phone] documented in this encounter Visit Diagnoses Not on filedocumented in this encounter Care Teams Mastic Sprayer Relationship Specialty Start Date End Date Unknown, Provider, PCP - General 06/06/13 10/20/24 Louise Montes PA [address] [place] [phone] PCP - General Internal Medicine - Primary Care 10/21/24 documented as of this encounter
--- OUTSIDE RECORDS SUMMARY | 2025-08-28 21:32 | XMS_ITS | Encounter Summary ---
Author Organization [facility] Address [address] [place] [address] Care Team Providers Care Soda Fountain Operator Name Role Phone Unknown, Provider Primary Care Provider Louise May Primary Care Provider + Encounter Details Date Type Department Care Team (Late st Contact Info) Description 09/05/2024 Lab Requisition [facility] Pathology & Laboratory Medicine - [address] [address] Outr Resulting Lab, Provider Social History Tobacco [...] Address City/State/[facility] Co de Phone Number [facility] [address] [place] [address] documented in this encounter Visit Diagnoses Not on filedocumented in this encounter Care Teams Soda Fountain Operator Relationship Specialty Start Date End Date Unknown, Provider, PCP - General 06/06/13 10/20/24 Louise Montes PA [address] [place] [address] [place] [phone] PCP - General Internal Medicine - Primary Care 10/21/24 documented as of this encounter
--- OUTSIDE RECORDS SUMMARY | 2025-08-28 21:32 | XMS_ITS | Encounter Summary ---
Author Organization [facility] Address [address] [place] [address] Care Team Providers Care Logistics/Shipper Name Role Phone Unknown, Provider Primary Care Provider Louise May Primary Care Provider + Encounter Details Date Type Department Care Team (Late st Contact Info) Description 10/11/2023 Lab Requisition [facility] Pathology & Laboratory Medicine - [address] [address] Tres Wolfe S, DO [address] [place] [phone] Encounter for other general examination Social History [...] explore management options, if applicable. 10/16/2023 9:41 [facility] Final Diagnosis A. COLON, APPENDICEAL ORIFICE, BIOPSY: - Colonic mucosa with no significant diagnostic abnormalities. - Benign reactive lymphoid aggregate noted. B. COLON, DESCENDING, POLYP, BIOPSY: - Tubular adenoma. 10/16/2023 9:41 [facility] Attestation There was significant resident/fellow involvement in the diagnostic evaluation of this case. By the signature below, the attending physician certifies that they have personally conducted a gross and/or microscopic examination of the described specimens and rendered or confirmed the above diagnosis. 10/16/2023 9:41 [facility] at [address] [facility] Clinical History + Cologuard, screening, colonic polyps 10/16/2023 9:41 [facility] Gross Description A. Received [...] B1. Julia Jones 10/12/2023 11:22 10/16/2023 9:41 [facility] Resident/Elias w: Annemarie Tolentino MD 10/16/2023 9:41 [facility] Performing Lab [facility] 10/16/2023 9:41 [facility] Scanned Images 10/16/2023 9:41 [facility] Tissue DESCENDING COLON STRUCTURE / Unknown 10/11/2023 13:52 EST 10/12/2023 8:27 EST Tissue specimen (specimen) DESCENDING COLON STRUCTURE / Unknown 10/11/2023 13:52 EST 10/12/2023 8:27 EST Tres Fede JoshuaAvaHolly DO PATHOLOGY ORDERABLES Final Result [facility] [address] [place] [address] documented in this encounter Visit Diagnoses Diagnosis Encounter for other general examination documented in this encounter Care Teams Logistics/Shipper Relationship Specialty Start Date End Date Unknown, Provider, PCP - General 06/06/13 10/20/24 Louise Montes PA [address] [place] [address] [place] [phone] PCP - General Internal Medicine - Primary Care 10/21/24 documented as of this encounter
--- OUTSIDE RECORDS SUMMARY | 2025-08-28 21:32 | XMS_ITS | Clinical Summary ---
Author Organization [facility] Address [address] [place] [address] Phone Care Team Providers Care Ranch Hand Supervisor Name Role Phone Souleymane Mccloud LADDERMAN Primary Care Provider Medications No known medications Social History Tobacco [...] 02/11/2019 9:10 AM EDT Plan of Treatment Upcoming Encounters Date Type Department Care Team (Late st Contact Info) Description 09/26/2025 9:30 AM EST Office Visit [facility] [address] [facility] 3rd Floor, [address] [place] [address] Dell Crawford DO [address] [facility] [address] [place] [phone] [email or web address] Health Maintenance Due Date Last Done Comments [...] file Insurance MEDICARE PART A & B Member Subscriber Plan / Payer (Ef fective 2011-Present) Name:Alysia Huerta Member ID:[id number] Relation to Subscriber:Self Name:Alysia Huerta Subscriber ID:[id number] Payer ID:[id number] Group ID:Not on file Type:Medicare [facility] [address] [place] [phone] [place] [phone] MEDICARE PART A & B GENERIC COMMERCIAL MEDICARE PART A & B GENERIC COMMERCIAL MEDICARE PART A & B GENERIC COMMERCIAL MEDICARE PART A [place] [id number] MEDICARE PART A & B GENERIC COMMERCIAL MEDICARE PART A & B GENERIC [employer] MEDICARE PART A & B GENERIC COMMERCIAL MEDICARE PART A & B GENERIC COMMERCIAL Care Teams Ranch Hand Supervisor Relationship Specialty Start Date End Date Souleymane Mccloud NP [address] [place] [address] [place] [place]ES [address] PCP - General Nurse Practitioner 08/11/25 Additional Source Comments The information contained in this document represents components of the legal health record. It is not the complete legal health record.[facility]
--- OUTSIDE RECORDS SUMMARY | 2025-08-28 21:32 | XMS_ITS | Clinical Summary ---
Author Organization [facility] [place] [address] Care Team Providers Care Clam Grader Name Role Phone Louise Montes Primary Care Provider + Allergies No known active allergies Medications LORazepam (ATIVAN) 0.5 mg Tablet TAKE ONE TABLET BY MOUTH EVERY DAY NEEDED 0 9 Active rizatriptan (MAXALT-PAPER PROCESSING MACHINE HELPER) 10 mg Tablet, Rapid Dissolve rizatriptan 10 [...] Advance Directive 2017 Covid-19 Vaccine (1 - 2024- season) 2025 Influenza (Flu) vaccine (1 o f 1 - Influenza standard series) 05/26/2025 Insurance MEDICARE [facility] Care Teams Clam Grader Relationship Specialty Start Date End Date Louise Montes PA [address] [place] [phone] PCP - General Internal Medicine 12/20/18
--- OUTSIDE RECORDS SUMMARY | 2025-08-28 21:32 | XMS_ITS | Encounter Summary ---
Author Organization [facility] Address [address] [place] [address] Care Team Providers Care Butcher Assistant Name Role Phone Unknown, Provider Primary Care Provider Louise May Primary Care Provider + Encounter Details Date Type Department Care Team (Late st Contact Info) Description 01/01/2020 Lab Requisition [facility] Pathology & Laboratory Medicine - [address] [address] Unknown, Provider, Social History Tobacco Use Types [...] Salmonella PCR Negative Negative 01/02/2020 10:27 EDT [facility] Shigella/Enteroin vasive E. coli Negative Negative 01/02/2020 10:27 EDT [facility] HN LAB CAMPYLOBACTER PCR Negative Negative 01/02/2020 10:27 EDT [facility] Shiga Toxin PCR Negative Negative 0 10:27 EDT [facility] Feces SPECIMEN FROM RECTUM / Unknown Stool Collect / Unknown 01/01/2020 14:46 EDT 01/01/2020 21:41 EDT us Provider Unknown MICROBIOLOGY - GENERAL ORDER JASON Final Result [facility] [address] [place] [address] documented in this encounter Visit Diagnoses Not on filedocumented in this encounter Care Teams Butcher Assistant Relationship Specialty Start Date End Date Unknown, Provider, PCP - General 06/06/13 10/20/24 Louise Montes PA [address] [place] [address] [place] [phone] PCP - General Internal Medicine - Primary Care 10/21/24 documented as of this encounter
--- OUTSIDE RECORDS SUMMARY | 2025-08-28 21:32 | XMS_ITS | Encounter Summary ---
Author Organization [facility] Address [address] [place] [address] Care Team Providers Care Warehouse Production Worker Name Role Phone Unknown, Provider Primary Care Provider Louise May Primary Care Provider + Encounter Details Date Type Department Care Team (Late st Contact Info) Description 07/11/2024 Lab Requisition [facility] Pathology & Laboratory Medicine - [address] [address] Outr Resulting Lab, Provider Social History Tobacco [...] Unresolved Negative 07/12/2024 14:[address] [facility] Comment:An UNRESOLVED or IND [...] Unresolved Negative 07/12/2024 14:[address] [facility] Comment:An UNRESOLVED or IND [...] Unresolved Negative 07/12/2024 14:[address] [facility] Comment:An UNRESOLVED or IND [...] PCR Unresolved Negative 14:[address] [facility] Comment:An UNRESOLVED or IND [...] GENER AL ORDERABLES Final Result [facility] [address] [place] [address] documented in this encounter Visit Diagnoses Not on filedocumented in this encounter Care Teams Warehouse Production Worker Relationship Specialty Start Date End Date Unknown, Provider, PCP - General 06/06/13 10/20/24 Louise Montes PA [address] [place] [address] [place] [phone] PCP - General Internal Medicine - Primary Care 10/21/24 documented as of this encounter
--- OUTSIDE RECORDS SUMMARY | 2025-08-28 21:32 | XMS_ITS | Encounter Summary ---
Author Organization [facility] Address [address] [place] [address] Care Team Providers Care Office Agent Name Role Phone Unknown, Provider Primary Care Provider Louise May Primary Care Provider + Encounter Details Date Type Department Care Team (Late st Contact Info) Description 10/05/2023 Lab Requisition [facility] Pathology & Laboratory Medicine - [address] [address] Outr Resulting Lab, Provider Social History Tobacco [...] 10/05/2023 9:42 EST ESTRADIOL, ADULTS Routine 10/05/2023 9: 42 EST [facility] Routine 10/05/2023 9:42 EST documented in this encounter Results * [facility] (10/05/2023 9:42 EST) [facility] 137.2 See Note mIU/mL 10/05/2023 23:18 EST [facility] Blood VENOUS BLOOD / Unknown 10/05/2023 9:42 EST 10/05/2023 22:37 EST Narrative [facility] - 10/05/2023 23:18 EST NOTE: [...] S ORDERABLES Final Result Performing Organization Address [facility] Co de Phone Number [facility] [address] [place] [address] * ESTRADIOL, ADULTS (10/05/2023 9:42 EST) Estradiol <12 See Note pg/mL 10/05/2023 23:15 EST [facility] Comment: NOTE: FEMALE REFERENCE RANGES: [...] S ORDERABLES Final Result Performing Organization Address City/[facility]/ZIP Co de Phone Number [facility] [address] [place] [phone] * VITAMIN D (25,OH) (10/05/2023 9:42 EST) 25OH Vitamin D Tot 32 30 - 100 ng/mL 10/06/2023 10:33 EST [facility] Comment: Vitamin D 25,OH Interpretive Ranges: Deficiency: <10.0 ng/mL Insufficiency: 10.0 - 30.0 ng/mL Sufficiency: 30.0 - 100.0 ng/mL Toxicity: >100.0 ng/mL Blood VENOUS BLOOD / Unknown 10/05/2023 9:42 EST 10/05/2023 22:37 EST us Provider Outr Resulting Lab CHEMISTRY & BLOOD GA S ORDERABLES Final Result Performing Organization Address City/State/[facility] Co de Phone Number [facility] [address] [place] [address] documented in this encounter Visit Diagnoses Not on filedocumented in this encounter Care Teams Office Agent Relationship Specialty Start Date End Date Unknown, Provider, PCP - General 06/06/13 10/20/24 Louise Montes PA [address] [place] [address] [place] [phone] PCP - General Internal Medicine - Primary Care 10/21/24 documented as of this encounter
--- OUTSIDE RECORDS SUMMARY | 2025-08-28 21:32 | XMS_ITS | Clinical Summary ---
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 Never true 10/24/2024 [facility] - Inadequate Housing Answer Date Re corded What is your living situation today? I have a [facility] place to live 10/24/[address] you li ve. Do you have problems with any of the following? None of the above 10/24/2024 [facility] - Transportation Answer Date Record ed In the past 12 months, has l ack of reliable transportation kept you from medical appointments, meetings, work or from getting things needed for daily living? No 10/24/2024 [facility] - Personal Safety Answer Date [...] Sexual Orientation Straight 11/15/2024 6: 01 EST Last Filed Vital Signs Vital Sign Reading [...] Comments Hepatitis C Screen 1960 COVID-19 Vaccine (2024- season) 2025 RSV Immunization ( o r 60+ Years) (1 - 1-dose 75+ series) 2037 Medical Devices Implanted Type Area Instrument Assembly Supervisor Device Identifier Shelf Expiration Date Model / Serial / Lot Stent Jj 3.0 X 26mm [place] [facility] Coronary Stent System [employer] [id number] - [id number] Implanted:Qty : 1 on 10/24/2024 by Melissa Frye MD at [facility] Drug Eluting Stent N/A: Coronary [employer] [id number] 08/01/2027 [id number] / / [id number] Insurance MEDICARE [facility] Advance Directives For more information, please contact: [phone] * Full Code (Latest Code Status on File) Date Activated Date Inactivated Comments 10/24/2024 8:16 10/25/2024 12:22 Question Answer Comments When the patient has NO PULSE: Full Code / CPR Who Made the Decision? Default/Not Discussed Care Teams Wagon Driver Salesperson Relationship Specialty Start Date End Date Louise Montes PA [address] [place] [address] [place] [phone] PCP - General Internal Medicine - Primary Care 10/21/24
--- OUTSIDE RECORDS SUMMARY | 2025-08-28 21:32 | XMS_ITS | Clinical Summary ---
Author Organization [facility] Address [address] [place] [address] Care Team Providers Care Provisioning Analyst Name Role Phone Unavailable Primary Care Provider [...]
--- OUTSIDE RECORDS SUMMARY | 2025-08-28 21:32 | XMS_ITS | Encounter Summary ---
Author Organization [facility] Address [address] [place] [address] Care Team Providers Care Christian Education Director Name Role Phone Unknown, Provider Primary Care Provider Louise May Primary Care Provider + Encounter Details Date Type Department Care Team (Late st Contact Info) Description 01/19/2023 Lab Requisition [facility] Pathology & Laboratory Medicine - [address] [address] Outr Resulting Lab, Provider Social History Tobacco [...] A1c 5.7(H) <5.7 % 01/19/2023 22:49 EDT [facility] Comment: Glycemic Status References: Normal: <5.7% Pre-Diabetes: 5.7% - 6.4% Diagnostic of Diabetes: > or = 6.5% (if confirmed) Est Avg Glucose 117 mg/dL 22:49 EDT [facility] Comment:The eAG represents t he A1c result expressed as average glucose in mg/dL. Blood VENOUS BLOOD / Unknown 01/19/2023 12:10 EDT 01/19/2023 21:52 EDT us Provider Outr Resulting Lab CHEMISTRY & BLOOD GA S ORDERABLES Final Result [facility] [address] [place] [address] documented in this encounter Visit Diagnoses Not on filedocumented in this encounter Care Teams Christian Education Director Relationship Specialty Start Date End Date Unknown, Provider, PCP - General 06/06/13 10/20/24 Louise Montes PA [address] [place] [address] [place] [address] PCP - General Internal Medicine - Primary Care 10/21/24 documented as of this encounter
== END 2025-08-28 16:48 | disposition home or self-care (01) ==
PROVIDERS: Visit Provider Physician Assistant Medical
DX: R30.0 Dysuria (principal); Z13.9 Encounter for screening, unspecified

== ENCOUNTER 2025-08-28 15:20 | Outpatient (REF) | payer MEDICARE, OTHER, SELFPAY ==
[2025-08-29 10:27] LABS: Appearance Urine Cloudy; Glucose Urine UA Negative (Negative); PH 7.5 (5.0-9.0); Specific Gravity - Urine <= 1.005 (1.005-1.025)
== END 2025-08-28 15:21 | disposition home or self-care (01) ==
LOC: HO.LNP 15:20
PROVIDERS: Nurse Practitioner Family; Visit Provider Nurse Practitioner Family
DX: R30.0 Dysuria (principal)
CPT/HCPCS: 81001; 81003; 87086; 99212

== ENCOUNTER 2025-09-19 12:52 | Emergency (ER) | payer MEDICARE, OTHER, SELFPAY ==
--- NOTE | ~2025-09-19 | XR_ITS ---
EXAMINATION: XR CHEST CLINICAL INFORMATION: cp COMPARISON: Chest 01/03/2025 TECHNIQUE: 2 views of the chest were obtained. FINDINGS: No significant abnormality is noted involving the heart, lungs, mediastinum, bony thorax or soft tissues. XR/XR chest 2V IMPRESSION: Unremarkable chest examination. Electronically signed by: Richie Plunkett MD 09/19/2025 02:22 PM [facility]
--- NOTE | 2025-09-19 12:54 | ECG_ITS ---
Test Reason : cp Blood Pressure : */* mmHG Vent. Rate : 68 BPM Atrial Rate : 68 BPM P-R Int : 134 ms QRS Dur : 92 ms QT Int : 388 ms P-R-T Axes : 58 13 41 degrees QTcB Int : 412 ms Normal sinus rhythm Normal ECG When compared with ECG of 15-Jan-2025 14:30, Aberrant conduction is no longer Present Referred By: Yandy Herrera Electronically Signed By: JUSTIN ROMERO MD
[2025-09-19 13:39] VITALS: BP 167/74; PULSE 67; RESP 18; TEMP 37.1; O2SAT 97; BMI 29.5
--- NOTE | 2025-09-19 13:39 | ED.CHESTPAIN ---
HPI - Chest Pain General Chief Complaint: Chest Pain Stated Complaint: Chest Pain, Light Headed Related Data Home Medications ?Medication ?Instructions ?Recorded ?Confirmed albuterol sulfate 90 mcg/actuation 2 puff inhalation Q4-6H PRN 12/03/24 06/11/25 aerosol inhaler (Ventolin HFA) Shortness Of Breath clopidogrel 75 mg tablet 75 mg PO DAILY 12/03/24 06/11/25 metoprolol succinate 25 mg 25 mg PO BID 12/03/24 06/11/25 tablet,extended release 24 hr nitroglycerin 0.4 mg sublingual 0.4 mg sublingual Q5M PRN Chest 12/03/24 06/11/25 tablet Pain acetaminophen 650 mg 1,300 mg PO Q8H PRN Pain 01/15/25 06/11/25 tablet,extended release (Tylenol Arthritis Pain) estradiol 0.01% (0.1 mg/gram) 1 g vaginal 3XW 03/05/25 06/11/25 vaginal cream aspirin 81 mg tablet,delayed 81 mg PO DAILY 10/01/25 release (Adult Aspirin Regimen) melatonin 3 mg tablet 3 mg PO BEDTIME Insomnia 10/01/25 Previous Rx's ?Medication ?Instructions ?Recorded phenazopyridine 200 mg tablet 200 mg PO Q8H PRN urinary pain 3 05/30/25 (Pyridium) days #14 tabs nitrofurantoin macrocrystal 100 mg 100 mg PO BEDTIME 90 days #90 caps 07/08/25 capsule lorazepam 0.5 mg tablet 0.5 mg PO DAILY PRN Anxiety #30 07/14/25 tabs inhaler space #1 ea 07/22/25 amoxicillin 875 mg-potassium 1 tab PO Q12H #14 tabs 10/01/25 clavulanate 125 mg tablet cetirizine 5 mg-pseudoephedrine ER 1 tab PO BID 7 days #14 tabs 10/01/25 120 mg tablet,extended release,12hr Allergies Allergy/AdvReac Type Severity Reaction Status Date / Time No Known Allergies Allergy Verified 10/01/25 08:59 [facility] Past Medical History Medical History Multinodular goiter (nontoxic) Paroxysmal atrial fibrillation Afib TREMAYNE (generalized anxiety disorder) Melanocytic nevus Hyperlipidemia History of recurrent UTI (urinary tract infection) Benign paroxysmal positional vertigo Ganglion Family history of multiple myeloma CAD (coronary artery disease) Adjustment disorder Asthma Arthritis Surgical History Hx of ultrasound guided needle biopsy Stented coronary artery Hx of vaginal hysterectomy S/P appendectomy S/P cholecystectomy H/O cystocele repair Previous section History of orthopedic surgery H/O cystoscopy History of percutaneous coronary intervention Family History Family History Father Coronary artery disease Hypertension Mother Vertigo Multiple myeloma Arthritis Son Schizophrenia Anxiety Daughter Anxiety Adrenal failure Atrial fibrillation Lyme disease Son Retinopathy Daughter Obesity Daughter Lyme disease Daughter No problems noted. Sister Uterine cancer Social History Social History Household Members: Children Household Members Other:: Son: Manny Housing: House Alcohol intake: never Patient Tobacco Use Status: Former Tobacco user Tobacco use type: Cigarette e-Cigarette/Vaping Use: Former Use Second Hand Smoke Exposure: No service: No Current occupational status: disabled Cognitive needs: No Hearing needs: No Vision needs: Yes (Glasses) Physical Exam Vital Signs: Vital Signs: Last Vital Signs Temp 98.7 F 09/19/25 13:39 Pulse 67 09/19/25 13:39 Resp 18 09/19/25 13:39 BP 167/74 H 09/19/25 13:39 Pulse Ox 97 09/19/25 13:39 O2 Del Method Room Air 09/19/25 13:39 BMI result Body Mass Index 29.5 Course Course Course Narrative: This is a Rapid Medical Exam performed in triage by Yandy Herrera PA-C. Full HPI, ROS and PE to be performed by primary ED provider. 65 yo F with a past medical history of asthma, arthritis, CAD, AFib on Plavix presenting to the ED c/o intermittent CP since the passing of her father & increased stress. States father on Monday - son OD'd on psych meds recently - going through a divorce - moved here from [place]. States she feels heartbroken. Had some nausea & lightheadedness today. denies SI/HI PE: NAD, nontoxic appearing, ambulating w/steady gait Plan: EKG, labs, CXR, SARs Medical Decision Making Lab Data 12/26/25 14:15 09/19/25 14:15 Labs: Lab Results 09/19/25 Range/Units 14:15 WBC 9.0 (4.8-10.8) X10*3/uL RBC 4.99 (4.20-5.50) X10*6/uL Hgb 15.0 (12.0-16.0) g/dl Hct 44.7 (37.0-47.0) % MCV 89.6 (80.0-98.0) fL MCH 30.1 (27.0-33.0) pg MCHC 33.6 (31.0-35.0) g/dl RDW 12.8 (11.0-16.0) % Plt Count 306 (160-400) X10*3/uL MPV 10.6 (9.4-12.3) fL Immature Gran % (Auto) 0.3 (0.0-0.4) % Neut % (Auto) 54.5 (45-73) % Lymph % (Auto) 37.5 (20-40) % Noble % (Auto) 6.1 (2-11) % Eos % (Auto) 1.0 (0-4) % Baso % (Auto) 0.6 (0-2) % Lymph # (Auto) 3.4 (1.2-4.9) X10*3/uL Noble # (Auto) 0.6 (0.1-1.2) X10*3/uL Eos # (Auto) 0.1 (0.0-0.4) X10*3/uL Baso # (Auto) 0.1 (0.0-0.2) X10*3/uL Abs Immat Gran (auto) 0.03 (0.00-0.03) X10*3/uL Absolute Neuts (auto) 4.9 (2.0-8.3) x10*3/uL Absolute Nucleated RBC 0.000 (0.0-0.012) X10*3/uL Nucleated RBC % (auto) 0.0 (0.0-0.2) /100WBC Sodium 142 (135-145) mmol/L Potassium 3.7 (3.3-5.1) mmol/L Chloride 105 (96-108) mmol/L Carbon Dioxide 29 (22-29) mmol/L Anion Gap 12 (12-20) BUN 11 (9-16) mg/dL Creatinine 0.55 (0.5-1.4) mg/dL Estim Creat Clear Calc 101.8 Estimated GFR > 60 Random Glucose 101 (60-115) mg/dL Calcium 10.7 H (8.4-10.2) mg/dL Magnesium 2.1 (1.6-2.6) mg/dL Total Bilirubin 0.4 (0.0-1.0) mg/dL Direct Bilirubin 0.1 (0.0-0.5) mg/dL AST 21 (5-31) U/L ALT 22 (0-31) U/L Alkaline Phosphatase 99 (39-117) U/L Troponin I High Sens < 2.7 (<3.5-17.0) ng/L Total Protein 7.7 (6.5-8.0) g/dL Albumin 4.8 (3.5-5.0) g/dL Discharge Plan Discharge Clinical Impression: Chest pain Patient Disposition: Left W/O Completing Treatment Prescriptions: No Action phenazopyridine [Pyridium] 200 mg tablet 200 mg PO Q8H PRN (Reason: urinary pain) 3 Days Qty: 14 0RF lorazepam 0.5 mg tablet 0.5 mg PO DAILY PRN (Reason: Anxiety) Qty: 30 0RF (DME) inhaler space See Rx Instructions .Route .MEDSUPPLY Qty: 1 0RF Rx Instructions: As directed acetaminophen [Tylenol Arthritis Pain] 650 mg Tablet Extended Release 1,300 mg PO Q8H PRN (Reason: Pain) melatonin 3 mg tablet 3 mg PO BEDTIME albuterol sulfate [Ventolin HFA] 90 mcg/actuation HFA aerosol inhaler 2 puff inhalation Q4-6H PRN (Reason: Shortness Of Breath) clopidogrel 75 mg tablet 75 mg PO DAILY metoprolol succinate 25 mg tablet extended release 24 hr 25 mg PO BID nitroglycerin 0.4 mg tablet, sublingual 0.4 mg sublingual Q5M PRN (Reason: Chest Pain) Rx Instructions: do not exceed 3 doses per episode estradiol 0.01 % (0.1 mg/gram) cream 1 g vaginal 3XW aspirin [Adult Aspirin Regimen] 81 mg tablet,delayed release (DR/EC) 81 mg PO DAILY amoxicillin-pot clavulanate 875-125 mg tablet 1 tab PO Q12H Qty: 14 0RF cetirizine-pseudoephedrine 5-120 mg tablet extended release 12 hr 1 tab PO BID 7 Days Qty: 14 0RF nitrofurantoin macrocrystal 100 mg capsule 100 mg PO BEDTIME 90 Days Qty: 90 1RF Rx Instructions: must administer with a meal/food Discharge Date/Time: 09/19/25 17:15
[2025-09-19 14:20] LABS: MANUAL DIFF FLAG NO
[2025-09-19 14:21] LABS: Hematocrit 44.7 % (37.0-47.0); Hemoglobin 15.0 g/dl (12.0-16.0); Imm Gran Abs Auto 0.03 X10*3/uL (0.00-0.03); Imm Gran Pct Auto 0.3 % (0.0-0.4); Lymphocytes Absolute Auto 3.4 X10*3/uL (1.2-4.9); Mean Corpuscular HGB Conc 33.6 g/dl (31.0-35.0); Mean Corpuscular Hemoglobin 30.1 pg (27.0-33.0); Mean Corpuscular Volume 89.6 fL (80.0-98.0); NRBC Abs Auto 0.000 X10*3/uL (0.0-0.012); NRBC Pct Auto 0.0 /100WBC (0.0-0.2); Platelet Count 306 X10*3/uL (160-400); Red Blood Count 4.99 X10*6/uL (4.20-5.50); White Blood Count 9.0 X10*3/uL (4.8-10.8)
[2025-09-19 14:35] LABS: Alanine Aminotransferase 22 U/L (0-31); Albumin Level 4.8 g/dL (3.5-5.0); Alkaline Phosphatase 99 U/L (39-117); Anion Gap 12 (12-20); Aspartate Amino Transferase 21 U/L (5-31); Blood Urea Nitrogen 11 mg/dL (9-16); Calcium 10.7 mg/dL (8.4-10.2); Carbon Dioxide 29 mmol/L (22-29); Chloride 105 mmol/L (96-108); Creatinine Clr Calc Pharmacy 101.8; Estimated Glomerular Filt Rate > 60; Magnesium 2.1 mg/dL (1.6-2.6); Potassium 3.7 mmol/L (3.3-5.1); Sodium 142 mmol/L (135-145); Total Protein 7.7 g/dL (6.5-8.0)
[2025-09-19 14:46] LABS: Troponin-I High Sensitivity < 2.7 ng/L (<3.5-17.0)
--- OUTSIDE RECORDS SUMMARY | 2025-09-19 16:05 | XMS_ITS | Clinical Summary ---
Author Organization [facility] Address [address] [place] [address] Care Team Providers Care Forest Fire Lookout Name Role Phone Unavailable Primary Care Provider [...]
--- OUTSIDE RECORDS SUMMARY | 2025-09-19 16:05 | XMS_ITS | Encounter Summary ---
Author Organization [facility] Address [address] [place] [address] Care Team Providers Care Hand I Tube Bender Name Role Phone Unknown, Provider Primary Care Provider Louise May Primary Care Provider + Encounter Details Date Type Department Care Team (Late st Contact Info) Description 07/11/2024 Lab Requisition [facility] Pathology & Laboratory Medicine - [address] [address] Outr Resulting Lab, Provider Social History Tobacco [...] Salmonella PCR Unresolved Negative 07/12/2024 14:52 EDT [facility] Comment:An UNRESOLVED or IND [...] E. coli Unresolved Negative 07/12/2024 14:52 T [facility] Comment:An UNRESOLVED or IND [...] CAMPYLOBACTER PCR Unresolved Negative 07/12/2024 14:52 T [facility] Comment:An UNRESOLVED or IND [...] Shiga Toxin PCR Unresolved Negative 14:52 EDT [facility] Comment:An UNRESOLVED or IND [...] MICROBIOLOGY - GENER AL ORDERABLES Final Result [facility] [address] [place] [address] documented in this encounter Visit Diagnoses Not on filedocumented in this encounter Care Teams Hand I Tube Bender Relationship Specialty Start Date End Date Unknown, Provider, PCP - General 06/06/13 10/20/24 Louise Montes PA [address] [place] [address] [place] [phone] PCP - General Internal Medicine - Primary Care 10/21/24 documented as of this encounter
--- OUTSIDE RECORDS SUMMARY | 2025-09-19 16:05 | XMS_ITS | Clinical Summary ---
Author Organization [facility] [place] [address] Care Team Providers Care Conditioning Coach Name Role Phone Louise Montes Primary Care Provider + Allergies No known active allergies Medications LORazepam (ATIVAN) 0.5 mg Tablet TAKE ONE TABLET BY MOUTH EVERY DAY NEEDED 0 9 Active rizatriptan (MAXALT-DIRECTOR OF CHILD WELFARE SERVICES) 10 mg Tablet, Rapid Dissolve rizatriptan 10 [...] - Influenza standard series) 05/26/2025 Insurance MEDICARE [facility] Care Teams Conditioning Coach Relationship Specialty Start Date End Date Louise Montes PA [address] [place] [phone] PCP - General Internal Medicine 12/20/18
--- OUTSIDE RECORDS SUMMARY | 2025-09-19 16:05 | XMS_ITS | Encounter Summary ---
Author Organization [facility] Address [address] [place] [address] Care Team Providers Care Sand Mixer Machine Name Role Phone Unknown, Provider Primary Care Provider Louise May Primary Care Provider + Encounter Details Date Type Department Care Team (Late st Contact Info) Description 07/12/2024 Lab Requisition [facility] Pathology & Laboratory Medicine - [address] [address] Outr Resulting Lab, Provider Social History Tobacco [...] Salmonella PCR Negative Negative 07/13/2024 10:[address] [facility] Shigella/Enteroin vasive E. coli Negative Negative 07/13/2024 10:[address] [facility] HN LAB CAMPYLOBACTER PCR Negative Negative 07/13/2024 10:[address] [facility] Shiga Toxin PCR Negative Negative 10:[address] [facility] Feces SPECIMEN FROM RECTUM / Unknown 07/12/2024 15:49 EDT 07/12/2024 22:16 EDT us Provider Outr Resulting Lab MICROBIOLOGY - GENER AL ORDERABLES Final Result [facility] [address] [place], [place] [phone] documented in this encounter Visit Diagnoses Not on filedocumented in this encounter Care Teams Sand Mixer Machine Relationship Specialty Start Date End Date Unknown, Provider, PCP - General 06/06/13 10/20/24 Louise Montes PA [address] [place] [phone] PCP - General Internal Medicine - Primary Care 10/21/24 documented as of this encounter
--- OUTSIDE RECORDS SUMMARY | 2025-09-19 16:05 | XMS_ITS | Clinical Summary ---
Author Organization [facility] Address [address] [place] [phone] Phone Care Team Providers Care Public Health Advisor Name Role Phone Physician, Pcp Unknown [...] Influencers of Health Screening 11/17/2024 COVID-19 Vaccine (2024-2 6 season) 2025 Influenza Vaccine (#1) 2025 RSV [...] complete this topic Insurance MEDICARE Care Teams Public Health Advisor Relationship Specialty Start Date End Date Physician, Pcp Unknown PCP - General 11/17/24
--- OUTSIDE RECORDS SUMMARY | 2025-09-19 16:05 | XMS_ITS | Encounter Summary ---
Author Organization [facility] Address [address] [place] [address] Care Team Providers Care Skidway Man Name Role Phone Unknown, Provider Primary Care Provider Louise May Primary Care Provider + Encounter Details Date Type Department Care Team (Late st Contact Info) Description 01/01/2020 Lab Requisition [facility] Pathology & Laboratory Medicine - [address] [address] Unknown, Provider, Social History Tobacco Use Types [...] Negative Negative 01/02/2020 10:27 EDT [facility] Shigella/Enteroin vasive E. coli Negative Negative 01/02/2020 10:27 EDT [facility] HN LAB CAMPYLOBACTER PCR Negative Negative 01/02/2020 10:27 EDT [facility] Shiga Toxin PCR Negative Negative 0 10:27 EDT [facility] Feces SPECIMEN FROM RECTUM / Unknown Stool Collect / Unknown 01/01/2020 14:46 EDT 01/01/2020 21:41 EDT us Provider Unknown MICROBIOLOGY - GENERAL ORDER JASON Final Result [facility] [address] [place] [address] documented in this encounter Visit Diagnoses Not on filedocumented in this encounter Care Teams Skidway Man Relationship Specialty Start Date End Date Unknown, Provider, PCP - General 06/06/13 10/20/24 Louise Montes PA [address] [place] [address] [place] [phone] PCP - General Internal Medicine - Primary Care 10/21/24 documented as of this encounter
--- OUTSIDE RECORDS SUMMARY | 2025-09-19 16:05 | XMS_ITS | Encounter Summary ---
Author Organization [facility] Address [address] [place] [address] Care Team Providers Care Finished Hardware Erector Name Role Phone Unknown, Provider Primary Care Provider Louise May Primary Care Provider + Encounter Details Date Type Department Care Team (Late st Contact Info) Description 09/05/2024 Lab Requisition [place] Pathology & Laboratory Medicine - [address] [address] Outr Resulting Lab, Provider Social History Tobacco [...] Salmonella PCR Negative Negative 09/06/2024 11:42 EST [facility] Shigella/Enteroin vasive E. coli Negative Negative 09/06/2024 11:42 EST [facility] HN LAB CAMPYLOBACTER PCR Negative Negative 09/06/2024 11:42 EST [facility] Shiga Toxin PCR Negative Negative 4 11:42 EST [facility] Feces SPECIMEN FROM RECTUM / Unknown 09/05/2024 8:00 EST 09/05/2024 22:23 EST us Provider Outr Resulting Lab MICROBIOLOGY - GENER AL ORDERABLES Final Result Performing Organization Address City/State/[facility] Co de Phone Number [facility] [address] [place] [address] documented in this encounter Visit Diagnoses Not on filedocumented in this encounter Care Teams Finished Hardware Erector Relationship Specialty Start Date End Date Unknown, Provider, PCP - General 06/06/13 10/20/24 Louise Montes PA [address] [place] [address] [place] [phone] PCP - General Internal Medicine - Primary Care 10/21/24 documented as of this encounter
--- OUTSIDE RECORDS SUMMARY | 2025-09-19 16:05 | XMS_ITS | Clinical Summary ---
Author Organization [facility] Address [address] [place] [address] Phone Care Team Providers Care Low Pressure Firer Name Role Phone Souleymane Mccloud VOCATIONAL HORTICULTURE INSTRUCTOR Primary Care Provider Medications No known medications [...] MEDICARE PART A [place] [address] MEDICARE PART [place] [address] MEDICARE PART A & B GENERIC COMMERCIAL MEDICARE PART A & B Member Subscriber Plan / Payer ( fective 2011-Present) Name:Alysia Huerta Member ID:[id number] Relation to Subscriber:Self Name:Alysia Huerta Subscriber ID:[id number] Payer ID:[id number] Group ID:Not on file Type:Medicare Address: [employer] [address] [place] [address] MEDICARE PART A & B GENERIC COMMERCIAL MEDICARE PART A & B GENERIC COMMERCIAL MEDICARE PART A & B GENERIC COMMERCIAL MEDICARE PART A & B GENERIC COMMERCIAL Care Teams Low Pressure Firer Relationship Specialty Start Date End Date Souleymane Mccloud NP [address] [place] [address] Dr [address] [place] [address] PCP - General Nurse Practitioner 08/11/25 Additional Source Comments The information contained in this document represents components of the legal health record. It is not the complete legal health record.[facility]
--- OUTSIDE RECORDS SUMMARY | 2025-09-19 16:05 | XMS_ITS | Clinical Summary ---
Author Organization [facility] Address [address] [place] [address] Care Team Providers Care Box Blank Machine Feeder Name Role Phone Louise Montes Primary Care [...] drink = 0.6 oz pur e alcohol) [facility] Utilities Answer Date Recorded In the [...] money to get more. Never true 10/24/2024 [facility] - Inadequate Housing Answer Date Re corded What is your living situation today? I have a [facility] place to live 10/24/[address] you li ve. Do you have problems with any of the following? None of the above 10/24/2024 [facility] - Transportation Answer Date Record ed In the past 12 months, has l ack of reliable transportation kept you from medical appointments, meetings, work or from getting things needed for daily living? No 10/24/2024 [facility] - Personal Safety Answer Date Recor [...] series) 2037 Medical Devices Implanted Type Area Hand Candy Dipper Device Identifier Shelf Expiration Date Model / Serial / Lot Stent Jj 3.0 X 26mm [place] [facility] Coronary Stent System [employer] [id number] - [id number] Implanted:Qty : 1 on 10/24/2024 by Melissa Frye MD at [facility] Drug Eluting Stent N/A: Coronary [employer] [id number] 08/01/2027 [id number] / / [id number] Insurance MEDICARE [facility] Advance Directives For more information, please contact: [phone] * Full Code (Latest Code Status on File) Date Activated Date Inactivated Comments 10/24/2024 8:16 10/25/2024 12:22 Question Answer Comments When the patient has NO PULSE: Full Code / CPR Who Made the Decision? Default/Not Discussed Care Teams Box Blank Machine Feeder Relationship Specialty Start Date End Date Louise Montes PA [address] [place] [address] [place] [phone] PCP - General Internal Medicine - Primary Care 10/21/24
--- OUTSIDE RECORDS SUMMARY | 2025-09-19 16:05 | XMS_ITS | Encounter Summary ---
Author Organization [facility] Address [address] [place] [address] Care Team Providers Care Stringer Machine Tender Name Role Phone Unknown, Provider Primary Care Provider Louise May Primary Care Provider + Encounter Details Date Type Department Care Team (Late st Contact Info) Description 01/19/2023 Lab Requisition [facility] Pathology & Laboratory Medicine - [address] [address] Outr Resulting Lab, Provider Social History Tobacco [...] A1c 5.7(H) <5.7 % 01/19/2023 22:49 EDT [facility] Comment: Glycemic Status References: Normal: <5.7% Pre-Diabetes: 5.7% - 6.4% Diagnostic of Diabetes: > or = 6.5% (if confirmed) Est Avg Glucose 117 mg/dL 22:49 EDT [facility] Comment:The eAG represents t he A1c result expressed as average glucose in mg/dL. Blood VENOUS BLOOD / Unknown 01/19/2023 12:10 EDT 01/19/2023 21:52 EDT us Provider Outr Resulting Lab CHEMISTRY & BLOOD GA S ORDERABLES Final Result [facility] [address] [place] [address] documented in this encounter Visit Diagnoses Not on filedocumented in this encounter Care Teams Stringer Machine Tender Relationship Specialty Start Date End Date Unknown, Provider, PCP - General 06/06/13 10/20/24 Louise Montes PA [address] [place] [address] [place] [address] PCP - General Internal Medicine - Primary Care 10/21/24 documented as of this encounter
--- OUTSIDE RECORDS SUMMARY | 2025-09-19 16:05 | XMS_ITS | Encounter Summary ---
Author Organization [facility] Address [address] [place] [address] Care Team Providers Care Filter Operator Name Role Phone Unknown, Provider Primary Care Provider Louise May Primary Care Provider + Encounter Details Date Type Department Care Team (Late st Contact Info) Description 10/05/2023 Lab Requisition [facility] Pathology & Laboratory Medicine - [address] [address] Outr Resulting Lab, Provider Social History Tobacco [...] 137.2 See Note mIU/mL 10/05/2023 23:18 EST [facility] Blood VENOUS BLOOD / Unknown 10/05/2023 9:42 EST 10/05/2023 22:37 EST Narrative [facility] - 10/05/2023 23:18 EST [...] S ORDERABLES Final Result Performing Organization Address [facility] [[email or web address]] Co de Phone Number [facility] [address] [place] [address] * ESTRADIOL, ADULTS (10/05/2023 9:42 EST) Estradiol <12 See Note pg/mL 10/05/2023 23:15 EST [facility] Comment: NOTE: FEMALE REFERENCE [...] S ORDERABLES Final Result Performing Organization Address City/[facility]/ZIP Co de Phone Number [facility] [address] [place] [phone] * VITAMIN D (25,OH) (10/05/2023 9:42 EST) 25OH Vitamin D Tot 32 30 - 100 ng/mL 10/06/2023 10:33 EST [facility] Comment: Vitamin D 25,OH Interpretive Ranges: Deficiency: <10.0 ng/mL Insufficiency: 10.0 - 30.0 ng/mL Sufficiency: 30.0 - 100.0 ng/mL Toxicity: >100.0 ng/mL Blood VENOUS BLOOD / Unknown 10/05/2023 9:42 EST 10/05/2023 22:37 EST us Provider Outr Resulting Lab CHEMISTRY & BLOOD GA S ORDERABLES Final Result Performing Organization Address City/State/[facility] [[email or web address]] Co de Phone Number [facility] [address] [place] [address] documented in this encounter Visit Diagnoses Not on filedocumented in this encounter Care Teams Filter Operator Relationship Specialty Start Date End Date Unknown, Provider, PCP - General 06/06/13 10/20/24 Louise Montes PA [address] [place] [address] [place] [phone] PCP - General Internal Medicine - Primary Care 10/21/24 documented as of this encounter
--- OUTSIDE RECORDS SUMMARY | 2025-09-19 16:05 | XMS_ITS | Encounter Summary ---
Author Organization [facility] Address [address] [place] [address] Care Team Providers Care Electrolysis Engineer Name Role Phone Unknown, Provider Primary Care Provider Louise May Primary Care Provider + Encounter Details Date Type Department Care Team (Late st Contact Info) Description 10/11/2023 Lab Requisition [facility] Pathology & Laboratory Medicine - [address] [address] Tres Wolfe S, DO [address] [place] [phone] Encounter for other general examination Social History [...] explore management options, if applicable. 10/16/2023 9:41 [facility] Final Diagnosis A. COLON, APPENDICEAL ORIFICE, BIOPSY: - Colonic mucosa with no significant diagnostic abnormalities. - Benign reactive lymphoid aggregate noted. B. COLON, DESCENDING, POLYP, BIOPSY: - Tubular adenoma. 10/16/2023 9:41 [facility] Attestation There was significant resident/fellow involvement in the diagnostic evaluation of this case. By the signature below, the attending physician certifies that they have personally conducted a gross and/or microscopic examination of the described specimens and rendered or confirmed the above diagnosis. 10/16/2023 9:41 [facility] at [address] [facility] Clinical History + Cologuard, screening, colonic polyps 10/16/2023 9:41 [facility] Gross Description A. Received [...] B1. Julia Jones 10/12/2023 11:22 10/16/2023 9:41 [facility] Resident/Elias w: Annemarie Tolentino MD 10/16/2023 9:41 [facility] Performing Lab [facility] 10/16/2023 9:41 [facility] Scanned Images 10/16/2023 9:41 [facility] Tissue DESCENDING COLON STRUCTURE / Unknown 10/11/2023 13:52 EST 10/12/2023 8:27 EST Tissue specimen (specimen) DESCENDING COLON STRUCTURE / Unknown 10/11/2023 13:52 EST 10/12/2023 8:27 EST Tres Fede JoshuaAvaHolly DO PATHOLOGY ORDERABLES Final Result [facility] [address] [place] [id number] documented in this encounter Visit Diagnoses Diagnosis Encounter for other general examination documented in this encounter Care Teams Electrolysis Engineer Relationship Specialty Start Date End Date Unknown, Provider, PCP - General 06/06/13 10/20/24 Louise Montes PA [address] [place] [address] [place] [phone] PCP - General Internal Medicine - Primary Care 10/21/24 documented as of this encounter
== END 2025-09-19 17:15 | disposition left against medical advice (07) ==
PROVIDERS: Physician Assistant; Emergency Provider Emergency Medicine
DX: R07.9 Chest pain, unspecified (principal); I48.0 Paroxysmal atrial fibrillation; R11.0 Nausea; R42 Dizziness and giddiness; I25.10 Atherosclerotic heart disease of native coronary artery without angina pectoris; J45.909 Unspecified asthma, uncomplicated; F43.20 Adjustment disorder, unspecified; Z87.891 Personal history of nicotine dependence; Z87.440 Personal history of urinary (tract) infections; Z79.899 Other long term (current) drug therapy; Z79.01 Long term (current) use of anticoagulants
CPT/HCPCS: 71046; 80048; 80076; 83735; 84484; 85025; 93005; 99283

== ENCOUNTER → 2025-09-19 12:54 | Outpatient (BNV) | payer MEDICARE, OTHER, SELFPAY | PROVIDERS: Visit Provider Internal Medicine Cardiovascular Disease | DX: R07.9 Chest pain, unspecified (principal) | CPT/HCPCS: 93010 ==

== ENCOUNTER → 2025-09-19 13:43 | Outpatient (BNV) | payer MEDICARE, OTHER, SELFPAY | PROVIDERS: Visit Provider Radiology Diagnostic Radiology | DX: R07.9 Chest pain, unspecified (principal) | CPT/HCPCS: 71046 ==